=== PATIENT | female | born 1970 ===

== ENCOUNTER 2020-10-01 13:09 | Outpatient (REF) | payer MEDICAID, SELFPAY ==
--- NOTE | ~2020-10-01 | XR_ITS ---
EXAMINATION: XR CHEST CLINICAL INFORMATION: Positive TB test COMPARISON: Previous chest x-ray September 2016 TECHNIQUE: 2 views of the chest were obtained. FINDINGS: The cardiac and mediastinal contours are stable. There is chronic scarring or subsegmental atelectasis at the left lung base. This is similar to September 2016 exam. The right lung is clear. There is no pleural effusion or pneumothorax. Bony structures are unremarkable. XR/XR chest 2V IMPRESSION: No evidence of TB in the chest. Chronic scarring or subsegmental atelectasis at the left lung base similar to September 2016 exam.
--- NOTE | ~2020-10-01 | MM_ITS ---
EXAMINATION: MM SCREENING DIGITAL BREAST TOMOSYNTHESIS, BILATERAL CLINICAL INFORMATION: Screening. Asymptomatic. The lifetime risk of breast cancer based on the Tyrer-Cuzick Model is 7%. COMPARISON: Mammography: 11/02/2018, 10/23/2017, 08/04/2016; outside exam 08/11/2015 ([place]). TECHNIQUE: Digital breast tomosynthesis is performed in both the craniocaudal and mediolateral oblique views along with computer-aided detection (CAD). Synthesized 2D images are generated from the tomosynthesis. FINDINGS: There are scattered areas of fibroglandular density (ACR BI-RADS breast composition Category b). There are no significant masses, abnormal calcifications, or other abnormalities. Parenchymal pattern is similar to prior studies. There are scattered bilateral isolated and grouped round calcifications, most are dermal. There are no significant changes. MM/MM tomosynthesis screening BI IMPRESSION: No mammographic evidence of malignancy. ASSESSMENT: BI-RADS 2: Benign RECOMMENDATION: Routine annual mammography screening. This patient's information was entered into a reminder system with a target due date for their next mammogram.
== END 2020-10-01 13:10 | disposition home or self-care (01) ==
LOC: HO.MAMMO 13:09
PROVIDERS: PCP Internal Medicine; Visit Provider Internal Medicine
DX: Z12.31 Encounter for screening mammogram for malignant neoplasm of breast (principal); R76.11 Nonspecific reaction to tuberculin skin test without active tuberculosis
CPT/HCPCS: 71046; 77063; 77067

== ENCOUNTER 2021-03-04 17:09 | Outpatient (REF) | payer MEDICAID, SELFPAY ==
--- NOTE | ~2021-03-04 | XR_ITS ---
EXAMINATION: XR CHEST CLINICAL INFORMATION: Positive TB test COMPARISON: Previous chest x-ray September 2020 TECHNIQUE: 2 views of the chest were obtained. FINDINGS: The cardiac and mediastinal contours are stable. There is chronic subsegmental atelectasis or scarring at the left lung base in the left lower lobe similar to prior exam. The lungs are otherwise clear. There is no pleural effusion or pneumothorax. Bony structures are unremarkable. XR/XR chest 2V IMPRESSION: No evidence of TB in the chest. Chronic subsegmental atelectasis or scarring in the left lower lobe.
== END 2021-03-04 17:10 | disposition home or self-care (01) ==
LOC: HO.XRAY 17:09
PROVIDERS: PCP Internal Medicine; Visit Provider Internal Medicine
DX: R76.11 Nonspecific reaction to tuberculin skin test without active tuberculosis (principal)
CPT/HCPCS: 71046

== ENCOUNTER 2021-04-10 16:56 | Emergency (ER) | payer MEDICAID, SELFPAY ==
--- NOTE | ~2021-04-10 | CT_ITS ---
Indication: Brain injury EXAMINATION: CT the brain, CT cervical spine. Axial imaging with coronal and sagittal reformatted images. Radiation dose is 756 and 354. Comparison previous 02/28/2016. This CT examination was performed using dose optimization techniques as appropriate, variously including the following: *Automated exposure control *Adjustment of mA and/or kV according to patient size (this includes techniques or standardized protocols for targeted exams where dose is matched to indication/reason for exam; i.e. extremities or head) *Use of iterative reconstruction technique CT brain; There is no midline shift. There is no mass effect. There is no hemorrhage. The basal cisterns appear patent. The posterior fossa risk grossly within normal limits. There is no extra-axial collection. The saxena-white matter and ventricles are preserved. No evidence of fracture on bone windows. Small polyps in the left maxillary sinus. CT cervical spine; There is straightening of the normal cervical lordosis. This could be due to position or spasm. There is no acute fracture or dislocation. There is a new lucent lesion of bone involving the inferior aspect of C4. This could be a herniated Schmorl's node versus other. Measures [address]/CT cervical spine wo con IMPRESSION: Negative acute noncontrast CT of the brain. No acute fracture or dislocation of the cervical spine. Some reversal of the normal cervical lordosis may be due to position or spasm. There is a new lucent lesion of bone at C4. Etiology is indeterminate. Correlate with possible history of primary malignancy. Consider pre and post MRI and/or bone scan if indicated
--- NOTE | ~2021-04-10 | CT_ITS ---
Indication: Brain injury EXAMINATION: CT the brain, CT cervical spine. Axial imaging with coronal and sagittal reformatted images. Radiation dose is 756 and 354. Comparison previous 02/28/2016. This CT examination was performed using dose optimization techniques as appropriate, variously including the following: *Automated exposure control *Adjustment of mA and/or kV according to patient size (this includes techniques or standardized protocols for targeted exams where dose is matched to indication/reason for exam; i.e. extremities or head) *Use of iterative reconstruction technique CT brain; There is no midline shift. There is no mass effect. There is no hemorrhage. The basal cisterns appear patent. The posterior fossa risk grossly within normal limits. There is no extra-axial collection. The saexna-white matter and ventricles are preserved. No evidence of fracture on bone windows. Small polyps in the left maxillary sinus. CT cervical spine; There is straightening of the normal cervical lordosis. This could be due to position or spasm. There is no acute fracture or dislocation. There is a new lucent lesion of bone involving the inferior aspect of C4. This could be a herniated Schmorl's node versus other. Measures [address]/CT head/brain wo con IMPRESSION: Negative acute noncontrast CT of the brain. No acute fracture or dislocation of the cervical spine. Some reversal of the normal cervical lordosis may be due to position or spasm. There is a new lucent lesion of bone at C4. Etiology is indeterminate. Correlate with possible history of primary malignancy. Consider pre and post MRI and/or bone scan if indicated
[2021-04-10 16:58] VITALS: BP 117/83; BP 150/94; PULSE 100; RESP 18; TEMP 36.6; O2SAT 98; BMI 26.6
--- NOTE | 2021-04-10 19:05 | ED.GENADULT ---
HPI - General Adult General Chief complaint: General Medical Stated complaint: neck pain Time Seen by Provider: 04/10/21 20:54 Source: patient Mode of arrival: ambulatory Limitations: no limitations History of Present Illness HPI narrative: 51-year-old female presents to the ED posterior neck pain after whiplash movement due to incident on elevator. Patient states she was on elevator that was on the 6th floor and all of a sudden elevator went down to the 1st floor which caused the elevator to do a sudden jerk which caused her to have a neck whiplash movement she has had pain ever since. She states incident occurred around 16:00 at work. Patient states elevator did not crash to the ground and she did not fall in elevator and no one in the elevator fell to the ground and there was no smoke or fire. Patient states just elevator went down fasting causing a sudden jerk. Patient states pain on range of motion of neck. Patient denies any head injury, photophobia, nausea, or vomiting. Patient denies any tingling or paralysis of upper extremities. Related Data Previous Rx's Medication Instructions Recorded cyclobenzaprine 10 mg tablet 10 mg PO TID PRN #21 tab 04/10/21 naproxen 500 mg tablet 500 mg PO BID PRN #20 tab 04/10/21 Allergies Allergy/AdvReac Type Severity Reaction Status Date / Time No Known Allergies Allergy Verified 04/10/21 19:53 [No Known Allergies*] Review of Systems Review of Systems: Yes all other systems are reviewed and are negative Constitutional: Constitutional: Reports as per HPI and Reports no additional constitutional complaints Eyes: Eyes: Reports as per HPI and Reports no additional eye complaints ENT: Reports system reviewed and no additional complaints, except as documented, Reports as per HPI and Reports neck pain Cardiovascular: Cardiovascular: Reports as per HPI and Reports no additional cardiovascular complaints Respiratory: Respiratory: Reports as per HPI and Reports no additional respiratory complaints Gastrointestinal: Gastrointestinal: Reports as per HPI and Reports no additional gastrointestinal complaints Genitourinary: Genitourinary: Reports no additional female genitourinary complaints and Reports as per HPI Musculoskeletal: Musculoskeletal: Reports no additional musculoskeletal complaints, Reports as per HPI and Reports neck pain Neurologic: Reports system reviewed and no additional complaints, except as documented and Reports as per HPI Psychiatric: Psychiatric: Reports no additional psychiatric complaints and Reports as per HPI [facility] Social History Social History Advance Directives: No Advance Directives Information Provided: No Physical Exam Vital Signs: Vital Signs: Last Vital Signs Temp 98 F 04/10/21 16:58 Pulse 100 04/10/21 16:58 Resp 18 04/10/21 16:58 BP 117/83 04/10/21 16:58 Pulse Ox 98 04/10/21 16:58 Body Mass Index 26.6 Const: General: cooperative, healthy appearing, comfortable, no acute distress, well developed, alert, awake and Physically active Orientation/consciousness: patient oriented x3 HENMT: Head: Yes normal to inspection, Yes No palpable skull fracture present, Yes normocephalic, Yes atraumatic and No abrasion Eyes: General: appearance normal, both eyes and all related structures Neck: Other: Pain on range of motion. Neck: Yes normal visual inspection, Yes full ROM, Yes no lymphadenopathy, Yes no meningeal signs, Yes trachea midline, Yes supple, No anterior neck swelling and Yes tender (Posterior tenderness on palpation.) Chest: Chest palpation & inspection: normal inspection of the chest and normal palpation of entire chest wall Resp: Effort & Inspection: normal respiratory effort and able to speak in complete sentences Auscultation: clear to auscultation bilaterally Cardio: Jugular venous distension: no JVD Heart sounds: S1 normal heart sound present and S2 normal heart sound present GI: Inspection: Yes normal to inspection and No abdominal wall ecchymosis Palpation (GI): Soft to palpation, not firm, nontender and no guarding : General: No CVA tenderness and Yes no CVA tenderness Back/Spine/Pelvis: Back: no CVA tenderness, No CVA tenderness and No back tenderness Skin: General skin exam: no rashes or lesions noted and elasticity normal Neuro: Other: All extremites are equal strenght and 5+. negatve for pronator drift. negative for facial droop or slurred speech. General: patient oriented x3, gait normal, no meningeal signs and CN's II-XI intact bilaterally Cranial nerves: Yes CN's II-XII intact bilaterally Extrem: General: Yes normal to inspection and Yes full ROM Psych: Appearance: grossly normal, well kempt and not disheveled Course Course Course Narrative: Patient sent for head CT and cervical spine CT. Tylenol and muscle relaxers ordered. Patient placed in soft collar. Reevaluation(s) Reevaluation #1: Head CT cervical spine CT negative for any brain bleed, neck fracture, or neck subluxation. CT scan showed lucency of C4 which radiologist states may indicate primary malignancy. Patient and her partner made aware of this and informed to follow-up with primary care for MRI. Patient discharged with pain medication and muscle relaxer. Patient given copy of CT scan results to show primary care provider. Time: 21:25 Medical Decision Making MDM Narrative Medical decision making narrative: Cervical sprain Discharge Plan Discharge Clinical Impression: Cervical sprain, Acute whiplash injury Patient Disposition: Home, Self-Care Instructions: Cervical Sprain (ED) Additional Instructions: jones tomograf?a computarizada de la chico result? negativa para cualquier hemorragia cerebral o fractura de cr?reese. Jones tomograf?a computarizada de la columna cervical result? negativa para cualquier fractura de la columna cervical. La tomograf?a computarizada muestra jose nueva lucidez en C4; se recomienda un seguimiento con el proveedor de atenci?n primaria para jose resonancia magn?donny para jose evaluaci?n adicional. Regrese al servicio de urgencias de inmediato si tiene dolor de chico, fotofobia, n?useas, v?mitos, hinchaz?n del daphnie, empeoramiento del dolor de daphnie, fiebre, escalofr?os, tos con ronald, sangrado rectal, orina con ronald, dolor abdominal, dolor de pecho, dificultad para respirar, entumecimiento / hormigueo en la parte superior extremidad, par?lisis de las extremidades superiores / inferiores, o cualquier otro s?ntoma relacionado. Prescriptions: New naproxen 500 mg tablet 500 mg PO BID PRN (Reason: pain) Qty: 20 RF: 0 cyclobenzaprine 10 mg tablet 10 mg PO TID PRN (Reason: pain) Qty: 21 RF: 0 Stand Alone Forms: Work/School Release Interventions: ED Discharge Assessment Last Done: 04/10/21 21:32 Discharge Date/Time: 04/10/21 21:35 Print Language: Greek
[2021-04-10] MEDS: Acetaminophen 325 MG TABLET 650 MG PO (20:11)
[2021-04-10] MEDS: Cyclobenzaprine HCl 10 MG TABLET PO (20:11)
== END 2021-04-10 21:35 | disposition home or self-care (01) ==
PROVIDERS: Emergency Provider Emergency Medicine; PCP Internal Medicine
DX: S13.4XXA Sprain of ligaments of cervical spine, initial encounter (principal); X58.XXXA Exposure to other specified factors, initial encounter; Y93.9 Activity, unspecified; Y92.9 Unspecified place or not applicable; Y99.9 Unspecified external cause status
CPT/HCPCS: 70450; 72125; 99284

== ENCOUNTER 2021-04-22 17:39 | Outpatient (REF) | payer MEDICAID, SELFPAY ==
--- NOTE | ~2021-04-22 | MR_ITS ---
EXAMINATION: MR CERVICAL SPINE WITHOUT CONTRAST CLINICAL INFORMATION: Neck pain. Bilateral finger numbness. COMPARISON: Cervical spine CT scan 04/10/2021. TECHNIQUE: MRI of the cervical spine was obtained using routine sequences without contrast. FINDINGS: Alignment is normal. Vertebral body heights are preserved. There are type I degenerative endplate changes at C4-C5. Mixed predominantly type II degenerative endplate changes at C3-C4. There is slight loss of intervertebral disc height and T2 signal intensity at multiple levels related to disc degeneration. There is no canal compromise or cord compression. No abnormal intramedullary signal changes. The cervicomedullary junction is normal. Limited visualization of the posterior fossa reveals no L5. Occipital condyles and lateral C1 masses are intact. There is degenerative arthrosis of the atlantodental joint. C1-C2 articular facets are unremarkable. At C2-C3 there is no canal or neuroforaminal compromise. At C3-C4 there is a slightly bulging disc. No canal stenosis. No neuroforaminal encroachment. At C4-C5 there is a slightly bulging disc. No canal stenosis. No neuroforaminal encroachment. At C5-C6 there is a slightly bulging disc. No canal stenosis. No neuroforaminal encroachment. At C6-C7 there is a left central protrusion superimposed upon a bulging disc. No canal stenosis. No neuroforaminal encroachment. At C7-T1 the annular contour is normal. No canal or neuroforaminal compromise. An aberrant right subclavian artery is partially included within the suyra-pp-reth of this examination. Visualized soft tissues of the neck are normal. MR/MR cervical spine wo con IMPRESSION: There is disc degeneration at multiple levels within the cervical spine including a shallow left central protrusion at C6-C7 and slightly bulging discs at multiple additional levels. No canal or neuroforaminal compromise. No cord compression or abnormal intramedullary signal changes. Incidental note is made of an aberrant right subclavian artery.
== END 2021-04-22 17:40 | disposition home or self-care (01) ==
LOC: HO.MRI 17:39
PROVIDERS: Visit Provider Internal Medicine
DX: M54.2 Cervicalgia (principal); M89.9 Disorder of bone, unspecified
CPT/HCPCS: 72141

== ENCOUNTER 2021-07-09 14:00 | Outpatient (RCR) | payer MEDICAID, SELFPAY | END 2021-07-17 14:21 | disposition home or self-care (01) | LOC: HO.PT 14:00 | PROVIDERS: PCP Internal Medicine; Visit Provider Internal Medicine | DX: M54.2 Cervicalgia (principal) | CPT/HCPCS: 97110; 97140; 97161 ==

== ENCOUNTER → 2021-10-17 09:06 | Outpatient (BNVA) | payer MEDICAID, SELFPAY | PROVIDERS: PCP Internal Medicine; Referring Provider Internal Medicine; Visit Provider Surgery | DX: L72.11 Pilar cyst (principal) | CPT/HCPCS: 99202 ==

== ENCOUNTER 2021-11-12 10:20 | Outpatient (REF) | payer MEDICAID, SELFPAY ==
[2021-11-12 10:42] VITALS: BMI 25.7
[2021-11-12 10:43] VITALS: BP 121/72; PULSE 74; RESP 16; TEMP 36.4; O2SAT 100
[2021-11-12 11:46] VITALS: BP 123/78; PULSE 80; RESP 16; O2SAT 99
--- NOTE | 2021-11-12 13:54 | W.PM.OPN ---
Operative Note Operative Note Date of Service: 11/12/21 Narrative: Preoperative diagnosis: Pilar cyst x2 posterior scalp Postoperative diagnosis: same Procedure: excision of Pilar cyst x2 posterior scalp Surgeon: Harish Holliday MD Assembly Machine Set Up Mechanic: no physician Anesthesia: local Indications for procedure: 51-year-old female presenting with palpable Pilar cyst x2 the posterior scalp Operative findings: bilateral 1.5 cm Pilar cyst in the posterior scalp Specimen: Pilar cyst x2 Estimated blood loss: less than 1 mL Complications: none Procedure details: patient was brought to the minor surgery suite placed in a sitting position. The site of surgery was confirmed by the patient in the posterior scalp. Two 1.5 cm Pilar cyst were identified. After assuring informed consent the patient is scalp was prepped with Betadine and draped in a sterile fashion. A surgical time-out was called the consent confirmed. Local anesthesia consisting of 1% lidocaine with epinephrine was then infiltrated over each cyst. A longitudinal incision was then created with a scalpel beginning on the posterior right scalp. Incision was carried down through subcutaneous tissue up to the cyst wall. Blunt dissection was then used to dissect the cyst from the surrounding subcutaneous tissue. This was sent to pathology for further examination. Skin was then closed using interrupted 3-0 Prolene sutures. Attention was then directed to the left posterior scalp lesion. An incision was made with a scalpel carried out through subcutaneous tissue. the cyst was then dissected free using a hemostat. This was then passed off the table and sent to pathology for further examination. Skin was closed using interrupted 3-0 Prolene sutures. Bacitracin was then applied. The patient tolerated the procedure well. Sponge, instrument, and needle counts were correct. The patient was discharged to home in stable condition.
== END 2021-11-12 10:21 | disposition home or self-care (01) ==
LOC: HO.MS 10:20
PROVIDERS: Visit Provider Surgery
PROC: (CPT 11422; principal; 2021-11-12 11:30)
DX: L72.11 Pilar cyst (principal)
CPT/HCPCS: 11422 ×2; 88304

== ENCOUNTER 2021-12-20 14:07 | Outpatient (REF) | payer MEDICAID, SELFPAY ==
--- NOTE | ~2021-12-20 | MM_ITS ---
EXAMINATION: MM SCREENING DIGITAL BREAST TOMOSYNTHESIS, BILATERAL CLINICAL INFORMATION: Screening. Asymptomatic. The lifetime risk of breast cancer based on the Tyrer-Cuzick Model is 7%. COMPARISON: Mammography: 10/01/2020, 11/02/2018, 10/23/2017 TECHNIQUE: Digital breast tomosynthesis is performed in both the craniocaudal and mediolateral oblique views along with computer-aided detection (CAD). Synthesized 2D images are generated from the tomosynthesis. FINDINGS: There are scattered areas of fibroglandular density (ACR BI-RADS breast composition Category b). There are no significant masses, abnormal calcifications, or other abnormalities. Parenchymal pattern is similar to prior studies. MM/MM tomosynthesis screening BI IMPRESSION: No mammographic evidence of malignancy. ASSESSMENT: BI-RADS 1: Negative RECOMMENDATION: Routine annual mammography screening. This patient's information was entered into a reminder system with a target due date for their next mammogram.
== END 2021-12-20 14:08 | disposition home or self-care (01) ==
LOC: HO.MAMMO 14:07
PROVIDERS: Visit Provider Internal Medicine
DX: Z12.31 Encounter for screening mammogram for malignant neoplasm of breast (principal)
CPT/HCPCS: 77063; 77067

== ENCOUNTER 2022-02-08 08:29 | Outpatient (REF) | payer MEDICAID, SELFPAY ==
[2022-02-08 09:58] LABS: Alanine Aminotransferase 38 U/L (0-31); Aspartate Amino Transferase 22 U/L (5-31)
[2022-02-08 12:04] LABS: CT PCR NOT DETECTED (Not Detect.); NG PCR NOT DETECTED (Not Detect.)
[2022-02-10 07:42] LABS: Syphilis Screen Nonreactive (Nonreactive)
[2022-02-10 07:51] LABS: HIV AB/AG Nonreactive (Nonreactive); HIV Num 1 0.06 S/CO (0.00-0.99)
== END 2022-02-08 08:30 | disposition home or self-care (01) ==
LOC: HO.LAB 08:29
PROVIDERS: PCP Internal Medicine; Visit Provider Internal Medicine Infectious Disease
DX: Z01.818 Encounter for other preprocedural examination (principal); Z11.3 Encounter for screening for infections with a predominantly sexual mode of transmission
CPT/HCPCS: 84450; 84460; 86780; 87389; 87491; 87591

== ENCOUNTER 2022-07-23 15:59 | Outpatient (REF) | payer MEDICAID, SELFPAY ==
[2022-07-23 16:20] LABS: MANUAL DIFF FLAG NO
[2022-07-23 17:30] LABS: Basophils Percent Auto 0.4 % (0-2); Eosinophils Absolute Auto 0.1 X10*3/uL (0.0-0.4); Eosinophils Percent Auto 1.3 % (0-4); Hematocrit 40.3 % (37.0-47.0); Hemoglobin 13.1 g/dl (12.0-16.0); Imm Gran Abs Auto 0.11 X10*3/uL (0.00-0.03); Imm Gran Pct Auto 1.3 % (0.0-0.4); Lymphocytes Absolute Auto 2.6 X10*3/uL (1.2-4.9); Lymphocytes Percent Auto 30.7 % (20-40); Mean Corpuscular HGB Conc 32.5 g/dl (31.0-35.0); Mean Corpuscular Hemoglobin 29.3 pg (27.0-33.0); Mean Corpuscular Volume 90.2 fL (80.0-98.0); Mean Platelet Volume 9.1 fL (9.4-12.3); Monocytes Absolute Auto 0.5 X10*3/uL (0.1-1.2); Monocytes Percent Auto 6.1 % (2-11); Neutrophils Absolute Auto 5.2 x10*3/uL (2.0-8.3); Neutrophils Percent Auto 60.2 % (45-73); Platelet Count 447 X10*3/uL (160-400); Red Blood Count 4.47 X10*6/uL (4.20-5.50); Red Cell Distribution Width 12.9 % (11.0-16.0); White Blood Count 8.6 X10*3/uL (4.8-10.8)
[2022-07-23 17:56] LABS: Alanine Aminotransferase 35 U/L (0-31); Aspartate Amino Transferase 20 U/L (5-31); Estimated Glomerular Filt Rate > 60
[2022-07-24 06:31] LABS: CT PCR NOT DETECTED (Not Detect.); NG PCR NOT DETECTED (Not Detect.)
[2022-07-25 08:52] LABS: HBsAGNum1 0.26 S/CO (0.00-0.99); HIV AB/AG Nonreactive (Nonreactive); HIV Num 1 0.06 S/CO (0.00-0.99); Hepatitis B Surface Antigen Negative (Negative); ~HepC Num1 0.13 S/CO (0.00-0.79); ~Hepatitis C Antibody Nonreactive (Nonreactive)
[2022-07-25 08:58] LABS: Syphilis Screen Nonreactive (Nonreactive)
== END 2022-07-23 16:00 | disposition home or self-care (01) ==
LOC: HO.LAB 15:59
PROVIDERS: PCP Internal Medicine; Visit Provider Internal Medicine Infectious Disease
DX: Z01.818 Encounter for other preprocedural examination (principal); Z20.2 Contact with and (suspected) exposure to infections with a predominantly sexual mode of transmission
CPT/HCPCS: 0353U; 82565; 84450; 84460; 85025; 86780; 86803; 87340; 87389

== ENCOUNTER 2022-11-08 08:57 | Outpatient (REF) | payer MEDICAID, SELFPAY ==
[2022-11-08 09:13] LABS: MANUAL DIFF FLAG NO
[2022-11-08 09:34] LABS: Basophils Percent Auto 0.6 % (0-2); Eosinophils Absolute Auto 0.1 X10*3/uL (0.0-0.4); Eosinophils Percent Auto 0.8 % (0-4); Hematocrit 42.2 % (37.0-47.0); Hemoglobin 13.7 g/dl (12.0-16.0); Imm Gran Abs Auto 0.03 X10*3/uL (0.00-0.03); Imm Gran Pct Auto 0.4 % (0.0-0.4); Lymphocytes Absolute Auto 2.1 X10*3/uL (1.2-4.9); Lymphocytes Percent Auto 29.7 % (20-40); Mean Corpuscular HGB Conc 32.5 g/dl (31.0-35.0); Mean Corpuscular Hemoglobin 28.7 pg (27.0-33.0); Mean Corpuscular Volume 88.5 fL (80.0-98.0); Mean Platelet Volume 9.4 fL (9.4-12.3); Monocytes Absolute Auto 0.4 X10*3/uL (0.1-1.2); Neutrophils Absolute Auto 4.4 x10*3/uL (2.0-8.3); Neutrophils Percent Auto 62.5 % (45-73); Platelet Count 335 X10*3/uL (160-400); Red Blood Count 4.77 X10*6/uL (4.20-5.50); Red Cell Distribution Width 13.2 % (11.0-16.0); White Blood Count 7.1 X10*3/uL (4.8-10.8)
[2022-11-08 10:08] LABS: Alanine Aminotransferase 50 U/L (0-31); Aspartate Amino Transferase 25 U/L (5-31); Estimated Glomerular Filt Rate > 60
[2022-11-08 11:48] LABS: CT PCR NOT DETECTED (Not Detect.); NG PCR NOT DETECTED (Not Detect.)
[2022-11-10 04:40] LABS: HBsAGNum1 0.29 S/CO (0.00-0.99); HIV AB/AG Nonreactive (Nonreactive); HIV Num 1 0.07 S/CO (0.00-0.99); Hepatitis B Surface Antigen Negative (Negative); ~HepC Num1 0.28 S/CO (0.00-0.79); ~Hepatitis C Antibody Nonreactive (Nonreactive)
[2022-11-10 04:55] LABS: Syphilis Screen Nonreactive (Nonreactive)
== END 2022-11-08 08:58 | disposition home or self-care (01) ==
LOC: HO.LAB 08:57
PROVIDERS: PCP Internal Medicine; Visit Provider Internal Medicine Infectious Disease
DX: Z01.818 Encounter for other preprocedural examination (principal); Z11.4 Encounter for screening for human immunodeficiency virus [HIV]
CPT/HCPCS: 0353U; 82565; 84450; 84460; 85025; 86780; 86803; 87340; 87389

== ENCOUNTER 2022-11-13 12:42 | Outpatient (REF) | payer MEDICAID, SELFPAY ==
[2022-11-18 22:08] LABS: HPV mRNA E6/E7 rflx Not Detected (Not Detected)
== END 2022-11-13 12:43 | disposition home or self-care (01) ==
LOC: HO.LNP 12:42
PROVIDERS: PCP Internal Medicine; Visit Provider Obstetrics & Gynecology
DX: Z12.4 Encounter for screening for malignant neoplasm of cervix (principal); Z11.51 Encounter for screening for human papillomavirus (HPV); N95.0 Postmenopausal bleeding; D25.9 Leiomyoma of uterus, unspecified
CPT/HCPCS: 58100; 87624; 88142; 88305; 99202

== ENCOUNTER → 2022-11-20 08:47 | Outpatient (BNVA) | payer MEDICAID, SELFPAY | PROVIDERS: PCP Internal Medicine; Visit Provider Obstetrics & Gynecology | DX: N95.0 Postmenopausal bleeding (principal) | CPT/HCPCS: 99212 ==

== ENCOUNTER 2022-11-21 10:42 | Day surgery (SDC) | payer MEDICAID, SELFPAY ==
[2022-11-21 11:37] VITALS: BP 119/71; PULSE 89; RESP 20; TEMP 36.1; O2SAT 97; BMI 27.2
[2022-11-21 11:52] LABS: UPreg QC Valid YES; Urine Pregnancy NEGATIVE (NEGATIVE)
[2022-11-21] MEDS: Lactated Ringers 1,000 ML 50 ML IVCONT (11:59)
--- NOTE | 2022-11-21 14:04 | HO.ANESPROP2 ---
HPI - Anesthesia Eval Consult details Narrative: for D&C, hysteroscopy PMFSH Active Problems Active Problems: All Active Problems (Updated 11/20/22 @ 09:18 by Luca Richter MD) Uterine myoma (Acute) Postmenopausal bleeding (Acute) Anxiety (Acute) Pilar cyst of scalp (Acute) HIV (human immunodeficiency virus infection) (Acute) Hepatitis C (Acute) Past Medical History Medical History Anxiety Hepatitis C HIV (human immunodeficiency virus infection) Family History Family History Paternal Aunt Throat cancer Family history of problems with anesthesia: No Surgical History Surgical History History of excision of mass (11/12/21) History of tubal ligation History of Problems with Anesthesia: No Social History Social History Household Members: Spouse Household Members Other:: son Housing: House Alcohol intake: current Alcohol intake frequency: does not drink Patient Tobacco Use Status: Never used Tobacco Are you DNR?: No Advance Directives: No Advance Directives Information Provided: Yes Nutrition Risks: No Nutritional Risk Patient : No Current occupational status: employed Current occupation: [employer] Sexual orientation: Straight/Heterosexual Gender identity: Female Meds Allergies Allergy/AdvReac Type Severity Reaction Status Date / Time No Known Allergies Allergy Verified 11/20/22 09:13 [No Known Allergies*] Active Medications: Current Medications Lactated Ringer's (Lr) 1,000 mls @ 50 mls/hr IVCONT .Q20H YAEL Last Admin: 11/21/22 11:59 Dose: 50 mls/hr Home Medications Medication Instructions Recorded Confirmed Last Taken Type sertraline 25 mg tablet 25 mg PO DAILY 10/17/21 11/19/21 Unknown History emtricitabine 200 mg-tenofovir 1 tab PO DAILY 11/13/22 Unknown History disoproxil fumarate 300 mg tablet valacyclovir 500 mg tablet 500 mg PO BID 11/13/22 Unknown History Exam Exam Date and Time: November 21, 2022 1404 Height,Weight and Vital Signs: Height 5 ft 4 in Weight 71.817 kg Last Vital Signs Temp 97 F 11/21/22 11:37 Pulse 89 11/21/22 11:37 Resp 20 11/21/22 11:37 BP 119/71 11/21/22 11:37 Pulse Ox 97 11/21/22 11:37 O2 Del Method Room Air 11/21/22 11:37 Pertinent Lab Results Pertinent Lab Results: Laboratory Tests 11/21/22 11:30 Urine Test NEGATIVE Airway Mallampati Class: I TM Dist: >3cm Neck ROM: Full Loose/Missing/Broken Teeth: No Heart: ok Lungs: ok Assessment and Plan Assessment Anesthesia Assessment: Anesthesia Plan Discussed and Chart Reviewed Final Anesthetic Review Family History of Problems with Anesthesia: No History of Problems with Anesthesia: No NPO: Yes ASA Class: III Final Preanesthetic Review: No Changes in Pt Med Stat, Meds/Allgs Chart Reviewed, Consent Obtained/Reviewed and Anes Risks/Benef Reviewed Patient Risk: Intermediate Procedure Risk: Low Anesthetic Plan Anesthetic Plan: GA and Agree w/ Assess. and Plan Disposition: Standard PACU
--- NOTE | 2022-11-21 14:42 | P.BOP_ITS ---
Brief Operative Note Date of Service: 11/21/22 Pre-op diagnosis: Postmenopausal bleeding Endometrial polyp with focal glandular crowding on EMB pathology Post-op diagnosis: other (Endometrial polyp) Procedure: Hysteroscopy D&C polypectomy Surgeon: Luca Richter MD Anesthesia: GLMA Was an Customer Service Professional used for this Procedure?: No Estimated blood loss (mL): 0 Pathology: other (Endometrial Scrapping. Polyp) Condition: stable Disposition: PACU
--- NOTE | 2022-11-21 14:43 | P.OP_ITS ---
Operative Note Operative Note Date of Service: 11/21/22 Narrative: Preop Diagnosis: Postmenopausal bleeding, Endometrial polyp with focal glandular crowding on EMB pathology Operation: Diagnostic Hysteroscopy, Dilataion & Curettage and polypectomy Post Op Diagnosis: Endometrial Polyp QBL: Minimal Anesthesia: GLMA Surgeon: Luca Richter MD Setter Cold Rolling Machine: None Complication: None Pathology: Endometrial Scrapings, Endometrial polyp Procedure: The patient was put in the dorsal lithotomy position, scrubbed, and draped in the usual manner. A sterile speculum was inserted in the patient's vagina. The anterior lip of the cervix was grasped with a single tooth tenaculum. The cervix was dilated up to 5 mm, then the scope was inserted in the patient's uterus. Inspection revealed endometrial polyp. The Myosure Reach device was used; it was introduced through the operative channel and polypectomy done with no complications. The scope was then taken out from the uterine cavity, sharp curettings was carried on with minimal to moderate amount of tissues retrieved. At the end of the procedure, all instruments were taken out of the patient uterine and vaginal cavity. The single tooth tenaculum was removed and homeostasis was assured using pressure,. The patient tolerated the procedure well and was transferred to the PACU in a stable condition.
[2022-11-21 14:55] VITALS: BP 111/70; PULSE 73; RESP 17; TEMP 36.6; O2SAT 96
[2022-11-21 15:00] VITALS: BP 122/73; PULSE 69; RESP 17; O2SAT 95
[2022-11-21 15:05] VITALS: BP 116/72; PULSE 80; RESP 18; O2SAT 96
[2022-11-21 15:10] VITALS: BP 115/73; PULSE 67; RESP 18; O2SAT 97
[2022-11-21 15:25] VITALS: BP 111/69; PULSE 70; RESP 18; TEMP 36.8; O2SAT 97
== END 2022-11-21 15:58 | disposition home or self-care (01) ==
PROVIDERS: PCP Internal Medicine; Visit Provider Obstetrics & Gynecology
PROC: 0UDB8ZZ Extraction of Endometrium, Via Natural or Artificial Opening Endoscopic (ICD-10-PCS; CPT 58558; principal; 2022-11-21 13:40)
DX: N95.0 Postmenopausal bleeding (principal); N84.0 Polyp of corpus uteri; B20 Human immunodeficiency virus [HIV] disease; B19.20 Unspecified viral hepatitis C without hepatic coma; F41.1 Generalized anxiety disorder; Z79.899 Other long term (current) drug therapy; Z98.51 Tubal ligation status
CPT/HCPCS: 58558; 81025; 88305; J1100; J1885; J2370; J2405; J3010

== ENCOUNTER → 2022-12-02 13:15 | Outpatient (BNVA) | payer MEDICAID, SELFPAY | PROVIDERS: PCP Internal Medicine; Visit Provider Obstetrics & Gynecology | DX: N95.0 Postmenopausal bleeding (principal); N84.0 Polyp of corpus uteri; Z98.890 Other specified postprocedural states | CPT/HCPCS: 99212 ==

== ENCOUNTER 2023-01-01 12:22 | Outpatient (REF) | payer MEDICAID, SELFPAY ==
--- NOTE | ~2023-01-01 | MM_ITS ---
EXAMINATION: MM SCREENING DIGITAL BREAST TOMOSYNTHESIS, BILATERAL CLINICAL INFORMATION: Screening. Asymptomatic. The lifetime risk of breast cancer based on the Tyrer-Cuzick Model is 7%. COMPARISON: Mammography: 12/18/2021, 10/01/2020, 11/02/2018, 10/23/2017. TECHNIQUE: Digital breast tomosynthesis is performed in both the craniocaudal and mediolateral oblique views along with computer-aided detection (CAD). Synthesized 2D images are generated from the tomosynthesis. FINDINGS: The breasts are heterogeneously dense, which may obscure small masses (ACR BI-RADS breast composition Category c). There are no suspicious masses, suspicious grouped calcifications, or areas of architectural distortion. The parenchymal pattern is stable from prior exams. There are scattered dermal calcifications bilaterally. MM/MM tomosynthesis screening BI IMPRESSION: No mammographic evidence of malignancy. ASSESSMENT: BI-RADS BI-RADS 2 - Benign Findings RECOMMENDATION: Routine annual mammography screening. 1 year F/U This examination should not preclude the clinical evaluation of a suspicious palpable abnormality. This patient's information was entered into a reminder system with a target due date for their next mammogram.
== END 2023-01-01 12:23 | disposition home or self-care (01) ==
LOC: HO.MAMMO 12:22
PROVIDERS: PCP Internal Medicine; Visit Provider Internal Medicine
DX: Z12.31 Encounter for screening mammogram for malignant neoplasm of breast (principal)
CPT/HCPCS: 77063; 77067

== ENCOUNTER → 2023-01-01 12:45 | Outpatient (BNV) | payer MEDICAID, SELFPAY | PROVIDERS: PCP Internal Medicine; Visit Provider Radiology Diagnostic Radiology | DX: Z12.31 Encounter for screening mammogram for malignant neoplasm of breast (principal) | CPT/HCPCS: 77063; 77067 ==

== ENCOUNTER 2023-01-06 11:45 | Outpatient (REF) | payer MEDICAID, SELFPAY ==
[2023-01-06 12:03] LABS: MANUAL DIFF FLAG NO
[2023-01-06 12:45] LABS: Basophils Percent Auto 0.4 % (0-2); Eosinophils Absolute Auto 0.1 X10*3/uL (0.0-0.4); Eosinophils Percent Auto 0.8 % (0-4); Hemoglobin 13.1 g/dl (12.0-16.0); Imm Gran Abs Auto 0.03 X10*3/uL (0.00-0.03); Imm Gran Pct Auto 0.4 % (0.0-0.4); Lymphocytes Absolute Auto 2.4 X10*3/uL (1.2-4.9); Lymphocytes Percent Auto 33.5 % (20-40); Mean Corpuscular HGB Conc 32.8 g/dl (31.0-35.0); Mean Corpuscular Hemoglobin 28.5 pg (27.0-33.0); Mean Corpuscular Volume 87.1 fL (80.0-98.0); Mean Platelet Volume 9.4 fL (9.4-12.3); Monocytes Absolute Auto 0.5 X10*3/uL (0.1-1.2); Monocytes Percent Auto 7.1 % (2-11); Neutrophils Absolute Auto 4.2 x10*3/uL (2.0-8.3); Neutrophils Percent Auto 57.8 % (45-73); Platelet Count 306 X10*3/uL (160-400); Red Blood Count 4.59 X10*6/uL (4.20-5.50); Red Cell Distribution Width 12.4 % (11.0-16.0); White Blood Count 7.2 X10*3/uL (4.8-10.8)
[2023-01-06 13:45] LABS: Alanine Aminotransferase 26 U/L (0-31); Aspartate Amino Transferase 19 U/L (5-31); Estimated Glomerular Filt Rate > 60
[2023-01-06 15:14] LABS: CT PCR NOT DETECTED (Not Detect.); NG PCR NOT DETECTED (Not Detect.)
[2023-01-07 04:17] LABS: Syphilis Screen Nonreactive (Nonreactive)
[2023-01-07 04:19] LABS: HIV AB/AG Nonreactive (Nonreactive); HIV Num 1 0.05 S/CO (0.00-0.99)
== END 2023-01-06 11:46 | disposition home or self-care (01) ==
LOC: HO.LAB 11:45
PROVIDERS: PCP Internal Medicine; Visit Provider Internal Medicine Infectious Disease
DX: Z01.812 Encounter for preprocedural laboratory examination (principal)
CPT/HCPCS: 0353U; 82565; 84450; 84460; 85025; 86780; 87389

== ENCOUNTER 2023-01-21 23:25 | Emergency (ER) | payer MEDICAID, SELFPAY ==
--- NOTE | ~2023-01-21 | XR_ITS ---
EXAMINATION: XR SHOULDER, RIGHT CLINICAL INFORMATION: Pain. COMPARISON: None available. TECHNIQUE: AP external rotation, Grashey, scapular Y, and axillary views of the right shoulder. FINDINGS: The bone mineralization is normal. The joint spaces are maintained. There is no fracture. There is a 1.5 cm elongated calcification along the lateral humeral head. XR/XR shoulder RT min 2V IMPRESSION: No acute osseous abnormality. 1.5 cm elongated calcification along the lateral humeral head likely calcification within a tendon/calcific tendinosis.
[2023-01-21 23:37] VITALS: BP 139/89; PULSE 92; RESP 17; TEMP 36.6; O2SAT 97; BMI 27.5
[2023-01-22 02:53] VITALS: BP 129/75; PULSE 78; RESP 16; TEMP 36.1; O2SAT 96
[2023-01-22 05:14] VITALS: BP 133/86; PULSE 62; RESP 16; TEMP 36.9; O2SAT 98
--- NOTE | 2023-01-22 07:12 | ED_ITS ---
HPI - General Adult General Chief complaint: Extremity Problem Stated complaint: shoulder pain Time Seen by Provider: 01/22/23 06:56 Source: patient Mode of arrival: ambulatory Limitations: no limitations History of Present Illness HPI narrative: 52-year-old female presents with right shoulder pain. The pain started last night when she was lifting her arm. The pain is severe. Pain radiates to her elbow. Is worse with movement. Better with rest. There is no numbness or tingling. She does have full range of motion but is significantly painful with any sort of movement. She denies any falls or other injury. She denies previous injury to her right shoulder. Prior treatment included tramadol which did not assist with her pain. Related Data Home Medications Medication Instructions Recorded Confirmed sertraline 25 mg tablet 25 mg PO DAILY 10/17/21 11/19/21 emtricitabine 200 mg-tenofovir 1 tab PO DAILY 11/13/22 disoproxil fumarate 300 mg tablet valacyclovir 500 mg tablet 500 mg PO BID 11/13/22 Previous Rx's Medication Instructions Recorded meloxicam 15 mg tablet 15 mg PO DAILY #20 tabs 01/22/23 Allergies Allergy/AdvReac Type Severity Reaction Status Date / Time No Known Allergies Allergy Verified 01/21/23 23:37 [No Known Allergies*] Review of Systems Review of Systems: CONSTITUTIONAL: Denies weight loss, fever and chills. HEENT: Denies changes in vision and hearing. RESPIRATORY: Denies SOB and cough. CV: Denies palpitations no CP. GI: Denies abdominal pain, nausea, vomiting and diarrhea. : Denies dysuria and urinary frequency. MSK: + myalgia and joint pain. SKIN: Denies rash and pruritus. NEUROLOGICAL: Denies headache and syncope. PSYCHIATRIC: Denies recent changes in mood. Denies anxiety and depression. All other ROS are negative unless in HPI PMF Past Medical History Medical History Anxiety Hepatitis C HIV (human immunodeficiency virus infection) Surgical History History of excision of mass (11/12/21) History of hysteroscopy History of tubal ligation Family History Family History Paternal Aunt Throat cancer Social History Social History Household Members: Spouse Household Members Other:: son Housing: House Alcohol intake: current Alcohol intake frequency: does not drink Patient Tobacco Use Status: Never used Tobacco Advance Directives: No Advance Directives Information Provided: No Current occupational status: employed 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 Sexual orientation: Straight/Heterosexual Gender identity: Female Physical Exam ED Vital Signs: Vital Signs - 24 hr 01/21/23 23:37 01/22/23 02:53 01/22/23 05:14 Temperature 97.8 F 97.0 F 98.4 F Pulse Rate 92 78 62 Respiratory Rate 17 16 16 Blood Pressure 139/89 129/75 133/86 Pulse Oximetry 97 96 98 Oxygen Delivery Method Room Air Room Air Room Air BMI result Body Mass Index 27.5 GEN: Well developed, no acute distress, alert, oriented HEENT: Normocephalic, atraumatic, normal external ears, nose appears normal Eyes: Normal to appearance Neck: Supple, no lymphadenopathy Respiratory: Talks in complete sentences, no respiratory distress Extremities: No clubbing cyanosis or edema, neurovascularly intact, tenderness over the anterior and lateral aspect of the right shoulder, no joint swelling, no warmth or redness to the joint. Full range of motion although slightly painful range of motion especially with abduction and flexion of the shoulder. Able to internally and externally rotate although with tenderness. Neurologic: No focal neurologic deficits, cranial nerves 2-12 intact, gait normal Skin: No rash Medical Decision Making Medical Decision Making MDM Narrative: Patient presents with acute right shoulder pain. Examination revealed tenderness over the lateral and anterior aspect of the shoulder. Differential diagnosis includes sprain, strain, tendinitis, bursitis. Doubt fracture. I have ordered an x-ray to rule out any sort of acute traumatic injury. She is neurovascularly intact. Doubt vascular injury. Differential Diagnosis Differential Diagnoses: The differential diagnosis associated with the presenta tion includes (See above) Radiology Impression Discussion of test interpretation with radiology: I have reviewed the radiologist's reading. Radiologist Impression: XR/XR shoulder RT min 2V IMPRESSION: No acute osseous abnormality. ? 1.5 cm elongated calcification along the lateral humeral head likely calcification within a tendon/calcific tendinosis. Dictated By: Jordan Madrid Signed By: <Electronically signed by Jordan? Madrid in OV> 01/22/23 0051 I independently reviewed the images and agree with Radiology interpretation Prescription Management I considered prescription management with: Pain Medication Discharge Plan Discharge Clinical Impression: Right shoulder strain Patient Disposition: Home, Self-Care Instructions: Muscle Strain (ED), Shoulder Pain (ED) Prescriptions: New meloxicam 15 mg tablet 15 mg PO DAILY Qty: 20 0RF No Action sertraline 25 mg tablet 25 mg PO DAILY valacyclovir 500 mg tablet 500 mg PO BID emtricitabine-tenofovir (TDF) 200-300 mg tablet 1 tab PO DAILY Referrals: Chelo Mitchell MD [Primary Care Provider] - 1 week
[2023-01-22] MEDS: Ibuprofen 600 MG TABLET PO (07:39)
[2023-01-22] MEDS: Acetaminophen 325 MG TABLET 975 MG PO (07:39)
== END 2023-01-22 08:24 | disposition home or self-care (01) ==
PROVIDERS: Emergency Provider Emergency Medicine; PCP Internal Medicine
DX: S46.911A Strain of unspecified muscle, fascia and tendon at shoulder and upper arm level, right arm, initial encounter (principal); X50.9XXA Other and unspecified overexertion or strenuous movements or postures, initial encounter; Y93.9 Activity, unspecified; Y92.9 Unspecified place or not applicable; Y99.9 Unspecified external cause status
CPT/HCPCS: 73030; 99283; 99284

== ENCOUNTER 2023-02-25 20:34 | Emergency (ER) | payer MEDICAID, SELFPAY ==
[2023-02-25 20:42] VITALS: BP 152/91; PULSE 91; RESP 18; TEMP 36.8; O2SAT 99; BMI 27.6
[2023-02-25 21:15] LABS: MANUAL DIFF FLAG NO
[2023-02-25 21:36] LABS: Alanine Aminotransferase 20 U/L (0-31); Albumin Level 4.3 g/dL (3.5-5.0); Alkaline Phosphatase 73 U/L (39-117); Anion Gap 13 (12-20); Aspartate Amino Transferase 16 U/L (5-31); Bilirubin Total 0.3 mg/dL (0.0-1.0); Blood Urea Nitrogen 16 mg/dL (9-16); Calcium 9.5 mg/dL (8.4-10.2); Carbon Dioxide 27 mmol/L (22-29); Chloride 107 mmol/L (96-108); Creatinine Clr Calc Pharmacy 81.5; Estimated Glomerular Filt Rate > 60; Glucose Random 98 mg/dL (60-115); Potassium 4.2 mmol/L (3.3-5.1); Sodium 143 mmol/L (135-145); Total Protein 7.8 g/dL (6.5-8.0)
[2023-02-25 21:37] LABS: Basophils Absolute Auto 0.1 X10*3/uL (0.0-0.2); Basophils Percent Auto 0.6 % (0-2); Eosinophils Absolute Auto 0.1 X10*3/uL (0.0-0.4); Eosinophils Percent Auto 0.9 % (0-4); Hematocrit 40.9 % (37.0-47.0); Hemoglobin 13.5 g/dl (12.0-16.0); Imm Gran Abs Auto 0.03 X10*3/uL (0.00-0.03); Imm Gran Pct Auto 0.3 % (0.0-0.4); Lymphocytes Absolute Auto 2.8 X10*3/uL (1.2-4.9); Lymphocytes Percent Auto 31.5 % (20-40); Mean Corpuscular Hemoglobin 28.2 pg (27.0-33.0); Mean Corpuscular Volume 85.4 fL (80.0-98.0); Mean Platelet Volume 9.3 fL (9.4-12.3); Monocytes Absolute Auto 0.7 X10*3/uL (0.1-1.2); Monocytes Percent Auto 7.3 % (2-11); Neutrophils Absolute Auto 5.3 x10*3/uL (2.0-8.3); Neutrophils Percent Auto 59.4 % (45-73); Platelet Count 353 X10*3/uL (160-400); Red Blood Count 4.79 X10*6/uL (4.20-5.50); Red Cell Distribution Width 12.5 % (11.0-16.0)
[2023-02-25 22:31] LABS: Troponin-I High Sensitivity < 2.7 ng/L (<3.5-17.0)
--- NOTE | 2023-02-26 13:49 | ECG_ITS ---
Test Reason : palpitations Blood Pressure : / mmHG Vent. Rate : 093 BPM Atrial Rate : 093 BPM P-R Int : 136 ms QRS Dur : 078 ms QT Int : 368 ms P-R-T Axes : 058 018 035 degrees QTc Int : 457 ms Normal sinus rhythm Normal ECG No previous ECGs available Referred By: Bimal Ferrera Electronically Signed By:SATNAM RAMEY
== END 2023-02-26 02:34 | disposition left against medical advice (07) ==
PROVIDERS: Emergency Provider Emergency Medicine; PCP Internal Medicine
DX: R00.2 Palpitations (principal)
CPT/HCPCS: 36415; 80053; 84484; 85025; 93005; 99283

== ENCOUNTER 2023-04-08 13:06 | Outpatient (REF) | payer MEDICAID, SELFPAY ==
[2023-04-08 13:20] LABS: MANUAL DIFF FLAG NO
[2023-04-08 13:43] LABS: Basophils Percent Auto 0.5 % (0-2); Eosinophils Absolute Auto 0.1 X10*3/uL (0.0-0.4); Eosinophils Percent Auto 1.2 % (0-4); Hematocrit 40.7 % (37.0-47.0); Hemoglobin 13.4 g/dl (12.0-16.0); Imm Gran Abs Auto 0.04 X10*3/uL (0.00-0.03); Imm Gran Pct Auto 0.5 % (0.0-0.4); Lymphocytes Absolute Auto 2.7 X10*3/uL (1.2-4.9); Lymphocytes Percent Auto 32.2 % (20-40); Mean Corpuscular HGB Conc 32.9 g/dl (31.0-35.0); Mean Corpuscular Hemoglobin 28.2 pg (27.0-33.0); Mean Corpuscular Volume 85.7 fL (80.0-98.0); Mean Platelet Volume 9.2 fL (9.4-12.3); Monocytes Absolute Auto 0.6 X10*3/uL (0.1-1.2); Monocytes Percent Auto 6.7 % (2-11); Neutrophils Absolute Auto 4.9 x10*3/uL (2.0-8.3); Neutrophils Percent Auto 58.9 % (45-73); Platelet Count 353 X10*3/uL (160-400); Red Blood Count 4.75 X10*6/uL (4.20-5.50); Red Cell Distribution Width 13.2 % (11.0-16.0); White Blood Count 8.3 X10*3/uL (4.8-10.8)
[2023-04-08 14:14] LABS: Alanine Aminotransferase 20 U/L (0-31); Anion Gap 13 (12-20); Aspartate Amino Transferase 14 U/L (5-31); Carbon Dioxide 25 mmol/L (22-29); Chloride 106 mmol/L (96-108); Estimated Glomerular Filt Rate > 60; Potassium 4.2 mmol/L (3.3-5.1); Sodium 140 mmol/L (135-145)
[2023-04-08 14:32] LABS: HBsAGNum1 0.36 S/CO (0.00-0.99); HIV AB/AG Nonreactive (Nonreactive); HIV Num 1 0.04 S/CO (0.00-0.99); Hepatitis B Surface Antigen Negative (Negative); Syphilis Screen Nonreactive (Nonreactive); ~HepC Num1 0.13 S/CO (0.00-0.79); ~Hepatitis C Antibody Nonreactive (Nonreactive)
[2023-04-08 16:00] LABS: CT PCR NOT DETECTED (Not Detect.); NG PCR NOT DETECTED (Not Detect.)
== END 2023-04-08 13:07 | disposition home or self-care (01) ==
LOC: HO.LAB 13:06
PROVIDERS: PCP Internal Medicine; Visit Provider Internal Medicine Infectious Disease
DX: Z20.6 Contact with and (suspected) exposure to human immunodeficiency virus [HIV] (principal)
CPT/HCPCS: 0353U; 80051; 82565; 84450; 84460; 85025; 86780; 86803; 87340; 87389

== ENCOUNTER 2023-05-14 10:06 | Outpatient (AMB) | payer MEDICAID, SELFPAY ==
[2023-05-14 10:24] VITALS: BP 126/82; BMI 28.8
--- NOTE | 2023-05-14 10:24 | MHC.OFFVIS ---
Intake Vital Signs 05/14/23 10:24 Height 5 ft 4 in Weight 168 lb BMI 28.8 BP 126/82 Intake Visit Reasons: EMB Invoicing Specialist Required: Yes Invoicing Specialist Language: Turret Punch Operator Name: Madalyn Chen Information Interpreted: non-clinical & clinical Building Stonecutter: Building Stonecutter Present (Madalyn) Allergies No Known Allergies [No Known Allergies*] Allergy (Verified 05/14/23 10:26) Is last menstrual period known: No Post menopausal: Yes Patient : No HPI HPI Comments History of Present Illness Details The patient is presenting for 6 my follow-up EMB. The patient is doing well with no complaint, no vaginal bleeding or any other concerns. The patient had postmenopausal bleeding in 11/28 an endometrial biopsy in the office showed the following: Endometrium, biopsy: Fragments of endometrial polyp with focal glandular crowding. See comment. COMMENT: Recommend follow-up sampling in 4-6 months to rule out EIN, as clinically appropriate. This was followed by hysteroscopy D&C polypectomy, the pathology showed the following: A. Endometrium, polypectomy: Fragments of endometrial polyp; no atypia identified. B. 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 hysteroscopy D&C) & the risks were discussed with the patient including but not limited: pain, uterine perforation, bleeding, infection, possible injury to bladder, bowel, ureter, possible need for blood transfusion with all its possible risks. The patient verbalized understanding all questions answered and signed consent. The patient was placed into the dorsal lithotomy position; a speculum was inserted in the vagina. Using aseptic technique for the procedure, the cervix was cleansed with Betadine. The anterior lip of the cervix was grasped with a single tooth tenaculum. The uterus was sounded to 7 cm with a 4 mm Pipelle was used. Tissues samples were obtained and placed in formalin, in a patient labeled container and sent to the pathology department. At the end of the procedure, there was minimal bleeding noted The patient tolerated the procedure well and was discharged in good condition with the following instructions: Nothing in the vagina until the bleeding stops. No sex until the bleeding stops, to call if any of the following occurs: fever (>100.4), flu-like symptoms, abdominal pain, heavy bleeding, four smelling vaginal discharge. The patient was instructed to schedule a Follow up appointment in 2 weeks to discuss pathology results of the biopsy and treatment options. This note was generated with a voice recognition program. Some errors may have been overlooked during the review of this note. Sometimes these errors may affect the content or meaning of a given sentence. [id number] Biopsy Assessment & Plan Assessment & Plan (1) Endometrial polyp: Comment: with glandular crowding on emb path Hysteroscopy polypectomy Pathology within normal Code(s): N84.0 - Polyp of corpus uteri Plan: EMB done, see procedure note Orders: Orders AMB Endometrial Biopsy Today N84.0 - Polyp of corpus uteri Coding Level of Care Code Procedure Only Diagnoses Endometrial polyp N84.0 CPT Codes Endometrial Biopsy - CPT: 97979-Lobjfuekpse Biopsy ([id number])
== END 2023-05-14 10:44 | disposition home or self-care (01) ==
PROVIDERS: PCP Internal Medicine; Visit Provider Obstetrics & Gynecology
DX: N84.0 Polyp of corpus uteri (principal)
CPT/HCPCS: 58100

== ENCOUNTER 2023-05-14 10:06 | Outpatient (REF) | payer MEDICAID, SELFPAY | END 2023-05-14 10:07 | disposition home or self-care (01) | LOC: HO.LNP 10:06 | PROVIDERS: PCP Internal Medicine; Visit Provider Obstetrics & Gynecology | DX: N95.0 Postmenopausal bleeding (principal); N84.0 Polyp of corpus uteri | CPT/HCPCS: 58100; 88305 ==

== ENCOUNTER 2023-07-08 11:18 | Outpatient (AMB) | payer MEDICAID, SELFPAY ==
--- NOTE | 2023-07-08 11:20 | A.OFFVIS_ITS ---
Intake Vital Signs 07/08/23 11:22 Height 5 ft 4 in Weight 167 lb 8.821 oz BMI 28.8 BP 132/86 Intake Visit Reasons: EMB results Closing Machine Operator Required: Yes Closing Machine Operator Language: Per Diem Rn Name: Madalyn ABREU Information Interpreted: non-clinical & clinical Accompanied by: Self / Same As Patient Allergies No Known Allergies [No Known Allergies*] Allergy (Verified 07/08/23 11:23) Post menopausal: Yes HPI HPI Comments History of Present Illness Details The patient is presenting after endometrial biopsy. The patient has no complaints, no vaginal bleeding, no feverishness chills or abdominal pain. Endometrial biopsy pathology showed the following: Endometrium, biopsy: - Weakly proliferative endometrium; no a typia or hyperplasia identified. - Few strips of endocervical epithelium within normal limits. 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 Sexual orientation: Straight/Heterosexual Gender identity: Female Review of Systems Const All systems reviewed & are unremarkable except as noted in HPI and below Reports as per HPI and Reports no additional complaints GI Reports no additional complaints Reports no additional complaints Physical Exam Vital Signs: Last Vital Signs BP 132/86 07/08/23 11:22 BMI result Body Mass Index 28.8 Assessment & Plan Assessment & Plan (1) Postmenopausal bleeding: Comment: 11/28 Polyp on path with glandular crowding at risk of EIN 11/28 D&C polypectomy pathology benign 05/30 EMB pathology showed proliferative endometrium Code(s): N95.0 - Postmenopausal bleeding Plan: Discussed with the patient the results of the pathology of the endometrial scrapings showing proliferative endometrium and reviewed with the patient previous endometrial biopsy pathology in 11/28 showing glandular crowding on a polyp at risk of EIN. Discussed with the patient the sensitivity, specificity, positive and negative predictive value, of endometrial biopsy in detecting endometrial pathology including but not limited to endometrial hyperplasia, cancer and other pathology; in addition discussed the patient the pathology of the endometrium in post menopause is associated with an increase in the risk of endometrial hyperplasia and malignancy in patient with preferred of endometrial pathology in menopause. Recommended to the patient progesterone treatment , levo norgestrel IUD for p.o. progestins in addition to repeat endometrial biopsy every 3 months for a year. All pros and cons, risks and benefits of each were discussed with the patient. The patient decided to proceed with Mirena IUD. so a more detailed discussion about it was conducted including mechanism of action, risks (uterine perforation, infection, injury to bladder, bowel, displacement, increase in the risk of breast cancer and others) benefits (decrease the risk of future endometrial hyperplasia and carcinoma of the endometrium ...). GC/CT will be taken next visit and the patient was instructed to to schedule Mirena IUD insertion isela ; in addition , recommended repeat endometrial biopsy every 3 months for 1 year. Instructed the patient to call in case is vaginal bleeding bleeding recurs, schedule endometrial biopsy in 3 months and IUD insertion within week All questions answered and the patient verbalized understanding and agreed with the plan. Coding Level of Care Code Est Pt Level 3 (82936) Diagnoses Postmenopausal bleeding N95.0
[2023-07-08 11:22] VITALS: BP 132/86; BMI 28.8
== END 2023-07-08 16:19 | disposition home or self-care (01) ==
LOC: HO.HWS 11:18
PROVIDERS: PCP Internal Medicine; Visit Provider Obstetrics & Gynecology
DX: N95.0 Postmenopausal bleeding (principal)
CPT/HCPCS: 99213

== ENCOUNTER → 2023-07-08 11:18 | Outpatient (BNVA) | payer MEDICAID, SELFPAY | PROVIDERS: PCP Internal Medicine; Visit Provider Obstetrics & Gynecology | DX: N95.0 Postmenopausal bleeding (principal); Z98.890 Other specified postprocedural states | CPT/HCPCS: 99212 ==

== ENCOUNTER 2023-07-09 08:30 | Outpatient (AMB) | payer MEDICAID, SELFPAY ==
--- NOTE | 2023-07-09 08:54 | MHC.OFFVIS ---
Intake Vital Signs 07/09/23 08:55 Height 5 ft 4 in Weight 168 lb BMI 28.8 BP 130/82 Intake Visit Reasons: Mirena Insertion Mid Level Net Developer Required: Yes Mid Level Net Developer Language: Roaster Supervisor Name: Madalyn Chen Information Interpreted: non-clinical & clinical Medical Assistant Float: Medical Assistant Float Present (Madalyn) Allergies No Known Allergies [No Known Allergies*] Allergy (Verified 07/09/23 08:55) Patient : No HPI HPI Comments History of Present Illness Details Presenting for Mirena IUD insertion PFSH Medical History Anxiety Hepatitis C HIV (human immunodeficiency virus infection) Surgical History History of hysteroscopy History of excision of mass (11/12/21) History of tubal ligation Family History Paternal Aunt Throat cancer Social History Household Members: Spouse Household Members Other:: son Housing: House Alcohol intake: never Patient Tobacco Use Status: Never used Tobacco Patient : No Current occupational status: employed 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 The following possible complications were discussed with the patient: Intrauterine , Ectopic , Sepsis, Pelvic Infection, Irregular Bleeding and Amenorrhea, Perforation, Expulsion, Ovarian Cysts, Breast Cancer, The following adverse effects were discussed with the patient: alteration of menstrual bleeding pattern, including: unscheduled uterine bleeding decreased uterine bleeding increased scheduled uterine bleeding female genital tract bleeding ,amenorrhea , genital discharge , vulvovaginitis , breast pain , benign ovarian cyst and associated complications , dysmenorrhea , Gastrointestinal disorders abdominal/pelvic pain, headache/migraine , back pain , acne , depression Alternative options were discussed with the patient including but not limited: control pills, patch, NuvaRing, Depo-medroxyprogesterone acetate, Nexplanon, copper IUD, sterilization, vasectomy, others The procedure was explained in detail to patient , at the end patient signed the informed consent obtained. A no touch technique was used throughout the procedure. A speculum was placed into vagina and cervix was cleaned with betadine). A tenaculum was placed. A plastic sound was advanced through the external and internal os until it reached the fundus of the uterus, the depth was 8 cm. The sound was then withdrawn. The IUD was loaded in a sterile manner and advanced into position. The string was visualized and cut to 3 cm. Tenaculum site hemostatic. All instruments removed from vagina. Patient tolerated the procedure well. NO complications were noted. Patient was instructed to call for fever over 100.4, significant pain unrelieved by Motrin, IUD expulsion, heavy bleeding, or abnormal discharge. In addition, the following clinical considerations were discussed with the patient to call for removal: A stroke or heart attack ,Very severe or migraine headaches ,Unexplained fever ,Yellowing of the skin or whites of the eyes, as these may be signs of serious liver problems , or suspected , Pelvic pain or pain during sex ,HIV positive seroconversion in herself or her partner , Possible exposure to sexually transmitted infections Unusual vaginal discharge or genital sores , severe vaginal bleeding or bleeding that lasts a long time, or if she misses a menstrual period, Inability to feel Mirena's threads Counseled the patient that the IUD does not protect against STI's In for the patient that Mirena IUD is FDA approved for 5 years for the treatment of heavy menses Instructed the patient to schedule a Follow up appointment in 4 to 6 weeks following insertion. This note was generated with a voice recognition program. Some errors may have been overlooked during the review of this note. Sometimes these errors may affect the content or meaning of a given sentence. 27718-VLT Insertion Procedure code (CPT) selection complete Office Meds Mirena 21 mcg/24 hours (8 yrs) 52 mg intrauterine device Performing Provider: Luca Richter MD Performing Location: [facility] Documented (not given) by: Luca Richter MD on 07/09/23 09:47 Dose Route Admin Location Dispensed Lot Number Expiration Date [facility] Rock Crushing Machine Operator 1 device intrauterine ea Assessment & Plan Assessment & Plan (1) Encounter for IUD insertion: Code(s): Z30.430 - Encounter for insertion of intrauterine contraceptive device Plan: Mirena IUD inserted, see procedure note (2) Postmenopausal bleeding: Comment: 11/28 Polyp on path with glandular crowding at risk of EIN 11/28 D&C polypectomy pathology benign 05/30 EMB pathology showed proliferative endometrium Code(s): N95.0 - Postmenopausal bleeding Plan: Mirena IUD inserted, see procedure Orders: Orders AMB IUD Insertion/Removal - Practice Supplied Today N95.0 - Postmenopausal bleeding Medications: New Mirena (levonorgestrel) 1 device intrauterine ONCE 1 ea 0RF IUD insertion NS N95.0 - Postmenopausal bleeding Coding Level of Care Code Procedure Only Diagnoses Encounter for IUD insertion Z30.430 Postmenopausal bleeding N95.0 CPT Codes Details - CPT: 65720-YNP Insertion ([id number])
[2023-07-09 08:55] VITALS: BP 130/82; BMI 28.8
== END 2023-07-09 09:48 | disposition home or self-care (01) ==
LOC: HO.HWS 08:30
PROVIDERS: PCP Internal Medicine; Referring Provider Internal Medicine; Visit Provider Obstetrics & Gynecology
DX: Z30.430 Encounter for insertion of intrauterine contraceptive device (principal)
CPT/HCPCS: 58300

== ENCOUNTER → 2023-07-09 08:30 | Outpatient (BNVA) | payer MEDICAID, SELFPAY | PROVIDERS: PCP Internal Medicine; Visit Provider Obstetrics & Gynecology | DX: Z30.430 Encounter for insertion of intrauterine contraceptive device (principal); N95.0 Postmenopausal bleeding | CPT/HCPCS: 58300; J7298 ==

== ENCOUNTER 2023-08-12 13:39 | Outpatient (AMB) | payer MEDICAID, SELFPAY ==
[2023-08-12 13:42] VITALS: BP 132/82; BMI 28.8
--- NOTE | 2023-08-12 13:42 | A.OFFVIS_ITS ---
Intake Vital Signs 08/12/23 13:42 Height 5 ft 4 in Weight 168 lb BMI 28.8 BP 132/82 Intake Visit Reasons: IUD Check Table Games Shift Manager Required: Yes Table Games Shift Manager Language: Machine Whitener Name: LOIS Lanza Information Interpreted: non-clinical & clinical Bottom Turner: Bottom Turner Present Accompanied by: Self / Same As Patient Allergies No Known Allergies [No Known Allergies*] Allergy (Verified 08/12/23 13:42) Is last menstrual period known: No Post menopausal: Yes Patient : No HPI HPI Comments History of Present Illness Details The patient is presenting for IUD check after 1 st period following IUD insertion. 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 Sexual orientation: Straight/Heterosexual Gender identity: Female Review of Systems Const All systems reviewed & are unremarkable except as noted in HPI and below Physical Exam Vital Signs: Last Vital Signs BP 132/82 08/12/23 13:42 BMI result Body Mass Index 28.8 General: Yes no CVA tenderness External Female Exam: normal external appearance and normal appearance of the urethra Speculum Exam - Vagina: normal appearance of the vagina, normal palpation, no lesions and no masses Speculum Exam - Cervix: normal appearance of the cervix, normal palpation, no lesions, no masses, nontender and Other cervical findings present (IUD string seen in place) Bimanual exam- vagina & uterus: normal bimanual exam, normal palpation, uterine size normal, normal palpation, uterine shape normal, No Cervical tenderness present and non-tender Bimanual Exam- Adnexa, other: normal adnexae Back/Spine/Pelvis Back: no CVA tenderness Assessment & Plan Assessment & Plan (1) IUD check up: Code(s): Z30.431 - Encounter for routine checking of intrauterine contraceptive device Plan: Discussed with the patient the finding on physical exam, IUD string in place, the patient was reassured. Instructions given to patient to call in case of temperature above 100.4, severe cramping/pelvic pain, abnormal discharge or abnormal uterine bleeding . Otherwise follow-up at her scheduled EMB appointment. All questions answered, the patient verbalized understanding. Coding Level of Care Code Est Pt Level 3 (71723) Diagnoses IUD check up Z30.431
== END 2023-08-12 15:15 | disposition home or self-care (01) ==
LOC: HO.HWS 13:40
PROVIDERS: PCP Internal Medicine; Visit Provider Obstetrics & Gynecology
DX: Z30.431 Encounter for routine checking of intrauterine contraceptive device (principal)
CPT/HCPCS: 99213

== ENCOUNTER → 2023-08-12 13:39 | Outpatient (BNVA) | payer MEDICAID, SELFPAY | PROVIDERS: PCP Internal Medicine; Visit Provider Obstetrics & Gynecology | DX: Z30.431 Encounter for routine checking of intrauterine contraceptive device (principal) | CPT/HCPCS: 99212 ==

== ENCOUNTER 2023-08-22 18:22 | Emergency (ER) | payer MEDICAID, SELFPAY ==
[2023-08-22 19:05] VITALS: BP 140/84; PULSE 88; RESP 16; TEMP 36.6; O2SAT 99; BMI 28.2
[2023-08-22 19:27] LABS: Appearance Urine Clear; Color Urine Yellow; Glucose Urine UA Negative (Negative); Leukocyte Esterase Urine Moderate (2+) (Negative); Nitrite Urine Negative (Negative); PH 5.5 (5.0-9.0); UMIC TRIGGER UACC YES; Urine Blood Trace (Negative); Urine Ketones Negative (Negative); Urine Protein Negative (Neg-Trace)
[2023-08-22 19:28] LABS: UPreg QC Valid YES; Urine Pregnancy NEGATIVE (NEGATIVE)
[2023-08-22 19:32] LABS: Bacteria Urine None Seen (None Seen); Hyaline Casts Urine 0-2 /LPF (0-2); RBC Urine 0-2 /HPF (0-2); Squamous Epithelial Cell Urine 0-2 /HPF (0-2); UACC Culture Trigger YES; WBC Urine >50 /HPF (0-5)
--- NOTE | 2023-08-22 20:13 | ED_ITS ---
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 No fevers, chills, abdominal pain, back pain, vomiting Related Data Home Medications Medication Instructions Recorded Confirmed sertraline 25 mg tablet 25 mg PO DAILY 10/17/21 11/19/21 emtricitabine 200 mg-tenofovir 1 tab PO DAILY 11/13/22 disoproxil fumarate 300 mg tablet valacyclovir 500 mg tablet 500 mg PO BID 11/13/22 Previous Rx's Medication Instructions Recorded meloxicam 15 mg tablet 15 mg PO DAILY #20 tabs 01/22/23 nitrofurantoin 100 mg PO Q12H 5 days #10 caps 08/22/23 monohydrate/macrocrystals 100 mg capsule (Macrobid) phenazopyridine 200 mg tablet 200 mg PO TID PRN pain 6 doses #10 08/22/23 (Pyridium) tabs Allergies Allergy/AdvReac Type Severity Reaction Status Date / Time No Known Allergies Allergy Verified 08/22/23 19:05 [No Known Allergies*] Review of Systems Review of Systems: Yes all other systems are reviewed and are negative Constitutional: Constitutional: Reports no additional constitutional complaint s, Denies body ache(s), Denies chills, Denies fever(s), Denies headache(s) and Denies weakness Eyes: Eyes: Reports no additional eye complaints and Denies change in vision ENT: Reports system reviewed and no additional complaints, except as documented, Denies dizziness, Denies headache(s), Denies nasal congestion, Denies nasal discharge and Denies neck pain Cardiovascular: Cardiovascular: Reports no additional cardiovascular complaints, Denies chest pain, Denies leg edema and Denies dyspnea Respiratory: Respiratory: Reports no additional respiratory complaints, Denies cough and Denies dyspnea Gastrointestinal: Gastrointestinal: Reports no additional gastrointestinal complaints, Denies abdominal pain, Denies diarrhea, Denies nausea and Denies vo miting Genitourinary: Genitourinary: Reports no additional female genitourinary complaints, Reports dysuria, Denies flank pain, Denies urinary incontinence, Denies urinary hesitancy, Reports urinary urgency and Denies vaginal discharge Musculoskeletal: Musculoskeletal: Reports no additional musculoskeletal complaints, Denies back pain, Denies arthralgias, Denies joint swelling, Denies neck pain, Denies numbness and Denies tingling Integumentary/Breasts: Skin/Breast: Reports system reviewed and no additional complaints, except as docu and Denies rash Neurologic: Reports system reviewed and no additional complaints, except as documented, Denies Abnormal speech present, Denies dizziness, Denies headache(s), Denies numbness, Denies tingling and Denies weakness [facility] Past Medical History Attestation statement: The following information was validated with the patient. Source: old records reviewed and nursing notes reviewed Medical History Anxiety Hepatitis C HIV (human immunodeficiency virus infection) Surgical History History of hysteroscopy History of excision of mass (11/12/21) History of tubal ligation Family History Family History Paternal Aunt Throat cancer Social History Social History Household Members: Spouse Household Members Other:: son Housing: House Alcohol intake: never Patient Tobacco Use Status: Never used Tobacco Advance Directives: No Advance Directives Information Provided: No Current occupational status: employed Current occupation: [employer] Sexual orientation: Straight/Heterosexual Gender identity: Female Physical Exam Vital Signs: Vital Signs: Last Vital Signs Temp 97.9 F 08/22/23 19:05 Pulse 88 08/22/23 19:05 Resp 16 08/22/23 19:05 BP 140/84 H 08/22/23 19:05 Pulse Ox 99 08/22/23 19:05 O2 Del Method Room Air 08/22/23 19:05 BMI result Body Mass Index 28.2 Const: General: cooperative, healthy appearing, comfortable and no acute distress Orientation/consciousness: patient oriented x3 Limitations: no limitations HEENT: Head: Yes normal to inspection Ears: hearing grossly normal bilaterally General nose exam: Normal external nose present Face and sinus: Yes normal facial exam Mouth: Normal oral and palatal mucosa present Throat: Yes posterior oropharynx normal Eyes: General: appearance normal, both eyes and all related structures Pupils: Equal, round and reactive pupils present Neck: Neck: Yes normal visual inspection Chest: Chest palpation & inspection: normal inspection of the chest Resp: Effort & Inspection: normal respiratory effort Auscultation: clear to auscultation bilaterally Cardio: Rate: regular rate Rhythm: regular rhythm Peripheral pulses: Peripheral pulses 2+ throughout GI: Inspection: Yes normal to inspection Palpation (GI): Soft to palpation and nontender Auscultation: normal bowel sounds : General: Yes no CVA tenderness Back/Spine/Pelvis: Back: no CVA tenderness Thoracic/Lumbar Spine: thoracic and lumbar spine normal to inspection Skin: General skin exam: no rashes or lesions noted Neuro: General: patient oriented x3, no focal motor deficits and normal sensation to monofilament Cranial nerves: Yes Equal, round and reactive pupils present Cognition (Neuro): normal cognition Speech: No Abnormal speech present Gait exam (Neuro): Normal gait present Motor exam (neuro): 5/5 motor strength present throughout Extrem: General: Yes normal to inspection Medical Decision Making Medical Decision Making [facility] Narrative: 53-year-old female here with complaints of urinary frequency, lower abdominal discomfort and urinary urgency. No fevers, chills, abdominal pain, back pain, vomiting No focal abdominal pain, CVA tenderness to suggest pyelonephritis or renal colic. Will send UA, urine preg Differential Diagnosis Differential Diagnoses: The differential diagnosis associated with the presentation includes UTI Low suspicion for pyelonephritis, renal colic Admission/Observation Consideration of admission/observation: Escalation of care including admission/observation considered Low suspicion for pyelonephritis, renal colic requiring advanced imaging, lab and or admission Lab Data [facility] Lab Attestation statement: I reviewed the patient's lab results. Labs: Lab Results 08/22/23 Range/Units 19:18 Urine Color Yellow Urine Appearance Clear Urine pH 5.5 (5.0-9.0) Ur Specific [place] 1.020 (1.005-1.025) Urine Protein Negative (Neg-Trace) mg/dL Urine Glucose (UA) Negative (Negative) mg/dL Urine Ketones Negative (Negative) mg/dL Urine Blood Trace H (Negative) Urine Nitrite Negative (Negative) Ur Leukocyte Esterase Moderate (2+) H (Negative) Urine RBC 0-2 (0-2) /HPF Urine WBC >50 H (0-5) /HPF Ur Squamous Epith Cells 0-2 (0-2) /HPF Urine Bacteria None Seen (None Seen) Hyaline Casts 0-2 (0-2) /LPF Urine Test NEGATIVE (NEGATIVE) Tests considered The following testing was considered but not selected: No CVA tenderness or focal abdominal pain to suggest need for CT abdomen and pelvis Prescription Management I considered prescription management with: Antibiotic Discharge Plan Discharge Clinical Impression: Urinary tract infection Patient Disposition: Home, Self-Care Instructions: Urinary Tract Infection in Women (ED) Additional Instructions: Increase fluids, rest Take the antibiotics as prescribed Return for any fever, vomiting or high back pain Prescriptions: New nitrofurantoin monohyd/m-cryst [Macrobid] 100 mg capsule 100 mg PO Q12H 5 Days Qty: 10 0RF Rx Instructions: must administer with a meal/food phenazopyridine [Pyridium] 200 mg tablet 200 mg PO TID PRN (Reason: pain) Qty: 10 0RF No Action meloxicam 15 mg tablet 15 mg PO DAILY Qty: 20 0RF sertraline 25 mg tablet 25 mg PO DAILY valacyclovir 500 mg tablet 500 mg PO BID emtricitabine-tenofovir (TDF) 200-300 mg tablet 1 tab PO DAILY Referrals: Chelo Mitchell MD [Primary Care Provider] - 10 days
[2023-08-22 20:32] VITALS: BP 124/78; PULSE 93; RESP 18; TEMP 36.8
== END 2023-08-22 20:32 | disposition home or self-care (01) ==
PROVIDERS: Emergency Provider Internal Medicine; PCP Internal Medicine
DX: N39.0 Urinary tract infection, site not specified (principal); R10.30 Lower abdominal pain, unspecified; R39.15 Urgency of urination; R35.0 Frequency of micturition
CPT/HCPCS: 81001; 81025; 87086; 87088; 87186; 99282; 99283

== ENCOUNTER 2023-10-04 11:48 | Emergency (ER) | payer MEDICAID, SELFPAY ==
--- NOTE | ~2023-10-04 | CT_ITS ---
EXAMINATION: CT CERVICAL SPINE WITHOUT CONTRAST INDICATION INFORMATION: Reason for Exam posterior neck pain COMPARISON: CT cervical spine 04/10/2021 TECHNIQUE: Noncontrast CT examinations of the cervical spine was performed. Coronal and sagittal images were created for each examination at the technologist workstation. This CT examination was performed using dose optimization techniques as appropriate, variously including the following: *Automated exposure control *Adjustment of mA and/or kV according to patient size (this includes techniques or standardized protocols for targeted exams where dose is matched to indication/reason for exam; i.e. extremities or head) *Use of iterative reconstruction technique DLP: 343 mGy-cm FINDINGS: There is no evidence of acute cervical spine fracture. There is a Schmorl's node in the inferior endplate of C4, unchanged. Mild to moderate multilevel degenerative disc disease slightly progressed from prior worst at C4-C5 with loss of disc space height and anterior and posterior disc osteophyte complexes. No severe canal stenosis or neural foraminal narrowing at any level. Partial opacification of the left mastoid air cells. No pre- or paravertebral soft tissue abnormality is identified. Visualized portions of the lung apices are unremarkable. The thyroid gland is unremarkable. Limited views of the brain are unremarkable. CT/CT cervical spine wo IV con IMPRESSION: 1. No cervical spine fracture or traumatic malalignment. 2. Mild to moderate multilevel degenerative disc disease slightly progressed from prior worst at C4-C5. No severe canal stenosis or neural foraminal narrowing.
[2023-10-04 11:51] VITALS: BP 152/90; PULSE 99; RESP 18; TEMP 36.7; O2SAT 99; BMI 28.8
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
[2023-10-04] MEDS: Cyclobenzaprine HCl 10 MG TABLET PO (13:22)
[2023-10-04 16:17] VITALS: BP 126/86; PULSE 71; RESP 18; TEMP 36.8; O2SAT 99
[2023-10-04 16:33] VITALS: BP 126/86; PULSE 71; RESP 18; TEMP 36.8; O2SAT 99
== END 2023-10-04 16:34 | disposition home or self-care (01) ==
PROVIDERS: Emergency Provider Student in an Organized Health Care Education/Training Program; PCP Internal Medicine
DX: S16.1XXA Strain of muscle, fascia and tendon at neck level, initial encounter (principal); M50.30 Other cervical disc degeneration, unspecified cervical region; X58.XXXA Exposure to other specified factors, initial encounter; Y93.9 Activity, unspecified; Y92.9 Unspecified place or not applicable; Y99.9 Unspecified external cause status
CPT/HCPCS: 72125; 99284

== ENCOUNTER 2023-10-07 07:07 | Outpatient (REF) | payer MEDICAID, SELFPAY ==
[2023-10-07 07:25] LABS: MANUAL DIFF FLAG NO
[2023-10-07 07:32] LABS: Basophils Percent Auto 0.6 % (0-2); Eosinophils Absolute Auto 0.1 X10*3/uL (0.0-0.4); Eosinophils Percent Auto 1.3 % (0-4); Hematocrit 40.8 % (37.0-47.0); Hemoglobin 13.2 g/dl (12.0-16.0); Imm Gran Abs Auto 0.02 X10*3/uL (0.00-0.03); Imm Gran Pct Auto 0.3 % (0.0-0.4); Lymphocytes Absolute Auto 2.1 X10*3/uL (1.2-4.9); Lymphocytes Percent Auto 29.9 % (20-40); Mean Corpuscular HGB Conc 32.4 g/dl (31.0-35.0); Mean Corpuscular Hemoglobin 27.8 pg (27.0-33.0); Mean Corpuscular Volume 85.9 fL (80.0-98.0); Monocytes Absolute Auto 0.5 X10*3/uL (0.1-1.2); Monocytes Percent Auto 6.6 % (2-11); Neutrophils Absolute Auto 4.3 x10*3/uL (2.0-8.3); Neutrophils Percent Auto 61.3 % (45-73); Platelet Count 314 X10*3/uL (160-400); Red Blood Count 4.75 X10*6/uL (4.20-5.50); Red Cell Distribution Width 13.7 % (11.0-16.0); White Blood Count 7.1 X10*3/uL (4.8-10.8)
[2023-10-07 08:00] LABS: Alanine Aminotransferase 25 U/L (0-31); Anion Gap 12 (12-20); Aspartate Amino Transferase 18 U/L (5-31); Carbon Dioxide 25 mmol/L (22-29); Chloride 107 mmol/L (96-108); Estimated Glomerular Filt Rate > 60; Sodium 140 mmol/L (135-145)
[2023-10-07 08:21] LABS: HBsAGNum1 0.25 S/CO (0.00-0.99); HIV AB/AG Nonreactive (Nonreactive); HIV Num 1 0.04 S/CO (0.00-0.99); Hepatitis B Surface Antigen Negative (Negative); ~HepC Num1 0.18 S/CO (0.00-0.79); ~Hepatitis C Antibody Nonreactive (Nonreactive)
[2023-10-07 08:23] LABS: Syphilis Screen Nonreactive (Nonreactive)
[2023-10-07 12:24] LABS: CT PCR NOT DETECTED (Not Detect.); NG PCR NOT DETECTED (Not Detect.)
[2023-10-08 17:59] LABS: HIV RNA PCR Qn Copies NOT DETECTED copies/mL (NOT DETECTED); HIV RNA PCR Qn Log Copies NOT DETECTED (NOT DETECTED)
== END 2023-10-07 07:08 | disposition home or self-care (01) ==
LOC: HO.LAB 07:07
PROVIDERS: Visit Provider Internal Medicine Infectious Disease
DX: Z20.6 Contact with and (suspected) exposure to human immunodeficiency virus [HIV] (principal)
CPT/HCPCS: 0353U; 80051; 82565; 84450; 84460; 85025; 86780; 86803; 87340; 87389; 87536

== ENCOUNTER 2023-11-05 15:30 | Outpatient (AMB) | payer MEDICAID, SELFPAY ==
--- NOTE | 2023-11-05 15:36 | A.OFFVIS_ITS ---
Vital Signs 11/05/23 15:41 Height 5 ft 4 in Weight 167 lb 8.821 oz BMI 28.8 BP 116/74 Intake Visit Reasons: EMB Automation Developer Required: Yes Automation Developer Language: Ethanol Operator Name: Madalyn ABREU Information Interpreted: non-clinical & clinical Clinical Technologist: Clinical Technologist Present (Madalyn ABREU) Accompanied by: Self / Same As Patient Allergies No Known Allergies [No Known Allergies*] Allergy (Verified 11/05/23 15:42) Post menopausal: Yes HPI Comments Details: Presenting for repeat EMB for proliferative endometrium in menopause. 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 hysteroscopy D&C) & the risks were discussed with the patient including but not limited: pain, uterine perforation, bleeding, infection, possible injury to bladder, bowel, ureter, possible need for blood transfusion with all its possible risks. The patient verbalized understanding all questions answered and signed consent. The patient was placed into the dorsal lithotomy position; a speculum was inserted in the vagina. Using aseptic technique for the procedure, the cervix was cleansed with Betadine. The anterior lip of the cervix was grasped with a single tooth tenaculum. The uterus was sounded to 7 cm with a 4 mm Pipelle was used. Tissues samples were obtained and placed in formalin, in a patient labeled container and sent to the pathology department. At the end of the procedure, there was minimal bleeding noted The patient tolerated the procedure well and was discharged in good condition with the following instructions: Nothing in the vagina until the bleeding stops. No sex until the bleeding stops, to call if any of the following occurs: fever (>100.4), flu-like symptoms, abdominal pain, heavy bleeding, four smelling vaginal discharge. The patient was instructed to schedule a Follow up appointment in 2 weeks to discuss pathology results of the biopsy and treatment options. This note was generated with a voice recognition program. Some errors may have been overlooked during the review of this note. Sometimes these errors may affect the content or meaning of a given sentence. [id number] Biopsy Assessment & Plan Assessment & Plan (1) Postmenopausal bleeding: Comment: 11/28 Polyp on path with glandular crowding at risk of EIN 11/28 D&C polypectomy pathology benign 05/30 EMB pathology showed proliferative endometrium Code(s): N95.0 - Postmenopausal bleeding Category: Medical Plan: EMB repeated, see procedure note Orders: Orders Surgical Today N95.0 - Postmenopausal bleeding AMB Endometrial Biopsy Today N95.0 - Postmenopausal bleeding Coding Level of Care Code Procedure Only Diagnoses Postmenopausal bleeding N95.0 CPT Codes Endometrial Biopsy - CPT: 01108-[id number] Biopsy ([id number])
[2023-11-05 15:41] VITALS: BP 116/74; BMI 28.8
== END 2023-11-05 15:50 | disposition home or self-care (01) ==
LOC: HO.HWS 15:30
PROVIDERS: PCP Internal Medicine; Visit Provider Obstetrics & Gynecology
DX: N95.0 Postmenopausal bleeding (principal)
CPT/HCPCS: 58100

== ENCOUNTER 2023-11-05 15:30 | Outpatient (REF) | payer MEDICAID, SELFPAY | END 2023-11-05 15:31 | disposition home or self-care (01) | LOC: HO.LNP 15:30 | PROVIDERS: PCP Internal Medicine; Visit Provider Obstetrics & Gynecology | DX: N95.0 Postmenopausal bleeding (principal); Z97.5 Presence of (intrauterine) contraceptive device | CPT/HCPCS: 58100; 88305 ==

== ENCOUNTER 2023-12-17 14:19 | Outpatient (AMB) | payer MEDICAID, SELFPAY ==
--- NOTE | 2023-12-17 14:29 | A.OFFVIS_ITS ---
Vital Signs 12/17/23 14:30 Height 5 ft 4 in Weight 155 lb BMI 26.6 BP 110/70 Intake Visit Reasons: annual/EMB Results Wet Machine Tender Required: Yes Wet Machine Tender Language: Certified Coding Specialist Services: Wet Machine Tender Present (in person) Wet Machine Tender Name: Madalyn ABREU Information Interpreted: non-clinical & clinical Corporate Planning Manager: Corporate Planning Manager Present (Madalyn ABREU) Accompanied by: Self / Same As Patient Allergies No Known Allergies [No Known Allergies*] Allergy (Verified 12/17/23 15:10) Post menopausal: Yes HPI Comments Details: Presenting for annual exam. No complaints. In addition the patient has EMB done in 10/08 1 for proliferative endometrium has been on levo norgestrel IUD, last endometrial pathology showed the following: Fragments of benign endometrium with pseudodecidual change, consistent with exogenous progestin; abundant blood and fibrin; no atypia or hyperplasia identified Last Pap/HPV was in 11/28 was negative Last Mammogram was BI-RADS 2 in 12/28 No previous screening Colonoscopy [facility] Medical History Anxiety Hepatitis C HIV (human immunodeficiency virus infection) Surgical History History of hysteroscopy History of excision of mass (11/12/21) History of tubal ligation Family History Paternal Aunt Throat cancer Social History Household Members: Spouse Household Members Other:: son Housing: House Alcohol intake: never Patient Tobacco Use Status: Never used Tobacco Current occupational status: employed 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 Sexual orientation: Straight/Heterosexual Gender identity: Female Female Reproductive History Menstrual Total pregnancies: 4 Full term: 3 Number of Living Children: 3 Date of last pap smear: 11/17/22 Date of Mammogram: 01/01/23 Review of Systems Const All systems reviewed & are unremarkable except as noted in HPI and below Card Reports as per HPI Resp Reports as per HPI GI Reports as per HPI and Reports no additional complaints Reports as per HPI Physical Exam Const General: cooperative, healthy appearing and comfortable Chest Chest palpation & inspection: normal inspection of the chest and normal palpation of entire chest wall Breast/axilla inspection: normal inspection of the breasts and normal inspection of the axillae Breast/axilla palpation: normal palpation of the breasts, normal palpation of the axillae and no axillary lymphadenopathy Resp Effort & Inspection: normal respiratory effort Auscultation: clear to auscultation bilaterally Percussion: percussion normal Cardio Palpation: normal PMI Rate: regular rate Rhythm: regular rhythm Heart sounds: no murmurs and no rubs Peripheral pulses: Peripheral pulses 2+ throughout GI Inspection: Yes normal to inspection Palpation (GI): Soft to palpation, nontender, no guarding, not rigid and No hepatosplenomegaly present Percussion: Yes normal to percussion Auscultation: normal bowel sounds Rectal Exam - Female: deferred General: Yes bladder normal to palpation External Female Exam: No lesion Speculum Exam - Vagina: normal appearance of the vagina, normal palpation, normal vaginal discharge and not erythematous Speculum Exam - Cervix: normal appearance of the cervix, normal palpation and Other cervical findings present (IUD string in place) Bimanual exam- vagina & uterus: normal bimanual exam, normal palpation, uterine size normal, bladder normal to palpation, consistency normal and normal palpation Bimanual Exam- Adnexa, other: normal adnexae, no masses and no tenderness Assessment & Plan Assessment & Plan (1) Well woman exam: Code(s): Z01.419 - Encounter for gynecological examination (general) (routine) without abnormal findings Category: Medical Plan: Co testing done. Counseled the patient about the recommended dietary allowance of 1200 mg of Calcium & 600 IU of vitamin D. Mammogram ordered. The patient was referred to GI for screening colonoscopy . The patient was instructed to perform monthly self-breast exams and schedule annual exam in a year. The patient was informed that her next EMB appointment is on 03/07/2024, the patient is aware All questions answered and the patient verbalized understanding. Orders: Orders MM tomosynthesis screening BI Today Z12.31 - Encounter for screening mammogram for malignant neoplasm of breast Referrals Gastroenterology Referral Z12.11 - Encounter for screening for malignant neoplasm of colon Coding Level of Care Code Est Pt Prev Care 40-64y(36409) Diagnoses Well woman exam Z01.419
[2023-12-17 14:30] VITALS: BP 110/70; BMI 26.6
== END 2023-12-17 15:27 | disposition home or self-care (01) ==
PROVIDERS: PCP Internal Medicine; Visit Provider Obstetrics & Gynecology
DX: Z01.419 Encounter for gynecological examination (general) (routine) without abnormal findings (principal)
CPT/HCPCS: 99396

== ENCOUNTER → 2023-12-17 14:19 | Outpatient (BNVA) | payer MEDICAID, SELFPAY | PROVIDERS: PCP Internal Medicine; Visit Provider Obstetrics & Gynecology | DX: Z01.419 Encounter for gynecological examination (general) (routine) without abnormal findings (principal) | CPT/HCPCS: 99396 ==

== ENCOUNTER 2023-12-25 07:42 | Outpatient (REF) | payer MEDICAID, SELFPAY ==
[2023-12-25 08:56] LABS: MANUAL DIFF FLAG NO
[2023-12-25 09:11] LABS: Basophils Percent Auto 0.4 % (0-2); Eosinophils Absolute Auto 0.1 X10*3/uL (0.0-0.4); Eosinophils Percent Auto 0.9 % (0-4); Hemoglobin 14.2 g/dl (12.0-16.0); Imm Gran Abs Auto 0.04 X10*3/uL (0.00-0.03); Imm Gran Pct Auto 0.5 % (0.0-0.4); Lymphocytes Percent Auto 24.9 % (20-40); Mean Corpuscular Hemoglobin 28.4 pg (27.0-33.0); Mean Platelet Volume 9.3 fL (9.4-12.3); Monocytes Absolute Auto 0.5 X10*3/uL (0.1-1.2); Monocytes Percent Auto 6.7 % (2-11); Neutrophils Absolute Auto 5.2 x10*3/uL (2.0-8.3); Neutrophils Percent Auto 66.6 % (45-73); Platelet Count 328 X10*3/uL (160-400); Red Cell Distribution Width 13.5 % (11.0-16.0); White Blood Count 7.9 X10*3/uL (4.8-10.8)
[2023-12-25 11:22] LABS: CT PCR NOT DETECTED (Not Detect.); NG PCR NOT DETECTED (Not Detect.)
[2023-12-25 14:57] LABS: Estimated Average Glucose 114 mg/dL; Hemoglobin A1c % 5.6 % (<6.0)
[2023-12-25 21:05] LABS: Alanine Aminotransferase 20 U/L (0-31); Amylase 48 U/L (28-100); Anion Gap 15 (12-20); Aspartate Amino Transferase 15 U/L (5-31); Carbon Dioxide 26 mmol/L (22-29); Chloride 106 mmol/L (96-108); Cholesterol 250 mg/dL (<200); Estimated Glomerular Filt Rate > 60; HDL Cholesterol 43 mg/dL (>40); LDL Cholesterol Calculated 150 mg/dL (<100); Lipase 20 U/L (8-78); Potassium 4.3 mmol/L (3.3-5.1); Sodium 143 mmol/L (135-145); Triglycerides 288 mg/dL (<150)
[2023-12-25 21:23] LABS: Free T4 (Free Thyroxine) 0.92 ng/dL (0.71-1.85); Thyroid Stimulating Hormone 0.54 uIU/mL (0.32-4.0)
[2023-12-26 03:32] LABS: Syphilis Screen Nonreactive (Nonreactive)
[2023-12-26 03:41] LABS: HBsAGNum1 0.29 S/CO (0.00-0.99); HIV AB/AG Nonreactive (Nonreactive); HIV Num 1 0.05 S/CO (0.00-0.99); Hepatitis B Surface Antigen Negative (Negative); ~HepC Num1 0.17 S/CO (0.00-0.79); ~Hepatitis C Antibody Nonreactive (Nonreactive)
[2023-12-28 13:38] LABS: HIV RNA PCR Qn Copies NOT DETECTED copies/mL (NOT DETECTED); HIV RNA PCR Qn Log Copies NOT DETECTED (NOT DETECTED)
== END 2023-12-25 07:43 | disposition home or self-care (01) ==
LOC: HO.LAB 07:42
PROVIDERS: PCP Internal Medicine; Visit Provider Internal Medicine Infectious Disease
DX: Z20.6 Contact with and (suspected) exposure to human immunodeficiency virus [HIV] (principal); Z68.30 Body mass index [BMI] 30.0-30.9, adult
CPT/HCPCS: 80051; 80061; 82150; 82565; 83036; 83690; 84439; 84443; 84450; 84460; 85025; 86780; 86803; 87340; 87389; 87491; 87536; 87591

== ENCOUNTER 2024-01-07 12:01 | Outpatient (REF) | payer MEDICAID, SELFPAY ==
--- NOTE | ~2024-01-07 | MM_ITS ---
EXAMINATION: MM SCREENING DIGITAL BREAST TOMOSYNTHESIS, BILATERAL CLINICAL INFORMATION: Screening. Asymptomatic. COMPARISON: Mammography: This study is compared with prior exams dating back to 2020. TECHNIQUE: Digital breast tomosynthesis is performed in both the craniocaudal and mediolateral oblique views along with computer-aided detection (CAD). Synthesized 2D images are generated from the tomosynthesis. FINDINGS: There are scattered areas of fibroglandular density (ACR BI-RADS breast composition Category b). There are no significant masses, abnormal calcifications, or other abnormalities. MM/MM tomosynthesis screening BI IMPRESSION: No mammographic evidence of malignancy. ASSESSMENT: BI-RADS BI-RADS 1 - Negative RECOMMENDATION: Routine annual mammography screening. 1 year F/U This examination should not preclude the clinical evaluation of a suspicious palpable abnormality. This patient's information was entered into a reminder system with a target due date for their next mammogram. Electronically signed by: Carolyn Aleman MD 02/05/2024 12:27 PM EDT
== END 2024-01-07 12:02 | disposition home or self-care (01) ==
LOC: HO.MAMMO 12:01
PROVIDERS: PCP Internal Medicine; Visit Provider Internal Medicine
DX: Z12.31 Encounter for screening mammogram for malignant neoplasm of breast (principal)
CPT/HCPCS: 77063; 77067

== ENCOUNTER → 2024-01-07 12:30 | Outpatient (BNV) | payer MEDICAID, SELFPAY | PROVIDERS: PCP Internal Medicine; Visit Provider Radiology Diagnostic Radiology | DX: Z12.31 Encounter for screening mammogram for malignant neoplasm of breast (principal) | CPT/HCPCS: 77063; 77067 ==

== ENCOUNTER 2024-02-16 08:28 | Outpatient (REF) | payer MEDICAID, SELFPAY ==
[2024-02-16 08:42] LABS: MANUAL DIFF FLAG NO
[2024-02-16 09:26] LABS: Basophils Percent Auto 0.3 % (0-2); Eosinophils Absolute Auto 0.1 X10*3/uL (0.0-0.4); Eosinophils Percent Auto 0.7 % (0-4); Hematocrit 40.3 % (37.0-47.0); Hemoglobin 13.1 g/dl (12.0-16.0); Imm Gran Abs Auto 0.03 X10*3/uL (0.00-0.03); Imm Gran Pct Auto 0.3 % (0.0-0.4); Lymphocytes Absolute Auto 2.2 X10*3/uL (1.2-4.9); Lymphocytes Percent Auto 25.6 % (20-40); Mean Corpuscular HGB Conc 32.5 g/dl (31.0-35.0); Mean Corpuscular Hemoglobin 28.2 pg (27.0-33.0); Mean Corpuscular Volume 86.7 fL (80.0-98.0); Mean Platelet Volume 9.7 fL (9.4-12.3); Monocytes Absolute Auto 0.7 X10*3/uL (0.1-1.2); Monocytes Percent Auto 7.7 % (2-11); Neutrophils Absolute Auto 5.7 x10*3/uL (2.0-8.3); Neutrophils Percent Auto 65.4 % (45-73); Platelet Count 341 X10*3/uL (160-400); Red Blood Count 4.65 X10*6/uL (4.20-5.50); Red Cell Distribution Width 13.2 % (11.0-16.0); White Blood Count 8.7 X10*3/uL (4.8-10.8)
[2024-02-16 10:34] LABS: Alanine Aminotransferase 25 U/L (0-31); Albumin Level 4.3 g/dL (3.5-5.0); Alkaline Phosphatase 66 U/L (39-117); Anion Gap 12 (12-20); Aspartate Amino Transferase 16 U/L (5-31); Bilirubin Total 0.4 mg/dL (0.0-1.0); Blood Urea Nitrogen 14 mg/dL (9-16); Calcium 9.3 mg/dL (8.4-10.2); Carbon Dioxide 26 mmol/L (22-29); Chloride 108 mmol/L (96-108); Estimated Glomerular Filt Rate > 60; Glucose Random 93 mg/dL (60-115); Potassium 4.1 mmol/L (3.3-5.1); Sodium 142 mmol/L (135-145); Total Protein 7.3 g/dL (6.5-8.0)
[2024-02-16 10:46] LABS: Syphilis Screen Nonreactive (Nonreactive)
== END 2024-02-16 08:29 | disposition home or self-care (01) ==
LOC: HO.LAB 08:28
PROVIDERS: PCP Internal Medicine; Visit Provider Internal Medicine Infectious Disease
DX: Z20.6 Contact with and (suspected) exposure to human immunodeficiency virus [HIV] (principal)
CPT/HCPCS: 36415; 80053; 85025; 86780

== ENCOUNTER 2024-02-18 20:28 | Emergency (ER) | payer MEDICAID, SELFPAY ==
--- NOTE | ~2024-02-18 | XR_ITS ---
EXAMINATION: XR ABDOMEN KUB CLINICAL INDICATION: Constipation COMPARISON: None available. TECHNIQUE: AP view of the abdomen. FINDINGS: Nonobstructive bowel gas pattern. Mild to moderate stool burden. Intrauterine device projects over the pelvis. XR/XR KUB IMPRESSION: Nonobstructive bowel gas pattern. Mild to moderate stool burden. Electronically signed by: Shruthi Higginbotham MD 02/18/2024 11:25 PM EDT
[2024-02-18 20:33] VITALS: BP 128/83; PULSE 92; RESP 18; TEMP 36.7; O2SAT 98; BMI 27.5
--- NOTE | 2024-02-18 20:40 | ED_ITS ---
HPI - General Adult General Chief complaint: General Medical Stated complaint: haven't gone to the bathroom times 1wk Time Seen by Provider: 02/19/24 04:01 Source: patient Mode of arrival: ambulatory Limitations: no limitations History of Present Illness ED Provider: Dr. Maisha Church HPI narrative: Patient comes to the emergency room stating that she usually moves her bowels twice a day and now she is only moving her bowels once a day. Patient takes lactulose to help with constipation, states she has had 3 doses so far. Patient denies abdominal pain, states that she did have bowel movement earlier today. Related Data Home Medications ?Medication ?Instructions ?Recorded ?Confirmed sertraline 25 mg tablet 25 mg PO DAILY 10/17/21 11/19/21 emtricitabine 200 mg-tenofovir 1 tab PO DAILY 11/13/22 disoproxil fumarate 300 mg tablet valacyclovir 500 mg tablet 500 mg PO BID 11/13/22 Previous Rx's ?Medication ?Instructions ?Recorded meloxicam 15 mg tablet 15 mg PO DAILY #20 tabs 01/22/23 cyclobenzaprine 10 mg tablet 10 mg PO TID PRN muscle spasm #20 10/04/23 tabs polyethylene glycol 3350 17 17 g PO DAILY PRN laxative effect 02/19/24 gram/dose oral powder (Miralax) #119 grams Allergies Allergy/AdvReac Type Severity Reaction Status Date / Time No Known Allergies Allergy Verified 02/18/24 20:41 [No Known Allergies*] Review of Systems Review of Systems: Constitutional : No Weight loss, No Fever, No Chills, No Night Sweats, No Fatigue, No Malaise ENT/Mouth : No Hearing loss, No Ear Pain, No Nasal Congestion, No Sinus Pain, No Hoarseness, No sore throat, No Rhinorrhea, No Swallowing Difficulty Eyes: No Eye Pain, No Swelling, No Redness, No Foreign Body, No Discharge, No Vision Changes Cardiovascular : No Chest Pain, No SOB, No Dyspnea on Exertion, No Orthopnea, No Edema, No Palpitations Respiratory : No Cough, No Sputum, No Wheezing, No Smoke Exposure, No Dyspnea Gastrointestinal : No Nausea, No Vomiting, No Diarrhea, complaining of moving her bowels once a day instead of twice a day., No abdominal Pain, No Hematochezia, No Melena Genitourinary : no irregular bleeding, No Dysuria, No Urinary Frequency, No Hematuria, No Urinary Incontinence, No Urgency, No Flank Pain, No Urinary Flow Changes, No Hesitancy Musculoskeletal : No joint pain, No Myalgias, No Joint Swelling Skin : No Skin Lesions, No rash Neuro : No Weakness, No Numbness, No Paresthesias, No Loss of Consciousness, No Dizziness, No Headache Psych : No Anxiety/Panic, No Depression, No SI/HI/AH/VH, No Social Issues, Heme/Lymph: No Bruising, No Bleeding,No Lymphadenopathy Endocrine : No Polyuria, No Polydipsia, No Temperature Intolerance [facility] Past Medical History Medical History Anxiety Hepatitis C HIV (human immunodeficiency virus infection) Surgical History History of hysteroscopy History of excision of mass (11/12/21) History of tubal ligation Family History Family History Paternal Aunt Throat cancer Social History Social History Household Members: Spouse Household Members Other:: son Housing: House Alcohol intake: never Patient Tobacco Use Status: Never used Tobacco Advance Directives: No Advance Directives Information Provided: No Do you have a plan to hurt others: No Plan Current occupational status: employed 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 Oriented X3. No acute distress. Eyes: Pupils equal, round and reactive to light. ENT: Pharynx normal. Neck: Normal inspection. Neck supple. No lymph nodes noted. No crepitus CVS: Normal heart rate and rhythm. Pulses normal. Normal S1 and S2 Respiratory: No respiratory distress. Breath sounds normal. No Wheezing. No rales Abdomen: Soft and nontender. No rigidity. No distention. Skin: Skin warm and dry. Normal skin color. Normal skin turgor. Extremities: No lower extremity edema. No Lacerations. No Rash Neuro: Oriented X 3. No motor deficit. No sensory deficit. Moving all extremities. No slurred speech. CN 2 through 12 grossly intact Psych: calm, cooperative, normal affect Course Course Course Narrative: RME: done by NIRU Simmons. 22-year-old female presents to ED for 1 week of constipation no relief with constipation meds. Patient usually has 2 bowel movements per day. Patient states slight nausea but no vomiting. Patient states able to have flatulence. Patient is menopausal. Patient denies any abdominal pain, dysuria, hematuria. Medical Decision Making Medical Decision Making [facility] Narrative: My interpretation of KUB, normal air pattern -physical exam normal -patient states that she is having daily bowel movements, but is concerned that she is only moving her bowels once himself twice. -I discussed the x-ray findings with the patient, there is no significant amount of stool in the abdomen, normal air pattern Independent Interpretation I performed an independent interpretation of an: Plain X-Ray Radiology Impression Discussion of test interpretation with radiology: I have reviewed the radiologist's reading. Radiologist Impression: Nonobstructive bowel gas pattern. Mild to moderate stool burden. Intrauterine device projects over the pelvis. XR/XR KUB IMPRESSION: Nonobstructive bowel gas pattern. Mild to moderate stool burden. Discharge Plan Discharge Clinical Impression: Constipation Patient Disposition: Home, Self-Care Instructions: Constipation (DC), High Fiber Diet (ED) Additional Instructions: Please follow-up with your primary care physician tomorrow. If you have any worsening or new symptoms, please return to the emergency room or call 911 Prescriptions: New polyethylene glycol 3350 [Miralax] 17 gram/dose powder 17 g PO DAILY PRN (Reason: laxative effect) Qty: 119 0RF No Action meloxicam 15 mg tablet 15 mg PO DAILY Qty: 20 0RF cyclobenzaprine 10 mg tablet 10 mg PO TID PRN (Reason: muscle spasm) Qty: 20 0RF sertraline 25 mg tablet 25 mg PO DAILY valacyclovir 500 mg tablet 500 mg PO BID emtricitabine-tenofovir (TDF) 200-300 mg tablet 1 tab PO DAILY Discharge Date/Time: 02/19/24 04:33 Print Language: Cypriot
[2024-02-19 00:08] VITALS: BP 125/89; PULSE 79; RESP 20; TEMP 36.8; O2SAT 100
[2024-02-19 03:50] VITALS: BP 116/78; PULSE 87; RESP 17; O2SAT 99
== END 2024-02-19 04:33 | disposition home or self-care (01) ==
PROVIDERS: Emergency Provider Emergency Medicine; PCP Internal Medicine
DX: K59.00 Constipation, unspecified (principal)
CPT/HCPCS: 74018; 99283

== ENCOUNTER 2024-02-25 14:05 | Outpatient (AMB) | payer MEDICAID, SELFPAY ==
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
[2024-02-25 14:13] VITALS: BP 124/73; PULSE 88; O2SAT 99; BMI 27.3
== END 2024-02-25 15:10 | disposition home or self-care (01) ==
PROVIDERS: PCP Internal Medicine; Visit Provider Nurse Practitioner Family
DX: M50.30 Other cervical disc degeneration, unspecified cervical region (principal); M47.812 Spondylosis without myelopathy or radiculopathy, cervical region; M62.838 Other muscle spasm; M54.2 Cervicalgia
CPT/HCPCS: 99204

== ENCOUNTER → 2024-02-25 14:05 | Outpatient (BNVA) | payer MEDICAID, SELFPAY | PROVIDERS: PCP Internal Medicine; Visit Provider Nurse Practitioner Family | DX: M50.30 Other cervical disc degeneration, unspecified cervical region (principal); M47.812 Spondylosis without myelopathy or radiculopathy, cervical region; M62.838 Other muscle spasm | CPT/HCPCS: 99212 ==

== ENCOUNTER 2024-03-03 13:58 | Outpatient (REF) | payer MEDICAID, SELFPAY ==
--- NOTE | ~2024-03-03 | XR_ITS ---
EXAMINATION: XR CERVICAL SPINE CLINICAL INFORMATION: M62.838 - Other muscle spasm COMPARISON: Correlation made with CT C-spine 10/04/2023. TECHNIQUE: 5 views of the cervical spine, inclusive of bilateral oblique views, were obtained. FINDINGS: There is normal bone mineralization. There is no fracture, dislocation, or traumatic subluxation. No suspicious focal bone lesion. -There is a mild levoconvex scoliosis, apex at C4. Mild straightening of the normal lordosis is present. No compression deformity. No subluxations aside from a 2 mm degenerative type retrolisthesis of C4 on C5. There are Schmorl's nodes in the endplates of C4-5. Moderate to severe disc degeneration focally at C4-5. Moderate degeneration noted at C5-6 and C6-7. Mild degeneration noted C3-4. C2-3 and C7-T1 disc spaces appear normal. There is normal facet alignment without significant degenerative facet change. Oblique views demonstrate widely patent bilateral bony neural foramen. No prevertebral or paravertebral soft tissue abnormality. Lung apices clear. XR/XR cervical spine 4V IMPRESSION: 1. No acute findings cervical spine. 2. Mild to moderate disc degenerative changes of the cervical spine, focally moderate to severe at C4-5. 3. Mild levoconvex scoliosis. Electronically signed by: Dante Shine MD 05/12/2024 11:42 AM JEWEL
== END 2024-03-03 13:59 | disposition home or self-care (01) ==
LOC: HO.XRAY 13:58
PROVIDERS: PCP Internal Medicine; Visit Provider Nurse Practitioner Family
DX: M62.838 Other muscle spasm (principal); M47.812 Spondylosis without myelopathy or radiculopathy, cervical region; M50.30 Other cervical disc degeneration, unspecified cervical region
CPT/HCPCS: 72050

== ENCOUNTER → 2024-03-03 14:04 | Outpatient (BNV) | payer MEDICAID, SELFPAY | PROVIDERS: PCP Internal Medicine; Visit Provider Radiology Diagnostic Radiology | DX: M62.838 Other muscle spasm (principal) | CPT/HCPCS: 72050 ==

== ENCOUNTER 2024-03-07 14:43 | Outpatient (REF) | payer MEDICAID, SELFPAY | END 2024-03-07 14:44 | disposition home or self-care (01) | LOC: HO.LNP 14:43 | PROVIDERS: PCP Internal Medicine; Visit Provider Obstetrics & Gynecology | DX: N95.0 Postmenopausal bleeding (principal) | CPT/HCPCS: 58100; 88305 ==

== ENCOUNTER 2024-03-07 14:43 | Outpatient (AMB) | payer MEDICAID, SELFPAY ==
[2024-03-07 15:06] VITALS: BMI 27.2
--- NOTE | 2024-03-07 15:06 | A.OFFVIS_ITS ---
Vital Signs 03/07/24 15:06 Height 5 ft 4 in Weight 158 lb 11.725 oz BMI 27.2 Intake Visit Reasons: EMB Manager Of Housekeeping Required: Yes Manager Of Housekeeping Language: Aluminum Pourer Services: Manager Of Housekeeping Present (in person) Manager Of Housekeeping Name: Madalyn ABREU Information Interpreted: non-clinical & clinical Board Filler: Board Filler Present (Madalyn ABREU) Accompanied by: Self / Same As Patient Allergies No Known Allergies [No Known Allergies*] Allergy (Verified 03/07/24 15:07) Post menopausal: Yes HPI Comments Details: Presenting for EMB. The patient had proliferative endometrium on EMB pathology in 05/30, Mirena IUD was inserted in 08/01, follow-up EMB pathology in 10/29 was inactive endometrium. 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 Sexual orientation: Straight/Heterosexual Gender identity: Female Review of Systems Const All systems reviewed & are unremarkable except as noted in HPI and below Reports as per HPI and Reports no additional complaints GI Reports no additional complaints Reports no additional complaints Physical Exam Vital Signs: BMI result Body Mass Index 27.2 Office Procedures Endometrial Biopsy Details: The patient was counseled regarding the indication and benefits of endometrial sampling to rule out endometrial pathology including not limited to endometrial hyperplasia or endometrial cancer and others; The alternatives (Either do not johnathan vs. hysteroscopy D&C) & the risks were discussed with the patient including but not limited: pain, uterine perforation, bleeding, infection, possible injury to bladder, bowel, ureter, possible need for blood transfusion with all its possible risks. The patient verbalized understanding all questions answered and signed consent. The patient was placed into the dorsal lithotomy position; a speculum was inserted in the vagina. Using aseptic technique for the procedure, the cervix was cleansed with Betadine. The anterior lip of the cervix was grasped with a single tooth tenaculum. The uterus was sounded to 7 cm with a 4 mm Pipelle was used. Tissues samples were obtained and placed in formalin, in a patient labeled container and sent to the pathology department. At the end of the procedure, there was minimal bleeding noted The patient tolerated the procedure well and was discharged in good condition with the following instructions: Nothing in the vagina until the bleeding stops. No sex until the bleeding stops, to call if any of the following occurs: fever (>100.4), flu-like symptoms, abdominal pain, heavy bleeding, four smelling vaginal discharge. The patient was instructed to schedule a Follow up appointment in 2 weeks to discuss pathology results of the biopsy and treatment options. This note was generated with a voice recognition program. Some errors may have been overlooked during the review of this note. Sometimes these errors may affect the content or meaning of a given sentence. [id number] Biopsy Assessment & Plan Assessment & Plan (1) Postmenopausal bleeding: Comment: 11/28 Polyp on path with glandular crowding at risk of EIN 11/28 D&C polypectomy pathology benign 05/30 EMB pathology showed proliferative endometrium 10/29 EMB pathology inactive endometrium Code(s): N95.0 - Postmenopausal bleeding Category: Medical Plan: EMB done, see procedure note, instructions given to patient to schedule a 2 week follow-up appointment and a 4 months repeat EMB appointment. Orders: Orders AMB Endometrial Biopsy Today N95.0 - Postmenopausal bleeding Coding Level of Care Code Procedure Only Diagnoses Postmenopausal bleeding N95.0 CPT Codes Endometrial Biopsy - CPT: 78510-[id number] Biopsy ([id number])
== END 2024-03-07 15:39 | disposition home or self-care (01) ==
LOC: HO.HWS 14:43
PROVIDERS: PCP Internal Medicine; Referring Provider Internal Medicine; Visit Provider Obstetrics & Gynecology
DX: N95.0 Postmenopausal bleeding (principal)
CPT/HCPCS: 58100

== ENCOUNTER 2024-03-16 10:39 | Outpatient (AMB) | payer MEDICAID, SELFPAY ==
--- NOTE | 2024-03-16 10:40 | A.OFFVIS_ITS ---
Vital Signs 03/16/24 10:44 Height 5 ft 4 in Weight 158 lb 11.725 oz BMI 27.2 Intake Visit Reasons: EMB results Allergies No Known Allergies [No Known Allergies*] Allergy (Verified 03/07/24 15:07) HPI Comments Details: The patient is presenting after endometrial biopsy. The patient has no complaints, no vaginal bleeding, no feverishness chills or abdominal pain. The endometrial biopsy pathology report showed the following: Endometrium, biopsy: Benign endometrium with pseudodecidual change consistent with exogenous progestin; no atypia or hyperplasia identified 11/28 EMB pathology= Polyp on path with glandular crowding at risk of EIN 11/28 D&C polypectomy pathology benign 05/30 EMB pathology showed proliferative endometrium 08/01 Mirena IUD inserted 10/29 EMB pathology inactive endometrium 03/31 benign endometrium [facility] Medical History Anxiety Hepatitis C HIV (human immunodeficiency virus infection) Surgical History History of hysteroscopy History of excision of mass (11/12/21) History of tubal ligation Family History Paternal Aunt Throat cancer Social History Household Members: Spouse Household Members Other:: son Housing: House Alcohol intake: never Patient Tobacco Use Status: Never used Tobacco Current occupational status: employed 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 Sexual orientation: Straight/Heterosexual Gender identity: Female Review of Systems Const All systems reviewed & are unremarkable except as noted in HPI and below Reports as per HPI and Reports no additional complaints GI Reports no additional complaints Reports no additional complaints Assessment & Plan Assessment & Plan (1) Postmenopausal bleeding: Comment: 11/28 Polyp on path with glandular crowding at risk of EIN 11/28 D&C polypectomy pathology benign 05/30 EMB pathology showed proliferative endometrium 10/29 EMB pathology inactive endometrium 03/31 benign endometrium Code(s): N95.0 - Postmenopausal bleeding Category: Medical Plan: Discussed with the patient the results the EMB pathology showing benign endometrium with no evidence of hyperplasia or malignancy. Discussed with the patient EMB sensitivity, specificity, false-positive false-negative rate in detecting endometrial pathology including hyperplasia or malignancy. Recommended repeat EMB in 3 months and to call in case of abnormal uterine bleeding occurs. All questions answered, the patient verbalized understanding agreed with the plan Coding Level of Care Code Est Pt Level 3 (67375) Diagnoses Postmenopausal bleeding N95.0
[2024-03-16 10:44] VITALS: BMI 27.2
== END 2024-03-16 10:53 | disposition home or self-care (01) ==
LOC: HO.HWS 10:39
PROVIDERS: PCP Internal Medicine; Visit Provider Obstetrics & Gynecology
DX: N95.0 Postmenopausal bleeding (principal)
CPT/HCPCS: 99213

== ENCOUNTER → 2024-03-16 10:39 | Outpatient (BNVA) | payer MEDICAID, SELFPAY | PROVIDERS: PCP Internal Medicine; Visit Provider Obstetrics & Gynecology | DX: N95.0 Postmenopausal bleeding (principal) | CPT/HCPCS: 99212 ==

== ENCOUNTER 2024-05-25 15:25 | Outpatient (REF) | payer MEDICAID, SELFPAY ==
[2024-05-25 15:44] LABS: MANUAL DIFF FLAG NO
[2024-05-25 17:00] LABS: Basophils Percent Auto 0.4 % (0-2); Eosinophils Absolute Auto 0.1 X10*3/uL (0.0-0.4); Hematocrit 38.9 % (37.0-47.0); Hemoglobin 12.5 g/dl (12.0-16.0); Imm Gran Abs Auto 0.03 X10*3/uL (0.00-0.03); Imm Gran Pct Auto 0.3 % (0.0-0.4); Lymphocytes Absolute Auto 2.8 X10*3/uL (1.2-4.9); Lymphocytes Percent Auto 30.7 % (20-40); Mean Corpuscular HGB Conc 32.1 g/dl (31.0-35.0); Mean Corpuscular Hemoglobin 27.6 pg (27.0-33.0); Mean Corpuscular Volume 85.9 fL (80.0-98.0); Mean Platelet Volume 9.5 fL (9.4-12.3); Monocytes Absolute Auto 0.7 X10*3/uL (0.1-1.2); Monocytes Percent Auto 7.4 % (2-11); Neutrophils Absolute Auto 5.4 x10*3/uL (2.0-8.3); Neutrophils Percent Auto 60.2 % (45-73); Platelet Count 357 X10*3/uL (160-400); Red Blood Count 4.53 X10*6/uL (4.20-5.50); Red Cell Distribution Width 13.4 % (11.0-16.0)
[2024-05-25 17:50] LABS: Alanine Aminotransferase 29 U/L (0-31); Amylase 71 U/L (28-100); Anion Gap 9 (12-20); Aspartate Amino Transferase 20 U/L (5-31); Carbon Dioxide 27 mmol/L (22-29); Chloride 109 mmol/L (96-108); Estimated Glomerular Filt Rate > 60; Lipase 38 U/L (8-78); Potassium 3.8 mmol/L (3.3-5.1); Sodium 141 mmol/L (135-145)
[2024-05-26 03:49] LABS: Syphilis Screen Nonreactive (Nonreactive)
[2024-05-26 04:45] LABS: HIV AB/AG Nonreactive (Nonreactive); HIV Num 1 0.06 S/CO (0.00-0.99)
[2024-05-27 13:49] LABS: HIV RNA PCR Qn Copies NOT DETECTED copies/mL (NOT DETECTED); HIV RNA PCR Qn Log Copies NOT DETECTED (NOT DETECTED)
== END 2024-05-25 15:26 | disposition home or self-care (01) ==
LOC: HO.LAB 15:25
PROVIDERS: PCP Internal Medicine; Visit Provider Internal Medicine Infectious Disease
DX: Z68.30 Body mass index [BMI] 30.0-30.9, adult (principal); Z20.6 Contact with and (suspected) exposure to human immunodeficiency virus [HIV]
CPT/HCPCS: 36415; 80051; 82150; 82565; 83690; 84450; 84460; 85025; 86780; 87389; 87536

== ENCOUNTER 2024-08-18 13:23 | Outpatient (AMB) | payer MEDICAID, SELFPAY ==
--- NOTE | 2024-08-18 13:42 | MHC.OFFVIS ---
Vital Signs 08/18/24 13:48 Height 5 ft 4 in Weight 163 lb 2 oz BMI 28.0 Intake Visit Reasons: Colonoscopy screening Intake Note: This patient presents for colonoscopy screening. Pt c/o; *GI pt, reports no complaints, reports she had her last colonoscopy several years ago at [facility]. Steam Conditioning Operator Required: Yes Steam Conditioning Operator Language: Tank Filler Services: Steam Conditioning Operator Present (Wiliam) Information Interpreted: non-clinical & clinical Accompanied by: Self / Same As Patient Allergies No Known Allergies [No Known Allergies*] Allergy (Verified 08/18/24 13:49) HPI HPI Colonoscopy screening: Details: 54 year female referred for screening colonoscopy. She actually denies any GI complaints. She denies any family history of colon cancer She does state that she had a colonoscopy just maybe 5 years ago in [place]. She says she is in good health otherwise. [facility] Medical History (Updated 08/18/24 @ 13:50 by Juvenal Narvaez MD) Colon cancer screening Well woman exam Pilar cyst of scalp Postmenopausal bleeding Endometrial polyp Encounter for IUD insertion IUD check up Cervicalgia Neck muscle spasm Anxiety Hepatitis C HIV (human immunodeficiency virus infection) Surgical History History of hysteroscopy History of excision of mass (11/12/21) History of tubal ligation Family History Paternal Aunt Throat cancer Social History Household Members: Spouse Household Members Other:: son Housing: House Alcohol intake: never Patient Tobacco Use Status: Never used Tobacco Current occupational status: employed 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 Sexual orientation: Straight/Heterosexual Gender identity: Female Review of Systems Const Denies chills and Denies fever(s) Card Denies chest pain, Denies dyspnea and Denies dyspnea on exertion Resp Denies cough, Denies dyspnea and Denies dyspnea on exertion GI Denies hematochezia and Denies change in bowel habits Denies hematuria Musc Denies back pain and Denies limited range of motion Neuro Denies focal weakness and Denies convulsions Psych Denies depression and Denies mood swings Physical Exam Vital Signs: BMI result Body Mass Index 28.0 Const General: comfortable and no acute distress Orientation/consciousness: patient oriented x3 Neck Neck: Yes no lymphadenopathy Resp Auscultation: clear to auscultation bilaterally Cardio Rhythm: regular rhythm GI Palpation (GI): Soft to palpation, nontender and no guarding Neuro General: patient oriented x3 Assessment & Plan Assessment & Plan (1) Colon cancer screening: Code(s): Z12.11 - Encounter for screening for malignant neoplasm of colon Category: Medical Plan: She was referred by the gyne service for screening colonoscopy. However, the patient says that she just had a colonoscopy about 5 years ago. She says that this was unremarkable. I am uncertain as to why she requires another colonoscopy this early. She denies any family history of colon cancer. I told her therefore that we will not schedule her for colonoscopy for now as she seems to be at average risk for colon cancer. We will try to reach out to her primary care physician to see if there is a reason to do the colonoscopy at a shorter interval. Coding Level of Care Code New Pt Level 3 (51962) Diagnoses Colon cancer screening Z12.11
[2024-08-18 13:48] VITALS: BMI 28.0
--- OUTSIDE RECORDS SUMMARY | 2024-08-18 16:58 | XMS_ITS | Encounter Summary ---
Author Organization [employer] Address [address] [place] [address] Care Team Providers Care Nurse Reviewer Name Role Phone Chelo Mitchell MD Primary Care Provider + Encounter Details Date Type Department Care Team ([facility] Contact Info) Description 10/28/2022 Telephone [facility] MEDICINE [address] [place], [place] [phone] Chelo Mitchell MD [address] [place] [address] Social History Tobacco Use Types Packs/Day Years Used Date Smoking Tobacco: Never Smokeless Tobacco: Never Alcohol Use Standard Drinks/Week Comments Never 0 (1 standard drink = 0.6 oz pur e alcohol) Depression Answer Date Recorded Patient Health Questionnaire-2 Score 0 10/23/2022 Comments Unknown Sex and Gender Information Value Date Recorded Sex Assigned at Female 04/07/2022 10:21 AM EDT Legal Sex Female 10:21 AM EDT Gender Identity Female 04/07/2022 10:21 AM EDT Sexual Orientation Choose not to disclose 2021 10:21 AM EDT COVID-19 Exposure Response Date Recorded In the last 10 days, have yo u been in contact with someone who was confirmed or suspected to have Coronavirus/COVID-19? No / Unsure 10/23/2022 10:48 AM EDT documented as of this encounter Plan of Treatment Upcoming Encounters Date Type Department Care Team ([facility] Contact Info) Description 09/14/2024 3:00 PM EDT Office Visit [facility] OPTOMETRY [address] [place], [place] [phone] Dominique Reese, CARLOS ENRIQUE [address] [place] [address] 10/25/2024 10:30 AM EDT Office Visit [facility] MEDICINE [address] [place], [place] [phone] Chelo Mitchell MD [address] [place], [place] [phone] documented as of this encounter Visit Diagnoses Not on filedocumented in this encounter Care Teams Nurse Reviewer Relationship Specialty Start Date End Date Chelo Mitchell MD [address] [place], [place] [phone] PCP - General Family Medicine 04/01/16 documented as of this encounter
--- OUTSIDE RECORDS SUMMARY | 2024-08-18 16:58 | XMS_ITS | Encounter Summary ---
Author Organization [employer] Address [address] [place] [address] Care Team Providers Care Fine Arts Model Name Role Phone Chelo Mitchell MD Primary Care Provider + Reason for Visit * Reason Onset Date Comments Change to televisit 07/29/2024 Encounter Details Date Type Department Care Team ([facility] Contact Info) Description 07/29/2024 Telephone [facility] MEDICINE [address] [place] [address] Chelo Mitchell MD [address] [place] [address] Change to televisit Social History Tobacco Use Types Packs/Day Years Used Date Smoking Tobacco: Never Smokeless Tobacco: Never Alcohol Use Standard Drinks/Week Comments Never 0 (1 standard drink = 0.6 oz pur e alcohol) Housing Stability Answer Date Recorded What is your housing situation today? I have elisabeth yañez 04/01/[address] you li ve. Do you have problems with any of the following? None of the above 04/01/2023 Food Insecurity Answer Date Recorded Within the past 12 months, y ou worried that your food would run out before you got money to buy more: Sometimes True 2022 Within the past 12 months,th e food you bought just didn't last and you didn't have enough money to get more: Sometimes True 04/01/2023 Transportation Answer Date Recorded In the past 12 months, has l ack of transportation kept you from medical appts, meetings, work or from getting things needed for daily living? No 04/01/2023 Utilities Answer Date Recorded In the past 12 months, has t he electric, gas, oil or water company threatened to shut off services in your home? No 04/01/2023 Depression Answer Date Recorded Patient Health Questionnaire-2 Score 0 03/17/2024 Comments No Sex and Gender Information Value Date Recorded Sex Assigned at Female 04/07/2022 10:21 AM EDT Legal Sex Female 10:21 AM EDT Gender Identity Female 04/07/2022 10:21 AM EDT Sexual Orientation Choose not to disclose 2021 10:21 AM EDT documented as of this encounter Miscellaneous Notes * Telephone Encounter - Sherrill Meléndez RN - 07/29/2024 11:33 AM EST Noted. RN has changed appointment to TV. RN notified FD in order for them to call patient to register her for appointment. * Telephone Encounter - Jacey Hinds - 07/29/2024 10:58 AM EST Tc from pt stating she's sick and can't come to the appt today at 11:45am, pt asks if she can change the appt to a telephone visit. Contact pt [phone] sinhala documented in this encounter Plan of Treatment Upcoming Encounters Date Type Department Care Team (Late st Contact Info) Description 09/14/2024 3:00 PM EDT Office Visit [facility] OPTOMETRY [address] [place] [address] Dominique Reese, OD [address] [place] [address] 10/25/2024 10:30 AM EDT Office Visit [facility] MEDICINE [address] [place] [address] Chelo Mitchell MD [address] [place] [address] documented as of this encounter Visit Diagnoses Not on filedocumented in this encounter Care Teams Fine Arts Model Relationship Specialty Start Date End Date Chelo Mitchell MD [address] [place] [address] PCP - General Family Medicine 04/01/16 documented as of this encounter
--- OUTSIDE RECORDS SUMMARY | 2024-08-18 16:58 | XMS_ITS | Data Portability ---
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 Plan of Treatment Reminders Order Date Submit Date Provider Last Modified By Organization Details Last Modified Time Details Appointments WEIGHT MANAGMENT F/U 2024 12:00P M Angella Lyon MD Not available Not available Not available APRETUDE INJECTION 2024 10:00A M Angella Lyon MD Not available Not available Not available WEIGHT MANAGMENT F/U 2024 12:00P M Angella Lyon MD Not available Not available Not available WEIGHT MANAGMENT F/U 2024 12:00P M Angella Lyon MD Not available Not available Not available APRETUDE INJECTION 2024 10:00A Villa Lyon MD Not available Not available Not available APRETUDE INJECTION 2024 10:00A Villa Lyon MD Not available Not available Not available APRETUDE INJECTION 2024 10:00A Villa Lyon MD Not available Not available Not available CABENUVA INJECTION 2024 10:00A Villa Lyon MD Not available Not available Not available Lab None recorded. Referral None recorded. Procedures None recorded. Surgeries None recorded. Imaging None recorded. Medication Orders Apretude 600 mg/3 mL (200 mg/mL) IM suspensio n, extended release 2024 025 [place] [address] [facility] #[id number], [address], [place], [phone], 07/29/2024 12:44:19 Zepbound 5 mg/0.5 mL subcutane ous pen injector 2024 025 [facility] #[id number], [address], [place], [phone], 07/18/2024 20:43:38 Zepbound 2.5 mg/0.5 mL subcutane ous pen injector 2024 025 [facility] #[id number], [address], [place], [phone], 06/28/2024 14:48:40 Patient TargetsNo targets recorded. Patient InstructionsNo instructions recorded. Reason for Referral None Reported. 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 Medical Equipment None Reported. Medications Name Sig Start Date Stop Date Status Note LastModified by Organization Details LastModified Time cyclobenz aprine 10 mg tablet TAKE 1 TABLET BY MOUTH AT BEDTIME FOR 10 DAYS active Not Available Not Available No t Available amoxicill in 500 mg capsule TAKE 1 CAPSULE BY MOUTH THREE TIMES DAILY FOR 7 DAYS active Not Available Not Available No t Available tizanidin e 2 mg tablet HCL 2MG TABLET; Quantity : 90; Duration : 30; 0 refill(s ) 11/16 completed Duration : 30; VACCINE_ IND: no; Not Available Not Available Not Available ibuprofen 800 mg tablet 800MG TABLET; Quantity : 60; Duration : 20; 0 refill(s ) 09/02 completed Duration : 20; VACCINE_ IND: no; Not Available Not Available Not Available meloxicam 15 mg tablet TAKE 1 TABLET BY MOUTH DAILY active Not Available Not Available No t Available phenazopy ridine 200 mg tablet TAKE 1 TABLET BY MOUTH THREE TIMES DAILY NEEDED FOR PAIN active Not Available Not Available No t Available prednison e 20 mg tablet 20MG TABLET; Quantity : 6; Duration : 3; 0 refill(s ) 07/12 completed Duration : 3; VACCINE_ IND: no; Not Available Not Available Not Available Pyridium 100 mg tablet Take 1 tablet 3 times a day by oral route for 3 days, for dysuria. 2023 active Not Available Not Available Not Avai lable valacyclo vir 500 mg tablet TAKE 1 TABLET BY MOUTH TWICE DAILY 12/29 completed Duration : 5; VACCINE_ IND: no; Not Available Not Available Not Available tramadol 50 mg tablet 50MG TABLETS; Quantity : 10; Duration : 5; 0 refill(s ) active Not Available Not Available No t Available acetamino phen 500 mg tablet TAKE 1 TABLET BY MOUTH EVERY 6 HOURS NEEDED FOR MILD PAIN active Not Available Not Available No t Available lorazepam 0.5 mg tablet TAKE 1 TABLET BY MOUTH 30 TO 60 MINUTES BEFORE PROCEDUR E 09/09 completed Duration : 1; VACCINE_ IND: no; Not Available Not Available Not Available Flagyl 500 mg tablet 500 mg Quantity : 14; Duration : 7; 0 refill(s ) 07/15 completed Frequenc y: bid; Duration : 7; VACCINE_ IND: no; SU_FULL_ NAME: Angella chawla; Not Available Not Available Not Available meclizine 25 mg tablet HYDROCHL ORIDE 25MG TABLET; Quantity : 15; Duration : 5; 0 refill(s ) 07/12 completed Duration : 5; VACCINE_ IND: no; Not Available Not Available Not Available simvastat in 20 mg tablet 20MG TABLET; Quantity : 30; Duration : 30; 0 refill(s ) 09/02 completed Duration : 30; VACCINE_ IND: no; Not Available Not Available Not Available sertralin e 25 mg tablet TAKE 1 TABLET BY MOUTH EVERY DAY active Not Available Not Available No t Available hydroxyzi ne HCl 25 mg tablet TAKE 1 TABLET BY MOUTH TWICE DAILY NEEDED 09/09 completed Duration : 30; VACCINE_ IND: no; Not Available Not Available Not Available mirtazapi ne 15 mg tablet TAKE 1 TABLET BY MOUTH AT BEDTIME active Not Available Not Available No t Available ibuprofen 600 mg tablet active Not Available Not Available Not Available polyethyl mic glycol 3350 17 gram/dose oral powder DISSOLVE 17GM INTO CLASS OF WATER DAILY FOR LAXATIVE EFFECT active Not Available Not Available No t Available ondansetr on 4 mg disintegr ating tablet ODT 4MG TABLET DISPERSI BLE; Quantity : 10; Duration : 3; 0 refill(s ) 07/12 completed Duration : 3; VACCINE_ IND: no; Not Available Not Available Not Available fluticaso ne propionat e 50 mcg/actua tion nasal spray,gertrudis pension SHAKE LIQUID AND USE 1 SPRAY IN EACH NOSTRIL DAILY. active Not Available Not Available No t Available naproxen 500 mg tablet TAKE 1 TABLET BY MOUTH TWICE DAILY NEEDED FOR PAIN TAKE WITH FOOD 12/31 completed Duration : 30; VACCINE_ IND: no; Not Available Not Available Not Available Dulcolax (bisacody l) 5 mg tablet,de layed release Take 2 tablets every day by oral route for 30 days, for constipa tion. 2024 active Not Available Not Available Not Avai lable oxycodone 5 mg tablet TAKE ONE TABLET BY MOUTH EVERY 6 HOURS NEEDED FOR PAIN 01/06 completed Duration : 2; VACCINE_ IND: no; Not Available Not Available Not Available nitrofura ntoin monohydra te/macroc rystals 100 mg capsule TAKE 1 CAPSULE BY MOUTH EVERY 12 HOURS FOR 5 DAYS active Not Available Not Available No t Available emtricita bine 200 mg-tenofo vir disoproxi l fumarate 300 mg tablet TAKE 1 TABLET BY MOUTH DAILY 12/29 completed Duration : 30; VACCINE_ IND: no; Not Available Not Available Not Available lactulose 10 gram/15 mL oral solution TAKE 10 ML BY MOUTH EVERY DAY FOR CONSTIPA TION active Not Available Not Available No t Available Engerix-B (PF) 20 mcg/mL intramusc ular suspensio n 20 mcg/mL Quantity : ; 0 refill(s ) 07/21 completed VACCINE_ IND: yes; VACCINE_ NAME: Hep B, adult; SU_FULL_ NAME: Angella Marthieu chawla; Not Available Not Available Not Available lactulose 10 gram/15 mL (15 mL) oral solution Take 10 mL every day by oral route for 30 days, for constipa tion. 2023 active Not Available Not Available Not Avai lable Fluvirin 45 mcg (15 mcg x 3)/0.5 mL intramusc ular suspensio n trivalen t Quantity : ; 0 refill(s ) 10/24 completed VACCINE_ IND: yes; VACCINE_ NAME: Influenz a, seasonal , injectab le; SU_FULL_ NAME: Angella Marthieu chawla; Not Available Not Available Not Available Fluvirin 45 mcg (15 mcg x 3)/0.5 mL intramusc ular suspensio n trivalen t Quantity : ; 0 refill(s ) 07/21 completed VACCINE_ IND: yes; VACCINE_ NAME: Influenz a, seasonal , injectab le; SU_FULL_ NAME: Angella Marthieu chawla; Not Available Not Available Not Available Afluria Quad 60 mcg/0.5 mL intramusc ular suspensio n quadriva lent Quantity : ; 0 refill(s ) 07/21 completed VACCINE_ IND: yes; VACCINE_ NAME: influenz a, injectab le, quadriva lent; SU_FULL_ NAME: Angella Nathan l; VIS_DATE : 18:02:17 .0; Not Available Not Available Not Available Colace 2-In-1 8.6 mg-50 mg tablet Take 2 tablets every day by oral route for 30 days, for constipa tion. 2024 active Not Available Not Available Not Avai lable Shingrix (PF) 50 mcg/0.5 mL intramusc ular suspensio n, kit adjuvant ed Quantity : 1; Duration : 1; 1 refill(s ) 01/01 completed Frequenc y: x1; Duration : 1; VACCINE_ IND: no; VACCINE_ NAME: zoster recombin ant; SU_FULL_ NAME: Angella Frederickhieu l; Not Available Not Available Not Available [facility] 60 mcg (15 mcg x 4)/0.5 mL IM suspensio n quadriva lent Quantity : ; 0 refill(s ) 2017 active VACCINE_ IND: yes; VACCINE_ NAME: influenz a, injectab le, quadriva lent; SU_FULL_ NAME: Angella Nathan l; VIS_DATE : 20:07:37 .0; Not Available Not Available Not Available [facility] 60 mcg (15 mcg x 4)/0.5 mL intramusc ular susp. quadriva lent Quantity : ; 0 refill(s ) 2018 active VACCINE_ IND: yes; VACCINE_ NAME: influenz a, injectab le, quadriva lent; SU_FULL_ NAME: Angella Frederickhieu l; VIS_DATE : 18:37:45 .0; Not Available Not Available Not Available [facility] 60 mcg (15 mcg x 4)/0.5 mL intramusc ular susp. quadriva lent Quantity : ; 0 refill(s ) 2019 active VACCINE_ IND: yes; VACCINE_ NAME: influenz a, injectab le, quadriva lent; SU_FULL_ NAME: Angella Frederickhieu l; VIS_DATE : 18:17:54 .0; Not Available Not Available Not Available Tab-A-Vit e 400 mcg tablet TAKE ONE TABLET BY MOUTH EVERY DAY 04/01 completed Duration : 30; VACCINE_ IND: no; SU_FULL_ NAME: Angella chawla; Not Available Not Available Not Available Wegovy 1 mg/0.5 mL subcutane ous pen injector ADMINIST ER 1 MG UNDER THE SKIN EVERY WEEK FOR WEIGHT LOSS active Not Available Not Available No t Available Wegovy 0.25 mg/0.5 mL subcutane ous pen injector Inject 0.25 mg by subcutan eous route for 1 day. 2023 active Not Available Not Available Not Avai lable Wegovy 0.5 mg/0.5 mL subcutane ous pen injector Inject 0.5 mg every week by subcutan eous route for 30 days, for weight loss. 2023 active Not Available Not Available Not Avai lable Apretude 600 mg/3 mL (200 mg/mL) IM suspensio n, extended release INJECT 3 ML INTRAMUS CULAR ROUTE DIRECTED EVERY 2 MONTHS 2024 active Not Available Not Available Not Avai lable cabotegra vir Quantity : ; 0 refill(s ) 2022 active VACCINE_ IND: yes; SU_FULL_ NAME: Angella chawla; VIS_DATE : 20:11:33 .0; Not Available Not Available Not Available Afluria Quad [id number] (6mo up) 60 mcg (15 mcg x 4)/0.5 mL IM susp quadriva lent Quantity : ; 0 refill(s ) 2021 active VACCINE_ IND: yes; VACCINE_ NAME: influenz a, injectab le, quadriva lent; SU_FULL_ NAME: Angella chawla; VIS_DATE : 18:55:23 .0; Not Available Not Available Not Available Zepbound 5 mg/0.5 mL subcutane ous pen injector Inject 5 mg every week by subcutan eous route, for weight loss. 2024 active Not Available Not Available Not Avai lable Zepbound 2.5 mg/0.5 mL subcutane ous pen injector ADMINIST ER 2.5 MG UNDER THE SKIN EVERY WEEK FOR WEIGHT LOSS active Not Available Not Available No t Available Vitals Date Recorded Body height Body mass index (BMI) Body weight Provider Name and Address Organization Details Last Updated DateTime 06/28/2024 162.56 cm 27.5 kg/m2 00659.78 g Laure PARIS 06/28/2024 15:18:09 Date Recorded Body height Provider Name an d Address Organization Details Last Updated DateTime 07/04/2024 162.56 cm Laure LYON MD [facility] 08/08/2024 14:04:18 Date Recorded Body height Heart rate Respiratory rate Body temperature Body mass index (BMI) Body weight Systolic blood pressure Diastolic blood pressure Provider Name and Address Organization Details Last Updated DateTime 162.56 cm 94 /min 12 /min 98.4 [degF] 27.6 kg/m2 77307.3 7 g 118 mm[Hg] 80 mm[Hg] Laure LYON MD [facility] 14:37:43 Social History None recorded. Functional Status None recorded. Mental Status None recorded. Family History Nothing Reported Notes:Family history unknown , Response Property: Yes; Medical History No medical history recorded. Gynecological HistoryNo gynecological history recorded. Obstetrics History GPAL:G 0 P 0 0 0 0 Immunizations Vaccine Type Date Status Note Provider Nam e and Address Organization Details Recorded Time Influenza, split virus, quadrivalent, preservative 0 completed Not Available [facility] 07/29/2023 06:54:57 Influenza, split virus, quadrivalent, preservative 9 completed Not Available [facility] 07/29/2023 06:54:58 Influenza, split virus, quadrivalent, preservative 8 completed Not Available [facility] 07/29/2023 06:54:58 Influenza, split virus, quadrivalent, preservative 2 completed Not Available [facility] 07/29/2023 06:54:58 Past Encounters Encounter ID Performer Location Encounter Start Date Encounter Closed Date Diagnosis/Indication Diagnosis SNOMED-CT Code Diagnosis ICD10 Code Diagnosis Note [id number] Heather Valdez Main Office [address] [place] [address] 03/02/2023 12:43:21 03/02/2023 14:38:02 Exposure to Human immunodeficiency virus 532574584 Z20.6 [id number] Angella yLon MD Main Office [address] [place] [phone] 03/26/2023 14:47:12 03/26/2023 15:55:07 Exposure to Human immunodeficiency virus 910879283 Z20.6 PreP: continue Cabotegrav ir (Apretude) IM QOM. Window visits +/- 7 days within target date reviewed w pt. labs strict compliance addressed w correct use of medication ,complianc e with office visits; window visits reviewed. to call with any new meds/OTC. condom use to prevent other STI's plan of care reviewed [id number] Angella Lyon MD Main Office [address] [place] [phone] 05/01/2023 13:15:30 05/01/2023 13:28:17 Exposure to Human immunodeficiency virus 778616822 Z20.6 PreP: continue Cabotegrav ir (Apretude) IM QOM. Window visits +/- 7 days within target date reviewed w pt. labs strict compliance addressed w correct use of medication ,complianc e with office visits; window visits reviewed. to call with any new meds/OTC. condom use to prevent other STI's plan of care reviewed [id number] Angella Lyon MD Main Office [address] [place] [phone] 06/26/2023 14:56:01 06/26/2023 16:34:48 Exposure to Human immunodeficiency virus 379709748 Z20.6 PreP: continue Cabotegrav ir (Apretude) IM QOM. Window visits +/- 7 days within target date reviewed w pt. labs next visit strict compliance addressed w correct use of medication ,complianc e with office visits; window visits reviewed. to call with any new meds/OTC. condom use to prevent other STI's plan of care reviewed [id number] Angella Lyon MD Main Office [address] [place] [phone] 06/30/2023 09:29:29 06/30/2023 09:53:55 Exposure to Human immunodeficiency virus 615735237 Z20.6 PreP: continue Cabotegrav ir (Apretude) IM QOM. Window visits +/- 7 days within target date reviewed w pt. labs next visit strict compliance addressed w correct use of medication ,complianc e with office visits; window visits reviewed. to call with any new meds/OTC. condom use to prevent other STI's plan of care reviewed [id number] Angella Lyon MD Main Office [address] [place] [address] 07/29/2023 13:51:08 07/31/2023 16:24:26 Risk of exposure to communicable disease 799199728 Z20.2 [id number] Angella Lyon MD Main Office [address] [place] [address] 09/25/2023 14:44:43 09/25/2023 14:49:20 Exposure to Human immunodeficiency virus 243988174 Z20.6 PreP:jeronimo nue Cabotegrav ir (Apretude) IM QOM. Window visits +/- 7 days within target date reviewed w pt.labs orderedstr ict compliance addressed w correct use of medication ,complianc e with office visits; window visits reviewed. to call with any new meds/OTC. condom use to prevent other STI's plan of care reviewed [id number] Angella Lyon MD Main Office [address] [place] [address] 09/29/2023 10:23:43 09/29/2023 10:55:45 Exposure to Human immunodeficiency virus 911698655 Z20.6 PreP:jeronimo nue Cabotegrav ir (Apretude) IM QOM. Window visits +/- 7 days within target date reviewed w pt.labs orderedstr ict compliance addressed w correct use of medication ,complianc e with office visits; window visits reviewed. to call with any new meds/OTC. condom use to prevent other STI's plan of care reviewed [id number] Angella Lyon MD Main Office [address] [place] [address] 11/30/2023 12:03:49 11/30/2023 12:53:32 Exposure to Human immunodeficiency virus 414650064 Z20.6 PreP:jeronimo nue Cabotegrav ir (Apretude) IM QOM. Window visits +/- 7 days within target date reviewed w pt.labs orderedstr ict compliance addressed w correct use of medication ,complianc e with office visits; window visits reviewed. to call with any new meds/OTC. condom use to prevent other STI's plan of care reviewed [id number] Angella Lyon MD Main Office [address] [place] [place] [address] 12/24/2023 13:23:00 12/24/2023 14:08:27 Exposure to Human immunodeficiency virus 020745435 Z20.6 PreP:jeronimo nue Cabotegrav ir (Apretude) IM QOM. Window visits +/- 7 days within target date reviewed w pt.labs orderedstr ict compliance addressed w correct use of medication ,complianc e with office visits; window visits reviewed. to call with any new meds/OTC. condom use to prevent other STI's plan of care reviewed Body mass index 30+ - obesity 707191812 Z68.30 obesity. BMI>30Will prescribe Semaglutid e s/c qw and increase dose as needed/alf erated.pt w obesity. ongoing weight gainno DM and nl TSH. high risk for DMHas not responded to diet,exerc ise, nor other medscontin ue to exerciseco ntinue to diet. calorie and education and written informatio n providedla bs needed as below prior to starting wegovy.pre scribe semaglutid e (weight loss) 0.25 mg/0.5 mL subcutaneo us pen injector 0.25 mg every week for 28 days, for weight lossProvid ed learning about obesity [id number] Angella Lyon MD Main Office [address] [place] [place] [address] 01/06/2024 11:08:37 01/06/2024 11:23:14 Body mass index 30+ - obesity 178303849 Z68.30 obesity. BMI>30 START Semaglutid e 0.5 mg sc qw.first dose of wegovy (semagluti de) administer ed today in office.beatriz l increase dose as needed/alf erated.con tinue to exercisepo tetnial side effects reviewed again such as GERD, n/v/d, constipati on, obstraucti on, allergic reactions among othercompl iance with kaleb, meds and safety assessment s reviewedco ntinue to diet. calorie and education and written informatio n provided [id number] Angella Lyon MD Main Office [address] [place] [address] 01/29/2024 11:07:12 01/29/2024 12:00:56 Exposure to Human immunodeficiency virus 038939065 Z20.6 PreP:jeronimo nue Cabotegrav ir (Apretude) IM QOM. Window visits +/- 7 days within target date reviewed w pt.labs orderedstr ict compliance addressed w correct use of medication ,complianc e with office visits; window visits reviewed. to call with any new meds/OTC. condom use to prevent other STI's plan of care reviewed [id number] Angella Lyon MD Main Office [address] [place] [address] 02/02/2024 10:57:27 02/02/2024 11:31:15 Body mass index 30+ - obesity 979129431 Z68.30 obesity. START Semaglutid e 0.5 mg sc qw tomorrowin crease dose to 1 mg next month.labs Febontin ue to exercisepo tential side effects reviewed again such as GERD, n/v/d, constipati on, visual, obstraucti on,complia nce with kaleb, meds and safety assessment s reviewedco ntinue to diet. calorie and education and written informatio n provided Exposure t o Human immunodeficiency virus 988035899 Z20.6 PreP:jeronimo nue Cabotegrav ir (Apretude) IM QOM. Window visits +/- 7 days within target date reviewed w pt.labs orderedstr ict compliance addressed w correct use of medication ,complianc e with office visits; window visits reviewed. to call with any new meds/OTC. condom use to prevent other STI's plan of care reviewed Constipation 53713736 K5 9.00 [place] [id number] Angella Lyon MD Main Office [address] [place] [address] 03/03/2024 11:17:03 03/03/2024 11:47:16 Body mass index 30+ - obesity 775878944 Z68.30 obesity. continue Semaglutid e 0.5 mg sc qw tomorrowin crease dose to 1 mg next month.labs Febontin ue to exercisepo tential side effects reviewed again such as GERD, n/v/d, constipati on, visual, obstraucti on,complia nce with kaleb, meds and safety assessment s reviewedco ntinue to diet. calorie and education and written informatio n provided Exposure t o Human immunodeficiency virus 679781403 Z20.6 PreP:jeronimo nue Cabotegrav ir (Apretude) IM QOM. Window visits +/- 7 days within target date reviewed w pt.labs orderedstr ict compliance addressed w correct use of medication ,complianc e with office visits; window visits reviewed. to call with any new meds/OTC. condom use to prevent other STI's plan of care reviewedCO VID19 and flu vaccine recommende d. Constipation 35528217 K5 9.00 stool softener prnhydrati on Angella Lyon MD Main Office [address] [place] [phone] 03/30/2024 12:26:34 03/30/2024 14:16:15 Exposure to Human immunodeficiency virus 475548390 Z20.6 Apretude administer ed todaylabs onnext appointmen t Body mass index 30+ - obesity 564457458 Z68.30 obesity. continue Semaglutid e 0.5 mg sc qwcontinue to exercisepo tential side effects reviewed again such as GERD, n/v/d, constipati on, visual, obstraucti on,complia nce with kaleb, meds and safety assessment s reviewedco ntinue to diet. calorie and education and written informatio n provided [id number] Angella Lyon MD Main Office [address] [place] [address] 04/29/2024 12:01:04 04/29/2024 13:29:49 Exposure to Human immunodeficiency virus 891190109 Z20.6 on Apretude QOMlabs Body mass index 30+ - obesity 059085648 Z68.30 obesity.co ntinue Semaglutid e 0.5 mg sc qw ; prescribed againpt will fiber picker at pharmacy once med is available. shortageco ntinue to exercisepo tential side effects reviewed again such as GERD, n/v/d, constipati on, visual, obstraucti on,complia nce with kaleb, meds and safety assessment s reviewedco ntinue to diet. 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 [id number] Angella Lyon MD Main Office [address] [place] [address] 05/25/2024 09:31:58 05/25/2024 09:47:44 Exposure to sexually transmissible disorder 392024787 Z20.2 Apretude IM administer ed today.no reactions. next dose 07/2023 Body mass index 30+ - obesity 360559432 Z68.30 obesity.co ntinue Semaglutid e 0.5 mg sc qw ;continue to exercisehy drationwat ch diet.call with concerns.c ompliance with kaleb, meds and safety assessment s reviewedco ntinue to diet. calorie and education and written informatio n provided Exposure t o Human immunodeficiency virus 563990180 Z20.6 [id number] Angella Lyon MD Main Office [address] [place] [address] 06/28/2024 14:06:07 07/08/2024 15:18:49 Exposure to sexually transmissible disorder 046553122 Z20.2 Apretude IM QOMlabs next appointmen t Body mass index 30+ - obesity 669944943 Z68.30 obesity.se maglutide not on formulary anylongerW ill order Zepbound 2.5 mg sq qw x 4 doses , and increase dose as neededcont inue to exercisehy drationwat ch diet.call with concerns.c ompliance with kaleb, meds and safety assessment s reviewedco ntinue to diet. calorie and education and written informatio n provided [id number] Angella Lyon MD Main Office [address] [place] [address] 07/04/2024 16:20:11 07/21/2024 15:08:28 [id number] Angella Lyon MD Main Office [address] [place] [phone] 07/18/2024 12:29:00 07/18/2024 14:32:13 Exposure to sexually transmissible disorder 332361638 Z20.2 Apretude IM QOMlabs next appointmen t Body mass index 30+ - obesity 816766913 Z68.30 obesity.in crease Zepbound 2.5-->5mg sq qw x 4 doses; and increase dose as needed monthycont inue to exercisehy drationlab s next appointmen t,watch diet.call with concerns.c ompliance with kaleb, meds and safety assessment s reviewedco ntinue to diet. calorie and education and written informatio n provided [id number] Angella Lyon MD Main Office [address] [place] [phone] 07/29/2024 12:24:23 07/29/2024 12:45:22 Exposure to Human immunodeficiency virus 285517944 Z20.6 [id number] Angella Lyon MD Main Office [address] [place] [phone] 08/15/2024 14:18:09 08/15/2024 14:56:11 Exposure to sexually transmissible disorder 513802560 Z20.2 Apretude IM QOMlabs next appointmen t Body mass index 30+ - obesity 923132403 Z68.30 obesity.se maglutide not on formulary anylongerW ill order Zepbound 2.5 mg sq qw x 4 doses , and increase dose as neededcont inue to exercisehy drationwat ch diet.call with concerns.c ompliance with kaleb, meds and safety assessment s reviewedco ntinue to diet. calorie and education and written informatio n provided Constipation 89017937 K5 9.00 stool softener prnhydrati on Health Concerns Section Related Observation LastModified by Organization Detai ls LastModified Time None Recorded Concern Status LastModified by Organization Details LastModified Time None Recorded Advance Directives Directive None Recorded Payers Encounter Date Sequence Insurance Name Policy Number Policy Mclean Covered Member ID Mclean Member ID Guarantor Name 06/28/2024 1 [place] [facility] Taniya Benito [id number] Taniya Benito 07/04/2024 1 [place] [facility] Taniya Benito [id number] Taniya Benito 07/18/2024 1 [place] [facility] Taniya Benito [id number] Taniya Benito 07/29/2024 1 [place] [facility] Taniya Bennettosta [id number] Taniya Bennettosta Notes Date Note Type Note Provider Name and Address Organization Details Recorded Time text/html weight managementcurrently on wegovy 0.5mg sq qw ;wegovy not on insurance formulary; she is willing ot try zepbound.no side effects on wegovy.no DM hx.179-->156 --157--159 lb -->160 lbsno vomiting ; no abd pain; no n/v/d. no rash. no sweats; no weight loss. no fever. 05/2024 HIV negative;02/2024 ALT/AST wnl; egFR nl ; HIV neg; no HBV; ALt/AST wnl; eGFR=60; no syphilis; eGFR>60; neg GC/chlamydia; HCV neg04/2023 HIV negative; ALt/AST wnl;eGFR>60; HCV neg; HBV neg Angella Lyon MD [address] [place] [address], [phone], [place] - ANGELLA LYON MD [facility] 06/29/2024 00:39:49 5 text/html weight managementcurrently on zepbound 2.5 mg sq qwtolerates wellno side effects.no DM hx.179-->->160 lbsno vomiting ; no abd pain; no n/v/d. no rash. no sweats; no weight loss. no fever.no RTOH 05/2024 HIV negative;02/2024 ALT/AST wnl; egFR nl ; HIV neg; no HBV; ALt/AST wnl; eGFR=60; no syphilis; eGFR>60; neg GC/chlamydia; HCV neg04/2023 HIV negative; ALt/AST wnl;eGFR>60; HCV neg; HBV neg Angella Lyon MD [address] [place] [address], [phone], [place] - ANGELLA LYON MD [facility] 07/18/2024 20:43:42 OBGyn Episode No OBEpisode recorded.
--- OUTSIDE RECORDS SUMMARY | 2024-08-18 16:58 | XMS_ITS | Encounter Summary ---
Author Organization [employer] Address [address] [place] [address] Care Team Providers Care Industrial Painter Name Role Phone Chelo Mitchell MD Primary Care Provider + Reason for Visit * Reason Onset Date Comments Med Refill 06/30/2023 Encounter Details Date Type Department Care Team ([facility] st Contact Info) Description 06/30/2023 Telephone [facility] [place] [address] [place], [place] [phone] Chelo Mitchell MD [address] [place], [place] [phone] Med Refill Social History Tobacco Use Types Packs/Day Years [...] encounter Miscellaneous Notes * Telephone Encounter - Piper Olivier LPN - 06/30/2023 10:51 AM EST Medication was sent to [facility] #[id number] on 05/08/23 #30 with 3 refills. * Telephone Encounter - Shea Becker - 06/30/2023 10:40 AM EST TC from pt requesting medication refill. Medications needing refill : mirtazapine (Remeron) 15 MG tablet To be sent to: [id number] [place] [address] documented in this encounter Plan of Treatment Upcoming Encounters Date Type Department Care Team (Late st Contact Info) Description 09/14/2024 3:00 PM EDT Office Visit [facility] [address] [place] [address] Dominique Reese, OD [address] [place] [address] 10/25/2024 10:30 AM EDT Office Visit [facility] [address] [place] [address] Chelo Mitchell MD [address] [place] [address] documented as of this encounter Visit Diagnoses Not on filedocumented in this encounter Care Teams Industrial Painter Relationship Specialty Start Date End Date Chelo Mitchell MD [address] [place] [phone] PCP - General Family Medicine 04/01/16 documented as of this encounter
--- OUTSIDE RECORDS SUMMARY | 2024-08-18 16:58 | XMS_ITS | Encounter Summary ---
Author Organization [employer] Address [address] [place] [address] Care Team Providers Care Pie Dough Roller Name Role Phone Chelo Mitchell MD Primary Care Provider + Encounter Details Date Type Department Care Team (Late st Contact Info) Description 07/29/2024 11:45 AM EST Telemedicine [facility] [address] [place], [place] [phone] Chelo Mitchell MD [address] [place], [place] [phone] Viral upper respiratory tract infection (Primary Dx); Cervical disc disorder Social History Tobacco Use Types Packs/Day Years Used Date Smoking Tobacco: Never Smokeless Tobacco: Never Alcohol Use Standard Drinks/Week Comments Never 0 (1 standard drink = 0.6 oz pur e alcohol) Housing Stability Answer Date Recorded What is your housing situation today? I have elisabethxiomara yañez 04/01/[address] [...] AM EDT documented as of this encounter Progress Notes * Chelo Mitchell MD - 07/29/2024 11:45 AM EST SUBJECTIVE: Taniya Walker is a 54 y.o. year old female who presents for follow up pain. Denies recentillness, injury, or hospitalization. Patient today on a telehealth visit for fu on pain. TJD of cervical spine and shoulders. Taking Tramadol initially in PRN basis. For the past 8 months she has been taking it more frequently approximately 1-3/week. She states to have gone to the pain clinic a month and a half ago and is waiting for the next appointment to come in the mail. Acute Concerns: She complains of having a cold, body aches, fever, chills and cough since yesterday. 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 Negative for fatigue. HENT: Negative for congestion, ear pain, nosebleeds, rhinorrhea, sinus pressure, sore throat and trouble swallowing. Eyes: Negative for pain and discharge. Respiratory: Positive for cough. Negative for chest tightness and shortness of breath. Cardiovascular: Negative for chest pain, palpitations and leg swelling. Gastrointestinal: Negative for abdominal pain, blood in stool, constipation, diarrhea and nausea. Endocrine: Negative for polydipsia and polyuria. Genitourinary: Negative for dysuria, frequency, genital sores, pelvic pain and vaginal discharge. Musculoskeletal: Positive for myalgias. Negative for back pain and neck pain. Skin: Negative for rash. Allergic/Immunologic: Negative for environmental allergies. Neurological: Negative for dizziness, seizures, weakness, light-headedness and headaches. Hematological: Negative for adenopathy. Psychiatric/Behavioral: Negative for agitation, behavioral problems, self-injury and suicidal ideas. OBJECTIVE: There were no vitals filed for this visit. Physical Exam Problem List Items Addressed This Visit Viral upper respiratory tract infection - Primary Negative for COVID per at home test on 07/28/2024. Advised patient to come to [facility] if symptoms do not improve. Rest (sleep at least 8 hours a night). Hydrate with plenty of water (avoid caffeine and alcohol). Use saline nose drops to loosen mucus Use Flonase Nasal [place] X 5 days. Take Acetaminophen (Tylenol??)/Ibuprofen as needed to reduce fever, headache, body aches or discomfort Gargle with salt water and use throat sprays/lozenges for throat pain. Use heated, humidified air. If you do not have a humidifier, take hot showers. Cover coughs and sneezes using the crook of your elbow. If you have a fever, stay home and away from others (self isolation) until fever-free for 72 hours (temperature should be less than 100??F without medication). Cervical disc disorder Seen by pain clinic, awaiting evaluation for TENS unit. Advised to call and schedule appointment. Will continue Tramadol on PRN basis, no more than 10 tabs/month. Follow Up: Current Outpatient Medications on File Prior to Visit Medication Sig Dispense Refill Cabotegravir ER (Apretude) 600 MG/3ML Suspension Extended Release Inject 3 mL every 2 months by intramuscular route as directed for 60 days. cyclobenzaprine (Flexeril) 10 MG tablet TAKE 1 TABLET BY MOUTH AT BEDTIME FOR 10 DAYS 10 tablet 0 meloxicam (Mobic) 15 MG tablet Take 1 tablet by mouth in the morning. mirtazapine (Remeron) 15 MG tablet TAKE 1 TABLET BY MOUTH AT BEDTIME 90 tablet 3 sertraline (Zoloft) 25 MG tablet Take 1 tablet (25 mg) by mouth in the morning. 90 tablet 3 valACYclovir (Valtrex) 500 MG tablet Take 500 mg by mouth 2 times daily. [DISCONTINUED] influenza split quad (Flulaval,Afluria) suspension quadrivalent Quantity: ; 0 refill(s) [DISCONTINUED] nitrofurantoin, macrocrystal-monohydrate, (Macrobid) 100 MG capsule TAKE 1 CAPSULE BY MOUTH EVERY 12 HOURS FOR 5 DAYS No current facility-administered medications on file prior to visit. I, Claudia Sanon, am serving as a scribe to document services personally performed by Dr. Chelo Mitchell, based on the patient's response to questions by provider and provider's statements to me. documented in this encounter Miscellaneous Notes * Assessment & Plan Note - Claudia Sanon MA - 07/29/2024 1:01 PM EST Associated Problem(s): Cervical disc disorder Seen by pain clinic, awaiting evaluation for TENS unit. Advised to call and schedule appointment. Will continue Tramadol on PRN basis, no more than 10 tabs/month. * Assessment & Plan Note - Claudia Sanon MA - 07/29/2024 12:59 PM EST Associated Problem(s): Viral upper respiratory tract infection Negative for COVID per at home test on 07/28/2024. Advised patient to come to [facility] if symptoms do not improve. Rest (sleep at least 8 hours a night). Hydrate with plenty of water (avoid caffeine and alcohol). Use saline nose drops to loosen mucus Use Flonase Nasal [place] X 5 days. Take Acetaminophen (Tylenol??)/Ibuprofen as needed to reduce fever, headache, body aches or discomfort Gargle with salt water and use throat sprays/lozenges for throat pain. Use heated, humidified air. If you do not have a humidifier, take hot showers. Cover coughs and sneezes using the crook of your elbow. If you have a fever, stay home and away from others (self isolation) until fever-free for 72 hours (temperature should be less than 100??F without medication). documented in this encounter Plan of Treatment Upcoming Encounters Date Type Department Care Team (Late st Contact Info) Description 09/14/2024 3:00 PM EDT Office Visit [facility] [address] [place] [address] Dominique Reese, OD [address] [place] [address] 10/25/2024 10:30 AM EDT Office Visit [facility] [address] [place] [address] Chelo Mitchell MD [address] [place] [address] documented as of this encounter Visit Diagnoses Diagnosis Viral upper respiratory tract infection- Primary Acute upper respiratory infections of unspecified site Cervical disc disorder documented in this encounter Care Teams Pie Dough Roller Relationship Specialty Start Date End Date Chelo Mitchell MD [address] [place] [address] PCP - General Family Medicine 04/01/16 documented as of this encounter
--- OUTSIDE RECORDS SUMMARY | 2024-08-18 16:58 | XMS_ITS | Encounter Summary ---
Author Organization [employer] Address [address] [place] [address] Care Team Providers Care Emergency Department Clinician Name Role Phone Chelo Mitchell MD Primary Care Provider + Reason for Visit * Reason Onset Date Comments Nurse Triage 04/07/2023 Encounter Details Date Type Department Care Team ([facility] st Contact Info) Description 04/07/2023 Telephone [facility] [address] [place], [place] [phone] Chelo Mitchell MD [address] [place], [place] [phone] Nurse Triage Social History Tobacco Use Types Packs/Day Years [...] encounter Miscellaneous Notes * Telephone Encounter - My Santizo RN - 04/07/2023 4:24 PM EDT Triage call with [employer] Auditor ID [id number] Pt reports some abnormal vaginal bleeding. Pt reports it is mainly spotting on pantys and on toiletpaper which started today. Pt reports never having this before. Pt last period was 6-7 years ago. Pt reports having a cyst removed 3- 4 months ago without any difficulty and it was in the vaginal area. Pt did call OB for apt but not available till May. Pt denies pain but, has some discomfort which Pt was unable to describe. Apt with Dr. Juarez 04/08 @ 315pm. Insurance is verified as activeprior to booking. Protocol Used: Vaginal Bleeding - Abnormal (Adult) Care Advice Discussed: * Reasons To Call Back - Severe abdomen pain or lightheadedness occurs - test is positive - Bleeding worsens - Bleeding or spotting lasts over 7 days - You become worse * Telephone Encounter - Consuelo Contreras - 04/07/2023 3:42 PM EDT Symptom: Vaginal Bleeding - Not Outcome: Schedule an appointment to be seen within 24 hours Reason: pt is spotting and has not had period in a very long time. Pt is concerned and requesting aearlier appointment with PCP. Pt is scheduled for 05/08 The caller accepted this outcome Please contact pt at [phone] (Arabic) documented in this encounter Plan of Treatment Upcoming Encounters Date Type Department Care Team (Late st Contact Info) Description 09/14/2024 3:00 PM EDT Office Visit [facility] [address] [place], [place] [phone] Dominique Reese, OD [address] [place] [address] 10/25/2024 10:30 AM EDT Office Visit [facility] [address] [place] [address] Chelo Mitchell MD [address] [place] [address] documented as of this encounter Visit Diagnoses Not on filedocumented in this encounter Care Teams Emergency Department Clinician Relationship Specialty Start Date End Date Chelo Mitchell MD [address] [place] [address] PCP - General Family Medicine 04/01/16 documented as of this encounter
--- OUTSIDE RECORDS SUMMARY | 2024-08-18 16:58 | XMS_ITS | Continuity of Care Document ---
Author Organization AUDREY CAVAZOS MD [facility], Main Office Address [address] [place] [address] Care Team Providers Care Collar Closer Lockstitch Name Role Phone WISAM PAULINO Primary Care Provider Assessment No assessment recorded. Plan of Treatment Reminders Order Date Submit Date Provider Last Modified By Organization Details Last Modified Time Details Appointments WEIGHT MANAGMENT F/U 2024 12:00P M Melissa Lyon MD Not available Not available Not available APRETUDE INJECTION 2024 10:00A Villa Lyon MD Not available Not available Not available WEIGHT MANAGMENT F/U 2024 12:00P M Melissa Lyon MD Not available Not available Not available WEIGHT MANAGMENT F/U 2024 12:00P M Melissa Lyon MD Not available Not available Not [...] IM suspensio n, extended release 2024 [address] [place] [address] [id number], [address] [place], [place], [id number], 07/29/2024 12:44:19 Patient TargetsNo targets recorded. Patient InstructionsNo instructions recorded. Reason for Referral None Reported. 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 Medical [...] : 7; VACCINE_ IND: no; SU_FULL_ NAME: Melissa chawla; Not Available Not Available Not Available [...] VACCINE_ NAME: Hep B, adult; SU_FULL_ NAME: Melissa chawla; Not Available Not Available Not Available [...] a, seasonal , injectab le; SU_FULL_ NAME: Melissa chawla; Not Available Not Available Not Available Fluvirin 45 mcg (15 mcg x 3)/0.5 mL intramusc ular suspensio n trivalen t Quantity : ; 0 refill(s ) 07/21 completed VACCINE_ IND: yes; VACCINE_ NAME: Influenz a, seasonal , injectab le; SU_FULL_ NAME: Melissa Nathan l; Not Available Not Available Not Available Afluria Quad 60 mcg/0.5 mL intramusc ular suspensio n quadriva lent Quantity : ; 0 refill(s ) 07/21 completed VACCINE_ IND: yes; VACCINE_ NAME: influenz a, injectab le, quadriva lent; SU_FULL_ NAME: Melissa chawla; VIS_DATE : 18:02:17 .0; Not Available Not [...] VACCINE_ NAME: zoster recombin ant; SU_FULL_ NAME: Melissa chawla; Not Available Not Available Not Available Afluria Quad 60 mcg (15 mcg x 4)/0.5 mL IM suspensio n quadriva lent Quantity : ; 0 refill(s ) 2017 active VACCINE_ IND: yes; VACCINE_ NAME: influenz a, injectab le, quadriva lent; SU_FULL_ NAME: Melissa Nathan l; VIS_DATE : 20:07:37 .0; Not Available Not Available Not Available Afluria Quad 60 mcg (15 mcg x 4)/0.5 mL intramusc ular susp. quadriva lent Quantity : ; 0 refill(s ) 2018 active VACCINE_ IND: yes; VACCINE_ NAME: influenz a, injectab le, quadriva lent; SU_FULL_ NAME: Melissa chawla; VIS_DATE : 18:37:45 .0; Not Available Not Available Not Available [facility] Quad 60 mcg (15 mcg x 4)/0.5 mL intramusc ular susp. quadriva lent Quantity : ; 0 refill(s ) 2019 active VACCINE_ IND: yes; VACCINE_ NAME: influenz a, injectab le, quadriva lent; SU_FULL_ NAME: Melissa chawla; VIS_DATE : 18:17:54 .0; Not Available Not Available Not Available Tab-A-Vit e 400 mcg tablet TAKE ONE TABLET BY MOUTH EVERY DAY 04/01 completed Duration : 30; VACCINE_ IND: no; SU_FULL_ NAME: Melissa chawla; Not Available Not Available Not Available Wegovy 1 mg/0.5 mL subcutane ous pen injector ADMINIST ER 1 MG UNDER THE SKIN EVERY WEEK FOR WEIGHT LOSS active Not Available Not Available No t Available Wegovy 0.25 mg/0.5 mL subcutane ous pen injector Inject 0.25 mg by subcutan eous route for 1 day. 2023 active Not Available Not Available Not Avai yu Wegovy 0.5 mg/0.5 mL subcutane ous pen [...] 2022 active VACCINE_ IND: yes; SU_FULL_ NAME: Melissa chawla; VIS_DATE : 20:11:33 .0; Not Available Not Available Not Available Afluria Quad (6mo up) 60 mcg (15 mcg x 4)/0.5 mL IM susp quadriva lent Quantity : ; 0 refill(s ) 2021 active VACCINE_ IND: yes; VACCINE_ NAME: influenz a, injectab le, quadriva lent; SU_FULL_ NAME: Melissa chawla; VIS_DATE : 18:55:23 .0; Not Available [...] Available Not Available No t Available Vitals None Recorded Social History None recorded. Functional Status None [...] virus, quadrivalent, preservative 0 completed Not Available [facility] 07/29/2023 06:54:57 Influenza, split virus, quadrivalent, preservative 9 completed Not Available [facility] 07/29/2023 06:54:58 Influenza, split virus, quadrivalent, preservative 8 completed Not Available [facility] 07/29/2023 06:54:58 Influenza, split virus, quadrivalent, preservative 2 completed Not Available [facility] 07/29/2023 06:54:58 Past Encounters Encounter ID Performer Location Encounter Start Date Encounter Closed Date Diagnosis/Indication Diagnosis SNOMED-CT Code Diagnosis ICD10 Code Diagnosis Note [id number] Melissa Lyon MD Main Office [address] [place] [address] 06/28/2024 14:06:07 07/08/2024 15:18:49 Exposure to sexually transmissible disorder 245150119 Z20.2 Apretude IM QOMlabs next appointmen Body mass index 30+ - obesity 182707520 Z68.30 obesity.se maglutide not on formulary anylongerW ill order Zepbound 2.5 mg sq qw x 4 doses , and increase dose as neededcont inue to exercisehy drationwat ch diet.call with concerns.c ompliance with kaleb, meds and safety assessment s reviewedco ntinue to diet. calorie and education and written informatio n provided [id number] Melissa Lyon MD Main Office [address] [place] [phone] 07/04/2024 16:20:11 07/21/2024 15:08:28 [id number] Melissa Lyon MD Main Office [address] [place] [phone] 07/18/2024 12:29:00 07/18/2024 14:32:13 Exposure to sexually transmissible disorder 157859537 Z20.2 Apretude IM QOMlabs next appointmen t Body mass index 30+ - obesity 361706825 Z68.30 obesity.in crease Zepbound 2.5-->5mg sq qw x 4 doses; and increase dose as needed monthycont inue to exercisehy drationlab s next appointmen t,watch diet.call with concerns.c ompliance with kaleb, meds and safety assessment s reviewedco ntinue to diet. calorie and education and written informatio n provided [id number] Melissa Lyon MD Main Office [address] [place] [address] 07/29/2024 12:24:23 07/29/2024 12:45:22 Exposure to Human immunodeficiency virus 408804773 Z20.6 Health Concerns Section Related Observation LastModified by Organization Detai ls LastModified Time None Recorded Concern Status LastModified by Organization Details LastModified Time None Recorded Payers Encounter Date Sequence Insurance Name Policy Number Policy Mclean Covered Member ID Mclean Member ID Guarantor Name 07/29/2024 1 [place] [facility] Taniya Benito [id number] Taniya Benito OBGyn Episode No OBEpisode recorded.
--- OUTSIDE RECORDS SUMMARY | 2024-08-18 16:58 | XMS_ITS | Clinical Summary ---
Author Organization [facility] Address [address] [place] [address] Care Team Providers Care Rigging Man Name Role Phone Chelo Mitchell MD Primary Care Provider [phone] Surgical History Surgery Date Site/Laterality Comments TONSILLECTOMY PROCEDURE: HISTORICAL TONSILLECTOMY Family History Medical History Relation Name Comments Other: breastcancer Father's side 1 cousi n Breast cancer Father's side 2 aunt Breast cancer Neg Hx Ovarian cancer Neg Hx Uterine cancer Neg Hx Relation Name Status Comments Brother Alive no medical prob lems Daughter 1 Alive Daughter 2 premature baby Father Alive HTN Father's side 1 Father's side 2 Mother Alive Son 1 Alive Son 2 Alive Social History Tobacco Use Types Packs/Day Years Used Date Smoking Tobacco: Never Alcohol Use Standard Drinks/Week Comments No 0 (1 standard drink = 0.6 oz pur e alcohol) Comments Unknown Sex and Gender Information Value Date Recorded Sex Assigned at Not on file Legal Sex Female 9:26 AM EST Gender Identity Not on file Sexual Orientation Not on file Obstetrics History Plan of Treatment Health Maintenance Due Date Last Done Comments Breast Cancer Screening 1970 DTaP,Tdap,and Td Vaccines (1 - Tdap) 1989 Hepatitis B Vaccines (1 of 3 - 19+ 3-dose series) 1989 Cervical Cancer Screening: P ap Smear 1991 Pneumococcal Vaccine: 50+ Ye ars (1 of 1 - PCV) 2020 Zoster Vaccines (1 of 2) 2020 Colorectal Cancer Screening: Colonoscopy 05/05/2022 Depression Screening 05/05/2022 HIV Screening 05/05/2022 Hepatitis C Screening 05/05/2022 Social Influencers of Health Screening 05/05/2022 COVID-19 Vaccine (2023-2 5 season) 2024 Influenza Vaccine (#1) 2024 05/24/2012 HIB Vaccines Aged Out No longer eligi ble based on patient's age to complete this topic HPV Vaccines Aged Out No longer eligi ble based on patient's age to complete this topic Hepatitis A Vaccines Aged Out No long er eligible based on patient's age to complete this topic IPV Vaccines Aged Out No longer eligi ble based on patient's age to complete this topic MMR Vaccines Aged Out No longer eligi ble based on patient's age to complete this topic Meningococcal ACWY Vaccine Aged Out N o longer eligible based on patient's age to complete this topic Meningococcal B Vacine Aged Out No lo nger eligible based on patient's age to complete this topic Pneumococcal Vaccine: Pediat rics (0 to 5 Years) and At-Risk Patients (6 to 64 Years) Aged Out No longer eligi ble based on patient's age to complete this topic RSV Immunization Patients Un stefani 20 months Aged Out No longer eligible b ased on patient's age to complete this topic Varicella Vaccines Aged Out No longer eligible based on patient's age to complete this topic Care Teams Rigging Man Relationship Specialty Start Date End Date Chelo Mitchell MD [address] [place] [phone] PCP - General 09/06/13
--- OUTSIDE RECORDS SUMMARY | 2024-08-18 16:58 | XMS_ITS | Encounter Summary ---
Author Organization [employer] Address [address] [place] [address] Care Team Providers Care Power Plant Assistant Name Role Phone Chelo Mitchell MD Primary Care Provider + Reason for Visit * Reason Comments Med Refill Encounter Details Date Type Department Care Team ([facility] st Contact Info) Description 07/02/2024 Refill [facility] [address] [place], [place] [phone] Chelo Mitchell MD [address] [place], [place] [phone] Cervical disc disorder Social History Tobacco Use [...] t he electric, gas, oil or water Health in [place] threatened to shut off services in your [...] Description 09/14/2024 3:00 PM EDT Office Visit [facility] [address] [place] [address] Dominique Reese, OD [address] [place] [address] 10/25/2024 10:30 AM EDT Office Visit [facility] [address] [place] [address] Chelo Mitchell MD [address] [place] [address] documented as of this encounter Visit Diagnoses Diagnosis Cervical disc disorder documented in this encounter Care Teams Power Plant Assistant Relationship Specialty Start Date End Date Chelo Mitchell MD [address] [place] [address] PCP - General Family Medicine 04/01/16 documented as of this encounter
--- OUTSIDE RECORDS SUMMARY | 2024-08-18 16:58 | XMS_ITS | Encounter Summary ---
Author Organization [employer] Address [address] [place] [address] Care Team Providers Care Lcsw Name Role Phone Chelo Mitchell MD Primary Care Provider + Reason for Visit * Reason Onset Date Comments Chart prep 07/26/2024 Encounter Details Date Type Department Care Team ([facility] st Contact Info) Description 07/26/2024 Telephone [facility] [address] [place], [place] [phone] Chelo Mitchell MD [address] [place], [place] [phone] Chart prep Social History Tobacco Use Types Packs/Day Years [...] encounter Miscellaneous Notes * Telephone Encounter - Marybeth Joseph MA - 07/26/2024 10:05 AM EST Chart Prep Labs: done Images: done Vaccines due: yes Referrals: complete Screenings: N/A Overdue care gaps: PHQ-9 documented in this encounter Plan of Treatment Upcoming Encounters Date Type Department Care Team (Late st Contact Info) Description 09/14/2024 3:00 PM EDT Office Visit [facility] [address] [place] [address] Hugh, Dominique, OD [address] [place] [address] 10/25/2024 10:30 AM EDT Office Visit [facility] [address] [place] [address] Chelo Mitchell MD [address] [place] [address] documented as of this encounter Visit Diagnoses Not on filedocumented in this encounter Care Teams Lcsw Relationship Specialty Start Date End Date Chelo Mitchell MD [address] [place] [address] PCP - General Family Medicine 04/01/16 documented as of this encounter
--- OUTSIDE RECORDS SUMMARY | 2024-08-18 16:58 | XMS_ITS | Encounter Summary ---
Author Organization [employer] Address [address] [place] [address] Care Team Providers Care Travel Accommodation Inspector Name Role Phone Chelo Mitchell MD Primary Care Provider + Encounter Details Date Type Department Care Team (Late Contact Info) Description 11/26/2022 Abstract [facility] [address] [place], [place] [phone] Chelo Mitchell MD [address] [place], [place] [phone] Social History Tobacco Use Types Packs/Day Years [...] Description 09/14/2024 3:00 PM EDT Office Visit [facility] [address] [place], [place] [phone] Dominique Reese, OD [address] [place] [address] 10/25/2024 10:30 AM EDT Office Visit [facility] [address] [place] [address] Chelo Mitchell MD [address] [place] [address] documented as of this encounter Procedures Procedure Name Priority Date/Time Associated Diagnosis Comments COLONOSCOPY Routine 08/28/2020 2:50 PM EDT documented in this encounter Results * Hm Colonoscopy (08/28/2020 2:50 PM EDT) Colonoscopy Normal Normal Narrative Regla Cooper - 08/28/2020 2:50 PM EDT Recommended 5 years follow up Historical Provider [facility] Edited Result - Final documented in this encounter Visit Diagnoses Not on filedocumented in this encounter Care Teams Travel Accommodation Inspector Relationship Specialty Start Date End Date Chelo Mitchell MD [address] [place] [address] PCP - General Family Medicine 04/01/16 documented as of this encounter
--- OUTSIDE RECORDS SUMMARY | 2024-08-18 16:58 | XMS_ITS | Encounter Summary ---
Author Organization [employer] Address [address] [place] [address] Care Team Providers Care Senior Manager Creative Services Name Role Phone Chelo Mitchell MD Primary Care Provider + Encounter Details Date Type Department Care Team (Latest Contact Info) Description 07/29/2024 Travel Social History Tobacco Use Types Packs/Day Years Used Date Smoking Tobacco: Never Smokeless Tobacco: Never Alcohol Use Standard Drinks/Week Comments Never 0 (1 standard drink = 0.6 oz pur e alcohol) Housing Stability Answer Date Recorded What is your housing situation today? I have elisabeth pari 04/01/[address] you li [...] Description 09/14/2024 3:00 PM EDT Office Visit [facility] [address] [place] [address] Dominique Reese, OD [address] [place] [address] 10/25/2024 10:30 AM EDT Office Visit [facility] [address] [place] [address] Chelo Mitchell MD [address] [place] [address] documented as of this encounter Visit Diagnoses Not on filedocumented in this encounter Care Teams Senior Manager Creative Services Relationship Specialty Start Date End Date Chelo Mitchell MD [address] [place] [address] PCP - General Family Medicine 04/01/16 documented as of this encounter
--- OUTSIDE RECORDS SUMMARY | 2024-08-18 16:58 | XMS_ITS | Clinical Summary ---
Author Organization [employer] Address [address] [place] [address] Care Team Providers Care Radio Equipment Installer Name Role Phone Chelo Mitchell MD Primary Care Provider + Allergies No known active allergies Medications * This document contains information received from the source organization and may not represent a complete record from that organization. valACYclovir (Valtrex) 500 MG tablet Take 500 mg by mouth 2 times daily. 07/15/19 23 Active meloxicam (Mobic) 15 MG tablet Take 1 tablet by mouth in the morning. Active Cabotegravir ER (Apretude) 600 MG/3ML Suspension Extended Release Inject 3 mL every 2 months by intramuscular route as directed for 60 days. 03/02/20 23 Active mirtazapine (Remeron) 15 MG tabletIndicatio ns:Adjustment disorder, unspecified type TAKE 1 TABLET BY MOUTH AT BEDTIME 90 tablet 3 07/16/19 24 Active sertraline (Zoloft) 25 MG tabletIndicatio ns:Adjustment disorder, unspecified type Take 1 tablet (25 mg) by mouth in the morning. 90 tablet 3 07/16/19 24 Active cyclobenzaprine (Flexeril) 10 MG tabletIndicatio ns:Cervical disc disorder TAKE 1 TABLET BY MOUTH AT BEDTIME FOR 10 DAYS 10 tablet 03/09/20 24 Active acetaminophen (Tylenol Extra Strength) 500 MG tablet Take 1 tablet (500 mg) by mouth every 6 (six) hours if needed for mild pain. 120 tablet 07/29/19 25 025 Active ibuprofen 600 MG tablet Take 1 tablet (600 mg) by mouth every 8 (eight) hours if needed for mild pain or moderate pain. 60 tablet 07/29/19 25 Active fluticasone (Flonase) 50 MCG/ACT nasal spray Administer 1 spray into each nostril Once per day. 16 g 07/29/19 25 Active influenza split quad (Flulaval,Aflur ia) suspension quadrivalent Quantity: ; 0 refill(s) 03/21/20 22 Discontinu ed(Therapy completed) nitrofurantoin, macrocrystal-mo nohydrate, (Macrobid) 100 MG capsule TAKE 1 CAPSULE BY MOUTH EVERY 12 HOURS FOR 5 DAYS 08/23/19 24 Discontinu ed(Therapy completed) traMADol (Ultram) 50 MG tabletIndicatio ns:Cervical disc disorder Take 1 tablet (50 mg) by mouth if needed each day for severe pain for up to 15 days. 15 tablet 07/04/19 25 Active Problems Problem Noted Date Diagnosed Date Viral upper respiratory tract infection 07/29/19 Assessment & Plan (07/29/2024 12:59 PM EST): Negative for COVID per at home test on 07/28/2024. Advised patient to come to [facility] if symptoms do not improve. Rest (sleep at least 8 hours a night). Hydrate with plenty of water (avoid caffeine and alcohol). Use saline nose drops to loosen mucus Use Flonase Nasal [place] X 5 days. Take Acetaminophen (Tylenol??)/Ibuprofen as [...] should be less than 100??F without medication). Endometrial hyperplasia without atypia 4 Assessment & Plan (03/17/2024 10:52 AM EDT): EMB pathology showing benign endometrium with no evidence of hyperplasia or malignancy. She has IUD FU with PROGRAM RESEARCH SPECIALIST for fu endometrial bx. Adjustment disorder 05/08/2023 Assessment & Plan (07/16/2023 11:26 AM EST): Following closely w/ mental health counselor, doing well Pt is able to reach out for safety and feels safe Cont mirtazapine + sertraline 25mg Calcific tendinitis of right shoulder 01/30/2023 Assessment & Plan (03/17/2024 10:55 AM EDT): Will start PT and fu with pain clinic We discussed re cutting down tramadol use, favor tylenol + flexeril Assessment & Plan (05/08/2023 12:25 PM EST): Partially improving I gave her information on her PT so she can make an appointment Continue stretching and strengthening exercises FU and cont tylenol PRN Assessment & Plan (01/30/2023 11:18 AM EDT): Continue Meloxicam use tylenol prp pain. Use Tramadol only for severe pain, minimize chronic use I gave informaiton about stretching excersises for R norma Refer to PT Councled to the acupuncture clinic FU with me in 4-5 months Post-menopausal bleeding 01/30/2023 Overview (07/16/2023): Sp endometrial bx on 05/2023= Glandular/proliferative endometrium, no atypia or hyperplasia. Seen by PROGRAM RESEARCH SPECIALIST, had IUD/mirena placed on 07/07/23 Assessment & Plan (11/16/2023 4:40 PM EDT): Resolved, recent bx is NEG. Continue IUD and fu with Dr Richter. 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 FU with Assessment & Plan (12/11/2022 12:11 PM EDT): Pt is in close contact with two HIV positive patients. CLosely follow up for many years by shiela Monique on PrEP, obtain records. Intramural leiomyoma of uterus 10/23/2022 Assessment & Plan (10/23/2022 12:08 PM EDT): Slightly thick endometrium, r/o endometrial hyperplasia fu with PROGRAM RESEARCH SPECIALIST next month discussed about importance of close follow up and diagnostic and treatment options including hysterectomy FU with me in 3 months. Overweight 10/01/2022 Polyp of colon 10/01/2022 Neck pain 10/01/2022 Glaucoma suspect of both eyes 10/01/2022 Cervical disc disorder 10/01/2022 Assessment & Plan (07/29/2024 1:01 PM EST): Seen by pain clinic, awaiting evaluation for TENS unit. Advised to call and schedule appointment. Will continue Tramadol on PRN basis, no more than 10 tabs/month. Assessment & Plan (03/17/2024 11:00 AM EDT): Seen at [facility] pain clinic Pending fu for radioablation vs TENS unit vs epidural injection Assessment & Plan (01/01/2024 1:09 PM EDT): Symptoms have not improved despite PT and medications. Refer to Pain Clinic and pt will bring CT scan from , pt will need epidural injection. Advised to continue Tylenol with Flexeril and Tramadol prn. Pt still have prescription from last week. Assessment & Plan (12/29/2023 5:23 PM EDT): -Good engagement and participation with Group Medical Visit model, today was first visit. -Encouraged multifactorial approach to pain control including pharm and non- pharm modalities -Uses Tramadol sparingly (not currently at frequency that merits COFFEE PLANTATION WORKER program) Assessment & Plan (11/16/2023 4:45 PM EDT): Partially improving with home exercises, she's done PT in the past. Continue acupuncture prn Refer to chronic pain clinic Use tylenol + flexeril prn Use tramadol sparingly, will consider trigger point injections prn. FU in 4m Assessment & Plan (07/16/2023 11:37 AM EST): Recommend pt to do stretching exercises, apply heat to effected area, and take tylenol, flexeril, and meloxicam PRN Use tramadol sparingly, counseled against daily use Recommended to come for acupuncture clinic, will consider trigger point injections Anxiety 10/01/2022 Assessment & Plan (03/17/2024 11:04 AM EDT): [facility] clinics information given Continue sertraline + mirtazapine Assessment & Plan (05/08/2023 12:24 PM EST): Doing fairly well, has insomnia Restart Mirtazapine Continue Sertraline and fu closely w/ mental health counselor FU 4 months 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 Chronic back pain 04/02/2018 Urticaria 02/15/2018 Vitamin D deficiency 10/23/2017 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 Herpes labialis 07/13/2017 Resolved Problems Problem Noted Date Diagnosed Date Resolved Date Vaginal bleeding 04/08/2023 07/16/2023 Assessment & Plan (04/09/2023 11:21 AM EDT): Patient had recently and endometrial biopsy which was negative, patient reassured and I advise to not miss her PROGRAM RESEARCH SPECIALIST appointment on 05/2023 Endometrial polyp 12/11/2022 07/16/2023 Assessment & Plan (12/11/2022 12:11 PM EDT): s/p D&C / benign biopsy FU with PROGRAM RESEARCH SPECIALIST in 6 months Immunization counseling 10/01/2022 05/0 01/2023 Bacterial vaginosis 10/01/2022 10/14/19 23 Encounters Date Type Department Care Team Description 07/29/2024 11:45 AM EST Telemedicine [facility] [address] [place] [address] Chelo Mitchell MD Viral upper respiratory tract infection (Primary Dx); Cervical disc disorder 07/29/2024 Travel 07/29/2024 Telephone [facility] [address] [place], [place] [phone] Chelo Mitchell MD Change to televisit 07/26/2024 Telephone [facility] [address] [place], [place] [phone] Chelo Mitchell MD Chart prep 07/02/2024 Refill [facility] [address] [place] [address] [phone] Chelo Mitchell MD Cervical disc disorder 06/30/2024 Refill [facility] [address] [place] [address] [phone] Chelo Mitchell MD Cervical disc disorder (Primary Dx) 06/02/2024 Telephone [facility] [address] [place] [address] [phone] Chelo Mitchell MD July recall from Last 3 Months Immunizations Name Administration Dates Next Due Hep B, Unspecified 09/28/2014 Hep B, adult 05/07/2022,08/31/2014 Influenza Injectable Quadriv alant Preservative Free IIV4 MDCK 04/01/2023 Influenza injectable quadriv alent IIV4 with preservative 03/21/2022,02/16/2020,03/10/2019,2017 Influenza injectable quadriv alent preservative free 03/13/2021 Influenza, IIV3, injectable 05/24/2012 Influenza, seasonal, injecta ble, preservative free 03/17/2024 Influenza, trivalent, adjuvanted 03/21/2022 Pfizer Covid-19 Vaccine 12+ 03/18/2024,1 06/08/2022,09/17/2021,2020,10/18/2020,09/27/2020 Pfizer Covid-19 Vaccine 12+ Bivalent 05/06/2022 Pfizer Covid-19 Vaccine 12+ taina-sucrose (Corley Cap) 09/17/2021 Tdap 10/23/2017 Zoster, Recombinant 06/16/2023, 3,05/28/2020,2019 Family History Medical History Relation Name Comments Hypertension Father Relation Name Status Comments Father Social History Tobacco Use Types Packs/Day Years Used Date Smoking Tobacco: Never Smokeless Tobacco: Never Tobacco Cessation:Counseling Given: Not Answered Alcohol Use Standard Drinks/Week Comments Never 0 [...] not to disclose 2021 10:21 AM EDT Last Filed Vital Signs Vital Sign Reading Time Taken Comments Blood Pressure 112/80 03/17/2024 10:24 AM EDT Pulse 88 03/17/2024 10:24 AM EDT Temperature 36.7 ??C (98.1 ??F) 03/17/2024 10:24 AM E DT Respiratory Rate 16 03/17/2024 10:24 AM EDT Oxygen Saturation 100% 01/01/2024 12:20 PM EDT Inhaled Oxygen Concentration - - Weight 70.9 kg (156 lb 6 oz) 03/17/2024 10:24 AM EDT Height 162.6 cm (5' 4 ) 03/17/2024 10:24 AM EDT Body Mass Index 26.84 03/17/2024 10:24 AM EDT Plan of Treatment Upcoming Encounters Date Type Department Care Team (Late st Contact Info) Description 09/14/2024 3:00 PM EDT Office Visit [facility] [address] [place] [address] Dominique Reese, OD [address] [place] [address] 10/25/2024 10:30 AM EDT Office Visit [facility] [address] [place] [address] Chelo Mitchell MD [address] [place] [address] Health Maintenance Due Date Last Done Comments CT Colonography 1970 FIT DNA/Cologuard 1970 FIT 1970 FOBT 1970 Sigmoidoscopy 1970 Meningococcal Vaccine (1 - Risk 2-dose series) 1972 Alcohol/Substance Use Screening 1982 Hepatitis A Vaccines (1 of 2 - Risk 2-dose series) 1989 Pneumococcal Vaccine: 50+ Years (1 of 2 - PCV) 1989 COVID-19 Vaccine ( season) 2024 03/18/2024, 04/08/2023, 05/06/2022, Additional history exists SDOH Screening 07/13/2024 07/13/2023 Mammogram 01/06/2025 01/07/2024, 12/07, 12/20/2021, Additional history exists Depression Screening 03/17/2025 03/17/2024, 03/17/20 Tobacco Screening 03/17/2025 03/17/2024 Colonoscopy 08/28/2025 08/28/2020 Colorectal Cancer Screening 08/28/2025 Pap Smear 11/13/2025 11/13/2022 DTaP/Tdap/Td Vaccines (2 - Td or Tdap) 10/24/2027 10/23/2017 Cervical Cancer Screening 11/14/2027 HPV/Cotest 11/14/2027 11/13/2022, 08/09/2019 RSV Patients and Patients Aged 60 years or older (1 - 1-dose 75+ series) 2045 Hepatitis B Vaccines Completed 05/07/2022, 09/28/2014, 08/31/2014 HIV Screening Completed 11/08/2022, 07/09, 02/08/2022 Zoster Vaccines Completed 06/16/2023, 03/09, 05/28/2020, Additional history exists Influenza Vaccine Completed 03/17/2024, , 03/21/2022, Additional history exists HIB Vaccines Aged Out No longer eligi ble based on patient's age to complete this topic HPV Vaccines Aged Out No longer eligi ble based on patient's age to complete this topic IPV Vaccines Aged Out No longer eligi ble based on patient's age to complete this topic RSV under 20 months Aged Out No longe r eligible based on patient's age to complete this topic Rotavirus Vaccines Aged Out No longer eligible based on patient's age to complete this topic Procedures Procedure Name Priority Date/Time Associated Diagnosis Comments BI MAMMOGRAM SCREENING TOMOSYNTHESIS BILATERAL Routine 01/07/2024 12:30 PM EDT HPV MRNA E6/E7 REFLEX TO HPV 16, 18/45 Routine 11/13/2022 1:39 PM EDT PAP SMEAR Routine 11/13/2022 1:39 PM EDT HIV ANTIBODY/ANTIGEN ([place] DPH) Routine 11/08/2022 9:10 AM EDT HM COLONOSCOPY Routine 08/28/2020 2:50 PM EDT from Last 3 Months or Most Recently Relevant to Health Maintenance Results * BI Mammogram Screening Tomosynthesis Bilateral (01/07/2024 12:30 PM EDT) Anatomical Region Laterality Modality Breast Bilateral Mammography 01/07/2024 12:3 0 PM EDT Narrative 02/05/2024 12:30 PM EDT ? [facility] ? [address] ?[place] [address] ? Mammography Report ? Signed ? Patient: Taniya Mauricio ?MR#: ?? [id number] ? : 1970 ?Acct:[id number] ? Age/Sex: 53 / F ?ADM Date: 01/07/24 ? Loc: HO.MAMMO ? Attending Dr: Chelo Mitchell MD ? Ordering Physician: Luca Richter MD ?Results: 1Negativ ?? e ? Date of Service: 01/07/24 ?Follow Up: 1 Year From Orig ?? inal Mammogram ? Procedure(s): MM tomosynthesis screening BI ?? Accession Number(s): [id number] ? cc: Chelo Mitchell MD; Luca Richter MD ? EXAMINATION: ?? MM SCREENING DIGITAL BREAST TOMOSYNTHESIS, BILATERAL ? CLINICAL INFORMATION: ? Screening. Asymptomatic. ? COMPARISON: ?? Mammography: This study is compared with prior exams dating back to ? 2020. ? TECHNIQUE: ?? Digital breast tomosynthesis is performed in both the craniocaudal and ?? mediolateral oblique views along with computer-aided detection (CAD). ? Synthesized 2D images are generated from the tomosynthesis. ? FINDINGS: ?? There are scattered areas of fibroglandular density (ACR BI-RADS breast ?? composition Category b). ? There are no significant masses, abnormal calcifications, or other ?? abnormalities. ? MM/MM tomosynthesis screening BI ?? IMPRESSION: ?? No mammographic evidence of malignancy. ? ASSESSMENT: ? BI-RADS BI-RADS 1 - Negative ? RECOMMENDATION: ?? Routine annual mammography screening. ? 1 year F/U ? This examination should not preclude the clinical evaluation of a ?? suspicious palpable abnormality. ? This patient's information was entered into a reminder system with a ?? target due date for their next mammogram. ? Electronically signed by: ??Carolyn Aleman MD ??02/05/2024 12:27 PM EDT RP ? Dictated By: ?Carolyn Aleman MD ? Signed By: ?<Electronically signed by Carolyn Aleman MD in OV> ? 02/05/24 1227 ? DD/ 1230 ? TD/TT: 01/07/24 1246 ? Paper Wrapping Machine Operator: ? Procedure Note Dandy, Shon - 02/05/2024 [place] [facility] [address] [place] [address] Mammography Report Signed Patient: Taniya Mauricio TMR#: [id number] : 1970Acct:[id number] Age/Sex: 53 / FADM Date: 01/07/24 Loc: HO.MAMMO Attending Dr: Chelo Mitchell MD Ordering Physician: Luca Richteresults: 1Negativ e Date of Service: 01/07/24Follow Up: 1 Year From Orig inal Mammogram Procedure(s): MM tomosynthesis screening BI Accession Number(s): [id number] cc: Chelo Mitchell MD; Luca Richter MD EXAMINATION: MM SCREENING DIGITAL BREAST TOMOSYNTHESIS, BILATERAL CLINICAL INFORMATION: Screening. Asymptomatic. COMPARISON: Mammography: This study is compared with prior exams dating back to 2020. TECHNIQUE: Digital breast tomosynthesis is performed in both the craniocaudal and mediolateral oblique views along with computer-aided detection (CAD). Synthesized 2D images are generated from the tomosynthesis. FINDINGS: There are scattered areas of fibroglandular density (ACR BI-RADS breast composition Category b). There are no significant masses, abnormal calcifications, or other abnormalities. MM/MM tomosynthesis screening BI IMPRESSION: No mammographic evidence of malignancy. ASSESSMENT: BI-RADS BI-RADS 1 - Negative RECOMMENDATION: Routine annual mammography screening. 1 year F/U This examination should not preclude the clinical evaluation of a suspicious palpable abnormality. This patient's information was entered into a reminder system with a target due date for their next mammogram. Electronically signed by: Carolyn Aleman MD 02/05/2024 12:27 PM EDT Dictated By: Carolyn Aleman MD Signed By: <Electronically signed by Carolyn Aleman MD in OV> 02/05/24 1227 DD/ 1230 TD/TT: 01/07/24 1246 Paper Wrapping Machine Operator: [facility] External Provider IMG BI PROCEDURES Edited Result - Final * HPV mRNA E6/E7 w/Reflex to HPV Genotypes 16, 18/45 (11/13/2022 1:39 PM EDT) HPV nRNA E6/E7 Not Detected Not Detected [facility] Comment:Methodology: Transcr iption-Mediated AmplificationThis assay detects E6/E7 viral messenger RNA (mRNA) from 14high-risk HPV types (16,18,31,33,35,39,45,51,52,56,58,59,66,68).Cervical sources are required for HPV testing.If a vaginal source from a patient who has had atotal hysterectomy with removal of cervix wassubmitted, please contact the testing laboratoryfor alternative testing options.For additional information, please refer tohttp://education.kompany/faq/PBT848r8(This link if provided for information/educational purposes only.)THIS TEST WAS PERFORMED AT:[employer] [place] [phone] KEITH MD HPV mRNA E6/E7 TNP [facility] HPV 16 RNA TNP [facility] HPV 18/45 RNA TNP [facility] 11/13/2022 1:39 PM EDT 11/17/2022 10:15 AM EDT us [facility] External Provider LAB CYT OLOGY ORDERABLES Final Result [facility] [address] [place] [address] [phone] * Pap Smear (11/13/2022 1:39 PM EDT) 11/13/2022 1:39 PM EDT 11/17/2022 10:15 AM EDT Narrative [facility] - 11/28/2022 3:48 PM EDT ----- ------- Name: Taniya Mauricio ?Age/Sex: 52/F ? : 1970 Unit#: [id number] ?? Attend Dr: Luca Richter MD ?Re11/13/22 ?Status: DEP REF ? Location: HO.LNP ?Disch: ? ----- ------- SPEC : [id number] ? RECD: 11/17/225 ? STATUS: ??SOUT ? REQ NUM: [id number] ? TRE: 11/13/22 ? SUBM DR: Luca Richter MD ? ENTERED: ??11/17/22-1205 ?SP TYPE: Pap Smr ?OTHR DR: Chelo Mitchell MD ? ORDERED: ??Pap Smear ? Interpretation ?? Satisfactory for evaluation. ?? Negative for intraepithelial lesion or malignancy. ? HPV mRNA E6/E7: ?NOT DETECTED ? This assay detects E6/E7 viral messenger RNA (mRNA) from 14 high-risk HPV types (16, 18, ?? 31, 33, 35, 39, 45, 51, 52, 56, 58, 59, 66, 68) ? HPV testing performed by [email or web address], [place], [place]. ??See reference laboratory ?? portion of the EMR for entire report. ?Clinical Information LMP: Postmenopausal Previous PAP test: 1 yr ago, Unknown ? Material Received ?? ThinPrep-Cervical Copies To: ?? Chelo Mitchell MD ?? [address] ?? [place] [address] ? Luca Richter MD ?? [address] [place] [facility] ?? [place] [address] ?? [phone] ----- ------- Signed (signature on file) Melvi Michael Box 11/28/22 1548 ? ----- ------- ? END OF REPORT ? us [facility] External Provider LAB CYT OLOGY ORDERABLES Final Result [facility] [address] [place] [address] [phone] * HIV Ab/Ag (AUDREY GONSALVES) (11/08/2022 9:10 AM EDT) HIV AB/AG Nonreactive Nonreactive [facility] Comment:HIV-1 p24 Ag and/or HIV-1/HIV-2 Ab not detected.A test result that is nonreactive does not exclude thepossibility of exposure to or infection with HIV-1 and/orHIV-2. Nonreactive results in this assay for individualswith prior exposure to HIV-1 and/or HIV-2 may be due toantigen and antibody levels that are below the limit ofdetection of this assay.The [employer] HIV Ag/Ab Combo assay result andsupplemental assay results should be interpreted inconjunction with the patient's clinical presentation,history and other laboratory results. If the results areinconsistent with clinical evidence, additional testing issuggested to confirm the result. 11/08/2022 9:10 AM EDT 11/08/2022 9:11 AM EDT [facility] External Provider LAB BLO OD ORDERABLES Final Result [facility] [address] [place] [address] [phone] * Hm Colonoscopy (08/28/2020 2:50 PM EDT) Colonoscopy Normal Normal Narrative Regla Cooper - 08/28/2020 2:50 PM EDT Recommended 5 years follow up Historical Provider HEALTH MAINTENANCE Edited Result - Final from Last 3 Months or Most Recently Relevant to Health Maintenance Insurance [facility] C3 HSN FULL Care Teams Radio Equipment Installer Relationship Specialty Start Date End Date Chelo Mitchell MD [address] [place] [address] PCP - General Family Medicine 04/01/16
--- OUTSIDE RECORDS SUMMARY | 2024-08-18 16:58 | XMS_ITS | Encounter Summary ---
Author Organization [employer] Address [address] [place] [address] Care Team Providers Care Market Research Assistant Name Role Phone Chelo Mitchell MD Primary Care Provider + Reason for Visit * Reason Onset Date Comments Nurse Triage 10/21/2023 Encounter Details Date Type Department Care Team ([facility] st Contact Info) Description 10/21/2023 Telephone [facility] [address] [place], [place] [phone] Chelo Mitchell MD [address] [place], [place] [phone] Nurse Triage Social History Tobacco Use Types [...] encounter Miscellaneous Notes * Telephone Encounter - Ana Jovel - 10/21/2023 3:04 PM EDT Symptoms: Neck Pain - Not From Injury, Back Pain - Not From Injury Outcome: Schedule an appointment to be seen within 24 hours Reason: Pt is requesting a refill on Tramadol The caller accepted this outcome Ivorian speaker documented in this encounter Plan of Treatment Upcoming Encounters Date Type Department Care Team (Late st Contact Info) Description 09/14/2024 3:00 PM EDT Office Visit [facility] [address] [place] [address] Hugh, Dominique, OD [address] [place] [address] 10/25/2024 10:30 AM EDT Office Visit [facility] [address] [place] [address] Chelo Mitchell MD [address] [place] [address] documented as of this encounter Visit Diagnoses Not on filedocumented in this encounter Care Teams Market Research Assistant Relationship Specialty Start Date End Date Chelo Mitchell MD [address] [place] [address] PCP - General Family Medicine 04/01/16 documented as of this encounter
== END 2024-08-18 14:16 | disposition home or self-care (01) ==
LOC: HO.HGS 13:24
PROVIDERS: PCP Internal Medicine; Visit Provider Surgery
DX: Z12.11 Encounter for screening for malignant neoplasm of colon (principal)
CPT/HCPCS: 99203

== ENCOUNTER → 2024-08-18 13:23 | Outpatient (BNVA) | payer MEDICAID, SELFPAY | PROVIDERS: PCP Internal Medicine; Visit Provider Surgery | DX: Z12.11 Encounter for screening for malignant neoplasm of colon (principal) | CPT/HCPCS: 99202 ==

== ENCOUNTER 2024-08-20 08:30 | Outpatient (REF) | payer MEDICAID, SELFPAY ==
--- OUTSIDE RECORDS SUMMARY | 2024-08-20 08:37 | XMS_ITS | Encounter Summary ---
Author Organization [employer] Address [address] [place] [address] Care Team Providers Care Pulmonologist Name Role Phone Chelo Mitchell MD Primary Care Provider + Encounter Details Date Type Department Care Team (Late st Contact Info) Description 07/29/2024 11:45 AM EST Telemedicine [facility] [address] [place], [place] [phone] Chelo Mitchell MD [address] [place], [place] [phone] Viral upper respiratory tract infection (Primary Dx); [...] on 07/28/2024. Advised patient to come to [facility] if symptoms do not improve. Rest (sleep at least 8 hours a night). Hydrate with plenty of water (avoid caffeine and alcohol). Use saline nose drops to loosen mucus Use Flonase Nasal [place] X 5 days. Take Acetaminophen (Tylenol??)/Ibuprofen as [...] on 07/28/2024. Advised patient to come to [facility] if symptoms do not improve. Rest (sleep at least 8 hours a night). Hydrate with plenty of water (avoid caffeine and alcohol). Use saline nose drops to loosen mucus Use Flonase Nasal [place] X 5 days. Take Acetaminophen (Tylenol??)/Ibuprofen as [...] Description 09/14/2024 3:00 PM EDT Office Visit [facility] [address] [place] [address] Dominique Reese, OD [address] [place] [address] 10/25/2024 10:30 AM EDT Office Visit [facility] [address] [place] [address] Chelo Mitchell MD [address] [place] [address] documented as of this encounter Visit Diagnoses Diagnosis Viral upper respiratory tract infection- Primary Acute upper respiratory infections of unspecified site Cervical disc disorder documented in this encounter Care Teams Pulmonologist Relationship Specialty Start Date End Date Chelo Mitchell MD [address] [place] [address] PCP - General Family Medicine 04/01/16 documented as of this encounter
--- OUTSIDE RECORDS SUMMARY | 2024-08-20 08:37 | XMS_ITS | Encounter Summary ---
Author Organization [employer] Address [address] [place] [address] Care Team Providers Care Press Leader Name Role Phone Chelo Mitchell MD Primary Care Provider + Reason for Visit * Reason Onset Date Comments Chart prep 07/26/2024 Encounter Details Date Type Department Care Team ([facility] st Contact Info) Description 07/26/2024 Telephone [facility] MEDICINE [address] [place], [place] [phone] Chelo Mitchell MD [address] [place], [place] [phone] Chart prep Social History Tobacco Use Types [...] Description 09/14/2024 3:00 PM EDT Office Visit [facility] OPTOMETRY [address] [place] [address] Hugh, Dominique, OD 230 [place] [address] 10/25/2024 10:30 AM EDT Office Visit [facility] [address] [place] [address] Chelo Mitchell MD [address] [place] [address] documented as of this encounter Visit Diagnoses Not on filedocumented in this encounter Care Teams Press Leader Relationship Specialty Start Date End Date Chelo Mitchell MD [address] [place] [address] PCP - General Family Medicine 04/01/16 documented as of this encounter
--- OUTSIDE RECORDS SUMMARY | 2024-08-20 08:37 | XMS_ITS | Continuity of Care Document ---
Author Organization AUDREY CAVAZOS MD [facility], Main Office Address [address] [place] [address] Care Team Providers Care Radiologic Technology Program Director Name Role Phone WISAM PAULINO Primary Care [...] IM suspensio n, extended release 2024 [address] [place] [address] [id number], [address] [place], [place], [phone], 07/29/2024 12:44:19 Patient TargetsNo targets recorded. Patient InstructionsNo instructions recorded. Reason for Referral None Reported. 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 [...] .0; Not Available Not Available Not Available [facility] Quad 60 mcg (15 mcg x 4)/0.5 [...] virus, quadrivalent, preservative 0 completed Not Available [facility] 07/29/2023 06:54:57 Influenza, split virus, quadrivalent, preservative 9 completed Not Available [facility] 07/29/2023 06:54:58 Influenza, split virus, quadrivalent, preservative 8 completed Not Available [facility] 07/29/2023 06:54:58 Influenza, split virus, quadrivalent, preservative 2 completed Not Available [facility] 07/29/2023 06:54:58 Past Encounters Encounter ID Performer Location Encounter Start Date Encounter Closed Date Diagnosis/Indication Diagnosis SNOMED-CT Code Diagnosis ICD10 Code Diagnosis Note [id number] Melissa Lyon MD Main Office [address] [place] [address] 06/28/2024 14:06:07 07/08/2024 15:18:49 Exposure to sexually transmissible disorder 654934213 Z20.2 Apretude IM [employer] next appointmen Body mass index 30+ - obesity 480936348 Z68.30 obesity.se maglutide not on formulary anylongerW ill order Zepbound 2.5 mg sq qw x 4 doses , and increase dose as neededcont inue to exercisehy drationwat ch diet.call with concerns.c ompliance with kaleb, meds and safety assessment s reviewedco ntinue to diet. calorie and education and written informatio n provided [id number] Melissa Lyon MD Main Office [address] [place] [address] 07/04/2024 16:20:11 07/21/2024 15:08:28 [id number] Melissa Lyon MD Main Office [address] [place] [address] 07/18/2024 12:29:00 07/18/2024 14:32:13 Exposure to sexually transmissible disorder 577315433 Z20.2 Apretude IM [facility] next appointmen t Body mass index 30+ - obesity 911834890 Z68.30 obesity.in crease Zepbound 2.5-->5mg sq qw x 4 doses; and increase dose as needed monthycont inue to exercisehy drationlab s next appointmen t,watch diet.call with concerns.c ompliance with kaleb, meds and safety assessment s reviewedco ntinue to diet. calorie and education and written informatio n provided [id number] Melissa Lyon MD Main Office [address] [place] [address] 07/29/2024 12:24:23 07/29/2024 12:45:22 Exposure to Human immunodeficiency virus 027960400 Z20.6 Health Concerns Section Related Observation LastModified by Organization Detai ls LastModified Time None Recorded Concern Status LastModified by Organization Details LastModified Time None Recorded Payers Encounter Date Sequence Insurance Name Policy Number Policy Mclean Covered Member ID Mclean Member ID Guarantor Name 07/29/2024 1 [place] [facility] Taniya Benito [id number] Taniya Benito OBGyn Episode No OBEpisode recorded.
--- OUTSIDE RECORDS SUMMARY | 2024-08-20 08:37 | XMS_ITS | Encounter Summary ---
Author Organization [employer] Address [address] [place] [address] Care Team Providers Care Shaper Setter Name Role Phone Chelo Mitchell MD Primary Care Provider + Reason for Visit * Reason Comments Med Refill Encounter Details Date Type Department Care Team ([facility] st Contact Info) Description 07/02/2024 Refill [facility]INE [address] [place], [place] [phone] Chelo Mitchell MD [address] [place], [place] [phone] Cervical disc disorder Social History Tobacco Use [...] t he electric, gas, oil or water [employer] threatened to shut off services in your [...] Description 09/14/2024 3:00 PM EDT Office Visit [facility] OPTOMETRY [address] [place] [address] Dominique Reese, OD [address] [place] [address] 10/25/2024 10:30 AM EDT Office Visit [facility] [address] [place] [address] Chelo Mitchell MD [address] [place] [address] documented as of this encounter Visit Diagnoses Diagnosis Cervical disc disorder documented in this encounter Care Teams Shaper Setter Relationship Specialty Start Date End Date Chelo Mitchell MD [address] [place] [address] PCP - General Family Medicine 04/01/16 documented as of this encounter
--- OUTSIDE RECORDS SUMMARY | 2024-08-20 08:38 | XMS_ITS | Encounter Summary ---
Author Organization [employer] Address [address] [place] [address] Care Team Providers Care Transmission Engineer Name Role Phone Chelo Mitchell MD Primary Care Provider + Reason for Visit * Reason Onset Date Comments Nurse Triage 10/21/2023 Encounter Details Date Type Department Care Team ([facility] st Contact Info) Description 10/21/2023 Telephone [facility] MED[facility]INE [address] [place], [place] [phone] Chelo Mitchell MD [address] [place], [place] [phone] Nurse Triage Social History Tobacco Use Types [...] on Tramadol The caller accepted this outcome Sierra Leonean speaker documented in this encounter Plan of Treatment Upcoming Encounters Date Type Department Care Team (Late st Contact Info) Description 09/14/2024 3:00 PM EDT Office Visit [facility] OPTOMETRY [address] [place] [address] Hugh, Dominique, OD 230 [place] [address] 10/25/2024 10:30 AM EDT Office Visit [facility] [address] [place] [address] Chelo Mitchell MD [address] [place] [address] documented as of this encounter Visit Diagnoses Not on filedocumented in this encounter Care Teams Transmission Engineer Relationship Specialty Start Date End Date Chelo Mitchell MD [address] [place] [address] PCP - General Family Medicine 04/01/16 documented as of this encounter
--- OUTSIDE RECORDS SUMMARY | 2024-08-20 08:38 | XMS_ITS | Encounter Summary ---
Author Organization [employer] Address [address] [facility] [address] [place] [address] Care Team Providers Care Gear Room Keeper Name Role Phone Chelo Mitchell MD Primary Care Provider + Encounter Details Date Type Department Care Team (Late Contact Info) Description 11/26/2022 Abstract [facility] MEDICINE [address] [place], [place] [phone] Chelo Mitchell MD [address] [place], [place] [phone] Social History Tobacco Use Types Packs/Day Years [...] Description 09/14/2024 3:00 PM EDT Office Visit [facility] OPTOMETRY [address] [place], [place] [phone] Dominique Reese, OD [address] [place] [address] 10/25/2024 10:30 AM EDT Office Visit [facility] MED[facility]INE [address] [place] [address] Chelo Mitchell MD [address] [place] [address] documented as of this encounter Procedures Procedure Name Priority Date/Time Associated Diagnosis Comments COLONOSCOPY Routine 08/28/2020 2:50 PM EDT documented in this encounter Results * Hm Colonoscopy (08/28/2020 2:50 PM EDT) Colonoscopy Normal Normal Narrative Regla Cooper - 08/28/2020 2:50 PM EDT Recommended 5 years follow up Historical Provider [facility] Edited Result - Final documented in this encounter Visit Diagnoses Not on filedocumented in this encounter Care Teams Gear Room Keeper Relationship Specialty Start Date End Date Chelo Mitchell MD [address] [place] [address] PCP - General Family Medicine 04/01/16 documented as of this encounter
--- OUTSIDE RECORDS SUMMARY | 2024-08-20 08:38 | XMS_ITS | Encounter Summary ---
Author Organization [employer] Address [address] [place] [address] Care Team Providers Care Food And Drink Factory Workers Name Role Phone Chelo Mitchell MD Primary Care Provider + Reason for Visit * Reason Onset Date Comments Change to televisit 07/29/2024 Encounter Details Date Type Department Care Team ([facility] Contact Info) Description 07/29/2024 Telephone [facility] MEDICINE [address] [place] [address] Chelo Mitchell MD [address] [place] [address] Change to televisit Social History Tobacco Use [...] appt to a telephone visit. Contact pt [phone] tamazight documented in this encounter Plan of Treatment Upcoming Encounters Date Type Department Care Team (Late st Contact Info) Description 09/14/2024 3:00 PM EDT Office Visit [facility] OPTOMETRY [address] [place] [address] Dominique Reese, OD [address] [place] [address] 10/25/2024 10:30 AM EDT Office Visit [facility] MEDICINE [address] [place] [address] Chelo Mitchell MD [address] [place] [address] documented as of this encounter Visit Diagnoses Not on filedocumented in this encounter Care Teams Food And Drink Factory Workers Relationship Specialty Start Date End Date Chelo Mitchell MD [address] [place] [address] PCP - General Family Medicine 04/01/16 documented as of this encounter
--- OUTSIDE RECORDS SUMMARY | 2024-08-20 08:38 | XMS_ITS | Clinical Summary ---
Author Organization [facility] Address [address] [place] [address] Care Team Providers Care Ice Bag Assembler Name Role Phone Chelo Mitchell MD Primary Care Provider [phone] Surgical History Surgery Date Site/Laterality Comments TONSILLECTOMY [...] age to complete this topic Care Teams Ice Bag Assembler Relationship Specialty Start Date End Date Chelo Mitchell MD [address] [place] [phone] PCP - General 09/06/13
--- OUTSIDE RECORDS SUMMARY | 2024-08-20 08:38 | XMS_ITS | Encounter Summary ---
Author Organization [employer] Address [address] [place] [address] Care Team Providers Care Oceanographer Physical Name Role Phone Chelo Mitchell MD Primary Care Provider + Reason for Visit * Reason Onset Date Comments Med Refill 06/30/2023 Encounter Details Date Type Department Care Team ([facility] st Contact Info) Description 06/30/2023 Telephone [facility] MEDICINE [address] [place], [place] [phone] Chelo Mitchell MD [address] [place], [place] [phone] Med Refill Social History Tobacco Use Types [...] 10:51 AM EST Medication was sent to [facility] #[id number] on 05/08/23 #30 with 3 refills. * Telephone Encounter - Shea Becker - 06/30/2023 10:40 AM EST TC from pt requesting medication refill. Medications needing refill : mirtazapine (Remeron) 15 MG tablet To be sent to: [id number] [facility] [address] documented in this encounter Plan of Treatment Upcoming Encounters Date Type Department Care Team (Late st Contact Info) Description 09/14/2024 3:00 PM EDT Office Visit [facility] OPTOMETRY [address] [place] [address] Dominique Reese, OD [address] [place] [address] 10/25/2024 10:30 AM EDT Office Visit [facility] MED[facility]INE [address] [place] [address] Chelo Mitchell MD 230 [place] [address] documented as of this encounter Visit Diagnoses Not on filedocumented in this encounter Care Teams Oceanographer Physical Relationship Specialty Start Date End Date Chelo Mitchell MD [address] [place] [address] PCP - General Family Medicine 04/01/16 documented as of this encounter
--- OUTSIDE RECORDS SUMMARY | 2024-08-20 08:38 | XMS_ITS | Encounter Summary ---
Author Organization [employer] Address [address] [place] [address] Care Team Providers Care Jira Developer Name Role Phone Chelo Mitchell MD Primary Care Provider + Encounter Details Date Type Department Care Team ([facility] [address] Contact Info) Description 10/28/2022 Telephone [facility] MEDICINE [address] [place], [place] [phone] Chelo Mitchell MD [address] [place] [address] Social History Tobacco Use Types Packs/Day Years [...] Upcoming Encounters Date Type Department Care Team ([facility] [address] Contact Info) Description 09/14/2024 3:00 PM EDT Office Visit [facility] OPTOMETRY [address] [place], [place] [phone] Dominique Reese, CARLOS ENRIQUE [address] [place] [address] 10/25/2024 10:30 AM EDT Office Visit [facility] MEDICINE [address] [place], [place] [phone] Chelo Mitchell MD [address] [place], [place] [phone] documented as of this encounter Visit Diagnoses Not on filedocumented in this encounter Care Teams Jira Developer Relationship Specialty Start Date End Date Chelo Mitchell MD [address] [place], [place] [phone] PCP - General Family Medicine 04/01/16 documented as of this encounter
--- OUTSIDE RECORDS SUMMARY | 2024-08-20 08:38 | XMS_ITS | Data Portability ---
Author Organization AUDREY CAVAZOS MD [facility], Main Office Address [address] [place] [address] Care Team Providers Care Rn Mds Coordinator Name Role Phone WISAM PAULINO Primary Care Provider [phone] Assessment No assessment recorded. Plan of Treatment [...] IM suspensio n, extended release 2024 025 [place] [address] [id number], [address] [place], [place], [phone], 07/29/2024 12:44:19 Zepbound 5 mg/0.5 mL subcutane ous pen injector 2024 025 [facility] #[id number], [address], [place], [id number], 07/18/2024 20:43:38 Zepbound 2.5 mg/0.5 mL subcutane ous pen injector 2024 025 [facility] #[id number], [address], [place], [phone], 06/28/2024 14:48:40 Patient TargetsNo targets recorded. Patient InstructionsNo instructions recorded. Reason for Referral None Reported. 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 [...] l; Not Available Not Available Not Available [facility] 60 mcg (15 mcg x 4)/0.5 mL IM suspensio n quadriva lent Quantity : ; 0 refill(s ) 2017 active VACCINE_ IND: yes; VACCINE_ NAME: influenz a, injectab le, quadriva lent; SU_FULL_ NAME: Angella Nathan l; VIS_DATE : 20:07:37 .0; Not Available Not Available Not Available [facility] 60 mcg (15 mcg x 4)/0.5 mL intramusc ular susp. quadriva lent Quantity : ; 0 refill(s ) 2018 active VACCINE_ IND: yes; VACCINE_ NAME: influenz a, injectab le, quadriva lent; SU_FULL_ NAME: Angella Frederickhieu l; VIS_DATE : 18:37:45 .0; Not Available Not Available Not Available [facility] 60 mcg (15 mcg x 4)/0.5 mL [...] Available Not Available Not Available [facility] Quad [id number] (6mo up) 60 mcg (15 mcg x [...] Updated DateTime 06/28/2024 162.56 cm 27.5 kg/m2 43769.78 g Laure PARIS 06/28/2024 15:18:09 Date Recorded Body height Provider Name an d Address Organization Details Last Updated DateTime 07/04/2024 162.56 cm Laure LYON MD [facility] 08/08/2024 14:04:18 Date Recorded Body height Heart rate Respiratory rate Body temperature Body mass index (BMI) Body weight Systolic blood pressure Diastolic blood pressure Provider Name and Address Organization Details Last Updated DateTime 162.56 cm 94 /min 12 /min 98.4 [degF] 27.6 kg/m2 08752.3 7 g 118 mm[Hg] 80 mm[Hg] Laure LYON MD [facility] 14:37:43 Social History None recorded. Functional Status [...] virus, quadrivalent, preservative 0 completed Not Available [facility] 07/29/2023 06:54:57 Influenza, split virus, quadrivalent, preservative 9 completed Not Available [facility] 07/29/2023 06:54:58 Influenza, split virus, quadrivalent, preservative 8 completed Not Available [facility] 07/29/2023 06:54:58 Influenza, split virus, quadrivalent, preservative 2 completed Not Available [facility] 07/29/2023 06:54:58 Past Encounters Encounter ID Performer Location Encounter Start Date Encounter Closed Date Diagnosis/Indication Diagnosis SNOMED-CT Code Diagnosis ICD10 Code Diagnosis Note [id number] Heather Valdez Main Office [address] [place] [address] 03/02/2023 12:43:21 03/02/2023 14:38:02 Exposure to Human immunodeficiency virus 020353749 Z20.6 [id number] Angella Lyon MD Main Office [address] [place] [phone] 03/26/2023 14:47:12 03/26/2023 15:55:07 Exposure to Human immunodeficiency virus 544769991 Z20.6 PreP: continue Cabotegrav ir (Apretude) IM QOM. Window visits +/- 7 days within target date reviewed w pt. labs strict compliance addressed w correct use of medication ,complianc e with office visits; window visits reviewed. to call with any new meds/OTC. condom use to prevent other STI's plan of care reviewed [id number] Angella Lyon MD Main Office [address] [place] [phone] 05/01/2023 13:15:30 05/01/2023 13:28:17 Exposure to Human immunodeficiency virus 766294557 Z20.6 PreP: continue Cabotegrav ir (Apretude) IM QOM. Window visits +/- 7 days within target date reviewed w pt. labs strict compliance addressed w correct use of medication ,complianc e with office visits; window visits reviewed. to call with any new meds/OTC. condom use to prevent other STI's plan of care reviewed [id number] Angella Lyon MD Main Office [address] [place] [phone] 06/26/2023 14:56:01 06/26/2023 16:34:48 Exposure to Human immunodeficiency virus 999521074 Z20.6 PreP: continue Cabotegrav ir (Apretude) IM QOM. Window visits +/- 7 days within target date reviewed w pt. labs next visit strict compliance addressed w correct use of medication ,complianc e with office visits; window visits reviewed. to call with any new meds/OTC. condom use to prevent other STI's plan of care reviewed [id number] Angella Lyon MD Main Office [address] [place] [phone] 06/30/2023 09:29:29 06/30/2023 09:53:55 Exposure to Human immunodeficiency virus 653296147 Z20.6 PreP: continue Cabotegrav ir (Apretude) IM QOM. Window visits +/- 7 days within target date reviewed w pt. labs next visit strict compliance addressed w correct use of medication ,complianc e with office visits; window visits reviewed. to call with any new meds/OTC. condom use to prevent other STI's plan of care reviewed [id number] Angella Lyon MD Main Office [address] [place] [address] 07/29/2023 13:51:08 07/31/2023 16:24:26 Risk of exposure to communicable disease 997234403 Z20.2 [id number] Angella Lyon MD Main Office [address] [place] [address] 09/25/2023 14:44:43 09/25/2023 14:49:20 Exposure to Human immunodeficiency virus 480039327 Z20.6 PreP:jeronimo nue Cabotegrav ir (Apretude) IM QOM. Window visits +/- 7 days within target date reviewed w pt.labs orderedstr ict compliance addressed w correct use of medication ,complianc e with office visits; window visits reviewed. to call with any new meds/OTC. condom use to prevent other STI's plan of care reviewed [id number] Angella Lyon MD Main Office [address] [place] [address] 09/29/2023 10:23:43 09/29/2023 10:55:45 Exposure to Human immunodeficiency virus 170651037 Z20.6 PreP:jeronimo nue Cabotegrav ir (Apretude) IM QOM. Window visits +/- 7 days within target date reviewed w pt.labs orderedstr ict compliance addressed w correct use of medication ,complianc e with office visits; window visits reviewed. to call with any new meds/OTC. condom use to prevent other STI's plan of care reviewed [id number] Angella Lyon MD Main Office [address] [place] [address] 11/30/2023 12:03:49 11/30/2023 12:53:32 Exposure to Human immunodeficiency virus 324368481 Z20.6 PreP:jeronimo nue Cabotegrav ir (Apretude) IM QOM. Window visits +/- 7 days within target date reviewed w pt.labs orderedstr ict compliance addressed w correct use of medication ,complianc e with office visits; window visits reviewed. to call with any new meds/OTC. condom use to prevent other STI's plan of care reviewed [id number] Angella Lyon MD Main Office [address] [place] [address] 12/24/2023 13:23:00 12/24/2023 14:08:27 Exposure to Human immunodeficiency virus 567279221 Z20.6 PreP:jeronimo nue Cabotegrav ir (Apretude) IM QOM. Window visits +/- 7 days within target date reviewed w pt.labs orderedstr ict compliance addressed w correct use of medication ,complianc e with office visits; window visits reviewed. to call with any new meds/OTC. condom use to prevent other STI's plan of care reviewed Body mass index 30+ - obesity 800853016 Z68.30 obesity. BMI>30Will prescribe Semaglutid e s/c [...] for weight lossProvid ed learning about obesity [id number] Angella Lyon MD Main Office [address] [place] [address] 01/06/2024 11:08:37 01/06/2024 11:23:14 Body mass index 30+ - obesity 146619423 Z68.30 obesity. BMI>30 START Semaglutid e 0.5 [...] and education and written informatio n provided [id number] Angella Lyon MD Main Office [address] [place] [address] 01/29/2024 11:07:12 01/29/2024 12:00:56 Exposure to Human immunodeficiency virus 022824426 Z20.6 PreP:jeronimo nue Cabotegrav ir (Apretude) IM QOM. Window visits +/- 7 days within target date reviewed w pt.labs orderedstr ict compliance addressed w correct use of medication ,complianc e with office visits; window visits reviewed. to call with any new meds/OTC. condom use to prevent other STI's plan of care reviewed [id number] Angella Lyon MD Main Office [address] [place] [address] 02/02/2024 10:57:27 02/02/2024 11:31:15 Body mass index 30+ - obesity 591999442 Z68.30 obesity. START Semaglutid e 0.5 mg sc qw tomorrowin crease dose to 1 mg next month.labs Febontin ue to exercisepo tential side effects reviewed again such as GERD, n/v/d, constipati on, visual, obstraucti on,complia nce with kaleb, meds and safety assessment s reviewedco ntinue to diet. calorie and education and written informatio n provided Exposure t o Human immunodeficiency virus 484892754 Z20.6 PreP:jeronimo nue Cabotegrav ir (Apretude) IM QOM. Window visits +/- 7 days within target date reviewed w pt.labs orderedstr ict compliance addressed w correct use of medication ,complianc e with office visits; window visits reviewed. to call with any new meds/OTC. condom use to prevent other STI's plan of care reviewed Constipation 27573063 K5 9.00 [place] [id number] Angella Lyon MD Main Office [address] [place] [address] 03/03/2024 11:17:03 03/03/2024 11:47:16 Body mass index 30+ - obesity 391876189 Z68.30 obesity. continue Semaglutid e 0.5 mg sc qw tomorrowin crease dose to 1 mg next month.labs Febontin ue to exercisepo tential side effects reviewed again such as GERD, n/v/d, constipati on, visual, obstraucti on,complia nce with kaleb, meds and safety assessment s reviewedco ntinue to diet. calorie and education and written informatio n provided Exposure t o Human immunodeficiency virus 888237053 Z20.6 PreP:jeronimo nue Cabotegrav ir (Apretude) IM QOM. Window visits +/- 7 days within target date reviewed w pt.labs orderedstr ict compliance addressed w correct use of medication ,complianc e with office visits; window visits reviewed. to call with any new meds/OTC. condom use to prevent other STI's plan of care reviewedCO VID19 and flu vaccine recommende d. Constipation 03918177 K5 9.00 stool softener prnhydrati on Angella Lyon MD Main Office [address] [place] [phone] 03/30/2024 12:26:34 03/30/2024 14:16:15 Exposure to Human immunodeficiency virus 981674750 Z20.6 Apretude administer ed todaylabs onnext appointmen t Body mass index 30+ - obesity 771737306 Z68.30 obesity. continue Semaglutid e 0.5 mg sc qwcontinue to exercisepo tential side effects reviewed again such as GERD, n/v/d, constipati on, visual, obstraucti on,complia nce with kaleb, meds and safety assessment s reviewedco ntinue to diet. 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 shortageco ntinue to exercisepo tential side effects reviewed again such as GERD, n/v/d, constipati on, visual, obstraucti on,complia nce with kaleb, meds and safety assessment s reviewedco ntinue to diet. calorie and education and written informatio n provided Dysuria 75808707 R30.0 on/offpyri dium bid-tid prn if sx.hydrati onshe will call to do u/a and u/c if symptoms recurno sx todayf/u [employer] regarding IUD and dysuria sx. [id number] Angella Lyon MD Main Office [address] [place] [address] 05/25/2024 09:31:58 05/25/2024 09:47:44 Exposure to sexually transmissible disorder 505529889 Z20.2 Apretude IM administer ed today.no reactions. next dose 07/2023 Body mass index 30+ - obesity 214917476 Z68.30 obesity.co ntinue Semaglutid e 0.5 mg sc qw ;continue to exercisehy drationwat ch diet.call with concerns.c ompliance with kaleb, meds and safety assessment s reviewedco ntinue to diet. calorie and education and written informatio n provided Exposure t o Human immunodeficiency virus 179282496 Z20.6 [id number] Angella Lyon MD Main Office [address] [place] [address] 06/28/2024 14:06:07 07/08/2024 15:18:49 Exposure to sexually transmissible disorder 794332644 Z20.2 Apretude IM QOMlabs next appointmen t Body mass index 30+ - obesity 928778576 Z68.30 obesity.se maglutide not on formulary anylongerW ill order Zepbound 2.5 mg sq qw x 4 doses , and increase dose as neededcont inue to exercisehy drationwat ch diet.call with concerns.c ompliance with kaleb, meds and safety assessment s reviewedco ntinue to diet. calorie and education and written informatio n provided [id number] Angella Lyon MD Main Office [address] [place] [address] 07/04/2024 16:20:11 07/21/2024 15:08:28 [id number] Angella Lyon MD Main Office [address] [place] [address] 07/18/2024 12:29:00 07/18/2024 14:32:13 Exposure to sexually transmissible disorder 007241003 Z20.2 Apretude IM QOMlabs next appointmen t Body mass index 30+ - obesity 917508494 Z68.30 obesity.in crease Zepbound 2.5-->5mg sq qw x 4 doses; and increase dose as needed monthycont inue to exercisehy drationlab s next appointmen t,watch diet.call with concerns.c ompliance with kaleb, meds and safety assessment s reviewedco ntinue to diet. calorie and education and written informatio n provided [id number] Angella Lyon MD Main Office [address] [place] [phone] 07/29/2024 12:24:23 07/29/2024 12:45:22 Exposure to Human immunodeficiency virus 248303987 Z20.6 [id number] Angella Lyon MD Main Office [address] [place] [address] 08/15/2024 14:18:09 08/15/2024 14:56:11 Exposure to sexually transmissible disorder 363502376 Z20.2 Apretude IM QOMlabs next appointmen t Body mass index 30+ - obesity 106728857 Z68.30 obesity.se maglutide not on formulary anylongerW ill order Zepbound 2.5 mg sq qw x 4 doses , and increase dose as neededcont inue to exercisehy drationwat ch diet.call with concerns.c ompliance with kaleb, meds and safety assessment s reviewedco ntinue to diet. calorie and education and written informatio n provided Constipation 32828122 K5 9.00 stool softener prnhydrati on Health Concerns Section Related Observation LastModified by Organization Detai ls LastModified Time None Recorded Concern Status LastModified by Organization Details LastModified Time None Recorded Advance Directives Directive None Recorded Payers Encounter Date Sequence Insurance Name Policy Number Policy Mclean Covered Member ID Mclean Member ID Guarantor Name 06/28/2024 1 [place] [facility] Taniya Benito [id number] Taniya Benito 07/04/2024 1 [place] [facility] Taniya Benito [id number] Taniya Benito 07/18/2024 1 [place] [facility] Taniya Benito [id number] Taniya Benito 07/29/2024 1 [place] [facility] Taniya Bennettosta [id number] Taniya Bennettosta Notes Date Note Type Note [...] HCV neg; HBV neg Angella Lyon MD [address] [place] [address], [phone], [place] - ANGELLA LYON MD [facility] 06/29/2024 00:39:49 5 text/html weight managementcurrently on [...] HCV neg; HBV neg Angella Lyon MD [address] [place] [address], [phone], AUDREY - ANGELLA LYON MD [facility] 07/18/2024 20:43:42 OBGyn Episode No OBEpisode recorded.
--- OUTSIDE RECORDS SUMMARY | 2024-08-20 08:38 | XMS_ITS | Encounter Summary ---
Author Organization [employer] Address [address] [facility] [address] [address] [facility] [address] [place] [address] Care Team Providers Care Grey Washer Name Role Phone Chelo Mitchell MD Primary [...] Description 09/14/2024 3:00 PM EDT Office Visit [facility] [address] [place] [address] Dominique Reese, OD [address] [place] [address] 10/25/2024 10:30 AM EDT Office Visit [facility] [address] [place] [address] Chelo Mitchell MD [address] [place] [address] documented as of this encounter Visit Diagnoses Not on filedocumented in this encounter Care Teams Grey Washer Relationship Specialty Start Date End Date Chelo Mitchell MD [address] [place] [address] PCP - General Family Medicine 04/01/16 documented as of this encounter
--- OUTSIDE RECORDS SUMMARY | 2024-08-20 08:38 | XMS_ITS | Clinical Summary ---
Author Organization [employer] Address [address] [place] [address] Care Team Providers Care Line Supply Name Role Phone Chelo Mitchell MD Primary [...] or moderate pain. 60 tablet 07/29/19 25 025 Active fluticasone (Flonase) 50 MCG/ACT nasal spray Administer 1 spray into each nostril Once per day. 16 g 07/29/19 25 025 Active influenza split quad (Flulaval,Aflur ia) suspension quadrivalent Quantity: ; 0 refill(s) 03/21/20 22 025 Discontin ued(Thera py completed ) nitrofurantoin, macrocrystal-mo nohydrate, (Macrobid) 100 MG capsule TAKE 1 CAPSULE BY MOUTH EVERY 12 HOURS FOR 5 DAYS 08/23/19 24 025 Discontin ued(Thera py completed ) Active Problems Problem Noted Date Diagnosed Date Viral upper respiratory tract infection 07/29/19 25 Assessment & Plan (07/29/2024 12:59 PM EST): Negative for COVID per at home test on 07/28/2024. Advised patient to come to [facility] if symptoms do not improve. Rest (sleep at least 8 hours a night). Hydrate with plenty of water (avoid caffeine and alcohol). Use saline nose drops to loosen mucus Use Flonase Nasal Eudora X 5 days. Take Acetaminophen (Tylenol??)/Ibuprofen as [...] 100??F without medication). Endometrial hyperplasia without atypia Assessment & Plan (03/17/2024 10:52 AM EDT): EMB pathology showing benign endometrium with no evidence of hyperplasia or malignancy. She has IUD FU with USED [employer] MAKE READY MECHANIC for fu endometrial bx. Adjustment disorder 05/08/2023 [...] I gave informaiton about stretching excersises for Ellyn green Refer to PT Councled to the acupuncture clinic FU with me in 4-5 months Post-menopausal bleeding 01/30/2023 Overview (07/16/2023): Sp endometrial bx on 05/2023= Glandular/proliferative endometrium, no atypia or hyperplasia. Seen by USED [employer] READ[employer] MECHANIC, had IUD/mirena placed on 07/07/23 Assessment & Plan (11/16/2023 4:40 PM EDT): Resolved, recent bx is NEG. Continue IUD and fu with Dr Richter. 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 FU with Assessment & Plan (12/11/2022 12:11 PM EDT): Pt is in close contact with two HIV positive patients. CLosely follow up for many years by Dr. Lyon, currrently on PrEP, obtain records. Intramural leiomyoma of uterus 10/23/2022 Assessment & Plan (10/23/2022 12:08 PM EDT): Slightly thick endometrium, r/o endometrial hyperplasia fu with USED [employer] READY MECHANIC next month discussed about importance of close [...] Plan (03/17/2024 11:00 AM EDT): Seen at [facility] pain clinic Pending fu for radioablation vs [...] sparingly (not currently at frequency that merits SHOE POLISHER program) Assessment & Plan (11/16/2023 4:45 PM [...] Assessment & Plan (03/17/2024 11:04 AM EDT): [facility] clinics information given Continue sertraline + mirtazapine [...] and I advise to not miss her [employer]ED [employer] MECHANIC appointment on 05/2023 Endometrial polyp 12/11/2022 07/16/2023 Assessment & Plan (12/11/2022 12:11 PM EDT): s/p D&C / benign biopsy FU with USED [employer] MAKE READY MECHANIC in 6 months Immunization counseling 10/01/2022 05/0 01/2023 Bacterial vaginosis 10/01/2022 10/14/19 23 Encounters Date Type Department Care Team Description 08/19/2024 Population Health Risk Score [facility] (C3) Department [address] [phone] Provider, Population Health Generic 07/29/2024 11:45 AM EST Telemedicine [facility] [address] [place] [address] Chelo Mitchell MD Viral upper respiratory tract infection (Primary Dx); Cervical disc disorder 07/29/2024 Travel 07/29/2024 Telephone [facility] [address] [place], [place] [phone] Chelo Mitchell MD Change to televisit 07/26/2024 Telephone [facility] [address] [place], [place] [phone] Chelo Mitchell MD Chart prep 07/02/2024 Refill [facility] [address] [place], [place] [phone] Chelo Mitchell MD Cervical disc disorder 06/30/2024 Refill [facility] [address] [place], [place] [phone] Chelo Mitchell MD Cervical disc disorder (Primary Dx) 06/02/2024 Telephone [facility] [address] [place], [place] [phone] Chelo Mitchell MD July recall from Last [...] Visit [facility] [address] [place] [address] Dominique Reese, OD [address] [place] [address] 10/25/2024 10:30 AM EDT Office Visit [facility] [address] [place] [address] Chelo Mitchell MD [address] [place], [place] [phone] Health Maintenance Due Date Last Done Comments [...] history exists Depression Screening 03/17/2025 03/17/2024, 03/17/20 24 Tobacco Screening 03/17/2025 03/17/2024 Colonoscopy 08/28/2025 08/28/2020 [...] EDT Narrative 02/05/2024 12:30 PM EDT ? [facility] ? [address] ?[place], [place] [address] ? Mammography Report ? Signed ? Patient: Thong Walker,Lyly ?MR#: ?? [id number] ? : 1970 ?Acct:[id number] ? Age/Sex: 53 / F ?ADM Date: 01/07/24 ? Loc: HO.MAMMO ? Attending Dr: Chelo Mitchell MD ? Ordering Physician: Luca Richter MD ?Results: 1Negativ ?? e ? Date of Service: 01/07/24 ?Follow Up: 1 Year From Orig ?? inal Mammogram ? Procedure(s): MM tomosynthesis screening BI ?? Accession Number(s): [id number] ? cc: Chelo Mitchell MD; Luca Richter [...] DD/ 1230 ? TD/TT: 01/07/24 1246 ? Water Tester: ? Procedure Note Dandy, Shon - 02/05/2024 [place] [facility] [address] [place] [address] Mammography Report Signed Patient: Taniya Mauricio TMR#: [id number] : 1970Acct:[id number] Age/Sex: 53 / FADM Date: 01/07/24 Loc: HO.MAMMO Attending Dr: Chelo Mitchell MD Ordering Physician: Luca Richter MDResults: 1Negativ e Date of Service: 01/07/24Follow Up: 1 Year From Orig inal Mammogram Procedure(s): MM tomosynthesis screening BI Accession Number(s): [id number] cc: Chelo Mitchell MD; Luca Richter MD [...] 02/05/24 1227 DD/ 1230 TD/TT: 01/07/24 1246 Water Tester: [facility] External Provider IMG BI PROCEDURES Edited Result - Final * HPV mRNA E6/E7 w/Reflex to HPV Genotypes 16, 18/45 (11/13/2022 1:39 PM EDT) HPV nRNA E6/E7 Not Detected Not Detected [facility] Comment:Methodology: Transcr iption-Mediated AmplificationThis assay detects E6/E7 viral messenger RNA (mRNA) from 14high-risk HPV types (16,18,31,33,35,39,45,51,52,56,58,59,66,68).Cervical sources are required for HPV testing.If a vaginal source from a patient who has had atotal hysterectomy with removal of cervix wassubmitted, please contact the testing laboratoryfor alternative testing options.For additional information, please refer [email or web address]/faq/[email or web address](This link if provided for information/educational purposes only.)THIS TEST WAS PERFORMED AT:[employer] [place] [phone] KEITH MD HPV mRNA E6/E7 TNP [facility] HPV 16 RNA TNP [facility] HPV 18/45 RNA TNP [facility] 11/13/2022 1:39 PM EDT 11/17/2022 10:15 AM EDT us [facility] External Provider LAB CYT OLOGY ORDERABLES Final Result [facility] [address] [place] [address] [phone] * Pap Smear (11/13/2022 1:39 PM EDT) 11/13/2022 1:39 PM EDT 11/17/2022 10:15 AM EDT Narrative [facility] - 11/28/2022 3:48 PM EDT ----- ------- Name: Taniya Mauricio ?Age/Sex: 52/F ? : 1970 Unit#: [id number] ?? Attend Dr: Luca Richter MD ?Re11/13/22 ?Status: DEP REF ? Location: HO.LNP ?Disch: ? ----- ------- SPEC : [id number] ? RECD: 11/17/225 ? STATUS: ??SOUT ? REQ NUM: [id number] ? TRE: 11/13/226 ? SUBM DR: Luca Richter MD ? ENTERED: ??11/17/221200 ?SP TYPE: Pap Smr ?OTHR DR: Chelo [...] 66, 68) ? HPV testing performed by [facility], [place], [place]. ??See reference laboratory ?? portion of the EMR for entire report. ?Clinical Information LMP: Postmenopausal Previous PAP test: 1 yr ago, Unknown ? Material Received ?? ThinPrep-Cervical Copies To: ?? Chelo Mitchell MD ?? [address] ?? [place] [address] ? Luca Richter MD ?? [address] [place] [facility] ?? [place] [address] ?? [phone] ----- ------- Signed (signature on file) Melvi Rodriguez Isauro 11/28/22 1548 ? ----- ------- ? END OF REPORT ? [facility] External Provider LAB [facility] OLOGY ORDERABLES Final Result [facility] [address] [place] [address] [phone] * HIV Ab/Ag ([place] GONSALVES) (11/08/2022 9:10 AM EDT) HIV AB/AG Nonreactive Nonreactive [facility] Comment:HIV-1 p24 Ag and/or HIV-1/HIV-2 Ab not detected.A test result that is nonreactive does not exclude thepossibility of exposure to or infection with HIV-1 and/orHIV-2. Nonreactive results in this assay for individualswith prior exposure to HIV-1 and/or HIV-2 may be due toantigen and antibody levels that are below the limit ofdetection of this assay.The [employer] Specialist HIV Ag/Ab Combo assay result andsupplemental assay results should be interpreted inconjunction with the patient's clinical presentation,history and other laboratory results. If the results areinconsistent with clinical evidence, additional testing issuggested to confirm the result. 11/08/2022 9:10 AM EDT 11/08/2022 9:11 AM EDT [facility] External Provider LAB BLO OD ORDERABLES Final Result [facility] [address] [place] [address] [phone] * Hm Colonoscopy (08/28/2020 2:50 PM EDT) Colonoscopy Normal Normal Narrative Regla Cooper - 08/28/2020 2:50 PM EDT Recommended 5 years follow up Historical Provider HEALTH MAINTENANCE Edited Result - Final from Last 3 Months or Most Recently Relevant to Health Maintenance Insurance [facility] C3 HSN FULL Care Teams Line Supply Relationship Specialty Start Date End Date Chelo Mitchell MD [address] [place] [address] PCP - General Family Medicine 04/01/16
--- OUTSIDE RECORDS SUMMARY | 2024-08-20 08:38 | XMS_ITS | Encounter Summary ---
Author Organization [employer] Address [address] [place] [address] Care Team Providers Care Training And Development Specialist Name Role Phone Chelo Mitchell MD Primary Care Provider + Reason for Visit * Reason Onset Date Comments Nurse Triage 04/07/2023 Encounter Details Date Type Department Care Team ([facility] st Contact Info) Description 04/07/2023 Telephone [facility] [address] [place], [place] [phone] Chelo Mitchell MD [address] [place], [place] [phone] Nurse Triage Social History Tobacco Use Types [...] 04/07/2023 4:24 PM EDT Triage call with [employer]sembler ID [id number] Pt reports some abnormal vaginal bleeding. Pt [...] accepted this outcome Please contact pt at [phone] (Turkmen) documented in this encounter Plan of Treatment Upcoming Encounters Date Type Department Care Team (Late st Contact Info) Description 09/14/2024 3:00 PM EDT [facility] [address] [place], [place] [phone] Dominique Reese, OD [address] [place] [address] 10/25/2024 10:30 AM EDT [facility] [address] [place] [address] Chelo Mitchell MD [address] [place] [address] documented as of this encounter Visit Diagnoses Not on filedocumented in this encounter Care Teams Training And Development Specialist Relationship Specialty Start Date End Date Chelo Mitchell MD [address] [place] [address] PCP - General Family Medicine 04/01/16 documented as of this encounter
--- OUTSIDE RECORDS SUMMARY | 2024-08-20 08:38 | XMS_ITS | Encounter Summary ---
Author Organization [employer] Address [address] [place] [address] Care Team Providers Care Drill Bit Sharpener Name Role Phone Chelo Mitchell MD Primary Care Provider + Encounter Details Date Type Department Care Team ([facility] st Contact Info) Description 08/19/2024 Population Health Risk Score [facility] (C3) Department [address] [facility] [facility] [address] [place] [address] Provider, Population Health Generic Social History Tobacco Use Types Packs/Day Years [...] Description 09/14/2024 3:00 PM EDT Office Visit [facility] [address] [place] [address] Dominique Reese, OD [address] [place] [address] 10/25/2024 10:30 AM EDT Office Visit [facility] [address] [place] [address] Chelo Mitchell MD [address] [place] [address] documented as of this encounter Visit Diagnoses Not on filedocumented in this encounter Care Teams Drill Bit Sharpener Relationship Specialty Start Date End Date Chelo Mitchell MD [address] [place] [address] PCP - General Family Medicine 04/01/16 documented as of this encounter
[2024-08-20 08:45] LABS: MANUAL DIFF FLAG NO
[2024-08-20 09:43] LABS: Basophils Percent Auto 0.1 % (0-2); Eosinophils Absolute Auto 0.1 X10*3/uL (0.0-0.4); Hematocrit 40.5 % (37.0-47.0); Hemoglobin 13.1 g/dl (12.0-16.0); Imm Gran Abs Auto 0.03 X10*3/uL (0.00-0.03); Imm Gran Pct Auto 0.4 % (0.0-0.4); Lymphocytes Absolute Auto 1.3 X10*3/uL (1.2-4.9); Lymphocytes Percent Auto 18.8 % (20-40); Mean Corpuscular HGB Conc 32.3 g/dl (31.0-35.0); Mean Corpuscular Hemoglobin 27.8 pg (27.0-33.0); Mean Platelet Volume 9.4 fL (9.4-12.3); Monocytes Absolute Auto 0.6 X10*3/uL (0.1-1.2); Neutrophils Percent Auto 70.7 % (45-73); Platelet Count 293 X10*3/uL (160-400); Red Blood Count 4.71 X10*6/uL (4.20-5.50); Red Cell Distribution Width 13.4 % (11.0-16.0); White Blood Count 7.1 X10*3/uL (4.8-10.8)
[2024-08-20 10:41] LABS: Alanine Aminotransferase 33 U/L (0-31); Albumin Level 4.1 g/dL (3.5-5.0); Alkaline Phosphatase 81 U/L (39-117); Anion Gap 12 (12-20); Aspartate Amino Transferase 22 U/L (5-31); Bilirubin Total 0.3 mg/dL (0.0-1.0); Blood Urea Nitrogen 12 mg/dL (9-16); Calcium 8.9 mg/dL (8.4-10.2); Carbon Dioxide 26 mmol/L (22-29); Chloride 107 mmol/L (96-108); Cholesterol 184 mg/dL (<200); Estimated Glomerular Filt Rate > 60; Glucose Random 97 mg/dL (60-115); HDL Cholesterol 37 mg/dL (>40); LDL Cholesterol Calculated 112 mg/dL (<100); Lipase 18 U/L (8-78); Potassium 4.1 mmol/L (3.3-5.1); Sodium 141 mmol/L (135-145); Total Protein 7.6 g/dL (6.5-8.0); Triglycerides 177 mg/dL (<150)
[2024-08-20 10:45] LABS: Free T4 (Free Thyroxine) 1.03 ng/dL (0.71-1.85); Thyroid Stimulating Hormone 0.89 uIU/mL (0.32-4.0)
[2024-08-20 10:48] LABS: Syphilis Screen Nonreactive (Nonreactive)
[2024-08-23 16:38] LABS: HIV RNA PCR Qn Copies NOT DETECTED copies/mL (NOT DETECTED); HIV RNA PCR Qn Log Copies NOT DETECTED (NOT DETECTED)
== END 2024-08-20 08:31 | disposition home or self-care (01) ==
LOC: HO.LAB 08:30
PROVIDERS: PCP Internal Medicine; Visit Provider Internal Medicine Infectious Disease
DX: E66.9 Obesity, unspecified (principal); Z68.30 Body mass index [BMI] 30.0-30.9, adult
CPT/HCPCS: 36415; 80053; 80061; 83690; 84439; 84443; 85025; 86780; 87536

== ENCOUNTER 2024-08-21 09:15 | Emergency (ER) | payer MEDICAID, SELFPAY ==
--- NOTE | ~2024-08-21 | XR_ITS ---
CLINICAL HISTORY: back pain 3 views lumbar spine Comparison: None Findings: Mild multilevel marginal osteophyte formation is present. Vertebral body heights are well-maintained. No acute fracture or subluxation is identified. Alignment is within normal limits. Intrauterine device is present. IMPRESSION: No acute osseous abnormality is identified. This document has been electronically signed by: Antonia Oquendo on 08/21/2024 10:41:15
[2024-08-21 09:15] VITALS: BP 148/100; PULSE 111; RESP 18; TEMP 36.6; O2SAT 97; BMI 27.6
--- NOTE | 2024-08-21 09:47 | ED.BACK ---
HPI - Back Pain/Injury General Chief Complaint: Back Pain/Injury Stated Complaint: low back pain Time Seen by Provider: 08/21/24 09:28 Source: patient Mode of arrival: ambulatory Limitations: no limitations History of Present Illness HPI Narrative: this is a 54 years old patient with a history of chronic pain chronic lower back pain presented to the emergency department with exacerbation of the lower back pain. She states this morning the pain was worse she did not take any pain medicine this morning usually she takes tramadol, patient denies any fever chills urine incontinence stool incontinence. MD elicited complaint: back pain Pertinent past history: prior back pain Onset (ago): day(s) (1) Timing: constant Severity: moderate Quality: burning Location: lumbar spine Radiation: none Exacerbating factors: none Relieving factors: none Associated symptoms: denies other symptoms Related Data Home Medications ?Medication ?Instructions ?Recorded ?Confirmed sertraline 25 mg tablet 25 mg PO DAILY 10/17/21 11/19/21 emtricitabine 200 mg-tenofovir 1 tab PO DAILY 11/13/22 disoproxil fumarate 300 mg tablet valacyclovir 500 mg tablet 500 mg PO BID 11/13/22 lactulose 10 gram/15 mL oral 10 ml PO DAILY constipation 02/25/24 solution semaglutide (weight loss) 0.5 0.5 mg subcut 02/25/24 mg/0.5 mL subcutaneous pen injector (Wegovy) sennosides 8.6 mg-docusate sodium 2 tab PO DAILY constipation 02/25/24 50 mg tablet (Stimulant Laxative Plus) tramadol 50 mg tablet 50 mg PO DAILY PRN 02/25/24 tirzepatide (weight loss) 5 mg/0.5 5 mg subcut QWEEK 08/18/24 mL subcutaneous pen injector (Zepbound) Previous Rx's ?Medication ?Instructions ?Recorded meloxicam 15 mg tablet 15 mg PO DAILY #20 tabs 01/22/23 cyclobenzaprine 10 mg tablet 10 mg PO TID PRN muscle spasm #20 10/04/23 tabs polyethylene glycol 3350 17 17 g PO DAILY PRN laxative effect 02/19/24 gram/dose oral powder (Miralax) #119 grams diclofenac sodium 1 % topical gel 4 g topical QID pain #100 grams 02/25/24 (Arthritis Pain (diclofenac)) oxycodone 5 mg tablet 5 mg PO Q6H PRN pain #15 tabs 08/21/24 Allergies Allergy/AdvReac Type Severity Reaction Status Date / Time No Known Allergies Allergy Verified 08/21/24 09:17 [No Known Allergies*] Review of Systems ENT: Reports system reviewed and no additional complaints, except as documented Cardiovascular: Cardiovascular: Reports no additional cardiovascular complaints Musculoskeletal: Comments: Lower back pain PMFSH Past Medical History Attestation statement: The following information was validated with the patient. Medical History Colon cancer screening Well woman exam Pilar cyst of scalp Postmenopausal bleeding Endometrial polyp Encounter for IUD insertion IUD check up Cervicalgia Neck muscle spasm Anxiety Hepatitis C HIV (human immunodeficiency virus infection) Surgical History History of hysteroscopy History of excision of mass (11/12/21) History of tubal ligation Family History Family History Paternal Aunt Throat cancer Social History Social History Household Members: Spouse Household Members Other:: son Housing: House Alcohol intake: never Patient Tobacco Use Status: Never used Tobacco Current occupational status: employed 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 Sexual orientation: Straight/Heterosexual Gender identity: Female Physical Exam Vital Signs: Vital Signs: Last Vital Signs Temp 97.8 F 08/21/24 10:58 Pulse 76 08/21/24 10:58 Resp 14 08/21/24 10:58 BP 117/70 08/21/24 10:58 Pulse Ox 100 08/21/24 10:58 O2 Del Method Room Air 08/21/24 10:58 BMI result Body Mass Index 27.6 no acute distress Const: General: cooperative, comfortable and well developed Orientation/consciousness: oriented to person and patient oriented x3 Limitations: no limitations HEENT: Head: Yes normal to inspection General nose exam: Normal external nose present Face and sinus: Yes normal facial exam Neck: Neck: Yes normal visual inspection Chest: Chest palpation & inspection: normal inspection of the chest Resp: Effort & Inspection: normal respiratory effort Auscultation: clear to auscultation bilaterally Cardio: Jugular venous distension: no JVD Rate: regular rate Rhythm: regular rhythm GI: Inspection: Yes normal to inspection Palpation (GI): Soft to palpation, not firm, nontender and no guarding Skin: General skin exam: no rashes or lesions noted and elasticity normal Lesions: no lesions Rashes: no rashes Neuro: General: oriented to person and patient oriented x3 Cranial nerves: Yes CN's II-XII intact bilaterally Cognition (Neuro): normal cognition Gait exam (Neuro): Normal gait present Motor exam (neuro): 5/5 motor strength present throughout Coordination: [id number] test normal Extrem: General: Yes normal to inspection Right upper extremity: normal to inspection Right lower extremity: normal to inspection Course Reevaluation(s) Reevaluation #1: doing much better anticipate discharge Time: 10:48 Medications Administered Discontinued Medications Generic Name Dose Route Start Last Admin Trade Name Freq PRN Reason Stop Dose Admin Diazepam 5 mg 08/21/24 09:42 08/21/24 09:51 Diazepam 5 Mg Tablet PO 08/21/24 09:43 5 mg ONCE ONE Administration Oxycodone HCl 5 mg 08/21/24 09:42 08/21/24 09:51 Oxycodone Hcl Immed Release 5 Mg Tablet PO 08/21/24 09:43 5 mg ONCE ONE Administration Medical Decision Making Medical Decision Making [facility] Narrative: patient presented to the ED with lower back pain, no red flags no fever no urine incontinent able to ambulate we will provide analgesia 10:49 AM patient is doing much better, UA negative no evidence of pyelonephritis or no hematuria no evidence of kidney stone, x-ray reviewed by me no compressive fx, she is fully ambulatory she neurologically intact she can be discharged home follow-up with the PCP Differential Diagnosis Differential Diagnoses: The differential diagnosis associated with the presentation includes musculoskeletal pain / unlikely compressive fracture,/ disc herniation Admission/Observation Consideration of admission/observation: Escalation of care including admission/observation considered Lab Data MDM Lab Attestation statement: I reviewed the patient's lab results. Labs: Lab Results 08/21/24 Range/Units 09:53 Urine Color Yellow Urine Appearance Clear Urine pH 6.0 (5.0-9.0) Ur Specific [place] 1.020 (1.005-1.025) Urine Protein Negative (Neg-Trace) mg/dL Urine Glucose (UA) Negative (Negative) mg/dL Urine Ketones Negative (Negative) mg/dL Urine Blood Negative (Negative) Urine Nitrite Negative (Negative) Ur Leukocyte Esterase Small (1+) H (Negative) Urine RBC 0-2 (0-2) /HPF Urine WBC 6-10 H (0-5) /HPF Ur Squamous Epith Cells 3-5 (0-2) /HPF Urine Bacteria 2+ (None Seen) Hyaline Casts 0-2 (0-2) /LPF Independent Interpretation I performed an independent interpretation of an: Plain X-Ray Interpretation: NAD Radiology Impression Discussion of test interpretation with radiology: I have reviewed the radiologist's reading. Radiologist Impression: NAd Independent Historian Clinical information obtained from an independent historian. History obtained from or confirmed by: Other () Discharge Plan Discharge Clinical Impression: Back pain Patient Disposition: Home, Self-Care Additional Instructions: back pain Prescriptions: New oxycodone 5 mg tablet 5 mg PO Q6H PRN (Reason: pain) Qty: 15 0RF Rx Instructions: partial filing upon pt request; Partial Fill upon patient request. No Action meloxicam 15 mg tablet 15 mg PO DAILY Qty: 20 0RF polyethylene glycol 3350 [Miralax] 17 gram/dose powder 17 g PO DAILY PRN (Reason: laxative effect) Qty: 119 0RF cyclobenzaprine 10 mg tablet 10 mg PO TID PRN (Reason: muscle spasm) Qty: 20 0RF sertraline 25 mg tablet 25 mg PO DAILY valacyclovir 500 mg tablet 500 mg PO BID emtricitabine-tenofovir (TDF) 200-300 mg tablet 1 tab PO DAILY lactulose 10 gram/15 mL solution 10 ml PO DAILY tramadol 50 mg tablet 50 mg PO DAILY PRN sennosides-docusate sodium [Stimulant Laxative Plus] 8.6-50 mg tablet 2 tab PO DAILY Wegovy 0.5 mg/0.5 mL pen injector 0.5 mg subcut diclofenac sodium [Arthritis Pain (diclofenac)] 1 % gel 4 g topical QID Qty: 100 3RF Zepbound 5 mg/0.5 mL pen injector 5 mg subcut QWEEK Discharge Date/Time: 08/21/24 11:10 Print Language: Luxembourgish
[2024-08-21] MEDS: oxyCODONE HCl Immed Release 5 MG TABLET PO (09:51)
[2024-08-21] MEDS: diazePAM 5 MG TABLET PO (09:51)
[2024-08-21 09:58] LABS: Appearance Urine Clear; Color Urine Yellow; Glucose Urine UA Negative (Negative); Leukocyte Esterase Urine Small (1+) (Negative); Nitrite Urine Negative (Negative); UMIC TRIGGER UACC YES; Urine Blood Negative (Negative); Urine Ketones Negative (Negative); Urine Protein Negative (Neg-Trace)
[2024-08-21 10:03] LABS: Bacteria Urine 2+ (None Seen); Hyaline Casts Urine 0-2 /LPF (0-2); RBC Urine 0-2 /HPF (0-2); UACC Culture Trigger YES
[2024-08-21 10:58] VITALS: BP 117/70; PULSE 76; RESP 14; TEMP 36.6; O2SAT 100
== END 2024-08-21 11:10 | disposition home or self-care (01) ==
PROVIDERS: Emergency Provider Emergency Medicine; PCP Internal Medicine
DX: M54.50 Low back pain, unspecified (principal); B20 Human immunodeficiency virus [HIV] disease; B19.20 Unspecified viral hepatitis C without hepatic coma; Z22.7 Latent tuberculosis
CPT/HCPCS: 72100; 81001; 87086; 87088; 87186; 99283; 99284

== ENCOUNTER → 2024-08-21 09:42 | Outpatient (BNV) | payer MEDICAID, SELFPAY | PROVIDERS: Emergency Provider Emergency Medicine; PCP Internal Medicine; Visit Provider Radiology Vascular & Interventional Radiology | DX: M54.50 Low back pain, unspecified (principal) | CPT/HCPCS: 72100 ==

== ENCOUNTER 2024-08-23 13:22 | Outpatient (REF) | payer MEDICAID, SELFPAY | END 2024-08-23 13:23 | disposition home or self-care (01) | LOC: HO.LNP 13:22 | PROVIDERS: PCP Internal Medicine; Visit Provider Obstetrics & Gynecology | DX: N95.0 Postmenopausal bleeding (principal) | CPT/HCPCS: 58100; 88305 ==

== ENCOUNTER 2024-08-23 13:22 | Outpatient (AMB) | payer MEDICAID, SELFPAY ==
--- NOTE | 2024-08-23 14:03 | A.OFFVIS_ITS ---
Vital Signs 08/23/24 14:07 Height 5 ft 4 in Weight 160 lb BMI 27.5 Intake Visit Reasons: EMB Armed Custom Protection Officer Required: Yes Armed Custom Protection Officer Language: Farmworker Rice Services: Armed Custom Protection Officer Present (in person) Armed Custom Protection Officer Name: Madalyn ABREU Information Interpreted: non-clinical & clinical Dairy Cattle Farm Worker: Dairy Cattle Farm Worker Present (Madalyn ABREU) Accompanied by: Self / Same As Patient Allergies No Known Allergies [No Known Allergies*] Allergy (Verified 08/23/24 14:10) Post menopausal: Yes HPI Comments Details: Presenting for EMB [facility] Medical History Colon cancer screening Well woman exam Pilar cyst of scalp Postmenopausal bleeding Endometrial polyp Encounter for IUD insertion IUD check up Cervicalgia Neck muscle spasm Anxiety Hepatitis C HIV (human immunodeficiency virus infection) Surgical History History of hysteroscopy History of excision of mass (11/12/21) History of tubal ligation Family History Paternal Aunt Throat cancer Social History Household Members: Spouse Household Members Other:: son Housing: House Alcohol intake: never Patient Tobacco Use Status: Never used Tobacco Current occupational status: employed 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 hysteroscopy D&C) & the risks were discussed with the patient including but not limited: pain, uterine perforation, bleeding, infection, possible injury to bladder, bowel, ureter, possible need for blood transfusion with all its possible risks. The patient verbalized understanding all questions answered and signed consent. The patient was placed into the dorsal lithotomy position; a speculum was inserted in the vagina. Using aseptic technique for the procedure, the cervix was cleansed with Betadine. The anterior lip of the cervix was grasped with a single tooth tenaculum. The uterus was sounded to 7 cm with a 4 mm Pipelle was used. Tissues samples were obtained and placed in formalin, in a patient labeled container and sent to the pathology department. At the end of the procedure, there was minimal bleeding noted The patient tolerated the procedure well and was discharged in good condition with the following instructions: Nothing in the vagina until the bleeding stops. No sex until the bleeding stops, to call if any of the following occurs: fever (>100.4), flu-like symptoms, abdominal pain, heavy bleeding, four smelling vaginal discharge. The patient was instructed to schedule a Follow up appointment in 2 weeks to discuss pathology results of the biopsy and treatment options. This note was generated with a voice recognition program. Some errors may have been overlooked during the review of this note. Sometimes these errors may affect the content or meaning of a given sentence. 14460-Cjbiudnpzjd Biopsy Assessment & Plan Assessment & Plan (1) Postmenopausal bleeding: Comment: 11/28 Polyp on path with glandular crowding at risk of EIN 11/28 D&C polypectomy pathology benign 05/30 EMB pathology showed proliferative endometrium 10/29 EMB pathology inactive endometrium 03/31 benign endometrium Code(s): N95.0 - Postmenopausal bleeding Category: Medical Plan: EMB done, see procedure note Orders: Orders AMB Endometrial Biopsy Today N95.0 - Postmenopausal bleeding Coding Level of Care Code Procedure Only Diagnoses Postmenopausal bleeding N95.0 CPT Codes Endometrial Biopsy - CPT: 31370-Ualexlogtpz Biopsy ([id number])
[2024-08-23 14:07] VITALS: BMI 27.5
== END 2024-08-23 14:50 | disposition home or self-care (01) ==
LOC: HO.HWS 13:22
PROVIDERS: PCP Internal Medicine; Visit Provider Obstetrics & Gynecology
DX: N95.0 Postmenopausal bleeding (principal)
CPT/HCPCS: 58100

== ENCOUNTER 2024-09-22 14:52 | Outpatient (AMB) | payer MEDICAID, SELFPAY ==
--- NOTE | 2024-09-22 15:00 | MHC.OFFVIS ---
Intake Visit Reasons: EMB Results Yard Hostler Required: Yes Yard Hostler Services: Yard Hostler Present (in person) Information Interpreted: non-clinical & clinical Engineering Project Manager: Engineering Project Manager Present (LOIS Lanza) Accompanied by: Self / Same As Patient Allergies No Known Allergies [No Known Allergies*] Allergy (Verified 09/22/24 15:20) HPI Comments Details: The patient is presenting after endometrial biopsy. The patient has no complaints, no vaginal bleeding, no feverishness chills or abdominal pain. The endometrial biopsy pathology report showed the following: Endometrium, biopsy: Benign inactive endometrium with focal stromal collapse and decidual stromal change consistent with progestin effect; no atypia or carcinoma PFSH Medical History Colon cancer screening Well woman exam Pilar cyst of scalp Postmenopausal bleeding Endometrial polyp Encounter for IUD insertion IUD check up Cervicalgia Neck muscle spasm Anxiety Hepatitis C HIV (human immunodeficiency virus infection) Surgical History History of hysteroscopy History of excision of mass (11/12/21) History of tubal ligation Family History Paternal Aunt Throat cancer Social History Household Members: Spouse Household Members Other:: son Housing: House Alcohol intake: never Patient Tobacco Use Status: Never used Tobacco Current occupational status: employed 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 Sexual orientation: Straight/Heterosexual Gender identity: Female Review of Systems Const All systems reviewed & are unremarkable except as noted in HPI and below Reports as per HPI and Reports no additional complaints GI Reports no additional complaints Reports no additional complaints Assessment & Plan Assessment & Plan (1) Postmenopausal bleeding: Comment: 11/28 Polyp on path with glandular crowding at risk of EIN 11/28 D&C polypectomy pathology benign 05/30 EMB pathology showed proliferative endometrium 08/01 Mirena IUD inserted 10/29 EMB pathology inactive endometrium 03/31 benign endometrium 09/30 inactive endometrium Code(s): N95.0 - Postmenopausal bleeding Category: Medical Plan: Discussed with the patient the results of the endometrial biopsy. Discussed with the patient the sensitivity, specificity, positive and negative predictive value, of endometrial biopsy in detecting endometrial pathology including but not limited to endometrial hyperplasia, cancer and other pathology; instructed the patient to call in case vaginal bleeding recurs, the next step will be to proceed with further endometrial sampling evaluation to rule out endometrial pathology. All questions answered and the patient verbalized understanding and agreed with the plan. Coding Level of Care Code Tele Est Pt Level 3 (60416) Diagnoses Postmenopausal bleeding N95.0
--- OUTSIDE RECORDS SUMMARY | 2024-09-22 17:42 | XMS_ITS | Encounter Summary ---
Author Organization [employer] Address [address] [place] [address] Care Team Providers Care Gluer And Wedger Name Role Phone Chelo Mitchell MD Primary Care Provider + Reason for Visit * Reason Comments Med Refill Encounter Details Date Type Department Care Team ([facility] st Contact Info) Description 07/02/2024 Refill [facility] [address] [place], [place] [phone] Chelo Mitchell MD [address] [place], [place] [phone] Cervical disc disorder Social History Tobacco Use [...] t he electric, gas, oil or water The [employer] threatened to shut off services in your [...] Care Team (Late st Contact Info) Description 10/25/2024 10:30 AM EDT Office Visit [facility] [address] [place] [address] Chelo Mitchell MD [address] [place] [address] 03/21/2025 2:30 PM EDT Office Visit [facility] [address] [place] [address] Hugh, Dominique, OD [address] [place] [address] documented as of this encounter Visit Diagnoses Diagnosis Cervical disc disorder documented in this encounter Care Teams Gluer And Wedger Relationship Specialty Start Date End Date Chelo Mitchell MD [address] [place] [address] PCP - General Family Medicine 04/01/16 documented as of this encounter
--- OUTSIDE RECORDS SUMMARY | 2024-09-22 17:43 | XMS_ITS | Encounter Summary ---
Author Organization [employer] Address [address] [place] [address] Care Team Providers Care Blending Tank Tender Helper Name Role Phone Chelo Mitchell MD Primary Care Provider + Reason for Visit * Reason Onset Date Comments Nurse Triage 04/07/2023 Encounter Details Date Type Department Care Team ([facility] st Contact Info) Description 04/07/2023 Telephone [facility] [address] [place], [place] [phone] Chelo Mitchell MD [address] [place], [place] [phone] Nurse Triage Social History Tobacco Use Types [...] 04/07/2023 4:24 PM EDT Triage call with [employer] Strategic Sourcing Manager ID [id number] Pt reports some abnormal vaginal bleeding. Pt [...] accepted this outcome Please contact pt at [phone] (Indonesian) documented in this encounter Plan of Treatment Upcoming Encounters Date Type Department Care Team (Late st Contact Info) Description 10/25/2024 10:30 AM EDT Office Visit [facility] [address] [place] [address] Chelo Mitchell MD [address] [place] [address] 03/21/2025 2:30 PM EDT Office Visit [facility] OPTOMETRY [address] [place] [address] Dominique Reese, OD [address] [place] [address] documented as of this encounter Visit Diagnoses Not on filedocumented in this encounter Care Teams Blending Tank Tender Helper Relationship Specialty Start Date End Date Chelo Mitchell MD [address] [place] [address] PCP - General Family Medicine 04/01/16 documented as of this encounter
--- OUTSIDE RECORDS SUMMARY | 2024-09-22 17:43 | XMS_ITS | Encounter Summary ---
Author Organization [employer] [facility] Address [address] [place] [address] Care Team Providers Care Gasoline Catalyst Operator Name Role Phone Chelo Mitchell MD Primary Care Provider + Encounter Details Date Type Department Care Team ([facility] Contact Info) Description 10/28/2022 Telephone [facility] [address] [place] [address] [phone] Chelo Mitchell MD [address] [place] [address] [phone] Social History Tobacco Use Types Packs/Day Years [...] Upcoming Encounters Date Type Department Care Team ([facility] Contact Info) Description 10/25/2024 10:30 AM EDT Office Visit [facility] [address] [place] [address] [phone] Chelo Mitchell MD [address] [place] [address] 03/21/2025 2:30 PM EDT Office Visit [facility] OPTOMETRY [address] [place] [address] Dominique Reese, OD [address] [place] [address] documented as of this encounter Visit Diagnoses Not on filedocumented in this encounter Care Teams Gasoline Catalyst Operator Relationship Specialty Start Date End Date Chelo Mitchell MD [address] [place], [place] [phone] PCP - General Family Medicine 04/01/16 documented as of this encounter
--- OUTSIDE RECORDS SUMMARY | 2024-09-22 17:43 | XMS_ITS | Encounter Summary ---
Author Organization [employer] Address [address] [place] [address] Care Team Providers Care Heel Painter Name Role Phone Chelo Mitchell MD Primary Care Provider + Reason for Visit * Reason Onset Date Comments Med Refill 06/30/2023 Encounter Details Date Type Department Care Team ([facility] st Contact Info) Description 06/30/2023 Telephone [facility] [address] [place], [place] [phone] Chelo Mitchell MD [address] [place], [place] [phone] Med Refill Social History Tobacco Use Types [...] 10:51 AM EST Medication was sent to [facility] #[id number] on 05/08/23 #30 with 3 refills. * Telephone Encounter - Shea Becker - 06/30/2023 10:40 AM EST TC from pt requesting medication refill. Medications needing refill : mirtazapine (Remeron) 15 MG tablet To be sent to: [facility] #[id number] documented in this encounter Plan of Treatment Upcoming Encounters Date Type Department Care Team (Late st Contact Info) Description 10/25/2024 10:30 AM EDT Office Visit [facility] [address] [place] [address] Chelo Mitchell MD [address] [place] [address] 03/21/2025 2:30 PM EDT Office Visit [facility] [address] [place] [address] Dominique Reese, OD [address] [place] [address] documented as of this encounter Visit Diagnoses Not on filedocumented in this encounter Care Teams Heel Painter Relationship Specialty Start Date End Date Chelo Mitchell MD [address] [place] [phone] PCP - General Family Medicine 04/01/16 documented as of this encounter
--- OUTSIDE RECORDS SUMMARY | 2024-09-22 17:43 | XMS_ITS | Encounter Summary ---
Author Organization [employer] Address [address] [place] [address] Care Team Providers Care Vet Tech Name Role Phone Chelo Mitchell MD Primary Care Provider + Reason for Visit * Reason Onset Date Comments Nurse Triage 10/21/2023 Encounter Details Date Type Department Care Team ([facility] st Contact Info) Description 10/21/2023 Telephone [facility] [address] [place], [place] [phone] Chelo Mitchell MD [address] [place], [place] [phone] Nurse Triage Social History Tobacco Use Types [...] on Tramadol The caller accepted this outcome Chinese speaker documented in this encounter Plan of Treatment Upcoming Encounters Date Type Department Care Team (Late st Contact Info) Description 10/25/2024 10:30 AM EDT Office Visit [facility] [address] [place] [address] Chelo Mitchell MD [address] [place] [address] 03/21/2025 2:30 PM EDT Office Visit [facility] OPTOMETRY [address] [place] [address] Hugh, Dominique, OD [address] [place] [address] documented as of this encounter Visit Diagnoses Not on filedocumented in this encounter Care Teams Vet Tech Relationship Specialty Start Date End Date Chelo Mitchell MD [address] [place] [address] PCP - General Family Medicine 04/01/16 documented as of this encounter
--- OUTSIDE RECORDS SUMMARY | 2024-09-22 17:43 | XMS_ITS | Clinical Summary ---
Author Organization [employer] Address [address] [place] [address] Care Team Providers Care Design Checker Name Role Phone Chelo Mitchell MD Primary [...] 10 DAYS 10 tablet 03/09/20 24 Active fluticasone (Flonase) 50 MCG/ACT nasal spray Administer 1 spray into each nostril Once per day. 16 g 07/29/19 25 Active acetaminophen (Tylenol Extra Strength) 500 MG tablet Take 1 tablet (500 mg) by mouth every 6 (six) hours if needed for mild pain. 120 tablet 07/29/19 25 025 ibuprofen 600 MG tablet Take 1 tablet (600 mg) by mouth every 8 (eight) hours if needed for mild pain or moderate pain. 60 tablet 07/29/19 25 025 Active Problems Problem Noted Date Diagnosed Date Viral upper respiratory tract infection 07/29/19 Assessment & Plan (07/29/2024 12:59 PM EST): Negative for COVID per at home test on 07/28/2024. Advised patient to come to [facility] if symptoms do not improve. Rest (sleep at least 8 hours a night). Hydrate with plenty of water (avoid caffeine and alcohol). Use saline nose drops to loosen mucus Use Flonase Nasal [place] X 5 days. Take Acetaminophen (Tylenol??)/Ibuprofen as [...] or malignancy. She has IUD FU with CIRCUIT RECORDER for fu endometrial bx. Adjustment disorder 05/08/2023 [...] endometrium, no atypia or hyperplasia. Seen by [facility], had IUD/mirena placed on 07/07/23 Assessment & Plan (11/16/2023 4:40 PM EDT): Resolved, recent bx is NEG. Continue IUD and fu with Dr Richter. Assessment & Plan (05/08/2023 12:26 PM EST): Resolved, endometrial biopsy nl FU w/ [facility] next month Assessment & Plan (01/30/2023 11:19 AM EDT): D&C + endometrial polyp biopsy FU with [facility] At risk for HIV due to being [...] thick endometrium, r/o endometrial hyperplasia fu with CIRCUIT REC[facility] next month discussed about importance of close [...] Plan (03/17/2024 11:00 AM EDT): Seen at [facility] pain clinic Pending fu for radioablation vs [...] sparingly (not currently at frequency that merits VICE PRESIDENT SALES program) Assessment & Plan (11/16/2023 4:45 PM [...] Assessment & Plan (03/17/2024 11:04 AM EDT): [facility] clinics information given Continue sertraline + [...] and I advise to not miss her CIRCUIT RECORDER appointment on 05/2023 Endometrial polyp 12/11/2022 07/16/2023 Assessment & Plan (12/11/2022 12:11 PM EDT): s/p D&C / benign biopsy FU with CIRCUIT RECORDER in 6 months Immunization counseling 10/01/2022 05/0 01/2023 Bacterial vaginosis 10/01/2022 10/14/19 23 Encounters Date Type Department Care Team Description 09/14/2024 3:00 PM EDT Office Visit [facility] OPTOMETRY [address] [place] [place] [address] Hugh, Dominique, OD Glaucoma suspect of both eyes (Primary Dx); Dry eyes; Presbyopia 09/14/2024 Travel 08/23/2024 Orders Only GENERIC EXTERNAL DATA DEPARTMENT Provider, Generic External Data 08/21/2024 Orders Only GENERIC EXTERNAL DATA DEPARTMENT Provider, Generic External Data 08/20/2024 Orders Only GENERIC EXTERNAL DATA DEPARTMENT Provider, Generic External Data 08/19/2024 Population Health Risk Score [facility] ([facility] Department [address] [place] [address] Provider, Population Health Generic 07/29/2024 11:45 AM EST Telemedicine [facility] MEDICINE [address] [place] [address] Chelo Mitchell MD Viral upper respiratory tract infection (Primary Dx); Cervical disc disorder 07/29/2024 Travel 07/29/2024 Telephone [facility] MEDIC[facility] [address] [place] [phone] Chelo Mitchell MD Change to televisit 07/26/2024 Telephone [facility] [address] [place] [address] Chelo Mitchell MD Chart prep 07/02/2024 Refill [facility] [address] [place], [place] [phone] Chelo Mitchell MD Cervical disc disorder 06/30/2024 Refill [facility] [address] [place], [place] [phone] Chelo Mitchell MD Cervical disc disorder (Primary Dx) from Last 3 Months Immunizations Name Administration [...] (Corley Cap) 09/17/2021 Tdap 10/23/2017 Zoster, Recombinant 06/16/2023,,05/28/2020,2019 Family History Medical History Relation Name Comments [...] Description 10/25/2024 10:30 AM EDT Office Visit [facility] MED[facility] [address] [place] [address] Chelo Mitchell MD [address] [place] [address] 03/21/2025 2:30 PM EDT Office Visit [facility] OPTOMETRY [address] [place], [place] [phone] Dominique Reese, OD [address] [place] [address] Health Maintenance Due Date Last Done Comments [...] SDOH Screening 07/13/2024 07/13/2023 Mammogram 01/06/2025 01/07/2024, 0712/2022, 12/20/2021, Additional history exists Depression Screening 03/17/2025 [...] Hepatitis B Vaccines Completed 05/07/2022, 09/28/2014, 08/31/2014 Zoster Vaccines Completed 06/16/2023, 03/09, 05/28/2020, Additional history exists Influenza Vaccine Completed 03/17/2024, , 03/21/2022, Additional history exists HIV Screening Completed 08/20/2024, 08/2022, 07/23/2022, Additional history exists HIB Vaccines Aged Out [...] Procedure Name Priority Date/Time Associated Diagnosis Comments HEMATOXYLIN AND EOSIN STAIN Routine 08/23/2024 2:59 PM EDT XR LUMBAR SPINE 2-3 VIEWS Routine 08/21/2024 10:41 AM EDT URINALYSIS, COMPLETE, WITH REFLEX TO CULTURE Routine 08/21/2024 9:53 AM EDT CULTURE, URINE, ROUTINE Routine 08/21/2024 12:00 AM EDT HIV 1 RNA, QUANTITATIVE REAL TIME PCR Routine 08/20/2024 8:43 AM EDT SYPHILIS SCREEN Routine 08/20/2024 8:43 AM EDT TSH Routine 08/20/2024 8:43 AM EDT T4, FREE Routine 08/20/2024 8:43 AM EDT LIPASE Routine 08/20/2024 8:43 AM EDT LIPID PANEL, STANDARD Routine 08/20/2024 8:43 AM EDT COMPREHENSIVE METABOLIC PANEL Routine 08/20/2024 8:43 AM EDT CBC WITH AUTO DIFFERENTIAL Routine 08/20/2024 8:43 AM EDT BI MAMMOGRAM SCREENING TOMOSYNTHESIS BILATERAL Routine 01/07/2024 12:30 PM EDT HPV MRNA E6/E7 REFLEX TO HPV 16, 18/45 Routine 11/13/2022 1:39 PM EDT PAP SMEAR Routine 11/13/2022 1:39 PM EDT HM COLONOSCOPY Routine 08/28/2020 2:50 PM EDT from Last 3 Months or Most Recently Relevant to Health Maintenance Results * Hematoxylin and Eosin Stain (08/23/2024 2:59 PM EDT) 08/23/2024 2:59 PM EDT 08/24/2024 8:20 AM EDT [facility] - 08/25/2024 2:19 PM EDT ----- ------- Name: Taniya Mauricio ?Age/Sex: 54/F ? : 1970 Unit#: [id number] ?? Attend Dr: Luca Richter MD ?Re08/23/24 ?Status: DEP REF ? Location: HO.LNP ?Disch: ? ----- ------- SPEC : [id number] ? RECD: 08/24/24 ? STATUS: ??SOUT ? REQ NUM: [id number] ? TRE: 08/23/24-4256 ? SUBM DR: Luca Richter MD ? ENTERED: ??08/24/24 ?SP TYPE: Surgical ? OTHR DR: Chelo Mitchell MD ? ORDERED: ??HE Stain/2, Gross Micro L4 ? Diagnosis ?? Endometrium, biopsy: ??Benign inactive endometrium with focal stromal collapse and ?? decidual stromal change consistent with progestin effect; no atypia or carcinoma. ?Clinical History PMB ?Microscopic Description Microscopic sections reviewed. ? Material Received ?? EMB ? Gross Description Received in formalin labeled ?EMB? is a 1.5 x 1.2 x 0.35 cm aggregate of predominantly mucus and blood and congested and hemorrhagic red-maroon irregular tissue fragments, submitted in toto in a cassette labeled A. CEDS Copies To: ?? Chelo Mitchell MD ?? [facility] ?? [address] [facility] ?? [place] [address] ?? [phone] ?? Luca Richter MD ?? [facility] ?? [address] ?? [place] [address] ?? [phone] ----- ------- Signed (signature on file) [place] 08/25/24 1419 ? ----- ------- ? END OF REPORT ? us Generic External Data Provider LAB BLOOD ORDERAB LES Final Result [facility] [address] [place] [address] [phone] * XR Lumbar Spine 2-3 Views (08/21/2024 10:41 AM EDT) Anatomical Region Laterality Modality Spine, L-spine Radiographic Kelli ging 08/21/2024 10:4 1 AM EDT Narrative 08/21/2024 10:42 AM EDT ? [facility] ?[address] ?[place] [address] ?XRay Report ? Signed ? Patient: Taniya Mauricio ?MR#: ?? [id number] ? : 1970 ?Acct:[id number] ? Age/Sex: 54 / F ?ADM Date: 08/21/24 ? Loc: HO.ED ? Attending Dr: ? Ordering Physician: Liot Friedman MD ?? Date of Service: 08/21/24 ?? Procedure(s): XR lumbar spine 2-3V ?? Accession Number(s): [id number] ? cc: Chelo Mitchell MD; Lito Friedman MD ? CLINICAL HISTORY: back pain ? 3 views lumbar spine ? Comparison: None ? Findings: ?? Mild multilevel marginal osteophyte formation is present. Vertebral body ?? heights are well-maintained. No acute fracture or subluxation is ?? identified. Alignment is within normal limits. Intrauterine device is ?? present. ? IMPRESSION: ?? No acute osseous abnormality is identified. ? This document has been electronically signed by: Antonia Oquendo on ?? 08/21/2024 10:41:15 ? Dictated By: ?Antonia Oquendo MD ? Signed By: ?<Electronically signed by Antonia Oquendo MD in OV> ? 08/21/24 1041 ? DD/ 1041 ? TD/TT: 08/21/24 1041 ? Architecture Drafter: ? Procedure Note Dandy, Image - 08/21/[address] [address] XRay Report Signed Patient: Taniya Mauricio TMR#: [id number] : 1970Acct:[id number] Age/Sex: 54 / FADM Date: 08/21/24 Loc: HO.ED Attending Dr: Ordering Physician: Lito Friedman MD Date of Service: 08/21/24 Procedure(s): XR lumbar spine 2-3V Accession Number(s): [id number] cc: Chelo Mitchell MD; Lito Friedman MD CLINICAL HISTORY: back pain 3 views lumbar spine Comparison: None Findings: Mild multilevel marginal osteophyte formation is present. Vertebral body heights are well-maintained. No acute fracture or subluxation is identified. Alignment is within normal limits. Intrauterine device is present. IMPRESSION: No acute osseous abnormality is identified. This document has been electronically signed by: Antonia Oquendo on 08/21/2024 10:41:15 Dictated By: Antonia Oquendo MD Signed By: <Electronically signed by Antonia Oquendo MD in OV> 08/21/24 1041 DD/ 1041 TD/TT: 08/21/24 104 Architecture Drafter: [facility] External Provider IMG XR PROCEDURES Final Result * (ABNORMAL) Urinalysis, Complete, with Reflex to Culture (08/21/2024 9:53 AM EDT) Color Urine Yellow [facility] Appearance Urine Clear [facility] PH 6.0 5.0 - 9.0 [facility] Glucose Urine UA Negative Negative mg/dL [facility] Urine Blood Negative Negative [facility] Specific [place] - Urine 1.020 1.005 - 1.025 [facility] Urine Protein Negative Neg-Trace mg/dL [facility] Urine Ketones Negative Negative mg/dL [facility] Nitrite Urine Negative Negative [facility] Leukocyte Esterase Urine Small (1+)(A) Negative [facility] RBC Urine 0-2 0 - 2 /HPF [facility] Urine WBC 6-10(A) 0 - 5 /HPF [facility] Urine Squamous Epithelial Cell 3-5 0 - 2 /HPF [facility] Urine Bacteria 2+ None Seen [facility] Hyaline Casts, Urine 0-2 0 - 2 /LPF [facility] 08/21/2024 9:53 AM EDT 08/21/2024 9:55 AM EDT [facility] - 08/21/2024 10:04 AM EDT 0947Urine, Clean Catch us Generic External Data Provider LAB URINE ORDERAB LES Final Result Performing Organization Address [facility]/ZIP Co de Phone Number [facility] [address] [place] [phone] * Culture, Urine, Routine (08/21/2024 12:00 AM EDT) Urine Urine specimen obtained by clean catch procedure / Unknown 08/21/2024 08/21/2024 Comment:[facility] Narrative [facility] - 08/23/2024 7:14 AM EDT Escherichia coli Quant > 100,000 cfu/mL Escherichia coli: Ampicillin >=32(R) Escherichia coli: Cefazolin (Urine) 16(S) Escherichia coli: Cefepime <=0.12(S) Escherichia coli: Ceftriaxone <=0.25(S) Escherichia coli: Ciprofloxacin <=0.06(S) Escherichia coli: Gentamicin <=1(S) Escherichia coli: Nitrofurantoin <=16(S) Escherichia coli: Trimethoprim/Sulfamethoxazole >=320(R) Specimen Source: Urine clean catch Generic External Data Provider LAB MICROBIOLOGY - GENERAL ORDERABLES Final Result Performing Organization Address [facility] Co de Phone Number [facility] [address] [place] [phone] * Syphilis Screen (08/20/2024 8:43 AM EDT) Syphilis Screen Nonreactive Nonreactive [facility] 08/20/2024 8:43 AM EDT 08/20/2024 8:43 AM EDT us Generic External Data Provider LAB BLOOD ORDERAB LES Final Result Performing Organization Address [facility] Co de Phone Number [facility] [address] [place] [phone] * (ABNORMAL) CBC auto differential (08/20/2024 8:43 AM EDT) White Blood Count 7.1 4.8 - 10.8 X10*3/uL [facility] Red Blood Count 4.71 4.20 - 5.50 X10*6/uL [facility] Hemoglobin 13.1 12.0 - 16.0 g/dl [facility] Hematocrit 40.5 37.0 - 47.0 % [facility] Mean Corpuscular Volume 86.0 80.0 - 98.0 fL [facility] Mean Corpuscular Hemoglobin 27.8 27.0 - 33.0 pg [facility] Mean Corpuscular HGB Conc 32.3 31.0 - 35.0 g/dl [facility] Red Cell Distribution Width 13.4 11.0 - 16.0 % [facility] Platelet Count 293 160 - 400 X10*3/uL [facility] Mean Platelet Volume 9.4 9.4 - 12.3 fL [facility] Neutrophils Percent Auto 70.7 45 - 73 % [facility] Imm Gran Pct Auto 0.4 0.0 - 0.4 % [facility] Lymphocytes Percent Auto 18.8(L) 20 - 40 % [facility] Monocytes Percent Auto 9.0 2 - 11 % [facility] Eosinophils Percent Auto 1.0 0 - 4 % [facility] Basophils Percent Auto 0.1 0 - 2 % [facility] NRBC Pct Auto 0.0 0.0 - 0.2 /100WBC [facility] Neutrophils Absolute Auto 5.0 2.0 - 8.3 x10*3/uL [facility] Imm Gran Abs Auto 0.03 0.00 - 0.03 X10*3/uL [facility] Lymphocytes Absolute Auto 1.3 1.2 - 4.9 X10*3/uL [facility] Monocytes Absolute Auto 0.6 0.1 - 1.2 X10*3/uL [facility] Eosinophils Absolute Auto 0.1 0.0 - 0.4 X10*3/uL [facility] Basophils Absolute Auto 0.0 0.0 - 0.2 X10*3/uL [facility] NRBC Abs Auto 0.000 0.0 - 0.012 X10*3/uL [facility] 08/20/2024 8:43 AM EDT 08/20/2024 8:43 AM EDT Generic External Data Provider LAB BLOOD ORDERAB LES Final Result Performing Organization Address City/[facility]/ZIP Co de Phone Number [facility] [address] [place] [phone] * HIV-1 RNA, Quantitative, Real-Time PCR (08/20/2024 8:43 AM EDT) Pathologist [facility] HIV RNA PCR Qn Copies NOT DETECTED NOT DETECTED copies/mL [facility] HIV RNA PCR Qn Log Copies NOT DETECTED NOT DETECTED [facility] Comment:Result Units: Log co pies/mLThis test was performed using Real-Time Polymerase ChainReaction.Reportable Range: 20 copies/mL to 10,000,000 copies/mL(1.30 log copies/mL to 7.00 log copies/mL).THIS TEST WAS PERFORMED AT:[facility] [place] [id number] KEITH MD 08/20/2024 8:43 AM EDT 08/20/2024 8:43 AM EDT Generic External Data Provider LAB BLOOD ORDERAB LES Final Result Performing Organization Address [facility] Co de Phone Number [facility] [address] [place] [phone] * TSH (08/20/2024 8:43 AM EDT) Pathologist [facility] Thyroid Stimulating Hormone 0.89 0.32 - 4.0 uIU/mL [facility] Comment:TSH 3rd Generation ( [facility]) 08/20/2024 8:43 AM EDT 08/20/2024 8:43 AM EDT us Generic External Data Provider LAB BLOOD ORDERAB LES Final Result Performing Organization Address [facility] de Phone Number [facility] [address] [place] [phone] * T4, Free (08/20/2024 8:43 AM EDT) Free T4 (Free Thyroxine) 1.03 0.71 - 1.85 ng/dL [facility] 08/20/2024 8:43 AM EDT 08/20/2024 8:43 AM EDT us Generic External Data Provider LAB BLOOD ORDERAB LES Final Result Performing Organization Address [facility] Co sc Phone Number [facility] [address] [place] [phone] * Lipase (08/20/2024 8:43 AM EDT) Pathologist [facility] Lipase 18 8 - 78 U/L [facility] 08/20/2024 8:43 AM EDT 08/20/2024 8:43 AM EDT Generic External Data Provider LAB BLOOD ORDERAB LES Final Result Performing Organization Address [facility] de Phone Number [facility] [address] [place] [phone] * (ABNORMAL) Lipid Panel, Standard (08/20/2024 8:43 AM EDT) Triglycerides 177(H) <150 mg/dL [facility] Comment:Desirable Triglyceri de: less than 150 mg/dLBorderline High Triglyceride 150-199 mg/dLHigh Triglyceride: 200-499 mg/dLVery High Triglyceride: greater than or equal to 5OO mg/dL Cholesterol 184 <200 mg/dL [facility] Comment:Desirable Cholestero l: less than 200 mg/dLBorderline High Cholesterol: 200-239 mg/dLHigh Cholesterol: greater than 239 mg/dL LDL Cholesterol Calculated 112(H) <100 mg/dL [facility] Comment:Desirable LDL: less than 100 mg/dLNear Optimal/Above Optimal LDL: 110- 129 mg/dLBorderline High LDL: 130-159 mg/dLHigh LDL: 160-189 mg/dLVery High LDL: greater than or equal to 190 mg/dL HDL Cholesterol 37(L) >40 mg/dL [facility] Comment:Desirable HDL: great er than 40 mg/dL Note: This HDL assay may give artificially low results in patients with liver disease. 08/20/2024 8:43 AM EDT 08/20/2024 8:43 AM EDT us Generic External Data Provider LAB BLOOD ORDERAB LES Final Result [facility] [address] [place] [phone] * (ABNORMAL) Comprehensive Metabolic Panel (08/20/2024 8:43 AM EDT) Sodium 141 135 - 145 mmol/L [facility] Potassium 4.1 3.3 - 5.1 mmol/L [facility] Chloride 107 96 - 108 mmol/L [facility] Carbon Dioxide 26 22 - 29 mmol/L [facility] Anion Gap 12 12 - 20 [facility] Urea Nitrogen (BUN) 12 9 - 16 mg/dL [facility] Creatinine, Serum 0.79 0.5 - 1.4 mg/dL [facility] Estimated Glomerular Filt Rate >60 [facility] Comment:Chronic Kidney Disea se: Estimated GFR < 60 mL/min/1.53e3Rvithj Kidney Disease: Estimated GFR < 15 mL/min/1.73m2 Glucose 97 60 - 115 mg/dL [facility] Calcium 8.9 8.4 - 10.2 mg/dL [facility] Bilirubin, Total 0.3 0.0 - 1.0 mg/dL [facility] Aspartate Amino Transferase 22 5 - 31 U/L [facility] Alanine Aminotransferase 33(H) 0 - 31 U/L [facility] Total Protein 7.6 6.5 - 8.0 g/dL [facility] Albumin Level 4.1 3.5 - 5.0 g/dL [facility] Alkaline Phosphatase 81 39 - 117 U/L [facility] 08/20/2024 8:43 AM EDT 08/20/2024 8:43 AM EDT us Generic External Data Provider LAB BLOOD ORDERAB LES Final Result [facility] [address] [place] [address] [phone] * BI Mammogram Screening Tomosynthesis Bilateral (01/07/2024 12:30 PM EDT) Anatomical Region Laterality Modality Breast Bilateral Mammography 01/07/2024 12:3 0 PM EDT Narrative 02/05/2024 12:30 PM EDT ? [facility] ? [address] ?[place] [address] ? Mammography Report ? Signed ? Patient: Benito WalkerTaniya Peralta ?MR#: ?? [id number] ? : 1970 ?Acct:[id number] ? Age/Sex: 53 / F ?ADM Date: 08//24 ? Loc: HO.MAMMO ? Attending Dr: Chelo Mitchell MD ? Ordering Physician: Luca Richter MD ?Results: 1Negativ ?? e ? Date of Service: 01/07/24 ?Follow Up: 1 Year From Orig ?? inal Mammogram ? Procedure(s): MM tomosynthesis screening BI ?? Accession Number(s): [id number] ? cc: Chelo Mitchell MD; Luca Richter [...] DD/ 1230 ? TD/TT: 01/07/24 1246 ? Architecture Drafter: ? Procedure Note Donotuseinterpreter, Image - 02/05/2024 [facility] [address] [place], [place] [address] Mammography Report Signed Patient: Taniya Mauricio TMR#: [id number] : 1970Acct:[id number] Age/Sex: 53 / FADM Date: 01/07/24 Loc: HO.MAMMO Attending Dr: Chelo Mitchell MD Ordering Physician: Luca Richter MDResults: 1Negativ e Date of Service: 01/07/24Follow Up: 1 Year From Orig inal Mammogram Procedure(s): MM tomosynthesis screening BI Accession Number(s): [id number] cc: Chelo Mitchell MD; Luca Richter MD [...] 02/05/24 1227 DD/ 1230 TD/TT: 01/07/24 1246 Architecture Drafter: [facility] External Provider IMG BI PROCEDURES Edited Result - Final * HPV mRNA E6/E7 w/Reflex to HPV Genotypes 16, 18/45 (11/13/2022 1:39 PM EDT) HPV nRNA E6/E7 Not Detected Not Detected [facility] Comment:Methodology: Transcr iption-Mediated AmplificationThis assay detects E6/E7 viral messenger RNA (mRNA) from 14high-risk HPV types (16,18,31,33,35,39,45,51,52,56,58,59,66,68).Cervical sources are required for HPV testing.If a vaginal source from a patient who has had atotal hysterectomy with removal of cervix wassubmitted, please contact the testing laboratoryfor alternative testing options.For additional information, please refer tohttp://education.SensibleSelf/faq/TRK137x3(This link if provided for information/educational purposes only.)THIS TEST WAS PERFORMED AT:[facility] [place] [phone] KEITH MD HPV mRNA E6/E7 [facility] HPV 16 RNA [facility] HPV 18/45 RNA [facility] 11/13/2022 1:39 PM EDT 11/17/2022 10:15 AM EDT [facility] External Provider LAB CYT OLOGY ORDERABLES Final Result [facility] [address] [place] [phone] * Pap Smear (11/13/2022 1:39 PM EDT) 11/13/2022 1:39 PM EDT 11/17/2022 10:15 AM EDT Narrative [facility] - 11/28/2022 3:48 PM EDT ----- ------- Name: Thong WalkerTaniya Bartlett ?Age/Sex: 52/F ? : 1970 Unit#: [id number] ?? Attend Dr: Luca Richter MD ?Re11/13/22 ?Status: DEP REF ? Location: HO.LNP ?Disch: ? ----- ------- SPEC : [id number] ? RECD: 11/17/22-1015 ? STATUS: ??SOUT ? REQ NUM: [id number] ? TRE: 11/13/22-6334 ? SUBM DR: Luca Richter MD ? ENTERED: ??11/17/22-1200 ?SP TYPE: Pap Smr ?OTHR DR: Chelo [...] 66, 68) ? HPV testing performed by [employer], [place], [place]. ??See reference laboratory ?? portion of the EMR for entire report. ?Clinical Information LMP: Postmenopausal Previous PAP test: 1 yr ago, Unknown ? Material Received ?? ThinPrep-Cervical Copies To: ?? Chelo Mitchell MD ?? [address] [facility] ?? [place] [address] ? Luca Richter MD ?? [address] [place] [address] Dr. Bag[facility] ?? [place] [address] ?? [phone] ----- ------- Signed (signature on file) Melvi A Isauro 11/28/22 1548 ? ----- ------- ? END OF REPORT ? [facility] External Provider LAB CYT OLOGY ORDERABLES Final Result [facility] [address] [place] [phone] [phone] * Hm Colonoscopy (08/28/2020 2:50 PM EDT) Colonoscopy Normal Normal Narrative Regla Cooper - 08/28/2020 2:50 PM EDT Recommended 5 years follow up Historical Provider HEALTH MAINTENANCE Edited Result - Final from Last 3 Months or Most Recently Relevant to Health Maintenance [place] [address] [place] [address] [facility] F[facility] Care Teams Design Checker Relationship Specialty Start Date End Date Chelo Mitchell MD [address] [place] [id number] PCP - General Family Medicine 04/01/16
--- OUTSIDE RECORDS SUMMARY | 2024-09-22 17:43 | XMS_ITS | Clinical Summary ---
Author Organization [facility] Address [address] [place] [address] Care Team Providers Care Internal Control Analyst Name Role Phone Chelo Mitchell MD Primary Care Provider Surgical History Surgery Date Site/Laterality Comments TONSILLECTOMY [...] Vaccine (2023-2 5 season) 2024 Influenza Vaccine (Season Ended) 2025 05/24/20 12 HIB Vaccines Aged Out No longer eligi [...] age to complete this topic Meningococcal B Vaccine Aged Out No l onger eligible based on patient's age to complete [...] age to complete this topic Care Teams Internal Control Analyst Relationship Specialty Start Date End Date Chelo Mitchell MD [address] [place] [phone] PCP - General 09/06/13
--- OUTSIDE RECORDS SUMMARY | 2024-09-22 17:43 | XMS_ITS | Data Portability ---
Author Organization AUDREY CAVAZOS MD [facility], Main Office Address [address] [place] [phone] Care Team Providers Care Heavy Repairer Name Role Phone WISAM PAULINO Primary Care Provider Assessment No assessment recorded. Plan of Treatment Reminders Order Date Submit Date Provider Last Modified By Organization Details Last Modified Time Details Appointments WEIGHT MANAGMENT F/U 2024 10:00A Villa Lyon MD Not available Not available Not available WEIGHT MANAGMENT F/U 2024 12:00P Villa Lyon MD Not available Not available Not available WEIGHT MANAGMENT F/U 2024 12:00P Villa Lyon MD Not available Not available Not available APRETUDE INJECTION 2024 10:00A Villa Lyon MD Not available Not available Not available APRETUDE INJECTION 2024 10:00A Villa Lyon MD Not available Not available Not available APRETUDE INJECTION 2024 10:00A Villa Lyon MD Not available Not available Not available CABENUVA INJECTION 2024 10:00A Villa Lyon MD Not available Not available Not available Lab CBC w/ diff [address], [address], 08/26/2024 12:33:32 HIV-1 RNA, quantitat ly, PCR, serum or plasma [address], [address], 08/26/2024 12:33:32 RPR (rapid plasma reagin), serum [address] [place] [address], [address], 08/26/2024 12:33:32 CMP, serum or plasma [address] [place] [address], [address], 08/26/2024 12:33:32 lipids, total, serum [address] [place] [address], [address], 08/26/2024 12:33:32 TSH + free T4, serum [address] [place] [address], [address], 08/26/2024 12:33:32 lipase, serum or plasma [address] [place] [address], [address], 08/26/2024 12:33:33 Referral None recorded. Procedures None recorded. Surgeries None recorded. Imaging None recorded. Medication Orders Colace 2-In-1 8.6 mg-50 mg tablet [address] [place] [address] [id number], [address] [place], [place], [id number], 08/15/2024 14:48:16 Dulcolax (bisacody l) 5 mg tablet,de layed release [address] [place] [address] [facility] #[id number], [address] [place], [place], [id number], 08/15/2024 14:49:17 Zepbound 5 mg/0.5 mL subcutane ous pen injector 2024 025 [email or web address] [facility] #[id number], [address] [place], [place], [id number], 09/15/2024 12:09:31 Apretude 600 mg/3 mL (200 mg/mL) IM suspensio n, extended release 2024 025 [email or web address] [facility] #52870, [address] [place], [place], [id number], 07/29/2024 12:44:19 Zepbound 5 mg/0.5 mL subcutane ous pen injector 2024 025 [facility] #35464, [address] [place], [place], [id number], 07/18/2024 20:43:38 Zepbound 2.5 mg/0.5 mL subcutane ous pen injector 2024 025 [facility] #60644, [address] [place], [place], [id number], 06/28/2024 14:48:40 Patient TargetsNo targets recorded. Patient InstructionsNo instructions recorded. Reason for Referral None Reported. Results Created Date Observation Date Name Description Value Unit Range Abnormal Flag Note LastModifiedBy Organization Detail LastModifiedTime Result Notes None recorded. 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 [...] Not Available Not Available No t Available cefuroxim e axetil 250 mg tablet TAKE 1 TABLET BY MOUTH TWICE DAILY FOR 7 DAYS active Not Available [...] 7; VACCINE_ IND: no; SU_FULL_ NAME: Angella Nathan denton; Not Available Not Available Not Available meclizine [...] Not Available Not Available No t Available omeprazol e 20 mg capsule,d elayed release TAKE 1 CAPSULE BY MOUTH EVERY DAY FOR GERD active Not Available Not Available No t Available hydroxyzi ne HCl 25 mg tablet TAKE 1 TABLET BY MOUTH TWICE DAILY NEEDED 09/09 completed Duration : 30; VACCINE_ IND: no; Not Available Not Available Not Available bisacodyl 5 mg tablet,de layed release TAKE 2 TABLETS BY MOUTH EVERY DAY FOR CONSTIPA TION active Not Available Not Available No t Available mirtazapi ne 15 mg tablet TAKE [...] no; Not Available Not Available Not Available oxycodone 5 mg tablet TAKE 1 TABLET BY MOUTH EVERY 6 HOURS NEEDED FOR PAIN. active Not Available Not Available No t Available nitrofura ntoin monohydra te/macroc rystals 100 [...] NAME: Hep B, adult; SU_FULL_ NAME: Angella Venita l; Not Available Not Available Not Available lactulose 10 gram/15 mL (15 mL) oral solution Take 10 mL every day by oral route for 30 days, for constipa tion. 2023 active Not Available Not Available Not Avai lable Stimulant Laxative Plus 8.6 mg-50 mg tablet TAKE 2 TABLETS BY MOUTH EVERY DAY FOR CONSTIPA TION active Not Available Not Available No t Available Fluvirin 5398-5588 45 mcg (15 mcg x 3)/0.5 mL intramusc ular suspensio n trivalen t Quantity : ; 0 refill(s ) 10/24 completed VACCINE_ IND: yes; VACCINE_ NAME: Influenz a, seasonal , injectab le; SU_FULL_ NAME: Angella Nathan l; Not Available Not Available Not Available Fluvirin 45 mcg (15 mcg x 3)/0.5 mL intramusc ular suspensio n trivalen t Quantity : ; 0 refill(s ) 07/21 completed VACCINE_ IND: yes; VACCINE_ NAME: Influenz a, seasonal , injectab le; SU_FULL_ NAME: Angella Marthieu l; Not Available Not Available Not Available Afluria Quad 60 mcg/0.5 mL intramusc ular suspensio n quadriva lent Quantity : ; 0 refill(s ) 07/21 completed VACCINE_ IND: yes; VACCINE_ NAME: influenz a, injectab le, quadriva lent; SU_FULL_ NAME: Angella Nathan l; VIS_DATE : 18:02:17 .0; Not Available Not Available Not Available Shingrix (PF) 50 mcg/0.5 mL intramusc ular suspensio n, kit adjuvant ed Quantity : 1; Duration : 1; 1 refill(s ) 01/01 completed Frequenc y: x1; Duration : 1; VACCINE_ IND: no; VACCINE_ NAME: zoster recombin ant; SU_FULL_ NAME: Angella Nathan l; Not Available Not Available Not Available [facility] m[facility] (15 mcg x 4)/0.5 [...] lent; SU_FULL_ NAME: Angella chawla; VIS_DATE : 18:37:45 .0; Not Available Not Available Not Available Afluria Quad 60 mcg (15 mcg x 4)/0.5 mL intramusc ular susp. quadriva lent Quantity : ; 0 refill(s ) 2019 active VACCINE_ IND: yes; VACCINE_ NAME: influenz a, injectab le, quadriva lent; SU_FULL_ NAME: Angella chawla; VIS_DATE : 18:17:54 .0; Not Available [...] 5 mg every week by subcutan eous route. active Not Available Not Available No t Available Zepbound 2.5 mg/0.5 mL subcutane ous pen injector ADMINIST ER 2.5 MG UNDER THE SKIN EVERY WEEK FOR WEIGHT LOSS active Not Available Not Available No t Available Vitals Date Recorded Body height Body mass index (BMI) Body weight Provider Name and Address Organization Details Last Updated DateTime 06/28/2024 162.56 cm 27.5 kg/m2 51085.78 g Laure LYON MD [facility] 06/28/2024 15:18:09 Date Recorded Body height Provider Name an d Address Organization Details Last Updated DateTime 07/04/2024 162.56 cm Laure LYON MD [facility] 08/08/2024 14:04:18 Date Recorded Body height Heart rate Respiratory rate Body temperature Body mass index (BMI) Body weight Systolic blood pressure Diastolic blood pressure Provider Name and Address Organization Details Last Updated DateTime 162.56 cm 94 /min 12 /min 98.4 [degF] 27.6 kg/m2 53594.3 7 g 118 mm[Hg] 80 mm[Hg] Laure LYON MD [facility] 14:37:43 Social History None recorded. Functional Status [...] virus, quadrivalent, preservative 0 completed Not Available [facility] 07/29/2023 06:54:57 Influenza, split virus, quadrivalent, preservative 9 completed Not Available [facility] 07/29/2023 06:54:58 Influenza, split virus, quadrivalent, preservative 8 completed Not Available [facility] 07/29/2023 06:54:58 Influenza, split virus, quadrivalent, preservative 2 completed Not Available [facility] 07/29/2023 06:54:58 Past Encounters Encounter ID Performer Location Encounter Start Date Encounter Closed Date Diagnosis/Indication Diagnosis SNOMED-CT Code Diagnosis ICD10 Code Diagnosis Note [id number] Heather Valdez Main Office [address] [place] [address] 03/02/2023 12:43:21 03/02/2023 14:38:02 Exposure to Human immunodeficiency virus 507284188 Z20.6 [id number] Angella Lyon MD Main Office [address] [place] [address] 03/26/2023 14:47:12 03/26/2023 15:55:07 Exposure to Human immunodeficiency virus 426661839 Z20.6 PreP: continue Cabotegrav ir (Apretude) IM QOM. Window visits +/- 7 days within target date reviewed w pt. labs strict compliance addressed w correct use of medication ,complianc e with office visits; window visits reviewed. to call with any new meds/OTC. condom use to prevent other STI's plan of care reviewed [id number] Angella Lyon MD Main Office [address] [place] [address] 05/01/2023 13:15:30 05/01/2023 13:28:17 Exposure to Human immunodeficiency virus 568701480 Z20.6 PreP: continue Cabotegrav ir (Apretude) IM QOM. Window visits +/- 7 days within target date reviewed w pt. labs strict compliance addressed w correct use of medication ,complianc e with office visits; window visits reviewed. to call with any new meds/OTC. condom use to prevent other STI's plan of care reviewed [id number] Angella Lyon MD Main Office [address] [place] [address] 06/26/2023 14:56:01 06/26/2023 16:34:48 Exposure to Human immunodeficiency virus 589791886 Z20.6 PreP: continue Cabotegrav ir (Apretude) IM QOM. Window visits +/- 7 days within target date reviewed w pt. labs next visit strict compliance addressed w correct use of medication ,complianc e with office visits; window visits reviewed. to call with any new meds/OTC. condom use to prevent other STI's plan of care reviewed [id number] Angella Lyon MD Main Office [address] [facility] [address] 06/30/2023 09:29:29 06/30/2023 09:53:55 Exposure to Human immunodeficiency virus 859681710 Z20.6 PreP: continue Cabotegrav ir (Apretude) IM QOM. Window visits +/- 7 days within target date reviewed w pt. labs next visit strict compliance addressed w correct use of medication ,complianc e with office visits; window visits reviewed. to call with any new meds/OTC. condom use to prevent other STI's plan of care reviewed [id number] Angella Lyon MD Main Office [address] [place] [address] 07/29/2023 13:51:08 07/31/2023 16:24:26 Risk of exposure to communicable disease 369069919 Z20.2 [id number] Angella Lyon MD Main Office [address] [place] [address] 09/25/2023 14:44:43 09/25/2023 14:49:20 Exposure to Human immunodeficiency virus 455461374 Z20.6 PreP:jeronimo nue Cabotegrav ir (Apretude) IM QOM. Window visits +/- 7 days within target date reviewed w pt.labs orderedstr ict compliance addressed w correct use of medication ,complianc e with office visits; window visits reviewed. to call with any new meds/OTC. condom use to prevent other STI's plan of care reviewed [id number] Angella Lyon MD Main Office [address] [place] [address] 09/29/2023 10:23:43 09/29/2023 10:55:45 Exposure to Human immunodeficiency virus 391674607 Z20.6 PreP:jeronimo nue Cabotegrav ir (Apretude) IM QOM. Window visits +/- 7 days within target date reviewed w pt.labs orderedstr ict compliance addressed w correct use of medication ,complianc e with office visits; window visits reviewed. to call with any new meds/OTC. condom use to prevent other STI's plan of care reviewed [id number] Angella Lyon MD Main Office [address] [place] [address] 11/30/2023 12:03:49 11/30/2023 12:53:32 Exposure to Human immunodeficiency virus 967945807 Z20.6 PreP:jeronimo nue Cabotegrav ir (Apretude) IM QOM. Window visits +/- 7 days within target date reviewed w pt.labs orderedstr ict compliance addressed w correct use of medication ,complianc e with office visits; window visits reviewed. to call with any new meds/OTC. condom use to prevent other STI's plan of care reviewed [id number] Angella Lyon MD Main Office [address] [place] [address] 12/24/2023 13:23:00 12/24/2023 14:08:27 Exposure to Human immunodeficiency virus 912801189 Z20.6 PreP:jeronimo nue Cabotegrav ir (Apretude) IM QOM. Window visits +/- 7 days within target date reviewed w pt.labs orderedstr ict compliance addressed w correct use of medication ,complianc e with office visits; window visits reviewed. to call with any new meds/OTC. condom use to prevent other STI's plan of care reviewed Body mass index 30+ - obesity 605179595 Z68.30 obesity. BMI>30Will prescribe Semaglutid e s/c [...] for weight lossProvid ed learning about obesity [id number] Angella Lyon MD Main Office [address] [facility] [place] [address] 01/06/2024 11:08:37 01/06/2024 11:23:14 Body mass index 30+ - obesity 007643693 Z68.30 obesity. BMI>30 START Semaglutid e 0.5 [...] and education and written informatio n provided [id number] Angella Lyon MD Main Office [address] [facility] [place] [address] 01/29/2024 11:07:12 01/29/2024 12:00:56 Exposure to Human immunodeficiency virus 486744097 Z20.6 PreP:jeronimo nue Cabotegrav ir (Apretude) IM QOM. Window visits +/- 7 days within target date reviewed w pt.labs orderedstr ict compliance addressed w correct use of medication ,complianc e with office visits; window visits reviewed. to call with any new meds/OTC. condom use to prevent other STI's plan of care reviewed [id number] Angella Lyon MD Main Office [address] [facility] [address] 02/02/2024 10:57:27 02/02/2024 11:31:15 Body mass index 30+ - obesity 623692189 Z68.30 obesity. START Semaglutid e 0.5 mg sc qw tomorrowin crease dose to 1 mg next month.labs Febontin ue to exercisepo tential side effects reviewed again such as GERD, n/v/d, constipati on, visual, obstraucti on,complia nce with kaleb, meds and safety assessment s reviewedco ntinue to diet. calorie and education and written informatio n provided Exposure t o Human immunodeficiency virus 478689669 Z20.6 PreP:jeronimo nue Cabotegrav ir (Apretude) IM QOM. Window visits +/- 7 days within target date reviewed w pt.labs orderedstr ict compliance addressed w correct use of medication ,complianc e with office visits; window visits reviewed. to call with any new meds/OTC. condom use to prevent other STI's plan of care reviewed Constipation 83605916 K5 9.00 stool softener prnhydrati on Angella Lyon MD Main Office [address] [place] [address] 03/03/2024 11:17:03 03/03/2024 11:47:16 Body mass index 30+ - obesity 384523155 Z68.30 obesity. continue Semaglutid e 0.5 mg sc qw tomorrowin crease dose to 1 mg next month.labs Febontin ue to exercisepo tential side effects reviewed again such as GERD, n/v/d, constipati on, visual, obstraucti on,complia nce with kaleb, meds and safety assessment s reviewedco ntinue to diet. calorie and education and written informatio n provided Exposure t o Human immunodeficiency virus 015540920 Z20.6 PreP:jeronimo nue Cabotegrav ir (Apretude) IM QOM. Window visits +/- 7 days within target date reviewed w pt.labs orderedstr ict compliance addressed w correct use of medication ,complianc e with office visits; window visits reviewed. to call with any new meds/OTC. condom use to prevent other STI's plan of care reviewedCO VID19 and flu vaccine recommende d. Constipation 11083455 K5 9.00 stool softener prnhydrati on Angella Lyon MD Main Office [address] [place] [address] 03/30/2024 12:26:34 03/30/2024 14:16:15 Exposure to Human immunodeficiency virus 636601888 Z20.6 Apretude administer ed todaylabs onnext appointmen t Body mass index 30+ - obesity 884307839 Z68.30 obesity. continue Semaglutid e 0.5 mg sc qwcontinue to exercisepo tential side effects reviewed again such as GERD, n/v/d, constipati on, visual, obstraucti on,complia nce with kaleb, meds and safety assessment s reviewedco ntinue to diet. calorie and education and written informatio n provided [id number] Angella Lyon MD Main Office [address] [place] [address] 04/29/2024 12:01:04 04/29/2024 13:29:49 Exposure to Human immunodeficiency virus 876596201 Z20.6 on Apretude QOMlabs Body mass index 30+ - obesity 624520705 Z68.30 obesity.co ntinue Semaglutid e 0.5 mg sc qw ; prescribed againpt will draft roller picker at pharmacy once med is available. shortageco ntinue to exercisepo tential side effects reviewed again such as GERD, n/v/d, constipati on, visual, obstraucti on,complia nce with kaleb, meds and safety assessment s reviewedco ntinue to diet. calorie and education and written informatio n provided Dysuria 22973705 R30.0 on/offpyri dium bid-tid prn if sx.hydrati onshe will call to do u/a and u/c if symptoms recurno sx todayf/u SANITIZER regarding IUD and dysuria sx. [id number] Angella Lyon MD Main Office [address] [place] [address] 05/25/2024 09:31:58 05/25/2024 09:47:44 Exposure to sexually transmissible disorder 321287769 Z20.2 Apretude IM administer ed today.no reactions. next dose 07/2023 Body mass index 30+ - obesity 538775533 Z68.30 obesity.co ntinue Semaglutid e 0.5 mg sc qw ;continue to exercisehy drationwat ch diet.call with concerns.c ompliance with kaleb, meds and safety assessment s reviewedco ntinue to diet. calorie and education and written informatio n provided Exposure t o Human immunodeficiency virus 696385468 Z20.6 [id number] Angella Lyon MD Main Office [address] [place] [address] 06/28/2024 14:06:07 07/08/2024 15:18:49 Exposure to sexually transmissible disorder 455731641 Z20.2 Apretude IM QOMlabs next appointmen t Body mass index 30+ - obesity 945890156 Z68.30 obesity.se maglutide not on formulary anylongerW ill order Zepbound 2.5 mg sq qw x 4 doses , and increase dose as neededcont inue to exercisehy drationwat ch diet.call with concerns.c ompliance with kaleb, meds and safety assessment s reviewedco ntinue to diet. calorie and education and written informatio n provided [id number] Angella Lyon MD Main Office [address] [place] [address] 07/04/2024 16:20:11 07/21/2024 15:08:28 [id number] Angella Lyon MD Main Office [address] [place] [address] 07/18/2024 12:29:00 07/18/2024 14:32:13 Exposure to sexually transmissible disorder 787461504 Z20.2 Apretude IM QOMlabs next appointmen t Body mass index 30+ - obesity 481604695 Z68.30 obesity.in crease Zepbound 2.5-->5mg sq qw x 4 doses; and increase dose as needed monthycont inue to exercisehy drationlab s next appointmen t,watch diet.call with concerns.c ompliance with kaleb, meds and safety assessment s reviewedco ntinue to diet. calorie and education and written informatio n provided [id number] Angella Lyon MD Main Office [address] [place] [address] 07/29/2024 12:24:23 07/29/2024 12:45:22 Exposure to Human immunodeficiency virus 764686126 Z20.6 [id number] Angella Lyon MD Main Office [address] [facility] [place] [address] 08/15/2024 14:18:09 08/15/2024 14:56:11 Exposure to sexually transmissible disorder 750744334 Z20.2 Apretude IM QOMlabs next appointmen t Body mass index 30+ - obesity 114811069 Z68.30 obesity.se maglutide not on formulary anylongerI ncrease Zepbound 5.0mg sq qw x 4 doses , and increase dose as neededcont inue to exercisehy drationwat ch diet.call with concerns.c ompliance with kaleb, meds and safety assessment s reviewedco ntinue to diet. calorie and education and written informatio n provided Constipation 14530071 K5 9.00 stool softener prnhydrati on Health Concerns Section Related Observation LastModified by Organization Detai ls LastModified Time None Recorded Concern Status LastModified by Organization Details LastModified Time None Recorded Advance Directives Directive None Recorded Payers Encounter Date Sequence Insurance Name Policy Number Policy Mclean Covered Member ID Mclean Member ID Guarantor Name 06/28/2024 1 [place] [facility] Taniya Benito [id number] Taniya Benito Gómez 07/04/2024 1 [place] [facility] Taniya Benito [id number] Taniya Guerrerojesus 07/18/2024 1 [place] [facility] Taniya Benito [id number] Taniya Bennettosta Gómez 07/29/2024 1 [place] [facility] Taniya Bennettosta [id number] Taniya Bennettosta Gómez 08/15/2024 1 [place] [facility] Taniya Benito [id number] Taniya Workmansus Notes Date Note Type Note Provider Name [...] HCV neg; HBV neg Angella Lyon MD [address] [place] [address], [phone], AUDREY LYON MD [facility] 06/29/2024 00:39:49 text/html weight managementcurrently on zepbound 2.5 mg [...] HCV neg; HBV neg Angella Lyon MD [address] [place] [address], [phone], AUDREY LYON MD [facility] 07/18/2024 20:43:42 text/html weight management currently on zepbound 2.5 mg sq qwshe would like to go up on the dose. tolerates well no side effects. 179-->->160 lbs -->161 no vomiting ; no abd pain; no n/v/d. no rash. no sweats; no weight loss. no fever.no new medsno constipation. no nausea 05/2024 HIV negative; AST/ALT wnl; EGFR>60; high cholesterol; glu 95 02/2024 ALT/AST wnl; egFR nl ; l 10/2023 HIV neg; no HBV; ALt/AST wnl; eGFR=60; no syphilis; eGFR>60; neg GC/chlamydia; HCV neg Angella Lyon MD [address] [place] [address], [phone], AUDREY - ANGELLA LYON MD [facility] 08/20/2024 17:28:28 OBGyn Episode No OBEpisode recorded.
--- OUTSIDE RECORDS SUMMARY | 2024-09-22 17:43 | XMS_ITS | Encounter Summary ---
Author Organization [facility] [facility] Address [address] [place] [address] Care Team Providers Care Bottle House Quality Control Technician Name Role Phone Chelo Mitchell MD Primary Care Provider + Encounter Details Date Type Department Care Team (Late st Contact Info) Description 11/26/2022 Abstract [facility] MEDICINE [address] [place], [place] [phone] Chelo Mitchell MD [address] [place] [address] [phone] Social History Tobacco Use Types Packs/Day Years [...] Description 10/25/2024 10:30 AM EDT Office Visit [facility] MEDICINE [address] [place], [place] [phone] Chelo Mitchell MD [address] [place], [place] [phone] 03/21/2025 2:30 PM EDT Office Visit [facility] OPTOMETRY [address] [place] [address] Dominique Reese, OD [address] [place] [address] documented as of this encounter Procedures Procedure Name Priority Date/Time Associated Diagnosis Comments HM COLONOSCOPY Routine 08/28/2020 2:50 PM EDT documented in this encounter Results * Hm Colonoscopy (08/28/2020 2:50 PM EDT) Colonoscopy Normal Normal Narrative Regla Cooper - 08/28/2020 2:50 PM EDT Recommended 5 years follow up Historical Provider [facility] [place] Edited Result - Final documented in this encounter Visit Diagnoses Not on filedocumented in this encounter Care Teams Bottle House Quality Control Technician Relationship Specialty Start Date End Date Chelo Mitchell MD [address] [place] [address] PCP - General Family Medicine 04/01/16 documented as of this encounter
== END 2024-09-22 15:23 | disposition home or self-care (01) ==
LOC: HO.HWS 14:52
PROVIDERS: PCP Internal Medicine; Visit Provider Obstetrics & Gynecology
DX: N95.0 Postmenopausal bleeding (principal)
CPT/HCPCS: 99213

== ENCOUNTER → 2024-09-22 14:52 | Outpatient (BNVA) | payer MEDICAID, SELFPAY | PROVIDERS: PCP Internal Medicine; Visit Provider Obstetrics & Gynecology ==

== ENCOUNTER 2024-12-01 16:03 | Emergency (ER) | payer MEDICAID, SELFPAY ==
[2024-12-01 16:10] VITALS: BP 140/92; PULSE 92; RESP 18; TEMP 36.6; O2SAT 99; BMI 27.3
--- NOTE | 2024-12-01 16:11 | ED.GENADULT ---
HPI - General Adult General Chief complaint: Neck Pain/Injury Stated complaint: neck/shoulder pain Time Seen by Provider: 12/01/24 16:28 Source: patient and RN notes reviewed Mode of arrival: ambulatory Limitations: no limitations History of Present Illness ED Provider: Melvi Lomax PA-C HPI narrative: This is a 19-arnp-iui-female, with hx of cervical sponndylosis, who presents to the Er with complaints of right upper back pain x 3 days. No known injury or trauma. 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 No fevers, chills, headache, dizziness, chest pain, SOB, abdominal pain. No other complaints or concerns at this time MD complaint: Upper back pain Quality: aching Pain Consistency: constant Relieving factors: rest Exacerbating factors: movement Treatments prior to arrival: none Related Data Home Medications ?Medication ?Instructions ?Recorded ?Confirmed sertraline 25 mg tablet 25 mg PO DAILY 10/17/21 11/19/21 emtricitabine 200 mg-tenofovir 1 tab PO DAILY 11/13/22 disoproxil fumarate 300 mg tablet valacyclovir 500 mg tablet 500 mg PO BID 11/13/22 lactulose 10 gram/15 mL oral 10 ml PO DAILY constipation 02/25/24 solution semaglutide (weight loss) 0.5 0.5 mg subcut 02/25/24 mg/0.5 mL subcutaneous pen injector (Wegovy) sennosides 8.6 mg-docusate sodium 2 tab PO DAILY constipation 02/25/24 50 mg tablet (Stimulant Laxative Plus) tramadol 50 mg tablet 50 mg PO DAILY PRN 02/25/24 tirzepatide (weight loss) 5 mg/0.5 5 mg subcut QWEEK 08/18/24 mL subcutaneous pen injector (Zepbound) levonorgestrel 21 mcg/24 hr (up to intrauterine 08/23/24 8 years) 52 mg intrauterine device (Mirena) Previous Rx's ?Medication ?Instructions ?Recorded meloxicam 15 mg tablet 15 mg PO DAILY #20 tabs 01/22/23 cyclobenzaprine 10 mg tablet 10 mg PO TID PRN muscle spasm #20 10/04/23 tabs polyethylene glycol 3350 17 17 g PO DAILY PRN laxative effect 02/19/24 gram/dose oral powder (Miralax) #119 grams diclofenac sodium 1 % topical gel 4 g topical QID pain #100 grams 02/25/24 (Arthritis Pain (diclofenac)) oxycodone 5 mg tablet 5 mg PO Q6H PRN pain #15 tabs 08/21/24 cefuroxime axetil 250 mg tablet 250 mg PO BID 7 days #14 tabs 08/25/24 acetaminophen 500 mg tablet 1,000 mg (2 x 500 mg) PO Q8H PRN 12/01/24 (Tylenol Extra Strength) pain #30 tabs cyclobenzaprine 10 mg tablet 10 mg PO TID PRN muscle spasm #14 12/01/24 tabs ibuprofen 600 mg tablet 600 mg PO Q6H PRN pain #30 tabs 12/01/24 lidocaine 5 % topical patch 1 patch topical DAILY #30 ea 12/01/24 prednisone 20 mg tablet 20 mg PO DAILY 5 days #5 tabs 12/01/24 Allergies Allergy/AdvReac Type Severity Reaction Status Date / Time No Known Allergies (No Known Allergy Verified 12/01/24 16:19 Allergies*) Review of Systems Review of Systems: Yes all other systems are reviewed and are negative FOR[facility]LY [facility] Past Medical History Medical History Colon cancer screening Well woman exam Pilar cyst of scalp Postmenopausal bleeding Endometrial polyp Encounter for IUD insertion IUD check up Cervicalgia Neck muscle spasm Anxiety Hepatitis C HIV (human immunodeficiency virus infection) Surgical History History of hysteroscopy History of excision of mass (11/12/21) History of tubal ligation Family History Family History Paternal Aunt Throat cancer Social History Social History Household Members: Spouse Household Members Other:: son Housing: House Alcohol intake: never Patient Tobacco Use Status: Never used Tobacco Advance Directives: No Advance Directives Information Provided: No Do you have a plan to hurt others: No Plan Current occupational status: employed 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 No acute distress. HEENT: Normal inspection CVS: Normal heart rate and rhythm. Pulses normal. Respiratory: No respiratory distress Skin: Warm, dry, no rashes noted to exposed skin. Normal skin color. Normal skin turgor. Extremities: Normal to inspection MSK: Right upper trapezius with notable spasm and TTP, no overlying skin changes. No cervical midline spine tenderness. Neuro: Oriented X 3. No motor deficit. No sensory deficit. Medical Decision Making Medical Decision Making [facility] Narrative: 54 y/o F here with right upper back pain. On arrival, pt's BP mildly elevated at 140/92. Pt with ttp overlying the right trapezius muscle with spasm noted. No overlying skin changes. No injury/trauma. No bony involvement. Discussed with pt that her symptoms are likely due to muscle spasm. Will treat with muscle relaxants, pain medication, and sterooids. Given return prrecautions. Pt stable for d/c. Differential Diagnosis Differential Diagnoses: The differential diagnosis associated with the presentation includes muscle spasm. strain, sprain, contusion Discharge Plan Discharge Clinical Impression: Spasm of right trapezius muscle Patient Disposition: Home, Self-Care Instructions: Muscle Spasm (ED) Additional Instructions: You were seen in the ER due to right upper back pain. You have a muscle spasm that is causing you to have this pain. Please alternate between ibuprofen and tylenol as needed for pain. Take ibuprofen 600mg every 6 hours, and Tylenol 500-1000mg every 8 hours as needed. Cyclobenzaprine is a muscle relaxant that can help with your symptoms. Please be advised that this can cause drowsiness, do not drink alcohol or drive while taking this medication. Prednisone is a steroid that can help reduce the inflammation in your back/neck. Lidocaine patches can also help with your symptoms. Do not apply heat or ice directly to the patches. Gentle stretching, massage can also help with your symptoms. If any new or worsening symptoms occur including but not limited to severe chest pain, shortness of breath, please seek emergent care Prescriptions: New ibuprofen 600 mg tablet 600 mg PO Q6H PRN (Reason: pain) Qty: 30 0RF cyclobenzaprine 10 mg tablet 10 mg PO TID PRN (Reason: muscle spasm) Qty: 14 0RF prednisone 20 mg tablet 20 mg PO DAILY 5 Days Qty: 5 0RF lidocaine 5 % adhesive patch,medicated 1 patch topical DAILY Qty: 30 0RF Rx Instructions: leave on most painful area for up to 12 hrs acetaminophen [Tylenol Extra Strength] 500 mg tablet 1,000 mg PO Q8H PRN (Reason: pain) Qty: 30 0RF No Action meloxicam 15 mg tablet 15 mg PO DAILY Qty: 20 0RF polyethylene glycol 3350 [Miralax] 17 gram/dose powder 17 g PO DAILY PRN (Reason: laxative effect) Qty: 119 0RF oxycodone 5 mg tablet 5 mg PO Q6H PRN (Reason: pain) Qty: 15 0RF Rx Instructions: partial filing upon pt request; Partial Fill upon patient request. cefuroxime axetil 250 mg tablet 250 mg PO BID 7 Days Qty: 14 0RF cyclobenzaprine 10 mg tablet 10 mg PO TID PRN (Reason: muscle spasm) Qty: 20 0RF sertraline 25 mg tablet 25 mg PO DAILY valacyclovir 500 mg tablet 500 mg PO BID emtricitabine-tenofovir (TDF) 200-300 mg tablet 1 tab PO DAILY Mirena 21 mcg/24hr (up to 8 yrs) 52 mg intrauterine device intrauterine lactulose 10 gram/15 mL solution 10 ml PO DAILY tramadol 50 mg tablet 50 mg PO DAILY PRN sennosides-docusate sodium [Stimulant Laxative Plus] 8.6-50 mg tablet 2 tab PO DAILY Wegovy 0.5 mg/0.5 mL pen injector 0.5 mg subcut diclofenac sodium [Arthritis Pain (diclofenac)] 1 % gel 4 g topical QID Qty: 100 3RF Zepbound 5 mg/0.5 mL pen injector 5 mg subcut QWEEK Stand Alone Forms: Work/School Release Interventions: ED Discharge Assessment Last Done: 12/01/24 16:20 Discharge Date/Time: 12/01/24 16:53 Print Language: Kiswahili
[2024-12-01 16:20] VITALS: BP 140/92; PULSE 92; RESP 18; TEMP 36.6; O2SAT 99
--- OUTSIDE RECORDS SUMMARY | 2024-12-01 19:49 | XMS_ITS | Continuity of Care Document ---
Author Organization [facility], Main Office Address [address] [place] [address] Care Team Providers Care Top Spotter Name Role Phone LORA WISAM Primary Care Provider [phone] Assessment No assessment recorded. Plan of Treatment Reminders Order Date Submit Date Provider Last Modified By Organization Details Last Modified Time Details Appointments [facility] 2024 10:00A M Melissa Lyon MD Not available Not available Not available [facility] 2024 10:00A M Melissa Lyon MD Not available Not available Not available [facility] 2024 10:00A Villa Lyon MD Not available Not available Not available Lab None recorded. Referral None recorded. Procedures None recorded. Surgeries None recorded. Imaging None recorded. Medication Orders Apretude 600 mg/3 mL (200 mg/mL) IM suspensio n, extended release [address] [id number], [address] [place], [place], [phone], 11/28/2024 10:11:59 Patient TargetsNo targets recorded. Patient InstructionsNo instructions recorded. Reason for Referral None Reported. 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 Medical [...] no; Not Available Not Available Not Available valacyclo vir 1 gram tablet TAKE 1 TABLET BY MOUTH EVERY 12 HOURS FOR 5 DAYS FOR HSV active Not Available Not Available No t Available meloxicam 15 mg tablet TAKE 1 [...] 7; VACCINE_ IND: no; SU_FULL_ NAME: Melissa Nathan denton; Not Available Not Available Not [...] no; Not Available Not Available Not Available lidocaine 5 % topical patch APPLY 1 PATCH TOPICALL Y TO THE SKIN DAILY. MAY WEAR UP TO 12 HOURS active Not Available Not Available No t Available sertralin e 25 mg tablet TAKE [...] NAME: Hep B, adult; SU_FULL_ NAME: Melissa Martorel l; Not Available Not Available Not Available lactulose 10 gram/15 mL (15 mL) oral solution Take 10 mL every day by oral route for 30 days, for constipa tion. 2023 active Not Available Not Available Not Avai lable Stimulant Laxative Plus 8.6 mg-50 mg tablet TAKE 2 TABLETS BY MOUTH EVERY DAY FOR CONSTIPA TION active Not Available Not Available No t Available Biofreeze (menthol) 4 % topical gel APPLY 5 ML TO AFFECTED SKIN AREA NEEDED FOR PAIN active Not Available Not Available No t Available Fluvirin 45 mcg (15 mcg x 3)/0.5 mL intramusc ular suspensio n trivalen t Quantity : ; 0 refill(s ) 10/24 completed VACCINE_ IND: yes; VACCINE_ NAME: Influenz a, seasonal , injectab le; SU_FULL_ NAME: Melissa Marthieu l; Not Available Not Available Not [...] NAME: zoster recombin ant; SU_FULL_ NAME: Melissa Nathan l; Not Available Not Available Not Available Afluria Quad 60 mcg (15 mcg x 4)/0.5 mL IM suspensio n quadriva lent Quantity : ; 0 refill(s ) 2017 active VACCINE_ IND: yes; VACCINE_ NAME: influenz a, injectab le, quadriva lent; SU_FULL_ NAME: Melissa chawla; VIS_DATE : 20:07:37 .0; Not Available Not Available Not Available [facility] Quad 60 mcg (15 mcg x 4)/0.5 mL intramusc ular susp. quadriva lent Quantity : ; 0 refill(s ) 2018 active VACCINE_ IND: yes; VACCINE_ NAME: influenz a, injectab le, quadriva lent; SU_FULL_ NAME: Melissa chawla; VIS_DATE : 18:37:45 .0; Not Available Not Available Not Available [facility] Quad 60 mcg (15 mcg x 4)/0.5 [...] Available Not Available No t Available Zepbound 7.5 mg/0.5 mL subcutane ous pen injector ADMINIST ER 7.5 MG UNDER THE SKIN EVERY WEEK FOR [...] preservative 0 completed Not Available [facility] 07/29/2023 06:54:57 Influenza, split virus, quadrivalent, preservative 9 completed Not Available [facility] 07/29/2023 06:54:58 Influenza, split virus, quadrivalent, preservative 8 completed Not Available [facility] 07/29/2023 06:54:58 Influenza, split virus, quadrivalent, preservative 2 completed Not Available [facility] 07/29/2023 06:54:58 Past Encounters Encounter ID Performer Location Encounter Start Date Encounter Closed Date Diagnosis/Indication Diagnosis SNOMED-CT Code Diagnosis ICD10 Code Diagnosis Note [id number] Melissa Lyon MD Main Office [address] [place] [address] 11/15/2024 11:42:24 11/15/2024 12:40:19 Exposure to Human immunodeficiency virus 638538823 Z20.6 Apretude IM QOM.next dose November 28, 2024 Body mass index 30+ - obesity 525385248 Z68.30 obesity.ke ep Zepbound 7.5mg sq qow ; stable tolerabili ty with that dose/frequ encywatch diet.call with concerns. Chronic low back pain 27 7015170 M54.50 G89.29 f/u PCP for pain management and fnato ne qd PRN for painbiofre francis qd prnto ER if urine or stool incontinen ce, or falls, or imbalance oe worsenign back pain [id number] Melissa Lyon MD Main Office [address] [place] [address] 11/28/2024 09:41:24 11/28/2024 10:12:10 Suspected clinical finding 382724359 Z20.6 Apretude IM QOMlabs next appointmen t Health Concerns Section Related Observation LastModified by Organization Detai ls LastModified Time None Recorded Concern Status LastModified by Organization Details LastModified Time None Recorded Payers Encounter Date Sequence Insurance Name Policy Number Policy Mclean Covered Member ID Mclean Member ID Guarantor Name 11/28/2024 1 [place]ICA[place]: [facility] Taniya Benito [id number] Taniya Guerrerojesus OBGyn Episode No OBEpisode recorded.
== END 2024-12-01 16:53 | disposition home or self-care (01) ==
LOC: HO.ED 16:32
PROVIDERS: Emergency Provider Emergency Medicine; PCP Internal Medicine
DX: M54.6 Pain in thoracic spine (principal); M62.830 Muscle spasm of back; R10.10 Upper abdominal pain, unspecified; Z79.899 Other long term (current) drug therapy
CPT/HCPCS: 99282; 99283

== ENCOUNTER 2024-12-12 15:38 | Outpatient (REF) | payer MEDICAID, SELFPAY ==
--- NOTE | ~2024-12-12 | XR_ITS ---
EXAMINATION: XR SHOULDER, RIGHT CLINICAL INFORMATION: Right shoulder pain; calcific tendinopathy right shoulder. COMPARISON: 01/22/2023. TECHNIQUE: Three views of the right shoulder. FINDINGS: Normal bone mineralization. No fracture, dislocation, or suspicious bone lesion. Normal alignment. The glenohumeral joint demonstrates mild degenerative arthritis. The AC joint demonstrates mild arthritic spurring. There is a type IV acromion. No undersurface spurring. The subacromial space is preserved. Previously seen calcification of the infraspinatus tendon is no longer evident. Remainder of the soft tissue and bony structures appear normal. XR/XR shoulder RT min 2V IMPRESSION: 1. No acute bony abnormalities. 2. Mild degenerative arthritis in the AC joint and glenohumeral joint. 3. Previously seen calcific tendinopathy has resolved. Electronically signed by: Dante Shine MD 12/12/2024 04:06 PM EDT
--- OUTSIDE RECORDS SUMMARY | 2024-12-12 15:48 | XMS_ITS | Encounter Summary ---
Author Organization [employer] Address [address] [place] [address] Care Team Providers Care Manager Physical Name Role Phone Chelo Mitchell MD Primary Care Provider + Reason for Visit * Reason Comments Med Refill Encounter Details Date Type Department Care Team ([facility] st Contact Info) Description 07/02/[address] [facility] MEDICINE [address] [place], [place] [phone] Chelo Mitchell MD [address] [place], [place] [phone] Cervical disc disorder Social History Tobacco Use [...] t he electric, gas, oil or water [employer] threatened to shut off services in your [...] Care Team (Late st Contact Info) Description 03/21/2025 2:30 PM EDT Office Visit [facility] OPTOMETRY [address] [place], [place] [phone] Dominique Reese, OD [address] [place] [address] documented as of this encounter Visit Diagnoses Diagnosis Cervical disc disorder documented in this encounter Care Teams Manager Physical Relationship Specialty Start Date End Date Chelo Mitchell MD [address] [place] [address] PCP - General Family Medicine 04/01/16 documented as of this encounter
--- OUTSIDE RECORDS SUMMARY | 2024-12-12 15:48 | XMS_ITS | Clinical Summary ---
Author Organization [facility] Address [address] [place] [address] Care Team Providers Care Office Machine Inspector Name Role Phone Chelo Mitchell MD Primary Care Provider [phone] Surgical History Surgery Date Site/Laterality Comments TONSILLECTOMY [...] (2023-2 5 season) 2024 Influenza Vaccine (#1) 2025 05/24/2012 HIB Vaccines Aged Out No longer [...] 5 Years) and At-Risk Patients (6 to 49 Years) Aged Out No longer eligi ble based on patient's age to complete this topic RSV Immunization Patients Un stefani 20 months Aged Out No longer eligible b ased on patient's age to complete this topic Varicella Vaccines Aged Out No longer eligible based on patient's age to complete this topic Care Teams Office Machine Inspector Relationship Specialty Start Date End Date Chelo Mitchell MD [address] [place] [phone] PCP - General 09/06/13
--- OUTSIDE RECORDS SUMMARY | 2024-12-12 15:49 | XMS_ITS | Data Portability ---
Author Organization AUDREY CAVAZOS MD [facility], Main Office Address [address] [place] [id number] Care Team Providers Care Mucker Cofferdam Name Role Phone WISAM PAULINO Primary Care Provider Assessment No assessment recorded. Plan of Treatment Reminders Order Date Submit Date Provider Last Modified By Organization Details Last Modified Time Details Appointments APRETUDE INJECTION 2024 10:00A Villa Lyon MD Not available Not available Not available APRETUDE INJECTION 2024 10:00A Villa Lyon MD Not available Not available Not available APRETUDE INJECTION 2024 10:00A Villa Lyon MD Not available Not available Not available Lab CBC w/ diff [address] [place] [address], [address], 08/26/2024 12:33:32 HIV-1 RNA, quantitat ly, PCR, serum or plasma [address] [place] [address], [address], 08/26/2024 12:33:32 RPR (rapid plasma reagin), serum [address] [place] [address], [address], 08/26/2024 12:33:32 CMP, serum or plasma [address] [place], [place] [address], [place], [address], 08/26/2024 12:33:32 lipids, total, serum [address], [address] [place] [address], [address], 08/26/2024 12:33:32 TSH + free T4, serum [address], [address] [place] [address], [address], 08/26/2024 12:33:32 lipase, serum or plasma [address], [address] [place] [address], [address], 08/26/2024 12:33:33 Referral None recorded. Procedures None recorded. Surgeries None recorded. Imaging None recorded. Medication Orders Apretude 600 mg/3 mL (200 mg/mL) IM suspensio n, extended release [address] [facility]876, [facility] [place], [place], [id number], 11/28/2024 10:11:59 lidocaine 5 % topical patch [address] [facility] #41259, [address] [place], [place], [id number], 11/15/2024 12:46:44 Biofreeze (menthol) 4 % topical gel [address] [facility] #81071, [address] [place], [place], [id number], 11/15/2024 12:46:45 Zepbound 7.5 mg/0.5 mL subcutane ous pen injector [address] [facility] #51379, [address] [place], [place], [id number], 11/15/2024 12:37:54 Valtrex 1 gram tablet [address] [facility] #65780, [address] [place], [place], [id number], 10/14/2024 16:27:44 Zepbound 7.5 mg/0.5 mL subcutane ous pen injector [address] [facility] #39265, [address] [place], [place], [id number], 10/14/2024 16:26:28 Apretude 600 mg/3 mL (200 mg/mL) IM suspensio n, extended release 2024 025 [email or web address] Not available 10/14/2024 12:08:05 Zepbound 7.5 mg/0.5 mL subcutane ous pen injector [address] [facility] #88663, [address] [place], [place], [id number], 09/28/2024 13:59:41 Colace 2-In-1 8.6 mg-50 mg tablet [address] [facility] #27383, [address] [place], [place], [id number], 08/15/2024 14:48:16 Dulcolax (bisacody l) 5 mg tablet,de layed release [address] [facility] #28540, [address] [place], [place], [id number], 08/15/2024 14:49:17 Zepbound 5 mg/0.5 mL subcutane ous pen injector [email or web address] [place] [address] [facility] #02618, [address] [facility], [place], [place], [id number], 09/15/2024 12:09:31 Patient TargetsNo targets recorded. Patient InstructionsNo instructions recorded. Reason for Referral None Reported. Results Created Date Observation Date Name Description Value Unit Range Abnormal Flag Note LastModifiedBy Organization Detail LastModifiedTime Result Notes None recorded. 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 Medical Equipment None Reported. Medications Name Sig Start Date Stop Date Status Note LastModified by Organization Details LastModified Time cyclobenz aprine 10 mg tablet TAKE 1 TABLET BY MOUTH THREE TIMES DAILY NEEDED FOR MUSCLE SPASM active Not Available Not Available No t [...] t Available prednison e 20 mg tablet TAKE 1 TABLET BY MOUTH DAILY FOR 5 DAYS active Not Available Not Available No t Available Pyridium 100 mg tablet Take 1 [...] Available acetamino phen 500 mg tablet TAKE 2 TABLETS BY MOUTH EVERY 8 HOURS NEEDED FOR PAIN active Not Available Not [...] No t Available ibuprofen 600 mg tablet TAKE 1 TABLET BY MOUTH EVERY 6 HOURS NEEDED FOR PAIN active Not Available Not Available No t Available polyethyl mic glycol 3350 17 gram/dose [...] Available Not Available No t Available Fluvirin 0210-4248 45 mcg (15 mcg x 3)/0.5 mL intramusc ular suspensio n trivalen t Quantity : ; 0 refill(s ) 10/24 completed VACCINE_ IND: yes; VACCINE_ NAME: Influenz a, seasonal , injectab le; SU_FULL_ NAME: Melissa Frederickhieu chalwa; Not Available Not Available Not Available Fluvirin 45 mcg (15 mcg x 3)/0.5 mL intramusc ular suspensio n trivalen t Quantity : ; 0 refill(s ) 07/21 completed VACCINE_ IND: yes; VACCINE_ NAME: Influenz a, seasonal , injectab le; SU_FULL_ NAME: Melissa Nathan denton; Not Available Not Available Not Available Afluria Quad 60 mcg/0.5 mL intramusc ular suspensio n quadriva lent Quantity : ; 0 refill(s ) 07/21 completed VACCINE_ IND: yes; VACCINE_ NAME: influenz a, injectab le, quadriva lent; SU_FULL_ NAME: Melissa Nathan l; VIS_DATE : 18:02:17 .0; Not Available Not Available Not Available Shingrix (PF) 50 mcg/0.5 mL intramusc ular suspensio n, kit adjuvant ed Quantity : 1; Duration : 1; 1 refill(s ) 01/01 completed Frequenc y: x1; Duration : 1; VACCINE_ IND: no; VACCINE_ NAME: zoster recombin ant; SU_FULL_ NAME: Melissa Frederickhieu l; Not Available Not Available Not Available [facility] Quad 60 mcg (15 mcg x 4)/0.5 mL IM suspensio n quadriva lent Quantity : ; 0 refill(s ) 2017 active VACCINE_ IND: yes; VACCINE_ NAME: influenz a, injectab le, quadriva lent; SU_FULL_ NAME: Melissa Frederickhieu l; VIS_DATE : 20:07:37 .0; Not Available Not Available [facility] m[facility] (15 mcg x 4)/0.5 mL intramusc ular susp. quadriva lent Quantity : ; 0 refill(s ) 2018 active VACCINE_ IND: yes; VACCINE_ NAME: influenz a, injectab le, quadriva lent; SU_FULL_ NAME: Melissa Frederickhieu l; VIS_DATE : 18:37:45 .0; Not Available Not Available Not Available [facility] mcg (15 mcg x 4)/0.5 mL intramusc ular susp. quadriva lent Quantity : ; 0 refill(s ) 2019 active VACCINE_ IND: yes; VACCINE_ NAME: influenz a, injectab le, quadriva lent; SU_FULL_ NAME: Melissa Frederickhieu l; VIS_DATE : 18:17:54 .0; Not [...] Available Not Available Not Available Afluria Quad [id number] (6mo up) 60 mcg (15 mcg x [...] t Available Vitals Date Recorded Body height Heart rate Respiratory rate Body temperature Body mass index (BMI) Body weight Systolic And Diastolic Provider Name and Address Organization Details Last Updated DateTime 5 162.56 cm 94 /min 12 /min 98.4 [degF] 27.6 kg/m2 56021.3 7 g 118/80 mm[Hg] Laure LYON MD [facility] 14:37:43 Date Recorded Body height Provider Name an d Address Organization Details Last Updated DateTime 09/28/2024 162.56 cm Melissa Lyon MD [address] [place] [address], [phone], AUDREY LYON MD [facility] 09/28/2024 14:00:28 Date Recorded Body height Heart rate Body temperature Body mass index (BMI) Body weight Oxygen saturation Oxygen saturation in Arterial blood by Pulse oximetry Provider Name and Address Organization Details Last Updated DateTime 5 162.56 cm 81 /min 98.2 [degF] 27.5 kg/m2 23138.7 8 g 83 % 83 % Milly LYON MD [facility] 13:08:55 Date Recorded Body height Heart rate Body temperature Body mass index (BMI) Body weight Systolic And Diastolic Provider Name and Address Organization Details Last Updated DateTime 5 162.56 cm 77 /min 98.1 [degF] 27.1 kg/m2 41983.5 9 g 114/80 mm[Hg] Laure LYON MD [facility] 12:04:42 Social History None recorded. Functional Status None [...] virus, quadrivalent, preservative 0 completed Not Available [facility] 07/29/2023 06:54:57 Influenza, split virus, quadrivalent, preservative 9 completed Not Available [facility] 07/29/2023 06:54:58 Influenza, split virus, quadrivalent, preservative 8 completed Not Available [facility] 07/29/2023 06:54:58 Influenza, split virus, quadrivalent, preservative 2 completed Not Available [facility] 07/29/2023 06:54:58 Past Encounters Encounter ID Performer Location Encounter Start Date Encounter Closed Date Diagnosis/Indication Diagnosis SNOMED-CT Code Diagnosis ICD10 Code Diagnosis Note [id number] Melissa Lyon MD Main Office [address] [place] [address] 03/02/2023 12:43:21 03/02/2023 14:38:02 Exposure to Human immunodeficiency virus 403280930 Z20.6 [id number] Melissa Lyon MD Main Office [address] [place] [address] 03/26/2023 14:47:12 03/26/2023 15:55:07 Exposure to Human immunodeficiency virus 850680827 Z20.6 PreP: continue Cabotegrav ir (Apretude) IM QOM. Window visits +/- 7 days within target date reviewed w pt. labs strict compliance addressed w correct use of medication ,complianc e with office visits; window visits reviewed. to call with any new meds/OTC. condom use to prevent other STI's plan of care reviewed [id number] Melissa Lyon MD Main Office [address] [place] [address] 05/01/2023 13:15:30 05/01/2023 13:28:17 Exposure to Human immunodeficiency virus 600220002 Z20.6 PreP: continue Cabotegrav ir (Apretude) IM QOM. Window visits +/- 7 days within target date reviewed w pt. labs strict compliance addressed w correct use of medication ,complianc e with office visits; window visits reviewed. to call with any new meds/OTC. condom use to prevent other STI's plan of care reviewed [id number] Melissa Lyon MD Main Office [address] [place] [address] 06/26/2023 14:56:01 06/26/2023 16:34:48 Exposure to Human immunodeficiency virus 898318232 Z20.6 PreP: continue Cabotegrav ir (Apretude) IM QOM. Window visits +/- 7 days within target date reviewed w pt. labs next visit strict compliance addressed w correct use of medication ,complianc e with office visits; window visits reviewed. to call with any new meds/OTC. condom use to prevent other STI's plan of care reviewed [id number] Melissa Lyon MD Main Office [address] [place] [address] 06/30/2023 09:29:29 06/30/2023 09:53:55 Exposure to Human immunodeficiency virus 649191559 Z20.6 PreP: continue Cabotegrav ir (Apretude) IM QOM. Window visits +/- 7 days within target date reviewed w pt. labs next visit strict compliance addressed w correct use of medication ,complianc e with office visits; window visits reviewed. to call with any new meds/OTC. condom use to prevent other STI's plan of care reviewed [id number] Melissa Lyon MD Main Office [address] [place] [address] 07/29/2023 13:51:08 07/31/2023 16:24:26 Risk of exposure to communicable disease 624074193 Z20.2 [id number] Melissa Lyon MD Main Office [address] [place] [address] 09/25/2023 14:44:43 09/25/2023 14:49:20 Exposure to Human immunodeficiency virus 729496435 Z20.6 PreP:jeronimo nue Cabotegrav ir (Apretude) IM QOM. Window visits +/- 7 days within target date reviewed w pt.labs orderedstr ict compliance addressed w correct use of medication ,complianc e with office visits; window visits reviewed. to call with any new meds/OTC. condom use to prevent other STI's plan of care reviewed [id number] Melissa Lyon MD Main Office [address] [place] [address] 09/29/2023 10:23:43 09/29/2023 10:55:45 Exposure to Human immunodeficiency virus 526240399 Z20.6 PreP:jeronimo nue Cabotegrav ir (Apretude) IM QOM. Window visits +/- 7 days within target date reviewed w pt.labs orderedstr ict compliance addressed w correct use of medication ,complianc e with office visits; window visits reviewed. to call with any new meds/OTC. condom use to prevent other STI's plan of care reviewed [id number] Melissa Lyon MD Main Office [address] [place] [address] 11/30/2023 12:03:49 11/30/2023 12:53:32 Exposure to Human immunodeficiency virus 731154004 Z20.6 PreP:jeronimo nue Cabotegrav ir (Apretude) IM QOM. Window visits +/- 7 days within target date reviewed w pt.labs orderedstr ict compliance addressed w correct use of medication ,complianc e with office visits; window visits reviewed. to call with any new meds/OTC. condom use to prevent other STI's plan of care reviewed [id number] Melissa Lyon MD Main Office [address] [place] [address] 12/24/2023 13:23:00 12/24/2023 14:08:27 Exposure to Human immunodeficiency virus 739375925 Z20.6 PreP:jeronimo nue Cabotegrav ir (Apretude) IM QOM. Window visits +/- 7 days within target date reviewed w pt.labs orderedstr ict compliance addressed w correct use of medication ,complianc e with office visits; window visits reviewed. to call with any new meds/OTC. condom use to prevent other STI's plan of care reviewed Body mass index 30+ - obesity 179565177 Z68.30 obesity. BMI>30Will prescribe Semaglutid e s/c [...] for weight lossProvid ed learning about obesity [id number] Melissa Lyon MD Main Office [address] [place] [address], [place] [address] 01/06/2024 11:08:37 01/06/2024 11:23:14 Body mass index 30+ - obesity 167070745 Z68.30 obesity. BMI>30 START Semaglutid e 0.5 [...] and education and written informatio n provided [id number] Melissa Lyon MD Main Office [address] [place] [address] 01/29/2024 11:07:12 01/29/2024 12:00:56 Exposure to Human immunodeficiency virus 908080023 Z20.6 PreP:jeronimo nue Cabotegrav ir (Apretude) IM QOM. Window visits +/- 7 days within target date reviewed w pt.labs orderedstr ict compliance addressed w correct use of medication ,complianc e with office visits; window visits reviewed. to call with any new meds/OTC. condom use to prevent other STI's plan of care reviewed [id number] Melissa Lyon MD Main Office [address] [place] [address] 02/02/2024 10:57:27 02/02/2024 11:31:15 Body mass index 30+ - obesity 332663095 Z68.30 obesity. START Semaglutid e 0.5 mg sc qw tomorrowin crease dose to 1 mg next month.labs Febontin ue to exercisepo tential side effects reviewed again such as GERD, n/v/d, constipati on, visual, obstraucti on,complia nce with kaleb, meds and safety assessment s reviewedco ntinue to diet. calorie and education and written informatio n provided Exposure t o Human immunodeficiency virus 632943231 Z20.6 PreP:jeronimo nue Cabotegrav ir (Apretude) IM QOM. Window visits +/- 7 days within target date reviewed w pt.labs orderedstr ict compliance addressed w correct use of medication ,complianc e with office visits; window visits reviewed. to call with any new meds/OTC. condom use to prevent other STI's plan of care reviewed Constipation 31839451 K5 9.00 stool softener prnhydrati on Melissa Lyon MD Main Office [address] [place] [address] 03/03/2024 11:17:03 03/03/2024 11:47:16 Body mass index 30+ - obesity 029787551 Z68.30 obesity. continue Semaglutid e 0.5 mg sc qw tomorrowin crease dose to 1 mg next month.labs Febontin ue to exercisepo tential side effects reviewed again such as GERD, n/v/d, constipati on, visual, obstraucti on,complia nce with kaleb, meds and safety assessment s reviewedco ntinue to diet. calorie and education and written informatio n provided Exposure t o Human immunodeficiency virus 871756778 Z20.6 PreP:jeronimo nue Cabotegrav ir (Apretude) IM QOM. Window visits +/- 7 days within target date reviewed w pt.labs orderedstr ict compliance addressed w correct use of medication ,complianc e with office visits; window visits reviewed. to call with any new meds/OTC. condom use to prevent other STI's plan of care reviewedCO VID19 and flu vaccine recommende d. Constipation 00236047 K5 9.00 stool softener prnhydrati on Melissa Lyon MD Main Office [address] [place] [address] 03/30/2024 12:26:34 03/30/2024 14:16:15 Exposure to Human immunodeficiency virus 461625628 Z20.6 Apretude administer ed todaylabs onnext appointmen t Body mass index 30+ - obesity 309158037 Z68.30 obesity. continue Semaglutid e 0.5 mg sc qwcontinue to exercisepo tential side effects reviewed again such as GERD, n/v/d, constipati on, visual, obstraucti on,complia nce with kaleb, meds and safety assessment s reviewedco ntinue to diet. calorie and education and written informatio n provided [id number] Melissa Lyon MD Main Office [address] [place] [address] 04/29/2024 12:01:04 04/29/2024 13:29:49 Exposure to Human immunodeficiency virus 633785810 Z20.6 on Apretude QOMlabs Body mass index 30+ - obesity 878864943 Z68.30 obesity.co ntinue Semaglutid e 0.5 mg sc qw ; prescribed againpt will scrap picker at pharmacy once med is available. shortageco ntinue to exercisepo tential side effects reviewed again such as GERD, n/v/d, constipati on, visual, obstraucti on,complia nce with kaleb, meds and safety assessment s reviewedco ntinue to diet. calorie and education and written informatio n provided Dysuria 25957938 R30.0 on/offpyri dium bid-tid prn if sx.hydrati onshe will call to do u/a and u/c if symptoms recurno sx todayf/u [employer] regarding IUD and dysuria sx. [id number] Melissa Lyon MD Main Office [address] [place] [address] 05/25/2024 09:31:58 05/25/2024 09:47:44 Exposure to sexually transmissible disorder 035466377 Z20.2 Apretude IM administer ed today.no reactions. next dose 07/2023 Body mass index 30+ - obesity 093458105 Z68.30 obesity.co ntinue Semaglutid e 0.5 mg sc qw ;continue to exercisehy drationwat ch diet.call with concerns.c ompliance with kaleb, meds and safety assessment s reviewedco ntinue to diet. calorie and education and written informatio n provided Exposure t o Human immunodeficiency virus 369218447 Z20.6 [id number] Melissa Lyon MD Main Office [address] [place] [address] 06/28/2024 14:06:07 07/08/2024 15:18:49 Exposure to sexually transmissible disorder 495264808 Z20.2 Apretude IM QOMlabs next appointmen t Body mass index 30+ - obesity 565267877 Z68.30 obesity.se maglutide not on formulary anylongerW ill order Zepbound 2.5 mg sq qw x 4 doses , and increase dose as neededcont inue to exercisehy drationwat ch diet.call with concerns.c ompliance with kaleb, meds and safety assessment s reviewedco ntinue to diet. calorie and education and written informatio n provided [id number] Melissa Lyon MD Main Office [address] [place] [address] 07/04/2024 16:20:11 07/21/2024 15:08:28 [id number] Melissa Lyon MD Main Office [address] [place] [address] 07/18/2024 12:29:00 07/18/2024 14:32:13 Exposure to sexually transmissible disorder 120535250 Z20.2 Apretude IM QOMlabs next appointmen t Body mass index 30+ - obesity 996327704 Z68.30 obesity.in crease Zepbound 2.5-->5mg sq qw x 4 doses; and increase dose as needed monthycont inue to exercisehy drationlab s next appointmen t,watch diet.call with concerns.c ompliance with kaleb, meds and safety assessment s reviewedco ntinue to diet. calorie and education and written informatio n provided [id number] Melissa Lyon MD Main Office [address] [place] [address] 07/29/2024 12:24:23 07/29/2024 12:45:22 Exposure to Human immunodeficiency virus 633143349 Z20.6 [id number] Melissa Lyon MD Main Office [address] [place] [address] 08/15/2024 14:18:09 08/15/2024 14:56:11 Exposure to sexually transmissible disorder 255519059 Z20.2 Apretude IM QOMlabs next appointmen t Body mass index 30+ - obesity 961458422 Z68.30 obesity.se maglutide not on formulary anylongerI ncrease Zepbound 5.0mg sq qw x 4 doses , and increase dose as neededcont inue to exercisehy drationwat ch diet.call with concerns.c ompliance with kaleb, meds and safety assessment s reviewedco ntinue to diet. calorie and education and written informatio n provided Constipation 30568269 K5 9.00 [place] [id number] Melissa Lyon MD Main Office [address] [place] [address] 09/28/2024 09:58:49 09/28/2024 11:13:17 Exposure to Human immunodeficiency virus 169045042 Z20.6 Apretude IM QOM.admini stered today Body mass index 30+ - obesity 608582735 Z68.30 obesity.se maglutide not on formulary any longerIncr ease Zepbound 7.5mg sq qw x 4 doses , and increase dose as neededcont inue to exercisehy drationwat ch diet.call with concerns.c ompliance with kaleb, meds and safety assessment s reviewedco ntinue to diet. calorie and education and written informatio n provided [id number] Melissa Lyon MD Main Office [address] [place] [address] 10/14/2024 12:00:06 10/14/2024 14:21:24 Exposure to Human immunodeficiency virus 274008864 Z20.6 Apretude IM QOM. Body mass index 30+ - obesity 440981380 Z68.30 obesity.se maglutide not on formulary any longerkeep Zepbound 7.5mg sq qowcontinu e to exercisehy drationwat ch diet.call with concerns.c ontinue to diet. 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 Chronic low back pain 27 3169967 M54.50 G89.29 f/u PCP for pain management and fnato ne qd PRN for painbiofre francis qd prnto ER if urine or stool incontinen ce, or falls, or imbalance oe worsenign back pain [id number] Melissa Lyon MD Main Office [address] [place] [address] 11/28/2024 09:41:24 11/28/2024 10:12:10 Suspected clinical finding 442173880 Z20.6 Apretude IM QOMlabs next appointmen t Health Concerns Section Related Observation LastModified by Organization Detai ls LastModified Time None Recorded Concern Status LastModified by Organization Details LastModified Time None Recorded Advance Directives Directive None Recorded Payers Insurance Date Sequence Insurance Name Policy Number Policy Mclean Covered Member ID Mclean Member ID Guarantor Name 11/12/2024 1 [place]: [facility] Taniya Benito [id number] Taniya Guerrerojesus Notes Date Note Type Note Provider Name and Address Organization Details Recorded Time text/html weight management currently on zepbound 2.5 [...] no syphilis; eGFR>60; neg GC/chlamydia; HCV neg Melissa Lyon MD [address] [place] [address], [phone], AUDREY LYON MD [facility] 08/20/2024 17:28:28 5 text/html weight managementcurrently on zepbound 5.0 mg sq qwwould like to go up on the doseno n/v/d. no constipation.she would like to go up on the dose.tolerates wellno side effects.no fever. no weight loss.179-->->160 lbs -->161 lbs 08/2024 HIV negative; ALt/AST wnl; eGFR>60;05/2024 HIV negative; AST/ALT wnl; EGFR>60; high cholesterol; glu 9502/2024 ALT/AST wnl; egFR nl ; HIV neg; no HBV; ALt/AST wnl; eGFR=60; no syphilis; eGFR>60; neg GC/chlamydia; HCV neg Melissa Lyon MD [address] [place] [address], [phone], AUDREY LYON MD [facility] 09/28/2024 14:11:23 5 text/html weight management currently on zepbound 7.5 mg sq qwshe is doing it QOW to improve tolerability;prefers to keep same doseno n/v/d. no constipation.tolerates well no side effects. no fever. no weight loss. oral HSV flareup. needs valtrex refill 179-->->160 lbs -->161-->160 lbs 08/2024 HIV negative; ALt/AST wnl; eGFR>60; 05/2024 HIV negative; AST/ALT wnl; EGFR>60; high cholesterol; glu 95 02/2024 ALT/AST wnl; egFR nl ; l 10/2023 HIV neg; no HBV; ALt/AST wnl; eGFR=60; no syphilis; eGFR>60; neg GC/chlamydia; HCV neg Melissa Lyon MD [address] [place], [phone], AUDREY LYON MD [facility] 10/14/2024 16:35:41 text/html weight management currently on zepbound 7.5 mg sq qw she is doing it QOW to improve tolerability and GI side effects.no GI side effects on current dose/frequency. prefers to keep same dose no n/v/d. no constipation. no new meds stable weight. chronic back pain bilateral. managed by PCP; she missed appointment. on tramadol; she rescheduled for January 2025 for refill and evaluation/f/u. She requests pain tx in the meantime. no urinary incontinence/ no stool incontinence. no worsening pain. no imbalance. no falls. HSV resolved. took valtrex. no new flareups. decline suppression tx. 179-->->160 lbs -->161-->160 -->158 lbsBMI 27.1 08/2024 HIV negative; ALt/AST wnl; eGFR>60; 05/2024 HIV negative; AST/ALT wnl; EGFR>60; high cholesterol; glu 95 02/2024 ALT/AST wnl; egFR nl ; l Melissa Lyon MD [address] [place], [phone], AUDREY LYON MD [facility] 11/15/2024 12:58:25 OBGyn Episode No OBEpisode recorded.
== END 2024-12-12 15:39 | disposition home or self-care (01) ==
LOC: HO.HHCX 15:38
PROVIDERS: Visit Provider Internal Medicine
DX: M75.31 Calcific tendinitis of right shoulder (principal)
CPT/HCPCS: 73030

== ENCOUNTER → 2024-12-12 15:39 | Outpatient (BNV) | payer MEDICAID, SELFPAY | PROVIDERS: Visit Provider Radiology Diagnostic Radiology | DX: M25.511 Pain in right shoulder (principal) | CPT/HCPCS: 73030 ==

== ENCOUNTER 2025-01-12 11:59 | Outpatient (REF) | payer MEDICAID, SELFPAY ==
--- OUTSIDE RECORDS SUMMARY | 2025-01-12 12:27 | XMS_ITS | Clinical Summary ---
Author Organization [facility] Address [address] [place] [address] Care Team Providers Care Doubler Operator Name Role Phone Chelo Mitchell MD Primary Care Provider [phone] Surgical History Surgery Date Site/Laterality Comments TONSILLECTOMY [...] 2) 2020 Colorectal Cancer Screening: Colonoscopy 05/05/2022 HIV Screening 05/05/2022 Hepatitis C Screening 05/05/2022 Social Influencers of Health Screening 05/05/2022 COVID-19 Vaccine (1 - 2023-2 5 season) 2024 Depression Screening 06/08/2024 Influenza Vaccine (#1) 2025 05/24/2012 HIB Vaccines [...] age to complete this topic Care Teams Doubler Operator Relationship Specialty Start Date End Date Chelo Mitchell MD [address] [place] [phone] PCP - General 09/06/13
--- OUTSIDE RECORDS SUMMARY | 2025-01-12 12:27 | XMS_ITS | Encounter Summary ---
Author Organization [employer] Address [address] [place] [address] Care Team Providers Care Senior Mortgage Loan Processor Name Role Phone Chelo Mitchell MD Primary Care Provider + Reason for Visit * Reason Comments Med Refill Encounter Details Date Type Department Care Team ([facility] st Contact Info) Description 07/02/2024 Refill [facility] MEDICINE [address] [place], [place] [phone] Chelo Mitchell MD [address] [place], [place] [phone] Cervical disc disorder Social History Tobacco Use [...] Description 03/21/2025 2:30 PM EDT Office Visit [facility] OPTOMETRY [address] [place] [address] Dominique Reese, OD [address] [place] [address] documented as of this encounter Visit Diagnoses Diagnosis Cervical disc disorder documented in this encounter Care Teams Senior Mortgage Loan Processor Relationship Specialty Start Date End Date Chelo Mitchell MD [address] [place] [address] PCP - General Family Medicine 04/01/16 documented as of this encounter
== END 2025-01-12 12:00 | disposition home or self-care (01) ==
LOC: HO.MAMMO 11:59
PROVIDERS: PCP Internal Medicine; Visit Provider Internal Medicine
DX: Z12.31 Encounter for screening mammogram for malignant neoplasm of breast (principal)
CPT/HCPCS: 77063; 77067

== ENCOUNTER → 2025-01-12 12:30 | Outpatient (BNV) | payer MEDICAID, SELFPAY | PROVIDERS: PCP Internal Medicine; Visit Provider Radiology Body Imaging | DX: Z12.31 Encounter for screening mammogram for malignant neoplasm of breast (principal) | CPT/HCPCS: 77063; 77067 ==

== ENCOUNTER 2025-03-31 12:23 | Outpatient (REF) | payer MEDICAID, SELFPAY ==
[2025-03-31 12:49] LABS: MANUAL DIFF FLAG NO
[2025-03-31 13:45] LABS: Hematocrit 42.0 % (37.0-47.0); Hemoglobin 13.7 g/dl (12.0-16.0); Imm Gran Abs Auto 0.06 X10*3/uL (0.00-0.03); Imm Gran Pct Auto 0.6 % (0.0-0.4); Lymphocytes Absolute Auto 2.7 X10*3/uL (1.2-4.9); Mean Corpuscular HGB Conc 32.6 g/dl (31.0-35.0); Mean Corpuscular Hemoglobin 28.4 pg (27.0-33.0); Mean Corpuscular Volume 87.0 fL (80.0-98.0); NRBC Abs Auto 0.000 X10*3/uL (0.0-0.012); NRBC Pct Auto 0.0 /100WBC (0.0-0.2); Platelet Count 346 X10*3/uL (160-400); Red Blood Count 4.83 X10*6/uL (4.20-5.50); White Blood Count 10.7 X10*3/uL (4.8-10.8)
--- OUTSIDE RECORDS SUMMARY | 2025-03-31 14:30 | XMS_ITS | Clinical Summary ---
Author Organization [facility] Address [address] [place] [address] Care Team Providers Care Flat Surfacer Jewel Name Role Phone Chelo Mitchell MD Primary Care Provider [phone] Surgical History Surgery Date Site/Laterality Comments TONSILLECTOMY [...] Last Done Comments Breast Cancer Screening 1970 Colorectal Cancer Screening: Colonoscopy 1970 DTaP,Tdap,and Td Vaccines (1 - Tdap) 1989 Hepatitis B Vaccines (1 of 3 - 19+ 3-dose series) 1989 Cervical Cancer Screening: P ap Smear 1991 Pneumococcal Vaccine: 50+ Ye ars (1 of 1 - PCV) 2020 Zoster Vaccines (1 of 2) 2020 HIV Screening 05/05/2022 Hepatitis C Screening 05/05/2022 Social Influencers of Health Screening 05/05/2022 Depression Screening 06/08/2024 COVID-19 Vaccine (1 - 2023-2 5 season) 2025 Influenza Vaccine (#1) 2025 05/24/2012 RSV Immunization Adult Patie nts (1 - 1-dose 75+ series) 2045 HIB Vaccines Aged Out No longer eligi [...] age to complete this topic Care Teams Flat Surfacer Jewel Relationship Specialty Start Date End Date Chelo Mitchell MD [address] [place] [phone] PCP - General 09/06/13
--- OUTSIDE RECORDS SUMMARY | 2025-03-31 14:31 | XMS_ITS | Data Portability ---
Author Organization AUDREY CAVAZOS MD [facility], Main Office Address [address] [place] [id number] Care Team Providers Care Cement Mason Name Role Phone WISAM PAULINO Primary Care Provider Assessment No assessment recorded. Plan of Treatment Reminders Order Date Submit Date Provider Last Modified By Organization Details Last Modified Time Details Appointments APRETUDE INJECTION 2024 10:00A Villa Lyon MD Not available Not available Not available APRETUDE INJECTION 2025 12:00P Villa Lyon MD Not available Not available Not available PREP FOLLOW UP 2025 01:00P Villa Lyon MD Not available Not available Not available APRETUDE INJECTION 2025 01:00P Villa Lyon MD Not available Not available Not available APRETUDE INJECTION 2025 01:00P Villa Lyon MD Not available Not available Not available PREP FOLLOW UP 2025 03:00P Villa Lyon MD Not available Not available Not available APRETUDE INJECTION 2025 03:00P Villa Lyon MD Not available Not available Not available Lab CBC w/ diff [address], [address] [place] [address], [address], 02/10/2025 11:53:38 CT + NG DNA, PCR, unspecifi ed specimen [address], [address] [place] [address], [address], 02/10/2025 11:53:38 HIV-1 RNA, quantitat ly, PCR, serum or plasma [address] [place] [address], [address], 02/10/2025 11:53:38 RPR (rapid plasma reagin), serum [address] [place] [address], [address], 02/10/2025 11:53:38 HIV 1+2 Ab + HIV1 p24 Ag, quantitat ly immunoass ay, serum [address] [place] [address], [address], 02/10/2025 11:53:38 CMP, serum or plasma [address] [place] [address], [address] [place] [address], [address], 02/10/2025 11:53:38 TSH + free T4, serum [address] [place] [address], [address] [place] [address], [address], 02/10/2025 11:53:38 lipids, total, serum [address] [place] [address], [address], 02/10/2025 11:53:39 Referral None recorded. Procedures None recorded. Surgeries None recorded. Imaging None recorded. Medication Orders Apretude 600 mg/3 mL (200 mg/mL) IM suspensio n, extended release [address] [place], [place] [address] #93172, [address] [place], [place], [id number], 01/27/2025 11:40:53 Zepbound 2.5 mg/0.5 mL subcutane ous pen injector 2024 025 [facility] #53152, [address] [place], [place], [id number], 01/31/2025 00:28:46 Apretude 600 mg/3 mL (200 mg/mL) IM suspensio n, extended release 2024 025 [email or web address] #35806, [address] [place], [place], [id number], 11/28/2024 10:11:59 lidocaine 5 % topical patch 2024 025 [facility] #84183, [address] [place], [place], [id number], 11/15/2024 12:46:44 Biofreeze (menthol) 4 % topical gel 2024 025 [facility] #94370, [address] [place], [place], [id number], 11/15/2024 12:46:45 Zepbound 7.5 mg/0.5 mL subcutane ous pen injector 2024 025 [facility] #37161, [address] [place], [place], [id number], 11/15/2024 12:37:54 Valtrex 1 gram tablet 2024 025 [facility] #59307, [address] [place], [place], [id number], 10/14/2024 16:27:44 Zepbound 7.5 mg/0.5 mL subcutane ous pen injector 2024 025 [facility] #73533, [address] [place], [place], [id number], 10/14/2024 16:26:28 Patient TargetsNo targets recorded. Patient InstructionsNo instructions recorded. Reason for Referral None Reported. 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 2017 Respirator y tuberculos is unspecifie d; snomeddesc ription: Inactive tuberculos is; Report Immunity to Registry: Yes; Notes: LTBI; Not Available [facility] 4 06:59:25 Herpesvir us infection 95192924 Active 2019 Herpesvira l infection, unspecifie d; snomeddesc ription: Herpes simplex; Report Immunity to Registry: Yes; Notes: HSV 1 pos; 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 Medical Equipment None [...] Not Available No t Available ondansetr on HCl 4 mg tablet TAKE 1 TABLET BY MOUTH TWICE DAILY NEEDED FOR NAUSEA active Not Available Not Available No t [...] Available Not Available No t Available Fluvirin 1188-3370 45 mcg (15 mcg x 3)/0.5 mL intramusc ular suspensio n trivalen t Quantity : ; 0 refill(s ) 10/24 completed VACCINE_ IND: yes; VACCINE_ NAME: Influenz a, seasonal , injectab le; SU_FULL_ NAME: Angella Venita chawla; Not Available Not Available Not Available Fluvirin 45 mcg (15 mcg x 3)/0.5 mL intramusc ular suspensio n trivalen t Quantity : ; 0 refill(s ) 07/21 completed VACCINE_ IND: yes; VACCINE_ NAME: Influenz a, seasonal , injectab le; SU_FULL_ NAME: Angella Frederickhieu chawla; Not Available Not Available Not Available [...] l; Not Available Not Available [facility] Available [facility] 60 mcg (15 mcg x 4)/0.5 mL IM suspensio n quadriva lent Quantity : ; 0 refill(s ) 2017 active VACCINE_ IND: yes; VACCINE_ NAME: influenz a, injectab le, quadriva lent; SU_FULL_ NAME: Angella Nathan l; VIS_DATE : 20:07:37 .0; Not Available Not Available Not Available [facility] 60 mcg (15 mcg x 4)/0.5 mL intramusc ular susp. quadriva lent Quantity : ; 0 refill(s ) 2018 active VACCINE_ IND: yes; VACCINE_ NAME: influenz a, injectab le, quadriva lent; SU_FULL_ NAME: Angella Nathan l; VIS_DATE : 18:37:45 .0; Not Available Not Available Not Available [facility] Quad 60 mcg (15 mcg x 4)/0.5 mL intramusc ular susp. quadriva lent Quantity : ; 0 refill(s ) 2019 active VACCINE_ IND: yes; VACCINE_ NAME: influenz a, injectab le, quadriva lent; SU_FULL_ NAME: Angella Nathan l; VIS_DATE : 18:17:54 .0; Not Available Not Available Not Available Tab-A-Vit e 400 mcg tablet TAKE ONE TABLET BY MOUTH EVERY DAY 04/01 completed Duration : 30; VACCINE_ IND: no; SU_FULL_ NAME: Angella Frederickhieu l; Not Available Not Available Not Available [facility] [...] Available Not Available Not Available Afl[facility] Quad 8777-1866 (6mo up) 60 mcg (15 mcg x [...] 2.5 mg/0.5 mL subcutane ous pen injector Inject 2.5 mg every week by subcutan eous route for 30 days, for weight loss. 2024 active Not Available Not Available Not Avai lable Zepbound 7.5 mg/0.5 mL subcutane ous pen injector ADMINIST ER 7.5 MG UNDER THE SKIN EVERY WEEK FOR WEIGHT LOSS active Not Available Not Available No t Available Vitals Date Recorded Body height Heart rate Body temperature Body mass index (BMI) Body weight Oxygen saturation Oxygen saturation in Arterial blood by Pulse oximetry Provider Name and Address Organization Details Last Updated DateTime 162.56 cm 81 /min 98.2 [degF] 27.5 kg/m2 86744.7 8 g 83 % 83 % Milly LYON MD [facility] 13:08:55 Date Recorded Body height Heart rate Body temperature Body mass index (BMI) Body weight Systolic And Diastolic Provider Name and Address Organization Details Last Updated DateTime 162.56 cm 77 /min 98.1 [degF] 27.1 kg/m2 20814.5 9 g 114/80 mm[Hg] Laure LYON MD [facility] 12:04:42 Date Recorded Body height Provider Name an d Address Organization Details Last Updated DateTime 01/27/2025 162.56 cm Laure LYON MD [facility] 01/27/2025 10:35:33 Date Recorded Body height Heart rate Body temperature Body mass index (BMI) Body weight Systolic And Diastolic Provider Name and Address Organization Details Last Updated DateTime 162.56 cm 87 /min 98.3 [degF] 27.8 kg/m2 16495.9 6 g 134/89 mm[Hg] Milly LYON MD [facility] 14:22:20 Social History None recorded. Functional Status None [...] quadrivalent, preservative 0 completed Not Available [facility] 07/29/2023 06:54:57 Influenza, split virus, quadrivalent, preservative 9 completed Not Available [facility] 07/29/2023 06:54:58 Influenza, split virus, quadrivalent, preservative 8 completed Not Available [facility] 07/29/2023 06:54:58 Influenza, split virus, quadrivalent, preservative 2 completed Not Available [facility] 07/29/2023 06:54:58 Past Encounters Encounter ID Performer Location Encounter Start Date Encounter Closed Date Diagnosis/Indication Diagnosis SNOMED-CT Code Diagnosis ICD10 Code Diagnosis IMO Codes Diagnosis Note [id number] Angella Lyon MD Main Office [address] [place] [address] 03/02/2023 12:43:21 03/02/2023 14:38:02 Exposure to Human immunodeficiency virus 829488956 Z20.6 [id number] Angella Lyon MD Main Office [address] [place] [address] 03/26/2023 14:47:12 03/26/2023 15:55:07 Exposure to Human immunodeficiency virus 050988089 Z20.6 PreP: continue Cabotegrav ir (Apretude) IM QOM. Window visits +/- 7 days within target date reviewed w pt. labs strict compliance addressed w correct use of medication ,complianc e with office visits; window visits reviewed. to call with any new meds/OTC. condom use to prevent other STI's plan of care reviewed [id number] Angella Lyon MD Main Office [address] [place] [address] 05/01/2023 13:15:30 05/01/2023 13:28:17 Exposure to Human immunodeficiency virus 861280959 Z20.6 PreP: continue Cabotegrav ir (Apretude) IM QOM. Window visits +/- 7 days within target date reviewed w pt. labs strict compliance addressed w correct use of medication ,complianc e with office visits; window visits reviewed. to call with any new meds/OTC. condom use to prevent other STI's plan of care reviewed [id number] Angella Lyon MD Main Office [address] [place] [address] 06/26/2023 14:56:01 06/26/2023 16:34:48 Exposure to Human immunodeficiency virus 388902926 Z20.6 PreP: continue Cabotegrav ir (Apretude) IM QOM. Window visits +/- 7 days within target date reviewed w pt. labs next visit strict compliance addressed w correct use of medication ,complianc e with office visits; window visits reviewed. to call with any new meds/OTC. condom use to prevent other STI's plan of care reviewed [id number] Angella Lyon MD Main Office [address] [place] [address] 06/30/2023 09:29:29 06/30/2023 09:53:55 Exposure to Human immunodeficiency virus 606118513 Z20.6 PreP: continue Cabotegrav ir (Apretude) IM QOM. Window visits +/- 7 days within target date reviewed w pt. labs next visit strict compliance addressed w correct use of medication ,complianc e with office visits; window visits reviewed. to call with any new meds/OTC. condom use to prevent other STI's plan of care reviewed [id number] Angella Lyon MD Main Office [address] [place] [phone] 07/29/2023 13:51:08 07/31/2023 16:24:26 Risk of exposure to communicable disease 987301348 Z20.2 [id number] Angella Lyon MD Main Office [address] [place] [address] 09/25/2023 14:44:43 09/25/2023 14:49:20 Exposure to Human immunodeficiency virus 328668493 Z20.6 PreP:jeronimo nue Cabotegrav ir (Apretude) IM QOM. Window visits +/- 7 days within target date reviewed w pt.labs orderedstr ict compliance addressed w correct use of medication ,complianc e with office visits; window visits reviewed. to call with any new meds/OTC. condom use to prevent other STI's plan of care reviewed [id number] Angella Lyon MD Main Office [address] [place] [phone] 09/29/2023 10:23:43 09/29/2023 10:55:45 Exposure to Human immunodeficiency virus 552171153 Z20.6 PreP:jeronimo nue Cabotegrav ir (Apretude) IM QOM. Window visits +/- 7 days within target date reviewed w pt.labs orderedstr ict compliance addressed w correct use of medication ,complianc e with office visits; window visits reviewed. to call with any new meds/OTC. condom use to prevent other STI's plan of care reviewed [id number] Angella Lyon MD Main Office [address] [place] [address] 11/30/2023 12:03:49 11/30/2023 12:53:32 Exposure to Human immunodeficiency virus 690759245 Z20.6 PreP:jeronimo nue Cabotegrav ir (Apretude) IM QOM. Window visits +/- 7 days within target date reviewed w pt.labs orderedstr ict compliance addressed w correct use of medication ,complianc e with office visits; window visits reviewed. to call with any new meds/OTC. condom use to prevent other STI's plan of care reviewed [id number] Angella Lyon MD Main Office [address] [place] [address] 12/24/2023 13:23:00 12/24/2023 14:08:27 Exposure to Human immunodeficiency virus 861159561 Z20.6 PreP:jeronimo nue Cabotegrav ir (Apretude) IM QOM. Window visits +/- 7 days within target date reviewed w pt.labs orderedstr ict compliance addressed w correct use of medication ,complianc e with office visits; window visits reviewed. to call with any new meds/OTC. condom use to prevent other STI's plan of care reviewed Body mass index 30+ - obesity 292711266 Z68.30 obesity. BMI>30Will prescribe Semaglutid e s/c [...] for weight lossProvid ed learning about obesity [id number] Angella Lyon MD Main Office [address] [place] [phone] 01/06/2024 11:08:37 01/06/2024 11:23:14 Body mass index 30+ - obesity 968584150 Z68.30 obesity. BMI>30 START Semaglutid e 0.5 [...] and education and written informatio n provided [id number] Angella Lyon MD Main Office [address] [place] [phone] 01/29/2024 11:07:12 01/29/2024 12:00:56 Exposure to Human immunodeficiency virus 898039189 Z20.6 PreP:jeronimo nue Cabotegrav ir (Apretude) IM QOM. Window visits +/- 7 days within target date reviewed w pt.labs orderedstr ict compliance addressed w correct use of medication ,complianc e with office visits; window visits reviewed. to call with any new meds/OTC. condom use to prevent other STI's plan of care reviewed [id number] Angella Lyon MD Main Office [address] [place] [address] 02/02/2024 10:57:27 02/02/2024 11:31:15 Body mass index 30+ - obesity 451595965 Z68.30 obesity. START Semaglutid e 0.5 mg sc qw tomorrowin crease dose to 1 mg next month.labs Febontin ue to exercisepo tential side effects reviewed again such as GERD, n/v/d, constipati on, visual, obstraucti on,complia nce with kaleb, meds and safety assessment s reviewedco ntinue to diet. calorie and education and written informatio n provided Exposure t o Human immunodeficiency virus 062224230 Z20.6 PreP:jeronimo nue Cabotegrav ir (Apretude) IM QOM. Window visits +/- 7 days within target date reviewed w pt.labs orderedstr ict compliance addressed w correct use of medication ,complianc e with office visits; window visits reviewed. to call with any new meds/OTC. condom use to prevent other STI's plan of care reviewed Constipation 18125357 K5 9.00 [place] [id number] Angella Lyon MD Main Office [address] [place] [address] 03/03/2024 11:17:03 03/03/2024 11:47:16 Body mass index 30+ - obesity 704228619 Z68.30 obesity. continue Semaglutid e 0.5 mg sc qw tomorrowin crease dose to 1 mg next month.labs Febontin ue to exercisepo tential side effects reviewed again such as GERD, n/v/d, constipati on, visual, obstraucti on,complia nce with kaleb, meds and safety assessment s reviewedco ntinue to diet. calorie and education and written informatio n provided Exposure t o Human immunodeficiency virus 284524003 Z20.6 PreP:jeronimo nue Cabotegrav ir (Apretude) IM QOM. Window visits +/- 7 days within target date reviewed w pt.labs orderedstr ict compliance addressed w correct use of medication ,complianc e with office visits; window visits reviewed. to call with any new meds/OTC. condom use to prevent other STI's plan of care reviewedCO VID19 and flu vaccine recommende d. Constipation 12783896 K5 9.00 stool softener prnhydrati on Angella Lyon MD Main Office [address] [place] [phone] 03/30/2024 12:26:34 03/30/2024 14:16:15 Exposure to Human immunodeficiency virus 766601976 Z20.6 Apretude administer ed todaylabs onnext appointmen t Body mass index 30+ - obesity 857827616 Z68.30 obesity. continue Semaglutid e 0.5 mg sc qwcontinue to exercisepo tential side effects reviewed again such as GERD, n/v/d, constipati on, visual, obstraucti on,complia nce with kaleb, meds and safety assessment s reviewedco ntinue to diet. calorie and education and written informatio n provided [id number] Angella Lyon MD Main Office [address] [place] [address] 04/29/2024 12:01:04 04/29/2024 13:29:49 Exposure to Human immunodeficiency virus 166532691 Z20.6 on Apretude QOMlabs Body mass index 30+ - obesity 188707686 Z68.30 obesity.co ntinue Semaglutid e 0.5 mg sc qw ; prescribed againpt will berry picker at pharmacy once med is available. shortageco ntinue to exercisepo tential side effects reviewed again such as GERD, n/v/d, constipati on, visual, obstraucti on,complia nce with kaleb, meds and safety assessment s reviewedco ntinue to diet. calorie and education and written informatio n provided Dysuria 06087341 R30.0 on/offpyri dium bid-tid prn if sx.hydrati onshe will call to do u/a and u/c if symptoms recurno sx todayf/u MARK[employer] MA[employer]GER regarding IUD and dysuria sx. [id number] Angella Lyon MD Main Office [address] [place] [address] 05/25/2024 09:31:58 05/25/2024 09:47:44 Exposure to sexually transmissible disorder 097225550 Z20.2 Apretude IM administer ed today.no reactions. next dose 07/2023 Body mass index 30+ - obesity 838482391 Z68.30 obesity.co ntinue Semaglutid e 0.5 mg sc qw ;continue to exercisehy drationwat ch diet.call with concerns.c ompliance with kaleb, meds and safety assessment s reviewedco ntinue to diet. calorie and education and written informatio n provided Exposure t o Human immunodeficiency virus 780680495 Z20.6 [id number] Angella Lyon MD Main Office [address] [place] [address] 06/28/2024 14:06:07 07/08/2024 15:18:49 Exposure to sexually transmissible disorder 223453778 Z20.2 Apretude IM QOMlabs next appointmen t Body mass index 30+ - obesity 893448273 Z68.30 obesity.se maglutide not on formulary anylongerW ill order Zepbound 2.5 mg sq qw x 4 doses , and increase dose as neededcont inue to exercisehy drationwat ch diet.call with concerns.c ompliance with kaleb, meds and safety assessment s reviewedco ntinue to diet. calorie and education and written informatio n provided [id number] Angella Lyon MD Main Office [address] [place] [phone] 07/04/2024 16:20:11 07/21/2024 15:08:28 [id number] Angella Lyon MD Main Office [address] [place] [address] 07/18/2024 12:29:00 07/18/2024 14:32:13 Exposure to sexually transmissible disorder 675412502 Z20.2 Apretude IM QOMlabs next appointmen t Body mass index 30+ - obesity 788100163 Z68.30 obesity.in crease Zepbound 2.5-->5mg sq qw x 4 doses; and increase dose as needed monthycont inue to exercisehy drationlab s next appointmen t,watch diet.call with concerns.c ompliance with kaleb, meds and safety assessment s reviewedco ntinue to diet. calorie and education and written informatio n provided [id number] Angella Lyon MD Main Office [address] [place] [address] 07/29/2024 12:24:23 07/29/2024 12:45:22 Exposure to Human immunodeficiency virus 552799914 Z20.6 [id number] Angella Lyon MD Main Office [address] [place] [address] 08/15/2024 14:18:09 08/15/2024 14:56:11 Exposure to sexually transmissible disorder 221004901 Z20.2 Apretude IM QOMlabs next appointmen t Body mass index 30+ - obesity 809308186 Z68.30 obesity.se maglutide not on formulary anylongerI ncrease Zepbound 5.0mg sq qw x 4 doses , and increase dose as neededcont inue to exercisehy drationwat ch diet.call with concerns.c ompliance with kaleb, meds and safety assessment s reviewedco ntinue to diet. calorie and education and written informatio n provided Constipation 14851771 K5 9.00 [place] [id number] Angella Lyon MD Main Office [address] [place] [address] 09/28/2024 09:58:49 09/28/2024 11:13:17 Exposure to Human immunodeficiency virus 723122044 Z20.6 302086 Apretude IM QOM.admini stered today Body mass index 30+ - obesity 637184700 Z68.30 obesity.se maglutide not on formulary any longerIncr ease Zepbound 7.5mg sq qw x 4 doses , and increase dose as neededcont inue to exercisehy drationwat ch diet.call with concerns.c ompliance with kaleb, meds and safety assessment s reviewedco ntinue to diet. calorie and education and written informatio n provided [id number] Angella Lyon MD Main Office [address] [place] [address] 10/14/2024 12:00:06 10/14/2024 14:21:24 Exposure to Human immunodeficiency virus 002069089 Z20.6 788561 Apretude IM QOM. Body mass index 30+ - obesity 799084255 Z68.30 obesity.se maglutide not on formulary any longerkeep Zepbound 7.5mg sq qowcontinu e to exercisehy drationwat ch diet.call with concerns.c ontinue to diet. 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 Chronic low back pain 27 1335623 M54.50 G89.29 8568973745 f/u PCP for pain management and fnato ne qd PRN for painbiofre francis qd prnto ER if urine or stool incontinen ce, or falls, or imbalance oe worsenign back pain [id number] Angella Lyon MD Main Office [address] [place] [phone] 11/28/2024 09:41:24 11/28/2024 10:12:10 Suspected clinical finding 231697447 Z20.6 2003252 Apretude IM QOMlabs next appointmen t [id number] Angella Lyon MD Main Office [address] [place] [address] 01/27/2025 09:30:16 01/27/2025 11:54:50 Suspected clinical finding 852180559 Z20.6 8410356 Apretude IM QOM; administer ed todaylabs Body mass index 30+ - obesity 382217258 Z68.30 obesity.pr escribe Zepbound 2.5mg sq qw for maintenanc e.pt has reached her target weight and will need maintenanc e txcorrect use reviewed.w [facility] diet/exerc isecall with concerns. [id number] Angella Lyon MD Main Office [address] [place] [phone] 03/30/2025 14:03:00 03/30/2025 15:08:23 Suspected clinical finding 154239051 Z20.6 0982126 Apretude IM QOM; administer ed todaylabs Body mass index 30+ - obesity 451379558 Z68.30 obesity.pr escribe Zepbound 2.5mg sq qw for maintenanc e-.pt has reached her target weight and will need maintenanc e txcorrect use reviewed.w at[facility] diet/exerc isecall with concerns. Health Concerns Section Related Observation LastModified by Organization Detai ls LastModified Time None Recorded Concern Status LastModified by Organization Details LastModified Time None Recorded Advance Directives Directive None Recorded Payers Insurance Date Sequence Insurance Name Policy Number Policy Mclean Covered Member ID Mclean Member ID Guarantor Name 03/27/2025 1 [place] [facility] Taniya Benito [id number] Taniya Gómez Notes Date Note Type Note Provider Name and Address Organization Details Recorded Time 10/14/2024 text/html ROS as noted in the HPI weight management currently on zepbound 7.5 mg sq qwshe is doing it QOW to improve tolerability;prefer s to keep same doseno n/v/d. no constipation.tolera juan manuel well no side effects. no fever. no weight loss. oral HSV flareup. needs valtrex refill 179-->->160 lbs -->161-->160 lbs 08/2024 HIV negative; ALt/AST wnl; eGFR>60; 05/2024 HIV negative; AST/ALT wnl; EGFR>60; high cholesterol; glu 95 02/2024 ALT/AST wnl; egFR nl ; l 10/2023 HIV neg; no HBV; ALt/AST wnl; eGFR=60; no syphilis; eGFR>60; neg GC/chlamydia; HCV neg Angella Loyn MD [address] [place] [address], [phone], [facility] ANGELLA LYON [facility] [facility] 10/14/2024 16:35:41 11/15/2024 text/html ROS as noted in the HPI weight management currently on zepbound 7.5 mg [...] 02/2024 ALT/AST wnl; egFR nl ; l Angella Lyon MD [address] [place] [address], [phone], [facility] Rae LYON MD [facility] 11/15/2024 12:58:25 01/27/2025 text/html [facility] the [facility] weight managementshe would like maintenance dose of 2.5 mg sq qw.reached her weight target goal and is interestedin maintenance tx.has tolerated med well.no GI side effects ; no n/v/d. no constipation.no new [id number]-->->160 lbs -->161-->160 -->158 lbs no recent labs08/2024 HIV negative; ALt/AST wnl; eGFR>60;05/2024 HIV negative; AST/ALT wnl; EGFR>60; high cholesterol; glu 9502/2024 ALT/AST wnl; egFR nl ; l Angella Lyon MD [address] [place] [address], [phone], [facility] Rae LYON MD [facility] 01/31/2025 00:33:00 03/30/2025 text/html [facility] the [facility] weight managementshe would like maintenance dose of 2.5 mg sq qw. - ptreached her weight target goal and is interested in maintenance tx- want to continue maintainence dose weeklyhas tolerated med well.no GI side effects ; no n/v/d. no constipation.pt is feeling well, taking her injections as directed- no issues with nodules on buttocksno new medspt is sexual active with [id number]-->->160 lbs -->161-->160 -->158 lbs- now 162no recent labs08/2024 HIV negative; ALt/AST wnl; eGFR>60;05/2024 HIV negative; AST/ALT wnl; EGFR>60; high cholesterol; glu 9502/2024 ALT/AST wnl; egFR nl ; l Not Available Not Available Not Available OBGyn Episode No OBEpisode recorded.
[2025-03-31 14:57] LABS: Alanine Aminotransferase 37 U/L (0-31); Albumin Level 4.6 g/dL (3.5-5.0); Alkaline Phosphatase 77 U/L (39-117); Anion Gap 13 (12-20); Aspartate Amino Transferase 24 U/L (5-31); Blood Urea Nitrogen 15 mg/dL (9-16); Calcium 9.3 mg/dL (8.4-10.2); Carbon Dioxide 26 mmol/L (22-29); Chloride 109 mmol/L (96-108); Cholesterol 234 mg/dL (<200); Estimated Glomerular Filt Rate > 60; HDL Cholesterol 45 mg/dL (>40); Potassium 3.9 mmol/L (3.3-5.1); Sodium 144 mmol/L (135-145); Total Protein 7.6 g/dL (6.5-8.0); Triglycerides 265 mg/dL (<150)
[2025-03-31 14:59] LABS: Free T4 (Free Thyroxine) 0.91 ng/dL (0.71-1.85); Thyroid Stimulating Hormone 0.70 uIU/mL (0.32-4.0)
[2025-03-31 15:09] LABS: CT PCR Urine NOT DETECTED (Not Detect.); NG PCR Urine NOT DETECTED (Not Detect.)
[2025-04-01 03:36] LABS: Syphilis Screen Nonreactive (Nonreactive)
[2025-04-01 04:33] LABS: HIV Num 1 0.05 S/CO (0.00-0.99)
[2025-04-03 14:57] LABS: HIV RNA PCR Qn Copies NOT DETECTED copies/mL (NOT DETECTED); HIV RNA PCR Qn Log Copies NOT DETECTED (NOT DETECTED)
== END 2025-03-31 12:24 | disposition home or self-care (01) ==
LOC: HO.LAB 12:23
PROVIDERS: PCP Internal Medicine; Visit Provider Internal Medicine Infectious Disease
DX: Z20.6 Contact with and (suspected) exposure to human immunodeficiency virus [HIV] (principal); Z20.2 Contact with and (suspected) exposure to infections with a predominantly sexual mode of transmission; Z68.30 Body mass index [BMI] 30.0-30.9, adult
CPT/HCPCS: 80053; 80061; 84439; 84443; 85025; 86780; 87389; 87491; 87536; 87591